=== PATIENT | female | born 1950 | race Asian ===

== ENCOUNTER 2020-10-19 10:06 | Inpatient (IN) | payer MEDICAID ==
[~2020-10-19] VITALS: Ht 157.5 cm; Wt 62.5 kg
[2020-10-19] VITALS (12 sets, daily range): BP systolic 86–142; BP diastolic 75–93
[~2020-10-19 10:06] MED LIST: ALBU2.5V8 INH; AMOX1TAB11 PO; HYDR-2761 PO; LOSA25TA4 PO; METF500T16 PO; SPIR25TA5 PO; UMEC1DIS IH
[2020-10-19] MEDS ORDERED: DEXAMETHASONE SOD PHOS 20 MG/5 ML VIAL. IVP ONE (11:00)
[2020-10-19] MEDS ORDERED: cefTRIAXone IV Push 1 GM VIAL. IVP ONE (11:00)
[2020-10-19 11:15] LABS: BASO % 0 % (0-3); EOS % 0 % (0-3); HEMATOCRIT 50.1 % (36.0-47.0); HEMOGLOBIN 15.5 g/dL (12.0-15.5); LYMPH # 1.3 x10^3/uL (1.0-4.8); LYMPH % 26 % (24-48); MEAN CORPUSCULAR HEMOGLOBIN 29 pg (25-35); MEAN CORPUSCULAR HGB CONC 31 g/dL (31-37); MEAN CORPUSCULAR VOLUME 93 fL (79-100); MONO # 0.7 x10^3/uL (0.0-1.1); MONO % 13 % (0-9); NEUT % 60 % (31-73); PLATELET COUNT 153 x10^3/uL (140-400); RED CELL DISTRIBUTION WIDTH 14.5 % (11.5-14.5); WHITE BLOOD COUNT 5.1 x10^3/uL (4.0-11.0)
[2020-10-19 11:20] LABS: BASE EXCESS ABG 6 mmol/L (-3-3); HCO3 ABG 38 mmol/L (21-28); PO2 ABG 161 mmHg (65-108); SAT O2 ABG 98 % (92-99)
--- NOTE | 2020-10-19 11:20 | ED.ADGEN ---
Past Medical History Past Medical History: COPD, Diabetes-Type II, High Cholesterol, Hypertension, Other Additional Past Medical Histor: pt wears O2 at night; poor historian Past Surgical History: Other Additional Past Surgical Histo: left hand Smoking Status: Never Smoker Alcohol Use: None General Adult EDM: Chief Complaint: SHORTNESS OF BREATH HPI: HPI: Patient 70-year-old female with past medical history of COPD who presents to the emergency room in respiratory failure. Family states that this is been ongoing for the last 4 days. They are unsure if she is having fever. History is significantly limited due to poor historian and language barrier. Patient is also in distress and is unable to answer any questions. Family states that they got her tested for Covid yesterday but the test result has not come back. Review of Systems: Review of Systems: HPI Current Medications: Current Medications Medications (Trade) Dose Ordered Sig/Fran Start Time Stop Time Status Last Admin Dose Admin Ceftriaxone Sodium (Rocephin) 1 gm 1X ONCE 10/19/20 11:00 10/19/20 11:01 DC 10/19/20 11:25 1 GM Dexamethasone Sodium Phosphate (Decadron) 10 mg 1X ONCE 10/19/20 11:00 10/19/20 11:01 DC 10/19/20 11:24 10 MG Allergies: Allergies: Allergies Coded Allergies Type Severity Reaction Last Updated Verified No Known Drug Allergies 11/15/19 No Physical Exam: PE: General: Awake, alert, moderate distress HEENT: Atraumatic, EOMI, PERRL, airway patent, dry oral mucosa Neck: Supple, trachea midline Respiratory: Decreased breath sounds bilaterally with diffuse crackles, tachypnea, increased work of breathing, respiratory distress CV: Tachycardic, no murmur, cap refill <2 GI: Soft, nondistended, nontender, no masses MSK: No obvious deformities Skin: Warm, dry, intact Neuro: Speaks in one-word sentences, sensory and motor grossly intact, no focal deficits Psych: Normal affect, normal mood, not suicidal or homicidal Current Patient Data: Labs: Laboratory Tests Test 10/19/20 10:30 10/19/20 10:35 10/19/20 11:20 10/19/20 12:49 White Blood Count 5.1 x10^3/uL (4.0-11.0) Red Blood Count 5.40 x10^6/uL (3.50-5.40) Hemoglobin 15.5 g/dL (12.0-15.5) Hematocrit 50.1 % (36.0-47.0) H Mean Corpuscular Volume 93 fL (79-100) Mean Corpuscular Hemoglobin 29 pg (25-35) Mean Corpuscular Hemoglobin Concent 31 g/dL (31-37) Red Cell Distribution Width 14.5 % (11.5-14.5) Platelet Count 153 x10^3/uL (140-400) Neutrophils (%) (Auto) 60 % (31-73) Lymphocytes (%) (Auto) 26 % (24-48) Monocytes (%) (Auto) 13 % (0-9) H Eosinophils (%) (Auto) 0 % (0-3) Basophils (%) (Auto) 0 % (0-3) Neutrophils # (Auto) 3.0 x10^3/uL (1.8-7.7) Lymphocytes # (Auto) 1.3 x10^3/uL (1.0-4.8) Monocytes # (Auto) 0.7 x10^3/uL (0.0-1.1) Eosinophils # (Auto) 0.0 x10^3/uL (0.0-0.7) Basophils # (Auto) 0.0 x10^3/uL (0.0-0.2) D-Dimer (Sheila) 1.10 ug/mlFEU (0.00-0.50) H Sodium Level 147 mmol/L (136-145) H Potassium Level 4.2 mmol/L (3.5-5.1) Chloride Level 107 mmol/L (98-107) Carbon Dioxide Level 36 mmol/L (21-32) H Anion Gap 4 (6-14) L Blood Urea Nitrogen 20 mg/dL (7-20) Creatinine 0.7 mg/dL (0.6-1.0) Estimated GFR (Cockcroft-Gault) 83.0 BUN/Creatinine Ratio 29 (6-20) H Glucose Level 155 mg/dL (70-99) H Calcium Level 8.5 mg/dL (8.5-10.1) Total Bilirubin 0.5 mg/dL (0.2-1.0) Aspartate Amino Transferase (AST) 61 U/L (15-37) H Alanine Aminotransferase (ALT) 75 U/L (14-59) H Alkaline Phosphatase 77 U/L (46-116) Lactate Dehydrogenase 269 U/L (81-234) H Creatine Kinase 79 U/L (26-192) Troponin I Quantitative 0.223 ng/mL (0.000-0.055) C-Reactive Protein, Quantitative 10.8 mg/L (0-3.3) H BL-Toe-F-Type Natriuretic Peptide 9013 pg/mL (0-124) H Total Protein 6.7 g/dL (6.4-8.2) Albumin 2.9 g/dL (3.4-5.0) L Albumin/Globulin Ratio 0.8 (1.0-1.7) L Influenza Type A Antigen Negative (NEGATIVE) Influenza Type B Antigen Negative (NEGATIVE) O2 Saturation 98 % (92-99) 88 % (92-99) L Arterial Blood pH 7.19 (7.35-7.45) *L 7.22 (7.35-7.45) L Arterial Blood pCO2 at Patient Temp 102 mmHg (35-46) *H 90 mmHg (35-46) *H Arterial Blood pO2 at Patient Temp 161 mmHg (65-108) H 63 mmHg (65-108) L Arterial Blood HCO3 38 mmol/L (21-28) H 36 mmol/L (21-28) H Arterial Blood Base Excess 6 mmol/L (-3-3) H 4 mmol/L (-3-3) H FiO2 100 bipap 100 bipap Laboratory Tests 10/19/20 10:30 Laboratory Tests 10/19/20 10:30 Vital Signs: Vital Signs Date Time Temp Pulse Resp B/P (MAP) Pulse Ox O2 Delivery O2 Flow Rate FiO2 10/19/20 13:00 68 103/74 (84) 97 BiPAP/CPAP 10/19/20 10:46 98.4 30 2.0 98.4 EKG: EKG: [] Heart Score: Risk Factors: Risk Factors: DM, Current or recent (<one month) smoker, HTN, HLP, family history of CAD, obesity. Risk Scores: Score 0 - 3: 2.5% MACE over next 6 weeks - Discharge Home Score 4 - 6: 20.3% MACE over next 6 weeks - Admit for Clinical Observation Score 7 - 10: 72.7% MACE over next 6 weeks - Early Invasive Strategies Radiology/Procedures: Radiology/Procedures: [] Course & Med Decision Making: Course & Med Decision Making Pertinent Labs and Imaging studies reviewed. (See chart for details) Patient is a 70-year-old female who presents to the emergency room in respiratory distress. Patient is significantly hypoxic. She did improve with a nonrebreather. She was placed on BiPAP. At this time there is concern for possible novel coronavirus 19, pulmonary edema, congestive heart failure, COPD exacerbation, pneumonia. Patient was given steroids and antibiotics. COVID test was ordered. Patient is significantly hypercapnic. Repeat gas shows improvement on BiPAP. We will continue to monitor to determine if patient improves with BiPAP or will need intubation. Patient will be admitted to the ICU. She has pulmonary edema. Dragon Disclaimer: Dragon Disclaimer: This electronic medical record was generated, in whole or in part, using a voice recognition dictation system. Critical Care Time Critical Care: Authorized and Performed by: Lauren Mendez MD Total critical care time: approximately 60 minutes Due to a high probability of clinically significant, life threatening deterioration, the patient required my highest level of preparedness to intervene emergently and I personally spent this critical care time directly and personally managing the patient. This critical care time included obtaining a history; examining the patient; pulse oximetry; ventilator management if necessary; ordering and review of studies; arranging urgent treatment with development of a management plan; evaluation of patient's response to treatment; frequent reassessment; discussion with patient/family; and, discussions with other providers. This critical care time was performed to assess and manage the high probability of imminent, life-threatening deterioration that could result in multi-organ failure. It was exclusive of separately billable procedures and treating other patients and teaching time. Please see MDM section and the rest of the note for further information on patient assessment and treatment. Departure Departure Impression: Primary Impression: Acute respiratory failure Additional Impression: Pulmonary edema Disposition: ADMITTED INPT THIS HOSP Condition: CRITICAL Referrals: NO PCP (PCP) Problem Qualifiers LAUREN MENDEZ MD Oct 19, 2020 11:20
[2020-10-19 11:22] LABS: PCO2 ABG 102 mmHg (35-46)
[2020-10-19 11:22] LABS: CALCIUM 8.5 mg/dL (8.5-10.1); CREATININE 0.7 mg/dL (0.6-1.0); POTASSIUM 4.2 mmol/L (3.5-5.1)
[2020-10-19 11:23] LABS: FIO2 ABG 100 BIPAP
--- NOTE | 2020-10-19 11:25 | RAD ---
Single view of the chest. 10/19/2020 11:06 AM Indication: Reason: cough, covid? / Spl. Instructions: / History: Comparison: Chest radiograph March 04, 2014 Findings: Cardiomediastinal silhouette appears be enlarged, likely augmented by portable technique an d positioning. And mild interstitial thickening appears be present which could represent mild edema. An atypical infectious process is not excluded. No pneumothorax or definitive effusion is seen. No ac yinka osseous changes are identified. IMPRESSION: Cardiomegaly, mild interstitial thickening. Findings could represent edema or an atypical infectious process. Electronically signed by: Anders Tobar MD (10/19/2020 11:23 AM) [id number]
[2020-10-19 11:28] LABS: ALBUMIN 2.9 g/dL (3.4-5.0); ALBUMIN/GLOBULIN RATIO 0.8 (1.0-1.7); C-REACTIVE PROTEIN 10.8 mg/L (0-3.3); TOTAL BILIRUBIN 0.5 mg/dL (0.2-1.0); TOTAL PROTEIN 6.7 g/dL (6.4-8.2)
[2020-10-19 11:50] LABS: INFLUENZA A PATIENT NEGATIVE (NEGATIVE); INFLUENZA B PATIENT NEGATIVE (NEGATIVE)
[2020-10-19 12:50] LABS: BASE EXCESS ABG 4 mmol/L (-3-3); HCO3 ABG 36 mmol/L (21-28); PO2 ABG 63 mmHg (65-108); SAT O2 ABG 88 % (92-99)
[2020-10-19 12:53] LABS: PCO2 ABG 90 mmHg (35-46)
[2020-10-19 12:54] LABS: FIO2 ABG 100 BIPAP
--- NOTE | 2020-10-19 14:02 | PDOC1 ---
History and Physical Date of Admission Date of Admission DATE: 10/19/20 TIME: 13:59 Identification/Chief Complaint Chief Complaint Shortness of breath Source Source: Caregiver, Chart review, Patient History of Present Illness History of Present Illness Ms Castellanos is a 70yo F [place] speaking only w/ PMHx COPD, Diabetes-Type II, High Cholesterol, Hypertension, YAN on nocturnal O2 who presents to the emergency room in respiratory distress. Family states that this is been ongoing for the last 4 days. They are unsure if she is having fever. History is significantly limited due to poor historian and language barrier. Patient is also in distress and is unable to answer any questions. Family states that they got her tested for Covid yesterday but the test result has not come back. She is notably confused according to her son, who is bedside. Chest radiograph with mild interstitial thickening Labs with WBC 5.1, Hb 15.5, platelets 153, NA 147, K4.2, BUN 20, CR 0.7, glucose 155, AST 61, ALT 75, LDH 269, albumin 2.9, CRP 10.8, BNP 9013, troponin 0 0.223, rapid influenza negative, ABG pH 7.19, PaCO2 102, PaO2 161 on BiPAP 100% FiO2 Admitted on BIPAP for further care. Past Medical History Cardiovascular: HTN, Hyperlipidemia Pulmonary: COPD Endocrine: Diabetes Past Surgical History Past Surgical History: Cholecystectomy Social History Smoke: No ALCOHOL: none Drugs: None Current Problem List Problem List Problems Medical Problems: (1) Acute respiratory failure Status: Acute Current Medications Current Medications Current Medications Dexamethasone Sodium Phosphate (Decadron) 10 mg 1X ONCE IVP Last administered on 10/19/20at 11:24; Start 10/19/20 at 11:00; Stop 10/19/20 at 11:01; Status DC Ceftriaxone Sodium (Rocephin) 1 gm 1X ONCE IVP Last administered on 10/19/20at 11:25; Start 10/19/20 at 11:00; Stop 10/19/20 at 11:01; Status DC Active Scripts Active Hydrocodone-Apap 5-325 (Hydrocodone Bit/Acetaminophen) 1 Tab Tablet 1 Tab PO PRN Q4HRS PRN 5 Days Amox Tr-K Clv 875-125 Mg Tab (Amoxicillin/Potassium Clav) 1 Each Tablet 1 Tab PO BID 4 Days Reported Anoro Ellipta 62.5-25 Mcg Inh (Umeclidinium Brm/Vilanterol Tr) 1 Each Disk.w.dev 1 Each IH Proair Hfa Inhaler (Albuterol Sulfate) 8.5 Gm Hfa.aer.ad 1 Puff INH PRN Q6HRS PRN Allergies Allergies: Coded Allergies: No Known Drug Allergies (Unverified , 11/15/19) ROS Review of System Unable to obtain due to confusion Physical Exam General: Cooperative, moderate distress HEENT: Atraumatic, PERRLA, EOMI, Mucous membr. moist/pink, Other (Stacey paint o n face) Lungs: Clear to auscultation, Normal air movement Heart: S1S2, RRR, no thrills, no rubs, no gallops, no murmurs Abdomen: Normal bowel sounds, Soft, No tenderness, No hepatosplenomegaly, No masses Rectal Exam: not examined Extremities: No clubbing, No cyanosis, No edema, Normal pulses, No tenderness/swelling Skin: No rashes, No breakdown, No significant lesion Neuro: Normal speech, Strength at 5/5 X4 ext, Normal tone, Sensation intact, Cranial nerves 3-12 NL, Reflexes 2+ Psych/Mental Status: Other (Confused) Vitals Vitals Vital Signs Date Time Temp Pulse Resp B/P (MAP) Pulse Ox O2 Delivery O2 Flow Rate FiO2 10/19/20 12:56 97 BiPAP/CPAP 10/19/20 12:50 82 103/74 (84) 10/19/20 10:46 98.4 30 2.0 98.4 Labs Labs Laboratory Tests Test 10/19/20 10:30 10/19/20 10:35 10/19/20 11:20 10/19/20 12:49 White Blood Count 5.1 x10^3/uL (4.0-11.0) Red Blood Count 5.40 x10^6/uL (3.50-5.40) Hemoglobin 15.5 g/dL (12.0-15.5) Hematocrit 50.1 % (36.0-47.0) Mean Corpuscular Volume 93 fL (79-100) Mean Corpuscular Hemoglobin 29 pg (25-35) Mean Corpuscular Hemoglobin Concent 31 g/dL (31-37) Red Cell Distribution Width 14.5 % (11.5-14.5) Platelet Count 153 x10^3/uL (140-400) Neutrophils (%) (Auto) 60 % (31-73) Lymphocytes (%) (Auto) 26 % (24-48) Monocytes (%) (Auto) 13 % (0-9) Eosinophils (%) (Auto) 0 % (0-3) Basophils (%) (Auto) 0 % (0-3) Neutrophils # (Auto) 3.0 x10^3/uL (1.8-7.7) Lymphocytes # (Auto) 1.3 x10^3/uL (1.0-4.8) Monocytes # (Auto) 0.7 x10^3/uL (0.0-1.1) Eosinophils # (Auto) 0.0 x10^3/uL (0.0-0.7) Basophils # (Auto) 0.0 x10^3/uL (0.0-0.2) D-Dimer (Sheila) 1.10 ug/mlFEU (0.00-0.50) Sodium Level 147 mmol/L (136-145) Potassium Level 4.2 mmol/L (3.5-5.1) Chloride Level 107 mmol/L (98-107) Carbon Dioxide Level 36 mmol/L (21-32) Anion Gap 4 (6-14) Blood Urea Nitrogen 20 mg/dL (7-20) Creatinine 0.7 mg/dL (0.6-1.0) Estimated GFR (Cockcroft-Gault) 83.0 BUN/Creatinine Ratio 29 (6-20) Glucose Level 155 mg/dL (70-99) Calcium Level 8.5 mg/dL (8.5-10.1) Total Bilirubin 0.5 mg/dL (0.2-1.0) Aspartate Amino Transf (AST/SGOT) 61 U/L (15-37) Alanine Aminotransferase (ALT/SGPT) 75 U/L (14-59) Alkaline Phosphatase 77 U/L (46-116) Lactate Dehydrogenase 269 U/L (81-234) Creatine Kinase 79 U/L (26-192) Troponin I Quantitative 0.223 ng/mL (0.000-0.055) C-Reactive Protein, Quantitative 10.8 mg/L (0-3.3) VI-Shp-H-Type Natriuretic Peptide 9013 pg/mL (0-124) Total Protein 6.7 g/dL (6.4-8.2) Albumin 2.9 g/dL (3.4-5.0) Albumin/Globulin Ratio 0.8 (1.0-1.7) Influenza Type A Antigen Negative (NEGATIVE) Influenza Type B Antigen Negative (NEGATIVE) O2 Saturation 98 % (92-99) 88 % (92-99) Arterial Blood pH 7.19 (7.35-7.45) 7.22 (7.35-7.45) Arterial Blood pCO2 at Patient Temp 102 mmHg (35-46) 90 mmHg (35-46) Arterial Blood pO2 at Patient Temp 161 mmHg (65-108) 63 mmHg (65-108) Arterial Blood HCO3 38 mmol/L (21-28) 36 mmol/L (21-28) Arterial Blood Base Excess 6 mmol/L (-3-3) 4 mmol/L (-3-3) FiO2 100 bipap 100 bipap Laboratory Tests Test 10/19/20 10:30 10/19/20 10:35 10/19/20 11:20 10/19/20 12:49 White Blood Count 5.1 x10^3/uL (4.0-11.0) Red Blood Count 5.40 x10^6/uL (3.50-5.40) Hemoglobin 15.5 g/dL (12.0-15.5) Hematocrit 50.1 % (36.0-47.0) Mean Corpuscular Volume 93 fL (79-100) Mean Corpuscular Hemoglobin 29 pg (25-35) Mean Corpuscular Hemoglobin Concent 31 g/dL (31-37) Red Cell Distribution Width 14.5 % (11.5-14.5) Platelet Count 153 x10^3/uL (140-400) Neutrophils (%) (Auto) 60 % (31-73) Lymphocytes (%) (Auto) 26 % (24-48) Monocytes (%) (Auto) 13 % (0-9) Eosinophils (%) (Auto) 0 % (0-3) Basophils (%) (Auto) 0 % (0-3) Neutrophils # (Auto) 3.0 x10^3/uL (1.8-7.7) Lymphocytes # (Auto) 1.3 x10^3/uL (1.0-4.8) Monocytes # (Auto) 0.7 x10^3/uL (0.0-1.1) Eosinophils # (Auto) 0.0 x10^3/uL (0.0-0.7) Basophils # (Auto) 0.0 x10^3/uL (0.0-0.2) D-Dimer (Sheila) 1.10 ug/mlFEU (0.00-0.50) Sodium Level 147 mmol/L (136-145) Potassium Level 4.2 mmol/L (3.5-5.1) Chloride Level 107 mmol/L (98-107) Carbon Dioxide Level 36 mmol/L (21-32) Anion Gap 4 (6-14) Blood Urea Nitrogen 20 mg/dL (7-20) Creatinine 0.7 mg/dL (0.6-1.0) Estimated GFR (Cockcroft-Gault) 83.0 BUN/Creatinine Ratio 29 (6-20) Glucose Level 155 mg/dL (70-99) Calcium Level 8.5 mg/dL (8.5-10.1) Total Bilirubin 0.5 mg/dL (0.2-1.0) Aspartate Amino Transf (AST/SGOT) 61 U/L (15-37) Alanine Aminotransferase (ALT/SGPT) 75 U/L (14-59) Alkaline Phosphatase 77 U/L (46-116) Lactate Dehydrogenase 269 U/L (81-234) Creatine Kinase 79 U/L (26-192) Troponin I Quantitative 0.223 ng/mL (0.000-0.055) C-Reactive Protein, Quantitative 10.8 mg/L (0-3.3) PF-Ujo-L-Type Natriuretic Peptide 9013 pg/mL (0-124) Total Protein 6.7 g/dL (6.4-8.2) Albumin 2.9 g/dL (3.4-5.0) Albumin/Globulin Ratio 0.8 (1.0-1.7) Influenza Type A Antigen Negative (NEGATIVE) Influenza Type B Antigen Negative (NEGATIVE) O2 Saturation 98 % (92-99) 88 % (92-99) Arterial Blood pH 7.19 (7.35-7.45) 7.22 (7.35-7.45) Arterial Blood pCO2 at Patient Temp 102 mmHg (35-46) 90 mmHg (35-46) Arterial Blood pO2 at Patient Temp 161 mmHg (65-108) 63 mmHg (65-108) Arterial Blood HCO3 38 mmol/L (21-28) 36 mmol/L (21-28) Arterial Blood Base Excess 6 mmol/L (-3-3) 4 mmol/L (-3-3) FiO2 100 bipap 100 bipap Images Images Chest radiograph: Findings: Cardiomediastinal silhouette appears be enlarged, likely augmented by portable technique and positioning. And mild interstitial thickening appears be present which could represent mild edema. An atypical infectious process is not excluded. No pneumothorax or definitive effusion is seen. No acute osseous changes are identified. IMPRESSION: Cardiomegaly, mild interstitial thickening. Findings could represent edema or an atypical infectious process. VTE Prophylaxis Ordered VTE Prophylaxis Devices: Yes VTE Pharmacological Prophylaxi: Yes Assessment/Plan Assessment/Plan A/P: Acute respiratory failure with hypoxia and hypercapnea - likely infectious process, high risk for gram negative pneumonia, COVID 19 possible vs COPD exacerbation. Cont BIPAP. pulm consulted. antibiotics, f/u COVID results COPD - with acute exacerbation, steroids, bipap Transaminitis - likely due to poor PO intake vs COVID, will f/u Elevated troponin - likely demand ischemia type II, will trend troponins Hypernatremia - likely hypovolemic, will hydrate, early nutrition Diabetes-Type II - sliding scale High Cholesterol - statin Hypertension - cont home meds YAN on nocturnal O2 - will cont bipap for now FEN - NPO PPX - lovenox FULL CODE Dispo - ICU on BIPAP, will reassess for possible downgrade once PCO2 improves CC time 39 minutes Justifications for Admission Other Justification BRADY TELLEZ MD Oct 19, 2020 14:02
[2020-10-19] MEDS ORDERED: ONDANSETRON PF 4 MG/2 ML VIAL. IV PRN (14:15)
[2020-10-19] MEDS ORDERED: ACETAMINOPHEN 650 MG SUPP.RECT. PR PRN (14:15)
[2020-10-19 15:52] LABS: BASE EXCESS ABG 4 mmol/L (-3-3); HCO3 ABG 35 mmol/L (21-28); PO2 ABG 135 mmHg (65-108); SAT O2 ABG 98 % (92-99)
[2020-10-19] MEDS ORDERED: DEXTROSE 50% 25 GM / 50ML DISP.SYRIN. IV PRN (16:00)
[2020-10-19] MEDS ORDERED: DOXYCYCLINE HYCLATE 100 MG in IV DEXTROSE 5% 100ML 100 ML IV ONE (16:00)
[2020-10-19] MEDS: THIAMINE 100 MG TABLET. PO SCH (16:00)
[2020-10-19] MEDS: ZINC SULFATE 220 MG CAPSULE. PO SCH (16:00)
[2020-10-19 16:03] LABS: PCO2 ABG 81 mmHg (35-46)
[2020-10-19] MEDS: INSULIN LISPRO 300 UNITS/3 ML VIAL. SQ SCH (17:00)
[2020-10-19] MEDS ORDERED: METF500T16 PO (17:35)
[2020-10-19] MEDS ORDERED: LOSA25TA4 PO (17:35)
[2020-10-19] MEDS ORDERED: METO-239 PO (17:35)
--- NOTE | 2020-10-19 18:23 | NUR ---
Pt arrived to [facility] 115 @ 1645. Pt placed on ICU bed and hooked up to monitors. Bipap applied. Son at bedside and dependency counselor phone used to answer all admission questions. Pt speaks Italian. Garcia catheter placed. Dr. Zhang notified of new consult. Orders received to make bipap settings FIO2 down to 55%. Pt's home med rec completed.
[2020-10-19] MEDS: AMINO AC 3%/ELECTROLYTE/GLYCER 1,000 ML IV SCH (18:30)
[2020-10-19] MEDS: ENOXAPARIN 40 MG/0.4 ML SYRINGE. SQ SCH (21:01)
[2020-10-19 21:18] LABS: BASE EXCESS ABG 5 mmol/L (-3-3); HCO3 ABG 31 mmol/L (21-28); PCO2 ABG 49 mmHg (35-46); PO2 ABG 74 mmHg (65-108); SAT O2 ABG 96 % (92-99)
[2020-10-19 21:19] LABS: FIO2 ABG 55
[2020-10-20] VITALS (24 sets, daily range): BP systolic 98–165; BP diastolic 59–101
--- NOTE | 2020-10-20 07:41 | PDOC ---
[facility] PROGRESS NOTE Date of Service DOS: DATE: 10/20/20 TIME: 07:34 Chief Complaint Chief Complaint A/P: Acute respiratory failure with hypoxia and hypercapnea - likely infectious process, high risk for gram negative pneumonia, COVID 19 possible vs COPD exacerbation. Cont BIPAP. pulm consulted. antibiotics, f/u COVID results COPD - with acute exacerbation, steroids, bipap Transaminitis - likely due to poor PO intake vs COVID, will f/u Elevated troponin - likely demand ischemia type II, will trend troponins Hypernatremia - likely hypovolemic, will hydrate, early nutrition Diabetes-Type II - sliding scale High Cholesterol - statin Hypertension - cont home meds YAN on nocturnal O2 - will cont bipap for now FEN - NPO PPX - lovenox FULL CODE Dispo - ICU on BIPAP, will reassess for possible downgrade once PCO2 improves CC time 39 minutes History of Present Illness History of Present Illness Ms Castellanos is a 70yo F [place] speaking only w/ PMHx COPD, Diabetes-Type II, High Cholesterol, Hypertension, YAN on nocturnal O2 who presents to the emergency room in respiratory distress. Family states that this is been ongoing for the last 4 days. They are unsure if she is having fever. History is significantly limited due to poor historian and language barrier. Patient is also in distress and is unable to answer any questions. Family states that they got her tested for Covid yesterday but the test result has not come back. She is notably confused according to her son, who is bedside. Chest radiograph with mild interstitial thickening Labs with WBC 5.1, Hb 15.5, platelets 153, NA 147, K4.2, BUN 20, CR 0.7, glucose 155, AST 61, ALT 75, LDH 269, albumin 2.9, CRP 10.8, BNP 9013, troponin 0 0.223, rapid influenza negative, ABG pH 7.19, PaCO2 102, PaO2 161 on BiPAP 100% FiO2 Admitted on BIPAP for further care. 10/20: Patient seen in ICU. Afebrile. Breathing on BiPAP, FiO2 50%. Appreciate pulmonology recommendations. Continue Rocephin and doxycycline. COVID-19 pending. Vitals/I&O Vitals/I&O: Vital Signs Date Time Temp Pulse Resp B/P (MAP) Pulse Ox O2 Delivery O2 Flow Rate FiO2 10/20/20 06:01 56 30 116/78 (91) 99 BiPAP/CPAP 10/20/20 04:00 98.2 98.2 10/19/20 10:46 2.0 I & O 10/19/20 10/19/20 10/20/20 15:00 23:00 07:00 Intake Total 801 ml Output Total 360 ml 450 ml Balance -360 ml 351 ml Physical Exam General: Alert, Cooperative, mild distress Heart: Regular rate Lungs: Other (Decreased, coarse breath sounds) Abdomen: Other (Nondistended) Extremities: No clubbing, No cyanosis Skin: No rashes, No breakdown Labs Labs: Laboratory Tests Test 10/19/20 10:30 10/19/20 10:35 10/19/20 11:20 10/19/20 12:49 White Blood Count 5.1 x10^3/uL (4.0-11.0) Red Blood Count 5.40 x10^6/uL (3.50-5.40) Hemoglobin 15.5 g/dL (12.0-15.5) Hematocrit 50.1 % (36.0-47.0) Mean Corpuscular Volume 93 fL (79-100) Mean Corpuscular Hemoglobin 29 pg (25-35) Mean Corpuscular Hemoglobin Concent 31 g/dL (31-37) Red Cell Distribution Width 14.5 % (11.5-14.5) Platelet Count 153 x10^3/uL (140-400) Neutrophils (%) (Auto) 60 % (31-73) Lymphocytes (%) (Auto) 26 % (24-48) Monocytes (%) (Auto) 13 % (0-9) Eosinophils (%) (Auto) 0 % (0-3) Basophils (%) (Auto) 0 % (0-3) Neutrophils # (Auto) 3.0 x10^3/uL (1.8-7.7) Lymphocytes # (Auto) 1.3 x10^3/uL (1.0-4.8) Monocytes # (Auto) 0.7 x10^3/uL (0.0-1.1) Eosinophils # (Auto) 0.0 x10^3/uL (0.0-0.7) Basophils # (Auto) 0.0 x10^3/uL (0.0-0.2) D-Dimer (Sheila) 1.10 ug/mlFEU (0.00-0.50) Sodium Level 147 mmol/L (136-145) Potassium Level 4.2 mmol/L (3.5-5.1) Chloride Level 107 mmol/L (98-107) Carbon Dioxide Level 36 mmol/L (21-32) Anion Gap 4 (6-14) Blood Urea Nitrogen 20 mg/dL (7-20) Creatinine 0.7 mg/dL (0.6-1.0) Estimated GFR (Cockcroft-Gault) 83.0 BUN/Creatinine Ratio 29 (6-20) Glucose Level 155 mg/dL (70-99) Calcium Level 8.5 mg/dL (8.5-10.1) Total Bilirubin 0.5 mg/dL (0.2-1.0) Aspartate Amino Transf (AST/SGOT) 61 U/L (15-37) Alanine Aminotransferase (ALT/SGPT) 75 U/L (14-59) Alkaline Phosphatase 77 U/L (46-116) Lactate Dehydrogenase 269 U/L (81-234) Creatine Kinase 79 U/L (26-192) Troponin I Quantitative 0.223 ng/mL (0.000-0.055) C-Reactive Protein, Quantitative 10.8 mg/L (0-3.3) OT-Eqs-E-Type Natriuretic Peptide 9013 pg/mL (0-124) Total Protein 6.7 g/dL (6.4-8.2) Albumin 2.9 g/dL (3.4-5.0) Albumin/Globulin Ratio 0.8 (1.0-1.7) Influenza Type A Antigen Negative (NEGATIVE) Influenza Type B Antigen Negative (NEGATIVE) O2 Saturation 98 % (92-99) 88 % (92-99) Arterial Blood pH 7.19 (7.35-7.45) 7.22 (7.35-7.45) Arterial Blood pCO2 at Patient Temp 102 mmHg (35-46) 90 mmHg (35-46) Arterial Blood pO2 at Patient Temp 161 mmHg (65-108) 63 mmHg (65-108) Arterial Blood HCO3 38 mmol/L (21-28) 36 mmol/L (21-28) Arterial Blood Base Excess 6 mmol/L (-3-3) 4 mmol/L (-3-3) FiO2 100 bipap 100 bipap Test 10/19/20 15:37 10/19/20 18:50 10/19/20 21:18 O2 Saturation 98 % (92-99) 96 % (92-99) Arterial Blood pH 7.25 (7.35-7.45) 7.42 (7.35-7.45) Arterial Blood pCO2 at Patient Temp 81 mmHg (35-46) 49 mmHg (35-46) Arterial Blood pO2 at Patient Temp 135 mmHg (65-108) 74 mmHg (65-108) Arterial Blood HCO3 35 mmol/L (21-28) 31 mmol/L (21-28) Arterial Blood Base Excess 4 mmol/L (-3-3) 5 mmol/L (-3-3) FiO2 100/bipap 55 Troponin I Quantitative 0.136 ng/mL (0.000-0.055) Assessment and Plan Assessmemt and Plan Problems Medical Problems: (1) Acute respiratory failure Status: Acute (2) Pulmonary edema Status: Acute Comment Review of Relevant I have reviewed the following items torin (where applicable) has been applied. Medications: Current Medications Medications (Trade) Dose Ordered Sig/Fran Route PRN Reason Start Time Stop Time Status Last Admin Dose Admin Dexamethasone Sodium Phosphate (Decadron) 10 mg 1X ONCE IVP 10/19/20 11:00 10/19/20 11:01 DC 10/19/20 11:24 Ceftriaxone Sodium (Rocephin) 1 gm 1X ONCE IVP 10/19/20 11:00 10/19/20 11:01 DC 10/19/20 11:25 Enoxaparin Sodium (Lovenox 40mg Syringe) 40 mg Q24H SQ 10/19/20 21:00 10/19/20 21:01 Doxycycline Hyclate 100 mg/ Dextrose 100 ml @ 50 mls/hr 1X ONCE IV 10/19/20 16:00 10/19/20 17:59 DC 10/19/20 18:02 Amino Acids/ Glycerin/ Electrolytes 1,000 ml @ 80 mls/hr [id number] IV 10/19/20 18:30 10/19/20 18:30 Justifications for Admission General Conditions Altered mental status?: Yes Justification of admission: Patient has tachycardia (> 100 beats per minute) or hypotension (SBP < 90 mm Hg) leading to inadequate systemic perfusion as indicated by severe/persistent altered mental status. Other Justification LORNA KEY MD Oct 20, 2020 07:41
[2020-10-20] MEDS: INSULIN LISPRO 300 UNITS/3 ML VIAL. SQ SCH ×3 (08:00→17:00)
[2020-10-20] MEDS: AMINO AC 3%/ELECTROLYTE/GLYCER 1,000 ML IV SCH (08:04)
[2020-10-20] MEDS: DOXYCYCLINE HYCLATE 100 MG in IV DEXTROSE 5% 100ML 100 ML IV SCH ×2 (08:05→21:17)
[2020-10-20 08:31] LABS: BASO % 0 % (0-3); EOS % 0 % (0-3); HEMATOCRIT 46.7 % (36.0-47.0); HEMOGLOBIN 14.7 g/dL (12.0-15.5); LYMPH # 0.8 x10^3/uL (1.0-4.8); LYMPH % 18 % (24-48); MEAN CORPUSCULAR HEMOGLOBIN 29 pg (25-35); MEAN CORPUSCULAR HGB CONC 32 g/dL (31-37); MEAN CORPUSCULAR VOLUME 90 fL (79-100); MONO # 0.5 x10^3/uL (0.0-1.1); MONO % 10 % (0-9); NEUT # 3.5 x10^3/uL (1.8-7.7); NEUT % 72 % (31-73); PLATELET COUNT 133 x10^3/uL (140-400); RED BLOOD COUNT 5.17 x10^6/uL (3.50-5.40); RED CELL DISTRIBUTION WIDTH 14.2 % (11.5-14.5); WHITE BLOOD COUNT 4.8 x10^3/uL (4.0-11.0)
[2020-10-20 09:03] LABS: ALBUMIN 2.2 g/dL (3.4-5.0); TOTAL PROTEIN 5.1 g/dL (6.4-8.2)
[2020-10-20 09:04] LABS: ALBUMIN/GLOBULIN RATIO 0.8 (1.0-1.7); CREATININE 0.5 mg/dL (0.6-1.0); GFR 122.3; POTASSIUM 4.1 mmol/L (3.5-5.1); TOTAL BILIRUBIN 0.5 mg/dL (0.2-1.0)
[2020-10-20] MEDS: THIAMINE 100 MG TABLET. PO SCH (10:06)
[2020-10-20] MEDS: guaiFENesin DM 200MG/20MG 10 ML SYRUP PO PRN (10:06)
[2020-10-20] MEDS: ZINC SULFATE 220 MG CAPSULE. PO SCH (10:06)
--- NOTE | 2020-10-20 10:38 | NUR ---
SS following for discharge planning. SS reviewed pt chart and discussed with pt RN. Pt is from home and is currently on BIPAP at 40%. COVID19 test pending. Pt on IV Rocephin and IV Doxycycline. PPN. SS will continue to follow for discharge planning.
[2020-10-20] MEDS ORDERED: FUROSEMIDE 20 MG/2 ML VIAL. IVP ONE ×2 (10:45→12:30)
--- NOTE | 2020-10-20 11:51 | PDOC2 ---
LIGIA MARTINEZ PUBLIC SERVICE ADMINISTRATOR 10/20/20 1151: CARDIAC CONSULT DATE OF CONSULT Date of Consult DATE: 10/20/20 TIME: 11:32 REASON FOR CONSULT Reason for Consult: elevated proNT-BNP REFERRING PHYSICIAN Referring Physician: Vicente SOURCE Source: Chart review, Patient HISTORY OF PRESENT ILLNESS HISTORY OF PRESENT ILLNESS This is a 70 yo Afghan female admitted for complains of shortness of breath. Difficult to ascertain details due to language barrier and I have to discussed details with her son who can speak Fijian but there is still limitation. In the last 4 days she has been becoming more SOA. Also noted with wheezing but no productive cough. She is particularly sedentary but has been having exertional dyspnea. Also family noted increasing leg swelling. No complains of palpitations or chest pain bu has been having PND, orthopnea and has been breathing faster. She does use O2 at night possibly from sleep apnea. She has seen cariologist in [facility] and last office appt with Dr. Poon was 02/2020. She is known for NICM with prior EF of 40%. It does not appear that she has lasix in her regimen but does take aldactone. Presently she remains tachyneic with O2 sat in the low 90s via venti mask. No prior hx VTE, arrhythmias and no prior LHC. No fever or chills and no one in the family has been tested for covid-19. She did get tested the other day but it is still pending. No GI symptoms. PAST MEDICAL HISTORY Cardiovascular: CHF, HTN, Hyperlipidemia, Other (NICM; PFO with left to right shunt in 2016 via TTE) Pulmonary: Asthma, Other (Hx of BYRON (mycobacterium avium-intracellulare) treated with INH) CENTRAL NERVOUS SYSTEM: Other (No pertinent history) GI: Other (umbilical hernia) Hepatobiliary: Cholelithiasis Psych: No pertinent hx Musculoskeletal: Osteoarthritis Rheumatologic: No pertinent hx Infectious disease: Other (BYRON) ENT: Allergic Rhinitis Renal/: Chronic renal insuff Endocrine: Diabetes (2) Dermatology: Other (facial tatoos and yellowish lower leg pigementation) PAST SURGICAL HISTORY Past Surgical History: Other (ERCP with sphincterectomy) FAMILY HISTORY Family History: Family History Unknown SOCIAL HISTORY Smoke: Quit (remotely) ALCOHOL: none Drugs: None Lives: with Family CURRENT MEDICATIONS CURRENT MEDICATIONS Current Medications Medications (Trade) Dose Ordered Sig/Fran Route PRN Reason Start Time Stop Time Status Last Admin Dose Admin Enoxaparin Sodium (Lovenox 40mg Syringe) 40 mg Q24H SQ 10/19/20 21:00 10/19/20 21:01 Zinc Sulfate (Orazinc) 220 mg DAILY PO 10/19/20 16:00 10/20/20 10:06 Thiamine Mononitrate (Vitamin B-1) 100 mg DAILY PO 10/19/20 16:00 10/20/20 10:06 Guaifenesin (Robitussin Dm) 10 ml PRN Q6HRS PRN PO COUGH 10/19/20 16:00 10/20/20 10:06 Doxycycline Hyclate 100 mg/ Dextrose 100 ml @ 50 mls/hr 1X ONCE IV 10/19/20 16:00 10/19/20 17:59 DC 10/19/20 18:02 Doxycycline Hyclate 100 mg/ Dextrose 100 ml @ 50 mls/hr Q12HR IV 10/20/20 09:00 10/20/20 08:05 Amino Acids/ Glycerin/ Electrolytes 1,000 ml @ 80 mls/hr [id number] IV 10/19/20 18:30 10/20/20 08:04 ALLERGIES ALLERGIES: Coded Allergies: No Known Drug Allergies (Unverified , 11/15/19) ROS Review of System limited, due to language barrier. PHYSICAL EXAM General: Alert, Cooperative, moderate distress HEENT: Atraumatic, Mucous membr. moist/pink, Other (facial tatoos) Heart: Regular rate (SR), Other (distant heart sounds) Abdomen: Soft Extremities: No cyanosis, Other (2+ bilateral LE pitting edema) Skin: No significant lesion Neuro: Normal speech, Sensation intact Psych/Mental Status: Mental status NL, Mood NL MUSCULOSKELETAL: Osteoarthritic changes both hands VITALS/I&O VITALS/I&O: Vital Signs Date Time Temp Pulse Resp B/P (MAP) Pulse Ox O2 Delivery O2 Flow Rate FiO2 10/20/20 08:00 54 8 126/79 (95) 94 BiPAP/CPAP 10/20/20 07:00 96.7 96.7 10/19/20 10:46 2.0 I & O 10/19/20 10/19/20 10/20/20 15:00 23:00 07:00 Intake Total 801 ml Output Total 360 ml 450 ml Balance -360 ml 351 ml LABS Lab: Laboratory Tests Test 10/19/20 12:49 10/19/20 15:37 10/19/20 18:50 10/19/20 21:18 O2 Saturation 88 % (92-99) L 98 % (92-99) 96 % (92-99) Arterial Blood pH 7.22 (7.35-7.45) L 7.25 (7.35-7.45) L 7.42 (7.35-7.45) Arterial Blood pCO2 at Patient Temp 90 mmHg (35-46) *H 81 mmHg (35-46) *H 49 mmHg (35-46) H Arterial Blood pO2 at Patient Temp 63 mmHg (65-108) L 135 mmHg (65-108) H 74 mmHg (65-108) Arterial Blood HCO3 36 mmol/L (21-28) H 35 mmol/L (21-28) H 31 mmol/L (21-28) H Arterial Blood Base Excess 4 mmol/L (-3-3) H 4 mmol/L (-3-3) H 5 mmol/L (-3-3) H FiO2 100 bipap 100/bipap 55 Troponin I Quantitative 0.136 ng/mL (0.000-0.055) Test 10/20/20 07:55 White Blood Count 4.8 x10^3/uL (4.0-11.0) Red Blood Count 5.17 x10^6/uL (3.50-5.40) Hemoglobin 14.7 g/dL (12.0-15.5) Hematocrit 46.7 % (36.0-47.0) Mean Corpuscular Volume 90 fL (79-100) Mean Corpuscular Hemoglobin 29 pg (25-35) Mean Corpuscular Hemoglobin Concent 32 g/dL (31-37) Red Cell Distribution Width 14.2 % (11.5-14.5) Platelet Count 133 x10^3/uL (140-400) L Neutrophils (%) (Auto) 72 % (31-73) Lymphocytes (%) (Auto) 18 % (24-48) L Monocytes (%) (Auto) 10 % (0-9) H Eosinophils (%) (Auto) 0 % (0-3) Basophils (%) (Auto) 0 % (0-3) Neutrophils # (Auto) 3.5 x10^3/uL (1.8-7.7) Lymphocytes # (Auto) 0.8 x10^3/uL (1.0-4.8) L Monocytes # (Auto) 0.5 x10^3/uL (0.0-1.1) Eosinophils # (Auto) 0.0 x10^3/uL (0.0-0.7) Basophils # (Auto) 0.0 x10^3/uL (0.0-0.2) Sodium Level 143 mmol/L (136-145) Potassium Level 4.1 mmol/L (3.5-5.1) Chloride Level 105 mmol/L (98-107) Carbon Dioxide Level 32 mmol/L (21-32) Anion Gap 6 (6-14) Blood Urea Nitrogen 25 mg/dL (7-20) H Creatinine 0.5 mg/dL (0.6-1.0) L Estimated GFR (Cockcroft-Gault) 122.3 BUN/Creatinine Ratio 50 (6-20) H Glucose Level 139 mg/dL (70-99) H Calcium Level 8.0 mg/dL (8.5-10.1) L Total Bilirubin 0.5 mg/dL (0.2-1.0) Aspartate Amino Transferase (AST) 39 U/L (15-37) H Alanine Aminotransferase (ALT) 56 U/L (14-59) Alkaline Phosphatase 58 U/L (46-116) Troponin I Quantitative 0.129 ng/mL (0.000-0.055) Total Protein 5.1 g/dL (6.4-8.2) L Albumin 2.2 g/dL (3.4-5.0) L Albumin/Globulin Ratio 0.8 (1.0-1.7) L Laboratory Tests 10/20/20 07:55 Laboratory Tests 10/20/20 07:55 ECHOCARDIOGRAM ECHOCARDIOGRAM 06/09/2019 [facility] Moderate LV Systolic Dysfunction with LVEF ~=40% by both visual estimation and Biplane isikra-pw-xhejv calculation. There is hypokinesis of the basal to mid septal segments with low-normal regional wall motion otherwise Although the measured LVIDD suggests left ventricular dilatation, the biplane method of disks volume evaluation would suggest normal LV cavity size LV Diastolic Volume = 66.45 mL (Range: 46 - 106) LV Diastolic Vol Index = 42.60 mL Global systolic RV function is depressed Mildly dilated Interatrial septal aneurysm: interatrial septum bows right to left Small/collapsed IVC (~= 7 mm at end diastole), suggestive of low central venous pressure--consider possible intravascular volume depletion Estimated Peak Systolic PA Pressure 20 mmHg In comparison to prior study dated 05.04.16: no significant changes seen in LV function. The LV diastolic volume was = 53 mL previously. The Interatrial septal aneurysm appears unchanged. Left Ventricle Normal wall thickness. Although the measured LVIDD suggests left ventricular dilatation, the biplane method of disks volume evaluation would suggest normal LV cavity size. Increased mass. Moderately decreased ejection fraction. Moderate LV Systolic Dysfunction with LVEF ~=40% by both visual estimation and Biplane uujfoy-ej-qxvxv calculation. There is hypokinesis of the basal to mid septal segments with low-normal regional wall motion otherwise. Normal septal motion. Grade I (mild) left ventricular diastolic dysfunction. Unable to assess left atrial pressure. Right Ventricle Normal size and wall thickness. Global systolic RV function is depressed. Longitudinal systolic function is reduced as measured by TAPSE. RV TDI S' velocity is reduced as well. No thrombus present. No mass present. Left Atrium Normal size. Right Atrium Mildly dilated. Interatrial septal aneurysm. Interatrial septum bows right to left. Cannot rule out Patent Foramen Ovale or small interatrial shunt--focal color Doppler noted at region of ostium secundum but not confirmed in multiple views. No thrombus present. No mass present. IVC/SVC Small/collapsed IVC (~= 7 mm at end diastole), suggestive of low central venous pressure--consider possible intravascular volume depletion. Mitral Valve Normal valve structure. No stenosis. Trace regurgitation. Tricuspid Valve Normal valve structure. No stenosis. Trace regurgitation. Aortic Valve Normal valve structure. No stenosis. Mild regurgitation. Pulmonary The pulmonic valve was not seen well but no Doppler evidence of stenosis. Trace regurgitation. The pulmonary artery was not well seen. Aorta Normal aortic root and ascending aorta. The transverse and descending p ortions of the thoracic aorta are not well visualized. No coarctation noted based on velocities. Pericardium No pericardial effusion STRESS TEST STRESS TEST 05/26/2019 [facility] INDICATIONS FOR STUDY (HISTORY): This is a 68 year old female with a history of nonischemic cardiomyopathy, mild AI, PFO, prior pulmonary BYRON infection, hypertension, and dyspnea. The study was obtained to evaluate for significant myocardial ischemia. PROCEDURAL DETAILS: Initially, the patient received a 5 ml intravenous infusion of Regadenoson at 0.08 mg/ml over 10 to 15 seconds. Approximately 20 seconds later 2.1 mCi of [id number] was injected intravenously. Throughout the infusion continuous electrocardiographic monitoring and serial electrocardiograms were obtained, as well as intermittent blood pressure recordings. Gated upright D-SPECT tomographic images were then acquired approximately 5 minutes after discontinuation of the regadenoson infusion. When indicated supine D-SPECT images were also obtained. The patient returned in approximately 4 hours and received an additional intravenous injection of 0.5 mCi of [id number] Chloride as a reinjected dose to assist in the detection of myocardial ischemia and viability. Images were then reacquired and compared to post stress images. FINDINGS: Pharmacological Stress Electrocardiogram: The patient's resting heart rate was 91 bpm and the resting blood pressure was 118/68. The patients peak stress heart rate was 77 bpm and the peak stress blood pressure was 116/70. Her resting ECG demonstrated normal sinus rhythm with a heart rate of 80, there is borderline delayed R wave progression, there is fairly diffuse T wave flattening with some inversions as well as some subtle ST depression in the inferolateral leads. During pharmacologic stress she complained of feeling flushed and lightheaded. It resolved during the recovery phase. The baseline ST segment depression changes remained unchanged. There was no ectopy. Conclusion: Pharmacologic stress ECG is nondiagnostic for ischemia. ASSESSMENT/PLAN ASSESSMENT/PLAN 1. Acute on chronic diastolic/systolic CHF 2. Acute hypercapnic respiratory failure with hx of asthma and possible YAN. Pulmonary following 3. NICM: last known EF at 40% 4. Hx of PFO with L>R shunting 5. HTN: controlled 6. DM2 7. Hx of latent TB(BYRON) treated with INH 8. PUI 9. Asymptomatic SB: no pauses lowest in the 40s. 10. Mild troponin elevation: peaked at 0.2. no acute EKG changes no CP. Suspect demand mediated Recommendations 1. Bipap as warranted. Diurese with lasix 2. Continue home toprol and SB remains then will decrease dosing and will resume aldactone prior to DC 3. ASA. Check lipids and start on statin per level 4. TTE with bubble study if covid-19 neg 5. Supportive care 6. Ischemic w/u possibly as an outpt pending clinical course. KARL VÁSQUEZ MD 10/20/20 1632: CARDIAC CONSULT ASSESSMENT/PLAN ASSESSMENT/PLAN Patient seen and examined. Agree with ASSEMBLY[facility] OR WOMAN's assessment and plan. Continue diuresis for acute on chronic systolic heart failure. Slight troponin elevation probably demand ischemia. Last 2D echo showed LVEF 40% with PFO Repeat 2D echo if Covid negative. Plan ischemic evaluation outpatient. Thank you for your consultation. LIGIA MARTINEZ APRN Oct 20, 2020 11:51 KARL VÁSQUEZ MD Oct 20, 2020 16:32
[2020-10-20] MEDS: cefTRIAXone IV Push 1 GM VIAL. IVP SCH (12:07)
--- NOTE | 2020-10-20 12:49 | CONS ---
DATE OF CONSULTATION: PULMONARY CONSULTATION ATTENDING PHYSICIAN: Salvatore Cuba MD REASON FOR CONSULTATION: Respiratory failure. HISTORY OF PRESENT ILLNESS: The patient is a 70-year-old female who does not speak Azeri. The patient was brought into the hospital with complaint of increased shortness of breath. The patient has history of questionable COPD, type 2 diabetes, dyslipidemia and hypertension. She also has sleep apnea for which she is on nocturnal oxygen. The patient reportedly has a cough. Since hospitalization, she does not have any fever. No chest pain reported. Due to language barrier, it is difficult to obtain history. Her chest x-ray was reviewed. There is faint interstitial markings and possible minimal infiltrate involving the left upper lobe close to the pleura. Cardiac silhouette was enlarged, but it was a poor inspiratory film. Her arterial blood gases were highly abnormal on admission. Her pH was 7.19, pCO2 of 102 and a pO2 of 161 with a bicarbonate of 38. Since then she was placed on BiPAP. I have gradually decreased her FiO2 to avoid hyperoxia. Her latest ABG shows a pH of 7.42, pCO2 of 49 and a pO2 of 74. This was obtained on 55% FiO2. She is off the BiPAP now and on a Ventimask. PAST MEDICAL HISTORY: Significant for possible COPD, history of obesity and hypoventilation syndrome, suspected chronic hypercapnia, history of hypertension, diabetes. PAST SURGICAL HISTORY: Cholecystectomy. SOCIAL HISTORY: No reported history of tobacco use. ALLERGIES: None. MEDICATIONS: Reviewed as listed in the MRAD including antibiotic and supportive medication. I do not see any DVT prophylaxis. PHYSICAL EXAMINATION: Exam done visually due to COVID suspicion. VITAL SIGNS: Blood pressure is stable. Pulse ox 94%, afebrile. No obvious respiratory distress. She appears to be obese. EXTREMITIES: No leg edema. LABORATORY DATA: Reviewed. ABGs as discussed in my history of present illness. Influenza screen negative. BUN 25, creatinine 0.5. Troponin is 0.22. Albumin is 2.2. D-dimer 1.1. White cell count is 4.8, hemoglobin 14.7 and platelets are 133. IMPRESSION: 1. Dztdd-on-uoezrti hypercapnic and hypoxic respiratory failure secondary to suspected congestive heart failure, but cannot rule out COVID. She has underlying chronic hypercapnia, suspect component of chronic hypoventilation. She has a history of obstructive sleep apnea as well. Cannot exclude pneumonia. 2. Abnormal chest x-ray with mild interstitial prominence and some patchy infiltrate of the left upper lobe. 3. No significant tobacco history. 4. Abnormal troponin, possible non-ST myocardial infarction. 5. Severe protein-calorie malnutrition. RECOMMENDATIONS: 1. We will continue present Venturi mask and follow ABGs as needed. Her hypercapnia is now corrected with a compensated pH. 2. We will give a trial of Lasix. 3. Add Lovenox for DVT prophylaxis. 4. Empiric antibiotics. 5. Obtain an echocardiogram. 6. Follow Cardiology recommendation. 7. Discussed with RN and RT. We will follow along with you. Critical care time 35 minutes. CARLEEN HAMMONDS MD DR: REJI/zaida JOB#: [id number] / [id number]
[2020-10-20] MEDS: METOPROLOL SUCC 24HR ER 25 MG TAB.ER.24H. PO SCH (14:22)
[2020-10-20] MEDS: ASPIRIN ENTERIC COATED 81 MG TABLET.DR. PO SCH (14:22)
[2020-10-20 14:26] LABS: CHOLESTEROL/HDL RATIO 6.6
[2020-10-20 15:23] LABS: BASE EXCESS ABG 12 mmol/L (-3-3); HCO3 ABG 42 mmol/L (21-28); PO2 ABG 67 mmHg (65-108); SAT O2 ABG 92 % (92-99)
[2020-10-20 18:52] LABS: PCO2 ABG 77 mmHg (35-46)
[2020-10-20] MEDS: ENOXAPARIN 40 MG/0.4 ML SYRINGE. SQ SCH (21:17)
[2020-10-20] MEDS: LACTOBACILLUS RHAMNOSUS GG 1 CAPSULE. PO SCH (21:17)
[2020-10-21] VITALS (18 sets, daily range): BP systolic 94–158; BP diastolic 62–105
--- NOTE | 2020-10-21 01:40 | EKG ---
[facility] [address] [place] [address] Test Date: 2020-10-19 Test Time: 11:08:13 Pat Name: DAVID MATAMOROS Department: Room: Gender: F [employer] Executive Director: : 1950 Requested By: LAUREN POLLARD Order Number: [id number] Reading MD: Measurements Intervals Spring Rate: 109 P: 26 MN: 158 QRS: -12 QRSD: 98 T: -2 QT: 378 QTc: 511 Interpretive Statements SINUS TACHYCARDIA LEFT ATRIAL ABNORMALITY LEFTWARD AXIS S1,S2,S3 PATTERN QRS(T) CONTOUR ABNORMALITY CONSIDER ANTEROSEPTAL MYOCARDIAL DAMAGE ABNORMAL ECG RI6.02 No previous ECG available for comparison
[2020-10-21] MEDS: AMINO AC 3%/ELECTROLYTE/GLYCER 1,000 ML IV SCH ×3 (04:57→20:10)
[2020-10-21] MEDS: INSULIN LISPRO 300 UNITS/3 ML VIAL. SQ SCH ×3 (08:00→17:29)
[2020-10-21 08:40] LABS: BASO % 0 % (0-3); EOS % 1 % (0-3); HEMATOCRIT 48.8 % (36.0-47.0); HEMOGLOBIN 15.5 g/dL (12.0-15.5); LYMPH # 1.1 x10^3/uL (1.0-4.8); LYMPH % 20 % (24-48); MEAN CORPUSCULAR HEMOGLOBIN 28 pg (25-35); MEAN CORPUSCULAR HGB CONC 32 g/dL (31-37); MEAN CORPUSCULAR VOLUME 90 fL (79-100); MONO # 0.6 x10^3/uL (0.0-1.1); MONO % 11 % (0-9); NEUT # 3.7 x10^3/uL (1.8-7.7); NEUT % 69 % (31-73); PLATELET COUNT 140 x10^3/uL (140-400); RED BLOOD COUNT 5.45 x10^6/uL (3.50-5.40); RED CELL DISTRIBUTION WIDTH 14.2 % (11.5-14.5); WHITE BLOOD COUNT 5.4 x10^3/uL (4.0-11.0)
[2020-10-21 09:10] LABS: CALCIUM 8.5 mg/dL (8.5-10.1); CREATININE 0.5 mg/dL (0.6-1.0); GFR 122.3; POTASSIUM 3.3 mmol/L (3.5-5.1)
[2020-10-21] MEDS: LACTOBACILLUS RHAMNOSUS GG 1 CAPSULE. PO SCH ×2 (09:26→20:10)
[2020-10-21] MEDS: ASPIRIN ENTERIC COATED 81 MG TABLET.DR. PO SCH (09:26)
[2020-10-21] MEDS: THIAMINE 100 MG TABLET. PO SCH (09:26)
[2020-10-21] MEDS: ZINC SULFATE 220 MG CAPSULE. PO SCH (09:26)
[2020-10-21] MEDS: METOPROLOL SUCC 24HR ER 25 MG TAB.ER.24H. PO SCH (09:27)
[2020-10-21] MEDS: POTASSIUM CHLORIDE 20 MEQ TABLET.ER. PO SCH (09:27)
[2020-10-21] MEDS: FUROSEMIDE 40 MG/4 ML VIAL. IVP SCH (09:27)
[2020-10-21] MEDS: DOXYCYCLINE HYCLATE 100 MG in IV DEXTROSE 5% 100ML 100 ML IV SCH ×2 (09:28→20:09)
--- NOTE | 2020-10-21 09:53 | PDOC ---
[employer] PROGRESS NOTE Date of Service DOS: DATE: 10/21/20 TIME: 09:45 Chief Complaint Chief Complaint A/P: Acute respiratory failure with hypoxia and hypercapnea - likely infectious process, high risk for gram negative pneumonia, COVID 19 possible vs COPD exacerbation. Cont BIPAP. pulm consulted. antibiotics, f/u COVID results COPD - with acute exacerbation, steroids, bipap Transaminitis - likely due to poor PO intake vs COVID, will f/u Elevated troponin - likely demand ischemia type II, will trend troponins Hypernatremia - likely hypovolemic, will hydrate, early nutrition Diabetes-Type II - sliding scale High Cholesterol - statin Hypertension - cont home meds YAN on nocturnal O2 - will cont bipap for now FEN - NPO PPX - lovenox FULL CODE Dispo - ICU on BIPAP, will reassess for possible downgrade once PCO2 improves CC time 39 minutes History of Present Illness History of Present Illness Ms Castellanos is a 70yo F [place] speaking only w/ PMHx COPD, Diabetes-Type II, High Cholesterol, Hypertension, YAN on nocturnal O2 who presents to the emergency room in respiratory distress. Family states that this is been ongoing for the last 4 days. They are unsure if she is having fever. History is significantly limited due to poor historian and language barrier. Patient is also in distress and is unable to answer any questions. Family states that they got her tested for Covid yesterday but the test result has not come back. She is notably confused according to her son, who is bedside. Chest radiograph with mild interstitial thickening Labs with WBC 5.1, Hb 15.5, platelets 153, NA 147, K4.2, BUN 20, CR 0.7, glucose 155, AST 61, ALT 75, LDH 269, albumin 2.9, CRP 10.8, BNP 9013, troponin 0 0.223, rapid influenza negative, ABG pH 7.19, PaCO2 102, PaO2 161 on BiPAP 100% FiO2 Admitted on BIPAP for further care. 10/20: Patient seen in ICU. Afebrile. Breathing on BiPAP, FiO2 50%. Appreciate pulmonology recommendations. Continue Rocephin and doxycycline. COVID-19 pending. 10/21: Patient seen and evaluated. COVID-19 positive. Currently breathing on Venturi mask at 15 L. Will add Decadron 6 mg daily, vitamin C, vitamin D. Continue antibiotic treatment with Rocephin and doxycycline. Will initiate remdesivir treatment and monitor LFTs. Vitals/I&O Vitals/I&O: Vital Signs Date Time Temp Pulse Resp B/P (MAP) Pulse Ox O2 Delivery O2 Flow Rate FiO2 10/21/20 09:27 73 119/88 10/21/20 09:00 30 93 Venturi Mask 15.0 10/21/20 08:00 98.1 98.1 I & O 10/20/20 10/20/20 10/21/20 14:59 22:59 06:59 Intake Total 250 ml 920 ml 934 ml Output Total 2350 ml 2200 ml 705 ml Balance -2100 ml -1280 ml 229 ml Physical Exam General: Alert, Cooperative, moderate distress Heart: Regular rate (SR), Other (distant heart sounds) Lungs: Other (Decreased, coarse breath sounds) Abdomen: Soft Extremities: No cyanosis, Other (2+ bilateral LE pitting edema) Skin: No significant lesion Labs Labs: Laboratory Tests Test 10/20/20 12:13 10/20/20 15:00 10/21/20 08:00 10/21/20 08:03 Glucose (Fingerstick) 127 mg/dL (70-99) 114 mg/dL (70-99) O2 Saturation 92 % (92-99) Arterial Blood pH 7.36 (7.35-7.45) Arterial Blood pCO2 at Patient Temp 77 mmHg (35-46) Arterial Blood pO2 at Patient Temp 67 mmHg (65-108) Arterial Blood HCO3 42 mmol/L (21-28) Arterial Blood Base Excess 12 mmol/L (-3-3) FiO2 50/vm White Blood Count 5.4 x10^3/uL (4.0-11.0) Red Blood Count 5.45 x10^6/uL (3.50-5.40) Hemoglobin 15.5 g/dL (12.0-15.5) Hematocrit 48.8 % (36.0-47.0) Mean Corpuscular Volume 90 fL (79-100) Mean Corpuscular Hemoglobin 28 pg (25-35) Mean Corpuscular Hemoglobin Concent 32 g/dL (31-37) Red Cell Distribution Width 14.2 % (11.5-14.5) Platelet Count 140 x10^3/uL (140-400) Neutrophils (%) (Auto) 69 % (31-73) Lymphocytes (%) (Auto) 20 % (24-48) Monocytes (%) (Auto) 11 % (0-9) Eosinophils (%) (Auto) 1 % (0-3) Basophils (%) (Auto) 0 % (0-3) Neutrophils # (Auto) 3.7 x10^3/uL (1.8-7.7) Lymphocytes # (Auto) 1.1 x10^3/uL (1.0-4.8) Monocytes # (Auto) 0.6 x10^3/uL (0.0-1.1) Eosinophils # (Auto) 0.0 x10^3/uL (0.0-0.7) Basophils # (Auto) 0.0 x10^3/uL (0.0-0.2) Sodium Level 143 mmol/L (136-145) Potassium Level 3.3 mmol/L (3.5-5.1) Chloride Level 102 mmol/L (98-107) Carbon Dioxide Level 36 mmol/L (21-32) Anion Gap 5 (6-14) Blood Urea Nitrogen 19 mg/dL (7-20) Creatinine 0.5 mg/dL (0.6-1.0) Estimated GFR (Cockcroft-Gault) 122.3 Glucose Level 99 mg/dL (70-99) Calcium Level 8.5 mg/dL (8.5-10.1) Assessment and Plan Assessmemt and Plan Problems Medical Problems: (1) Acute respiratory failure Status: Acute (2) Pulmonary edema Status: Acute Comment Review of Relevant I have reviewed the following items torin (where applicable) has been applied. Medications: Current Medications Medications (Trade) Dose Ordered Sig/Fran Route PRN Reason Start Time Stop Time Status Last Admin Dose Admin Ceftriaxone Sodium (Rocephin) 1 gm Q24H IVP 10/20/20 11:00 10/20/20 12:07 Lactobacillus Rhamnosus (Culturelle) 1 cap BID PO 10/20/20 21:00 10/21/20 09:26 Furosemide (Lasix) 20 mg 1X ONCE IVP 10/20/20 10:45 10/20/20 10:46 DC 10/20/20 12:06 Furosemide (Lasix) 20 mg 1X ONCE IVP 10/20/20 12:30 10/20/20 12:31 DC 10/20/20 12:07 Metoprolol Succinate (Toprol Xl) 25 mg DAILY PO 10/20/20 13:00 10/21/20 09:27 Aspirin (Ecotrin) 81 mg DAILYWBKFT PO 10/20/20 13:00 10/21/20 09:26 Furosemide (Lasix) 40 mg DAILY IVP 10/21/20 09:00 10/21/20 09:27 Potassium Chloride (Klor-Con) 20 meq DAILYWBKFT PO 10/21/20 08:00 10/21/20 09:27 Justifications for Admission General Conditions Altered mental status?: Yes Justification of admission: Patient has tachycardia (> 100 beats per minute) or hypotension (SBP < 90 mm Hg) leading to inadequate systemic perfusion as indicated by severe/persistent altered mental status. Other Justification LORNA KEY MD Oct 21, 2020 09:53
[2020-10-21] MEDS: DEXAMETHASONE SOD PHOS 4 MG/ML VIAL IVP SCH (10:47)
[2020-10-21] MEDS: cefTRIAXone IV Push 1 GM VIAL. IVP SCH (10:47)
--- NOTE | 2020-10-21 11:17 | PDOC ---
PULMONARY PROGRESS NOTES DATE: 10/21/20 TIME: 11:14 Subjective off bipap on VM Vitals Vital Signs Date Time Temp Pulse Resp B/P (MAP) Pulse Ox O2 Delivery O2 Flow Rate FiO2 10/21/20 11:03 73 23 137/100 (112) 95 Venturi Mask 15.0 10/21/20 08:00 98.1 98.1 Comments visual exam done via tele General: Alert Extremities: No Edema Labs Laboratory Tests Test 10/19/20 11:20 10/19/20 12:49 10/19/20 15:37 10/19/20 18:50 O2 Saturation 98 % (92-99) 88 % (92-99) 98 % (92-99) Arterial Blood pH 7.19 (7.35-7.45) 7.22 (7.35-7.45) 7.25 (7.35-7.45) Arterial Blood pCO2 at Patient Temp 102 mmHg (35-46) 90 mmHg (35-46) 81 mmHg (35-46) Arterial Blood pO2 at Patient Temp 161 mmHg (65-108) 63 mmHg (65-108) 135 mmHg (65-108) Arterial Blood HCO3 38 mmol/L (21-28) 36 mmol/L (21-28) 35 mmol/L (21-28) Arterial Blood Base Excess 6 mmol/L (-3-3) 4 mmol/L (-3-3) 4 mmol/L (-3-3) FiO2 100 bipap 100 bipap 100/bipap Troponin I Quantitative 0.136 ng/mL (0.000-0.055) Test 10/19/20 21:18 10/20/20 07:55 10/20/20 12:13 10/20/20 15:00 O2 Saturation 96 % (92-99) 92 % (92-99) Arterial Blood pH 7.42 (7.35-7.45) 7.36 (7.35-7.45) Arterial Blood pCO2 at Patient Temp 49 mmHg (35-46) 77 mmHg (35-46) Arterial Blood pO2 at Patient Temp 74 mmHg (65-108) 67 mmHg (65-108) Arterial Blood HCO3 31 mmol/L (21-28) 42 mmol/L (21-28) Arterial Blood Base Excess 5 mmol/L (-3-3) 12 mmol/L (-3-3) FiO2 55 50/vm White Blood Count 4.8 x10^3/uL (4.0-11.0) Red Blood Count 5.17 x10^6/uL (3.50-5.40) Hemoglobin 14.7 g/dL (12.0-15.5) Hematocrit 46.7 % (36.0-47.0) Mean Corpuscular Volume 90 fL (79-100) Mean Corpuscular Hemoglobin 29 pg (25-35) Mean Corpuscular Hemoglobin Concent 32 g/dL (31-37) Red Cell Distribution Width 14.2 % (11.5-14.5) Platelet Count 133 x10^3/uL (140-400) Neutrophils (%) (Auto) 72 % (31-73) Lymphocytes (%) (Auto) 18 % (24-48) Monocytes (%) (Auto) 10 % (0-9) Eosinophils (%) (Auto) 0 % (0-3) Basophils (%) (Auto) 0 % (0-3) Neutrophils # (Auto) 3.5 x10^3/uL (1.8-7.7) Lymphocytes # (Auto) 0.8 x10^3/uL (1.0-4.8) Monocytes # (Auto) 0.5 x10^3/uL (0.0-1.1) Eosinophils # (Auto) 0.0 x10^3/uL (0.0-0.7) Basophils # (Auto) 0.0 x10^3/uL (0.0-0.2) Sodium Level 143 mmol/L (136-145) Potassium Level 4.1 mmol/L (3.5-5.1) Chloride Level 105 mmol/L (98-107) Carbon Dioxide Level 32 mmol/L (21-32) Anion Gap 6 (6-14) Blood Urea Nitrogen 25 mg/dL (7-20) Creatinine 0.5 mg/dL (0.6-1.0) Estimated GFR (Cockcroft-Gault) 122.3 BUN/Creatinine Ratio 50 (6-20) Glucose Level 139 mg/dL (70-99) Calcium Level 8.0 mg/dL (8.5-10.1) Total Bilirubin 0.5 mg/dL (0.2-1.0) Aspartate Amino Transf (AST/SGOT) 39 U/L (15-37) Alanine Aminotransferase (ALT/SGPT) 56 U/L (14-59) Alkaline Phosphatase 58 U/L (46-116) Troponin I Quantitative 0.129 ng/mL (0.000-0.055) Total Protein 5.1 g/dL (6.4-8.2) Albumin 2.2 g/dL (3.4-5.0) Albumin/Globulin Ratio 0.8 (1.0-1.7) Triglycerides Level 143 mg/dL (0-150) Cholesterol Level 146 mg/dL (0-200) LDL Cholesterol, Calculated 95 mg/dL (0-100) VLDL Cholesterol, Calculated 29 mg/dL (0-40) Non-HDL Cholesterol Calculated 124 mg/dL (0-129) HDL Cholesterol 22 mg/dL (40-60) Cholesterol/HDL Ratio 6.6 Glucose (Fingerstick) 127 mg/dL (70-99) Test 10/21/20 08:00 10/21/20 08:03 White Blood Count 5.4 x10^3/uL (4.0-11.0) Red Blood Count 5.45 x10^6/uL (3.50-5.40) Hemoglobin 15.5 g/dL (12.0-15.5) Hematocrit 48.8 % (36.0-47.0) Mean Corpuscular Volume 90 fL (79-100) Mean Corpuscular Hemoglobin 28 pg (25-35) Mean Corpuscular Hemoglobin Concent 32 g/dL (31-37) Red Cell Distribution Width 14.2 % (11.5-14.5) Platelet Count 140 x10^3/uL (140-400) Neutrophils (%) (Auto) 69 % (31-73) Lymphocytes (%) (Auto) 20 % (24-48) Monocytes (%) (Auto) 11 % (0-9) Eosinophils (%) (Auto) 1 % (0-3) Basophils (%) (Auto) 0 % (0-3) Neutrophils # (Auto) 3.7 x10^3/uL (1.8-7.7) Lymphocytes # (Auto) 1.1 x10^3/uL (1.0-4.8) Monocytes # (Auto) 0.6 x10^3/uL (0.0-1.1) Eosinophils # (Auto) 0.0 x10^3/uL (0.0-0.7) Basophils # (Auto) 0.0 x10^3/uL (0.0-0.2) Sodium Level 143 mmol/L (136-145) Potassium Level 3.3 mmol/L (3.5-5.1) Chloride Level 102 mmol/L (98-107) Carbon Dioxide Level 36 mmol/L (21-32) Anion Gap 5 (6-14) Blood Urea Nitrogen 19 mg/dL (7-20) Creatinine 0.5 mg/dL (0.6-1.0) Estimated GFR (Cockcroft-Gault) 122.3 Glucose Level 99 mg/dL (70-99) Calcium Level 8.5 mg/dL (8.5-10.1) Glucose (Fingerstick) 114 mg/dL (70-99) Laboratory Tests Test 10/20/20 12:13 10/20/20 15:00 10/21/20 08:00 10/21/20 08:03 Glucose (Fingerstick) 127 mg/dL (70-99) 114 mg/dL (70-99) O2 Saturation 92 % (92-99) Arterial Blood pH 7.36 (7.35-7.45) Arterial Blood pCO2 at Patient Temp 77 mmHg (35-46) Arterial Blood pO2 at Patient Temp 67 mmHg (65-108) Arterial Blood HCO3 42 mmol/L (21-28) Arterial Blood Base Excess 12 mmol/L (-3-3) FiO2 50/vm White Blood Count 5.4 x10^3/uL (4.0-11.0) Red Blood Count 5.45 x10^6/uL (3.50-5.40) Hemoglobin 15.5 g/dL (12.0-15.5) Hematocrit 48.8 % (36.0-47.0) Mean Corpuscular Volume 90 fL (79-100) Mean Corpuscular Hemoglobin 28 pg (25-35) Mean Corpuscular Hemoglobin Concent 32 g/dL (31-37) Red Cell Distribution Width 14.2 % (11.5-14.5) Platelet Count 140 x10^3/uL (140-400) Neutrophils (%) (Auto) 69 % (31-73) Lymphocytes (%) (Auto) 20 % (24-48) Monocytes (%) (Auto) 11 % (0-9) Eosinophils (%) (Auto) 1 % (0-3) Basophils (%) (Auto) 0 % (0-3) Neutrophils # (Auto) 3.7 x10^3/uL (1.8-7.7) Lymphocytes # (Auto) 1.1 x10^3/uL (1.0-4.8) Monocytes # (Auto) 0.6 x10^3/uL (0.0-1.1) Eosinophils # (Auto) 0.0 x10^3/uL (0.0-0.7) Basophils # (Auto) 0.0 x10^3/uL (0.0-0.2) Sodium Level 143 mmol/L (136-145) Potassium Level 3.3 mmol/L (3.5-5.1) Chloride Level 102 mmol/L (98-107) Carbon Dioxide Level 36 mmol/L (21-32) Anion Gap 5 (6-14) Blood Urea Nitrogen 19 mg/dL (7-20) Creatinine 0.5 mg/dL (0.6-1.0) Estimated GFR (Cockcroft-Gault) 122.3 Glucose Level 99 mg/dL (70-99) Calcium Level 8.5 mg/dL (8.5-10.1) Medications Active Scripts Medications Dose Route/Sig Max Daily Dose Days Date Category Metformin Hcl 500 Mg Tablet 500 Mg PO BIDWMEALS 10/19/20 Reported Metoprolol Succinate ( Xl ) (Metoprolol Succinate) 25 Mg Tab.er.24h 1 Tab PO DAILY 10/19/20 Reported Losartan Potassium 25 Mg Tablet 25 Mg PO DAILY 10/19/20 Reported Impression . 1. [id number] hypercapnic and hypoxic respiratory failure secondary to suspected congestive heart failure, but cannot rule out COVID. She has underlying chronic hypercapnia, suspect component of chronic hypoventilation. She has a history of obstructive sleep apnea as well. Cannot exclude pneumonia. 2. Abnormal chest x-ray with mild interstitial prominence and some patchy infiltrate of the left upper lobe. 3. No significant tobacco history. 4. Abnormal troponin, possible non-ST myocardial infarction. 5. Severe protein-calorie malnutrition. Plan . RECOMMENDATIONS: 1. We will continue present Venturi mask and follow ABGs as needed. Her hypercapnia is now corrected with a compensated pH. 2. prn Lasix. 3. Lovenox for DVT prophylaxis. 4. Empiric antibiotics. 5. Obtain an echocardiogram. 6. Follow Cardiology recommendation. 7. Discussed with RN and RT. .transfer to [facility] CARLEEN HAMMONDS MD Oct 21, 2020 11:17
--- NOTE | 2020-10-21 11:18 | PDOC ---
LIGIA MARTINEZ USER EXPERIENCE DEVELOPER 10/21/20 1117: CARDIO Progress Notes Date and Time Date of Service 10/21/2020 Time of Evaluation 1040 Subjective Subjective: No Chest Pain, No Palpitations, Other (SOA better) Vitals Vitals Vital Signs Date Time Temp Pulse Resp B/P (MAP) Pulse Ox O2 Delivery O2 Flow Rate FiO2 10/21/20 11:03 73 23 137/100 (112) 95 Venturi Mask 15.0 10/21/20 08:00 98.1 98.1 Weight Weight [ ] Input and Output Intake and Output Intake and Output 10/21/20 07:00 Intake Total 2184 ml Output Total 5255 ml Balance -3071 ml Intake Oral 520 ml IV Total 1584 ml Other 80 ml Output Urine Total 5255 ml Laboratory Labs Laboratory Tests Test 10/20/20 12:13 10/20/20 15:00 10/21/20 08:00 10/21/20 08:03 Glucose (Fingerstick) 127 mg/dL (70-99) 114 mg/dL (70-99) O2 Saturation 92 % (92-99) Arterial Blood pH 7.36 (7.35-7.45) Arterial Blood pCO2 at Patient Temp 77 mmHg (35-46) Arterial Blood pO2 at Patient Temp 67 mmHg (65-108) Arterial Blood HCO3 42 mmol/L (21-28) Arterial Blood Base Excess 12 mmol/L (-3-3) FiO2 50/vm White Blood Count 5.4 x10^3/uL (4.0-11.0) Red Blood Count 5.45 x10^6/uL (3.50-5.40) Hemoglobin 15.5 g/dL (12.0-15.5) Hematocrit 48.8 % (36.0-47.0) Mean Corpuscular Volume 90 fL (79-100) Mean Corpuscular Hemoglobin 28 pg (25-35) Mean Corpuscular Hemoglobin Concent 32 g/dL (31-37) Red Cell Distribution Width 14.2 % (11.5-14.5) Platelet Count 140 x10^3/uL (140-400) Neutrophils (%) (Auto) 69 % (31-73) Lymphocytes (%) (Auto) 20 % (24-48) Monocytes (%) (Auto) 11 % (0-9) Eosinophils (%) (Auto) 1 % (0-3) Basophils (%) (Auto) 0 % (0-3) Neutrophils # (Auto) 3.7 x10^3/uL (1.8-7.7) Lymphocytes # (Auto) 1.1 x10^3/uL (1.0-4.8) Monocytes # (Auto) 0.6 x10^3/uL (0.0-1.1) Eosinophils # (Auto) 0.0 x10^3/uL (0.0-0.7) Basophils # (Auto) 0.0 x10^3/uL (0.0-0.2) Sodium Level 143 mmol/L (136-145) Potassium Level 3.3 mmol/L (3.5-5.1) Chloride Level 102 mmol/L (98-107) Carbon Dioxide Level 36 mmol/L (21-32) Anion Gap 5 (6-14) Blood Urea Nitrogen 19 mg/dL (7-20) Creatinine 0.5 mg/dL (0.6-1.0) Estimated GFR (Cockcroft-Gault) 122.3 Glucose Level 99 mg/dL (70-99) Calcium Level 8.5 mg/dL (8.5-10.1) Physical Exam HEENT: Neck Supple W Full Motion Chest: Symmetric LUNGS: Other (diminished; 50% venti mask) Heart: RRR (SR) Abdomen: Soft N/T Extremities: No Calf Tenderness Neurology: alert, oriented, follow commands Assessment Assessment 1. Acute on chronic diastolic/systolic CHF 2. Acute hypercapnic respiratory failure with hx of asthma and possible YAN. Covid-19. Pulmonary following 3. NICM: last known EF at 40% 4. Hx of PFO with L>R shunting 5. HTN: controlled 6. DM2 7. Hx of latent TB(BYRON) treated with INH 8. +Covid-19 9. Asymptomatic SB: no pauses lowest in the 40s. Maintaining SR 10. Mild troponin elevation: peaked at 0.2. no acute EKG changes no CP. Suspect demand mediated 11. PSVT Recommendations 1. Bipap as warranted. Lasix therapy 2. Continue home toprol will resume aldactone prior to DC 3. ASA, statin 4. TTE with bubble study when recovered from covid-19 5. Continue pulmonary optimization. Been started on remdesivir and decadron 6. Ischemic w/u as an outpt when recovered from covid Justicifation of Admission Dx: Justifications for Admission: Justification of Admission Dx: Yes KARL VÁSQUEZ MD 10/21/20 3746: CARDIO Progress Notes Assessment Assessment Agree with SIGNING AGENT's assessment and plan. Continue diuresis for acute on chronic systolic heart failure. Slight troponin elevation probably demand ischemia. Last 2D echo showed LVEF 40% with PFO Covid positive. Plan for 2D echo and ischemic evaluation once she recovers from Covid, as outpatient. LIGIA MARTINEZ APRN Oct 21, 2020 11:17 KARL VÁSQUEZ MD Oct 21, 2020 16:56
[2020-10-21] MEDS ORDERED: REMDESIVIR LOAD in IV NORMAL SALINE 250ML TV IV ONE (11:30)
[2020-10-21] MEDS ORDERED: POTASSIUM CHLORIDE 20 MEQ TABLET.ER. PO ONE (14:00)
--- NOTE | 2020-10-21 16:31 | NUR ---
SS following up with discharge planning. SS reviewed pt chart and discussed with pt RN. Pt is currently on high flow oxygen via nasal canula. COVID19 positive. Pt on Remdesivir, IV Rocephin, IV Doxycycline, and PPN. Pt transferred to room 676. Criselda DANIELSON, to follow.
--- NOTE | 2020-10-21 16:43 | NUR ---
Pt arrived on unit from ICU by wheelchair at approx 1530. Pt currently on 8L NC, SR on monitor. Will assume care of this pt.
[2020-10-21] MEDS: ATORVASTATIN CALCIUM 10 MG TABLET. PO SCH (20:10)
[2020-10-21] MEDS: ASCORBIC ACID 500 MG TABLET PO SCH (20:10)
[2020-10-21] MEDS: ENOXAPARIN 40 MG/0.4 ML SYRINGE. SQ SCH (20:10)
[2020-10-22 03:00] VITALS: BP 98/68
[2020-10-22 04:54] LABS: BASO % 0 % (0-3); EOS % 0 % (0-3); HEMATOCRIT 50.1 % (36.0-47.0); HEMOGLOBIN 16.1 g/dL (12.0-15.5); LYMPH # 0.9 x10^3/uL (1.0-4.8); LYMPH % 13 % (24-48); MEAN CORPUSCULAR HEMOGLOBIN 29 pg (25-35); MEAN CORPUSCULAR HGB CONC 32 g/dL (31-37); MEAN CORPUSCULAR VOLUME 89 fL (79-100); MONO # 0.7 x10^3/uL (0.0-1.1); MONO % 10 % (0-9); NEUT # 5.6 x10^3/uL (1.8-7.7); NEUT % 78 % (31-73); PLATELET COUNT 153 x10^3/uL (140-400); RED BLOOD COUNT 5.63 x10^6/uL (3.50-5.40); RED CELL DISTRIBUTION WIDTH 14.5 % (11.5-14.5); WHITE BLOOD COUNT 7.2 x10^3/uL (4.0-11.0)
[2020-10-22 05:17] LABS: CREATININE 0.4 mg/dL (0.6-1.0); GFR 158.3; POTASSIUM 3.8 mmol/L (3.5-5.1)
[2020-10-22 05:35] LABS: MAGNESIUM 2.3 mg/dL (1.8-2.4)
[2020-10-22 07:00] VITALS: BP 112/74
[2020-10-22] MEDS: INSULIN LISPRO 300 UNITS/3 ML VIAL. SQ SCH ×3 (08:00→16:55)
--- NOTE | 2020-10-22 08:10 | PDOC ---
PULMONARY PROGRESS NOTES DATE: 10/22/20 TIME: 08:07 Subjective PT. remains on N/C feeling better no increased cough or SOA Vitals Vital Signs Date Time Temp Pulse Resp B/P (MAP) Pulse Ox O2 Delivery O2 Flow Rate FiO2 10/22/20 04:10 88 BiPAP/CPAP 10/22/20 03:00 98.0 91 18 98/68 (78) 8.0 98.0 ROS: No Nausea, No Chest Pain, No Abdominal Pain, No Increase Cough General: Alert Lungs: Clear Cardiovascular: S1, S2 Abdomen: Soft, Non-tender Extremities: No Edema Skin: Warm, Dry Labs Laboratory Tests Test 10/20/20 12:13 10/20/20 15:00 10/20/20 17:37 10/21/20 08:00 Glucose (Fingerstick) 127 mg/dL (70-99) 138 mg/dL (70-99) O2 Saturation 92 % (92-99) Arterial Blood pH 7.36 (7.35-7.45) Arterial Blood pCO2 at Patient Temp 77 mmHg (35-46) Arterial Blood pO2 at Patient Temp 67 mmHg (65-108) Arterial Blood HCO3 42 mmol/L (21-28) Arterial Blood Base Excess 12 mmol/L (-3-3) FiO2 50/vm White Blood Count 5.4 x10^3/uL (4.0-11.0) Red Blood Count 5.45 x10^6/uL (3.50-5.40) Hemoglobin 15.5 g/dL (12.0-15.5) Hematocrit 48.8 % (36.0-47.0) Mean Corpuscular Volume 90 fL (79-100) Mean Corpuscular Hemoglobin 28 pg (25-35) Mean Corpuscular Hemoglobin Concent 32 g/dL (31-37) Red Cell Distribution Width 14.2 % (11.5-14.5) Platelet Count 140 x10^3/uL (140-400) Neutrophils (%) (Auto) 69 % (31-73) Lymphocytes (%) (Auto) 20 % (24-48) Monocytes (%) (Auto) 11 % (0-9) Eosinophils (%) (Auto) 1 % (0-3) Basophils (%) (Auto) 0 % (0-3) Neutrophils # (Auto) 3.7 x10^3/uL (1.8-7.7) Lymphocytes # (Auto) 1.1 x10^3/uL (1.0-4.8) Monocytes # (Auto) 0.6 x10^3/uL (0.0-1.1) Eosinophils # (Auto) 0.0 x10^3/uL (0.0-0.7) Basophils # (Auto) 0.0 x10^3/uL (0.0-0.2) Sodium Level 143 mmol/L (136-145) Potassium Level 3.3 mmol/L (3.5-5.1) Chloride Level 102 mmol/L (98-107) Carbon Dioxide Level 36 mmol/L (21-32) Anion Gap 5 (6-14) Blood Urea Nitrogen 19 mg/dL (7-20) Creatinine 0.5 mg/dL (0.6-1.0) Estimated GFR (Cockcroft-Gault) 122.3 Glucose Level 99 mg/dL (70-99) Calcium Level 8.5 mg/dL (8.5-10.1) Test 10/21/20 08:03 10/21/20 16:13 10/21/20 19:26 10/22/20 04:30 Glucose (Fingerstick) 114 mg/dL (70-99) 209 mg/dL (70-99) 197 mg/dL (70-99) White Blood Count 7.2 x10^3/uL (4.0-11.0) Red Blood Count 5.63 x10^6/uL (3.50-5.40) Hemoglobin 16.1 g/dL (12.0-15.5) Hematocrit 50.1 % (36.0-47.0) Mean Corpuscular Volume 89 fL (79-100) Mean Corpuscular Hemoglobin 29 pg (25-35) Mean Corpuscular Hemoglobin Concent 32 g/dL (31-37) Red Cell Distribution Width 14.5 % (11.5-14.5) Platelet Count 153 x10^3/uL (140-400) Neutrophils (%) (Auto) 78 % (31-73) Lymphocytes (%) (Auto) 13 % (24-48) Monocytes (%) (Auto) 10 % (0-9) Eosinophils (%) (Auto) 0 % (0-3) Basophils (%) (Auto) 0 % (0-3) Neutrophils # (Auto) 5.6 x10^3/uL (1.8-7.7) Lymphocytes # (Auto) 0.9 x10^3/uL (1.0-4.8) Monocytes # (Auto) 0.7 x10^3/uL (0.0-1.1) Eosinophils # (Auto) 0.0 x10^3/uL (0.0-0.7) Basophils # (Auto) 0.0 x10^3/uL (0.0-0.2) D-Dimer (Sheila) 2.37 ug/mlFEU (0.00-0.50) Sodium Level 145 mmol/L (136-145) Potassium Level 3.8 mmol/L (3.5-5.1) Chloride Level 104 mmol/L (98-107) Carbon Dioxide Level 35 mmol/L (21-32) Anion Gap 6 (6-14) Blood Urea Nitrogen 25 mg/dL (7-20) Creatinine 0.4 mg/dL (0.6-1.0) Estimated GFR (Cockcroft-Gault) 158.3 Glucose Level 121 mg/dL (70-99) Calcium Level 9.0 mg/dL (8.5-10.1) Magnesium Level 2.3 mg/dL (1.8-2.4) Ferritin 36 ng/mL (8-252) Lactate Dehydrogenase 253 U/L (81-234) Creatine Kinase 28 U/L (26-192) Laboratory Tests Test 10/21/20 16:13 10/21/20 19:26 10/22/20 04:30 Glucose (Fingerstick) 209 mg/dL (70-99) 197 mg/dL (70-99) White Blood Count 7.2 x10^3/uL (4.0-11.0) Red Blood Count 5.63 x10^6/uL (3.50-5.40) Hemoglobin 16.1 g/dL (12.0-15.5) Hematocrit 50.1 % (36.0-47.0) Mean Corpuscular Volume 89 fL (79-100) Mean Corpuscular Hemoglobin 29 pg (25-35) Mean Corpuscular Hemoglobin Concent 32 g/dL (31-37) Red Cell Distribution Width 14.5 % (11.5-14.5) Platelet Count 153 x10^3/uL (140-400) Neutrophils (%) (Auto) 78 % (31-73) Lymphocytes (%) (Auto) 13 % (24-48) Monocytes (%) (Auto) 10 % (0-9) Eosinophils (%) (Auto) 0 % (0-3) Basophils (%) (Auto) 0 % (0-3) Neutrophils # (Auto) 5.6 x10^3/uL (1.8-7.7) Lymphocytes # (Auto) 0.9 x10^3/uL (1.0-4.8) Monocytes # (Auto) 0.7 x10^3/uL (0.0-1.1) Eosinophils # (Auto) 0.0 x10^3/uL (0.0-0.7) Basophils # (Auto) 0.0 x10^3/uL (0.0-0.2) D-Dimer (Sheila) 2.37 ug/mlFEU (0.00-0.50) Sodium Level 145 mmol/L (136-145) Potassium Level 3.8 mmol/L (3.5-5.1) Chloride Level 104 mmol/L (98-107) Carbon Dioxide Level 35 mmol/L (21-32) Anion Gap 6 (6-14) Blood Urea Nitrogen 25 mg/dL (7-20) Creatinine 0.4 mg/dL (0.6-1.0) Estimated GFR (Cockcroft-Gault) 158.3 Glucose Level 121 mg/dL (70-99) Calcium Level 9.0 mg/dL (8.5-10.1) Magnesium Level 2.3 mg/dL (1.8-2.4) Ferritin 36 ng/mL (8-252) Lactate Dehydrogenase 253 U/L (81-234) Creatine Kinase 28 U/L (26-192) Medications Active Scripts Medications Dose Route/Sig Max Daily Dose Days Date Category Metformin Hcl 500 Mg Tablet 500 Mg PO BIDWMEALS 10/19/20 Reported Metoprolol Succinate ( Xl ) (Metoprolol Succinate) 25 Mg Tab.er.24h 1 Tab PO DAILY 10/19/20 Reported Losartan Potassium 25 Mg Tablet 25 Mg PO DAILY 10/19/20 Reported Comments CXR IMPRESSION: Cardiomegaly, mild interstitial thickening. Findings could represent edema or an atypical infectious process. Impression . 1. [id number] hypercapnic and hypoxic respiratory failure secondary to COVID-19 viral pneumonia. possible right heart failure, She has underlying chronic hypercapnia, suspect component of chronic hypoventilation/ COR-Pulmonale. - She has a history of obstructive sleep apnea as well. Cannot exclude pneumonia. 2. Abnormal chest x-ray with mild interstitial prominence and some patchy infiltrate of the left upper lobe. 3. No significant tobacco history. 4. Abnormal troponin, possible non-ST myocardial infarction. 5. Severe protein-calorie malnutrition. Plan . RECOMMENDATIONS: Continue supplemental oxygen as need, on 8 liters N/C BIPAP PRN COVID-19 positive Continue steroids with slow taper, will need full 10 day course Continue full course of remdesivir Continue empiric ABX Await ECHO results, and follow cardiology recs DVT/GI PPX D/W CARLEEN ARELLANO MD Oct 22, 2020 08:10
[2020-10-22] MEDS: DEXAMETHASONE SOD PHOS 4 MG/ML VIAL IVP SCH (08:45)
[2020-10-22] MEDS: FUROSEMIDE 40 MG/4 ML VIAL. IVP SCH (08:45)
[2020-10-22] MEDS: ASCORBIC ACID 500 MG TABLET PO SCH ×2 (08:46→20:11)
[2020-10-22] MEDS: POTASSIUM CHLORIDE 20 MEQ TABLET.ER. PO SCH (08:46)
[2020-10-22] MEDS: THIAMINE 100 MG TABLET. PO SCH (08:46)
[2020-10-22] MEDS: ASPIRIN ENTERIC COATED 81 MG TABLET.DR. PO SCH (08:46)
[2020-10-22] MEDS: SPIRONOLACTONE 25 MG TABLET PO SCH (08:46)
[2020-10-22] MEDS: ZINC SULFATE 220 MG CAPSULE. PO SCH (08:46)
[2020-10-22] MEDS: LACTOBACILLUS RHAMNOSUS GG 1 CAPSULE. PO SCH ×2 (08:46→20:11)
[2020-10-22] MEDS: CHOLECALCIFEROL (VITAMIN D3) 5,000 UNIT CAPSULE PO SCH (08:46)
[2020-10-22] MEDS: METOPROLOL SUCC 24HR ER 25 MG TAB.ER.24H. PO SCH (08:47)
[2020-10-22] MEDS: DOXYCYCLINE HYCLATE 100 MG in IV DEXTROSE 5% 100ML 100 ML IV SCH ×2 (08:47→20:10)
--- NOTE | 2020-10-22 10:11 | PDOC ---
[facility] PROGRESS NOTE Date of Service DOS: DATE: 10/22/20 TIME: 10:05 Chief Complaint Chief Complaint A/P: COVID 19 with pneumonia - will treat. Acute respiratory failure with hypoxia and hypercapnea - likely infectious process, high risk for gram negative pneumonia, COVID 19 possible vs COPD exacerbation. Cont BIPAP prn, O2 when tolerated. pulm consulted. antibiotics, f/u COVID results COPD - with acute exacerbation, steroids, bipap Transaminitis - likely due to poor PO intake vs COVID, will f/u Elevated troponin - likely demand ischemia type II, will trend troponins Hypernatremia - likely hypovolemic, will hydrate, early nutrition Diabetes-Type II - sliding scale High Cholesterol - statin Hypertension - cont home meds YAN on nocturnal O2 - will cont bipap for now FEN - ADA diet PPX - lovenox FULL CODE Dispo - Cont inpatient History of Present Illness History of Present Illness Ms Castellanos is a 70yo F [place] speaking only w/ PMHx COPD, Diabetes-Type II, High Cholesterol, Hypertension, YAN on nocturnal O2 who presents to the emergency room in respiratory distress. Family states that this is been ongoing for the last 4 days. They are unsure if she is having fever. History is significantly limited due to poor historian and language barrier. Patient is also in distress and is unable to answer any questions. Family states that they got her tested for Covid yesterday but the test result has not come back. She is notably confused according to her son, who is bedside. Chest radiograph with mild interstitial thickening Labs with WBC 5.1, Hb 15.5, platelets 153, NA 147, K4.2, BUN 20, CR 0.7, glucose 155, AST 61, ALT 75, LDH 269, albumin 2.9, CRP 10.8, BNP 9013, troponin 0 0.223, rapid influenza negative, ABG pH 7.19, PaCO2 102, PaO2 161 on BiPAP 100% FiO2 Admitted on BIPAP for further care. 10/20: Patient seen in ICU. Afebrile. Breathing on BiPAP, FiO2 50%. Appreciate pulmonology recommendations. Continue Rocephin and doxycycline. COVID-19 pending. 10/21: Patient seen and evaluated. COVID-19 positive. Currently breathing on Venturi mask at 15 L. Will add Decadron 6 mg daily, vitamin C, vitamin D. Continue antibiotic treatment with Rocephin and doxycycline. Will initiate remdesivir treatment and monitor LFTs. Seen on 10 L nasal cannula O2. Afebrile. Has an appetite today eating 100% of her meals. Still very short of breath little bit of nausea no vomiting or diarrhea. Still with some confusion. Language barrier is an issue. Vitals/I&O Vitals/I&O: Vital Signs Date Time Temp Pulse Resp B/P (MAP) Pulse Ox O2 Delivery O2 Flow Rate FiO2 10/22/20 08:47 85 112/74 10/22/20 08:11 95 High Flow Nasal Cannula 12.0 10/22/20 07:00 98.0 18 98.0 I & O 10/21/20 10/21/20 10/22/20 15:00 23:00 07:00 Intake Total 2110 ml 800 ml Output Total 2400 ml 150 ml 600 ml Balance -290 ml -150 ml 200 ml Physical Exam General: Alert, Cooperative, moderate distress Heart: Regular rate (SR), Other (distant heart sounds) Lungs: Clear Abdomen: Soft Extremities: No cyanosis, Other (2+ bilateral LE pitting edema) Skin: No significant lesion Labs Labs: Laboratory Tests Test 10/21/20 16:13 10/21/20 19:26 10/22/20 04:30 10/22/20 08:04 Glucose (Fingerstick) 209 mg/dL (70-99) 197 mg/dL (70-99) 91 mg/dL (70-99) White Blood Count 7.2 x10^3/uL (4.0-11.0) Red Blood Count 5.63 x10^6/uL (3.50-5.40) Hemoglobin 16.1 g/dL (12.0-15.5) Hematocrit 50.1 % (36.0-47.0) Mean Corpuscular Volume 89 fL (79-100) Mean Corpuscular Hemoglobin 29 pg (25-35) Mean Corpuscular Hemoglobin Concent 32 g/dL (31-37) Red Cell Distribution Width 14.5 % (11.5-14.5) Platelet Count 153 x10^3/uL (140-400) Neutrophils (%) (Auto) 78 % (31-73) Lymphocytes (%) (Auto) 13 % (24-48) Monocytes (%) (Auto) 10 % (0-9) Eosinophils (%) (Auto) 0 % (0-3) Basophils (%) (Auto) 0 % (0-3) Neutrophils # (Auto) 5.6 x10^3/uL (1.8-7.7) Lymphocytes # (Auto) 0.9 x10^3/uL (1.0-4.8) Monocytes # (Auto) 0.7 x10^3/uL (0.0-1.1) Eosinophils # (Auto) 0.0 x10^3/uL (0.0-0.7) Basophils # (Auto) 0.0 x10^3/uL (0.0-0.2) D-Dimer (Sheila) 2.37 ug/mlFEU (0.00-0.50) Sodium Level 145 mmol/L (136-145) Potassium Level 3.8 mmol/L (3.5-5.1) Chloride Level 104 mmol/L (98-107) Carbon Dioxide Level 35 mmol/L (21-32) Anion Gap 6 (6-14) Blood Urea Nitrogen 25 mg/dL (7-20) Creatinine 0.4 mg/dL (0.6-1.0) Estimated GFR (Cockcroft-Gault) 158.3 Glucose Level 121 mg/dL (70-99) Calcium Level 9.0 mg/dL (8.5-10.1) Magnesium Level 2.3 mg/dL (1.8-2.4) Ferritin 36 ng/mL (8-252) Lactate Dehydrogenase 253 U/L (81-234) Creatine Kinase 28 U/L (26-192) Assessment and Plan Assessmemt and Plan Problems Medical Problems: (1) Acute respiratory failure Status: Acute (2) Pulmonary edema Status: Acute Comment Review of Relevant I have reviewed the following items torin (where applicable) has been applied. Medications: Current Medications Medications (Trade) Dose Ordered Sig/Fran Route PRN Reason Start Time Stop Time Status Last Admin Dose Admin Ascorbic Acid (Vitamin C) 500 mg BID PO 10/21/20 21:00 11/04/20 20:59 10/22/20 08:46 Vitamin D (Vitamin D3) 5,000 unit DAILY PO 10/22/20 09:00 11/05/20 08:59 10/22/20 08:46 Remdesivir 200 mg/ Sodium Chloride 210 ml @ 210 mls/hr 1X ONCE IV 10/21/20 11:30 10/21/20 12:29 DC 10/21/20 11:02 Spironolactone (Aldactone) 25 mg DAILY PO 10/22/20 09:00 10/22/20 08:46 Potassium Chloride (Klor-Con) 40 meq 1X ONCE PO 10/21/20 14:00 10/21/20 14:01 DC 10/21/20 15:00 Atorvastatin Calcium (Lipitor) 10 mg QHS PO 10/21/20 21:00 10/21/20 20:10 Justifications for Admission General Conditions Altered mental status?: Yes Justification of admission: Patient has tachycardia (> 100 beats per minute) or hypotension (SBP < 90 mm Hg) leading to inadequate systemic perfusion as indicated by severe/persistent altered mental status. Other Justification BRADY TELLEZ MD Oct 22, 2020 10:11
[2020-10-22 11:00] VITALS: BP 110/72
[2020-10-22] MEDS: REMDESIVIR 100mg in NORMAL SALINE 250ML X 4 DAYS IV SCH (11:39)
[2020-10-22] MEDS: cefTRIAXone IV Push 1 GM VIAL. IVP SCH (11:39)
[2020-10-22 15:00] VITALS: BP 108/68
--- NOTE | 2020-10-22 15:18 | PDOC ---
LIGIA MARTINEZ PORTRAIT PAINTER 10/22/20 1518: CARDIO Progress Notes Date and Time Date of Service 10/22/2020 Time of Evaluation 1240 Subjective Subjective: No Chest Pain, No shortness of breath, No Palpitations Vitals Vitals Vital Signs Date Time Temp Pulse Resp B/P (MAP) Pulse Ox O2 Delivery O2 Flow Rate FiO2 10/22/20 11:00 98.0 86 18 110/72 (85) 96 Room Air 98.0 10/22/20 08:11 12.0 Weight Weight [ ] Input and Output Intake and Output Intake and Output 10/22/20 07:00 Intake Total 2910 ml Output Total 3150 ml Balance -240 ml Intake Oral 2550 ml Blood Product IV Normal Saline Flush 280 ml Other 80 ml Output Urine Total 3150 ml # Bowel Movements 1 Laboratory Labs Laboratory Tests Test 10/21/20 16:13 10/21/20 19:26 10/22/20 04:30 10/22/20 08:04 Glucose (Fingerstick) 209 mg/dL (70-99) 197 mg/dL (70-99) 91 mg/dL (70-99) White Blood Count 7.2 x10^3/uL (4.0-11.0) Red Blood Count 5.63 x10^6/uL (3.50-5.40) Hemoglobin 16.1 g/dL (12.0-15.5) Hematocrit 50.1 % (36.0-47.0) Mean Corpuscular Volume 89 fL (79-100) Mean Corpuscular Hemoglobin 29 pg (25-35) Mean Corpuscular Hemoglobin Concent 32 g/dL (31-37) Red Cell Distribution Width 14.5 % (11.5-14.5) Platelet Count 153 x10^3/uL (140-400) Neutrophils (%) (Auto) 78 % (31-73) Lymphocytes (%) (Auto) 13 % (24-48) Monocytes (%) (Auto) 10 % (0-9) Eosinophils (%) (Auto) 0 % (0-3) Basophils (%) (Auto) 0 % (0-3) Neutrophils # (Auto) 5.6 x10^3/uL (1.8-7.7) Lymphocytes # (Auto) 0.9 x10^3/uL (1.0-4.8) Monocytes # (Auto) 0.7 x10^3/uL (0.0-1.1) Eosinophils # (Auto) 0.0 x10^3/uL (0.0-0.7) Basophils # (Auto) 0.0 x10^3/uL (0.0-0.2) D-Dimer (Sheila) 2.37 ug/mlFEU (0.00-0.50) Sodium Level 145 mmol/L (136-145) Potassium Level 3.8 mmol/L (3.5-5.1) Chloride Level 104 mmol/L (98-107) Carbon Dioxide Level 35 mmol/L (21-32) Anion Gap 6 (6-14) Blood Urea Nitrogen 25 mg/dL (7-20) Creatinine 0.4 mg/dL (0.6-1.0) Estimated GFR (Cockcroft-Gault) 158.3 Glucose Level 121 mg/dL (70-99) Calcium Level 9.0 mg/dL (8.5-10.1) Magnesium Level 2.3 mg/dL (1.8-2.4) Ferritin 36 ng/mL (8-252) Lactate Dehydrogenase 253 U/L (81-234) Creatine Kinase 28 U/L (26-192) Test 10/22/20 11:26 Glucose (Fingerstick) 236 mg/dL (70-99) Physical Exam HEENT: Neck Supple W Full Motion Chest: Symmetric LUNGS: Other (diminished; 10 L NC) Heart: RRR (SR) Abdomen: Soft N/T Extremities: No Calf Tenderness Neurology: alert, oriented, follow commands Other Exams limited due to language barrier , discussed with RN, doing better Assessment Assessment 1. Acute on chronic diastolic/systolic CHF: better 2. Acute hypercapnic respiratory failure with hx of asthma and possible YAN. Covid-19. Pulmonary following 3. NICM: last known EF at 40% 4. Hx of PFO with L>R shunting 5. HTN: controlled 6. DM2 7. Hx of latent TB([facility]) treated with INH 8. +Covid-19 9. Asymptomatic SB: no pauses lowest in the 40s. Maintaining SR 10. Mild troponin elevation: peaked at 0.2. no acute EKG changes no CP. Suspect demand mediated 11. PSVT: none further overnight Recommendations 1. Bipap as warranted. Lasix therapy 2. Continue home toprol will resume aldactone prior to DC 3. ASA, statin 4. TTE with bubble study when recovered from covid-19 5. Continue pulmonary optimization. Been started on remdesivir and decadron 6. Ischemic w/u as an outpt when recovered from covid Justicifation of Admission Dx: Justifications for Admission: Justification of Admission Dx: Yes KARL VÁSQUEZ MD 10/22/20 1559: CARDIO Progress Notes Assessment Assessment Agree with G[employer] HELPER's assessment and plan. Continue diuresis for acute on chronic systolic heart failure. Slight troponin elevation probably demand ischemia. Last 2D echo showed LVEF 40% with PFO Covid positive. Plan for 2D echo and ischemic evaluation once she recovers from Covid, as outpatient. LIGIA MARTINEZ APRN Oct 22, 2020 15:18 KARL VÁSQUEZ MD Oct 22, 2020 15:59
--- NOTE | 2020-10-22 16:28 | NUR ---
SW following for discharge planning. Spoke with RN and reviewed chart. Pt transferred to 6S from ICU. Pt on 10l 02, COVID positive. Pt on IV abx, steroids and Remedesivir. Pt not ready for discharge.
[2020-10-22 19:00] VITALS: BP 122/83
[2020-10-22] MEDS: ATORVASTATIN CALCIUM 10 MG TABLET. PO SCH (20:11)
[2020-10-22] MEDS: ENOXAPARIN 40 MG/0.4 ML SYRINGE. SQ SCH (20:11)
[2020-10-22 23:41] VITALS: BP 120/52
[2020-10-23 03:55] VITALS: BP 122/76
[2020-10-23 04:27] LABS: BASO % 0 % (0-3); EOS % 0 % (0-3); HEMATOCRIT 49.4 % (36.0-47.0); LYMPH # 0.8 x10^3/uL (1.0-4.8); LYMPH % 11 % (24-48); MEAN CORPUSCULAR HEMOGLOBIN 29 pg (25-35); MEAN CORPUSCULAR HGB CONC 33 g/dL (31-37); MEAN CORPUSCULAR VOLUME 89 fL (79-100); MONO # 0.7 x10^3/uL (0.0-1.1); MONO % 9 % (0-9); NEUT # 6.2 x10^3/uL (1.8-7.7); NEUT % 80 % (31-73); PLATELET COUNT 163 x10^3/uL (140-400); RED BLOOD COUNT 5.55 x10^6/uL (3.50-5.40); RED CELL DISTRIBUTION WIDTH 14.3 % (11.5-14.5); WHITE BLOOD COUNT 7.8 x10^3/uL (4.0-11.0)
[2020-10-23 05:29] LABS: CALCIUM 8.7 mg/dL (8.5-10.1); CREATININE 0.5 mg/dL (0.6-1.0); GFR 122.3
[2020-10-23 05:31] LABS: ALBUMIN 2.7 g/dL (3.4-5.0); DIRECT BILIRUBIN 0.2 mg/dL (0.0-0.2); TOTAL BILIRUBIN 0.7 mg/dL (0.2-1.0); TOTAL PROTEIN 6.3 g/dL (6.4-8.2)
[2020-10-23 07:00] VITALS: BP 114/75
--- NOTE | 2020-10-23 07:27 | PDOC ---
[facility] PROGRESS NOTE Date of Service DOS: DATE: 10/23/20 TIME: 07:27 Chief Complaint Chief Complaint A/P: COVID 19 with pneumonia - will treat. Acute respiratory failure with hypoxia and hypercapnea - likely infectious process, high risk for gram negative pneumonia, COVID 19 possible vs COPD exacerbation. Cont BIPAP prn, O2 when tolerated. pulm consulted. COPD - with acute exacerbation, steroids, bipap Transaminitis - likely due to poor PO intake vs COVID, will f/u Elevated troponin - likely demand ischemia type II, will trend troponins Hypernatremia - likely hypovolemic, will hydrate, early nutrition Diabetes-Type II - sliding scale High Cholesterol - statin Hypertension - cont home meds YAN on nocturnal O2 - will cont bipap for now FEN - ADA diet PPX - lovenox FULL CODE Dispo - Cont inpatient History of Present Illness History of Present Illness Ms Castellanos is a 70yo F [place] speaking only w/ PMHx COPD, Diabetes-Type II, High Cholesterol, Hypertension, YAN on nocturnal O2 who presents to the emergency room in respiratory distress. Family states that this is been ongoing for the last 4 days. They are unsure if she is having fever. History is significantly limited due to poor historian and language barrier. Patient is also in distress and is unable to answer any questions. Family states that they got her tested for Covid yesterday but the test result has not come back. She is notably confused according to her son, who is bedside. Chest radiograph with mild interstitial thickening Labs with WBC 5.1, Hb 15.5, platelets 153, NA 147, K4.2, BUN 20, CR 0.7, glucose 155, AST 61, ALT 75, LDH 269, albumin 2.9, CRP 10.8, BNP 9013, troponin 0 0.223, rapid influenza negative, ABG pH 7.19, PaCO2 102, PaO2 161 on BiPAP 100% FiO2 Admitted on BIPAP for further care. 10/20: Patient seen in ICU. Afebrile. Breathing on BiPAP, FiO2 50%. Appreciate pulmonology recommendations. Continue Rocephin and doxycycline. COVID-19 pending. 10/21: Patient seen and evaluated. COVID-19 positive. Currently breathing on Venturi mask at 15 L. Will add Decadron 6 mg daily, vitamin C, vitamin D. Continue antibiotic treatment with Rocephin and doxycycline. Will initiate remdesivir treatment and monitor LFTs. 10/22: Seen on 10 L nasal cannula O2. Afebrile. Has an appetite today eating 100% of her meals. Still very short of breath little bit of nausea no vomiting or diarrhea. Still with some confusion. Language barrier is an issue. Seen on 8L NCO2. Afebrile. Good appetite today. Cough has become worse. Still very short of breath. No N/V/D. Still with some confusion. Vitals/I&O Vitals/I&O: Vital Signs Date Time Temp Pulse Resp B/P (MAP) Pulse Ox O2 Delivery O2 Flow Rate FiO2 10/23/20 03:55 96.4 65 19 122/76 (91) 98 Nasal Cannula 8.0 96.4 I & O 10/22/20 10/22/20 10/23/20 15:00 23:00 07:00 Intake Total 690 ml 240 ml Output Total 2300 ml 500 ml 300 ml Balance -1610 ml -260 ml -300 ml Physical Exam General: Alert, Cooperative, moderate distress Heart: Regular rate (SR), Other (distant heart sounds) Lungs: Clear Abdomen: Soft Extremities: No cyanosis, Other (2+ bilateral LE pitting edema) Skin: No significant lesion Labs Labs: Laboratory Tests Test 10/22/20 08:04 10/22/20 11:26 10/22/20 16:39 10/22/20 19:55 Glucose (Fingerstick) 91 mg/dL (70-99) 236 mg/dL (70-99) 154 mg/dL (70-99) 266 mg/dL (70-99) Test 10/23/20 03:30 White Blood Count 7.8 x10^3/uL (4.0-11.0) Red Blood Count 5.55 x10^6/uL (3.50-5.40) Hemoglobin 16.0 g/dL (12.0-15.5) Hematocrit 49.4 % (36.0-47.0) Mean Corpuscular Volume 89 fL (79-100) Mean Corpuscular Hemoglobin 29 pg (25-35) Mean Corpuscular Hemoglobin Concent 33 g/dL (31-37) Red Cell Distribution Width 14.3 % (11.5-14.5) Platelet Count 163 x10^3/uL (140-400) Neutrophils (%) (Auto) 80 % (31-73) Lymphocytes (%) (Auto) 11 % (24-48) Monocytes (%) (Auto) 9 % (0-9) Eosinophils (%) (Auto) 0 % (0-3) Basophils (%) (Auto) 0 % (0-3) Neutrophils # (Auto) 6.2 x10^3/uL (1.8-7.7) Lymphocytes # (Auto) 0.8 x10^3/uL (1.0-4.8) Monocytes # (Auto) 0.7 x10^3/uL (0.0-1.1) Eosinophils # (Auto) 0.0 x10^3/uL (0.0-0.7) Basophils # (Auto) 0.0 x10^3/uL (0.0-0.2) Sodium Level 142 mmol/L (136-145) Potassium Level 4.0 mmol/L (3.5-5.1) Chloride Level 103 mmol/L (98-107) Carbon Dioxide Level 34 mmol/L (21-32) Anion Gap 5 (6-14) Blood Urea Nitrogen 27 mg/dL (7-20) Creatinine 0.5 mg/dL (0.6-1.0) Estimated GFR (Cockcroft-Gault) 122.3 Glucose Level 100 mg/dL (70-99) Calcium Level 8.7 mg/dL (8.5-10.1) Total Bilirubin 0.7 mg/dL (0.2-1.0) Direct Bilirubin 0.2 mg/dL (0.0-0.2) Aspartate Amino Transf (AST/SGOT) 20 U/L (15-37) Alanine Aminotransferase (ALT/SGPT) 37 U/L (14-59) Alkaline Phosphatase 62 U/L (46-116) Total Protein 6.3 g/dL (6.4-8.2) Albumin 2.7 g/dL (3.4-5.0) Assessment and Plan Assessmemt and Plan Problems Medical Problems: (1) Acute respiratory failure Status: Acute (2) Pulmonary edema Status: Acute Comment Review of Relevant I have reviewed the following items torin (where applicable) has been applied. Medications: Current Medications Medications (Trade) Dose Ordered Sig/Fran Route PRN Reason Start Time Stop Time Status Last Admin Dose Admin Vitamin D (Vitamin D3) 5,000 unit DAILY PO 10/22/20 09:00 11/05/20 08:59 10/22/20 08:46 Remdesivir 100 mg/ Sodium Chloride 230 ml @ 460 mls/hr Q24H IV 10/22/20 11:30 10/25/20 11:59 10/22/20 11:39 Spironolactone (Aldactone) 25 mg DAILY PO 10/22/20 09:00 10/22/20 08:46 Justifications for Admission General Conditions Altered mental status?: Yes Justification of admission: Patient has tachycardia (> 100 beats per minute) or hypotension (SBP < 90 mm Hg) leading to inadequate systemic perfusion as indicated by severe/persistent altered mental status. Other Justification BRADY TELLEZ MD Oct 23, 2020 07:27
[2020-10-23] MEDS: INSULIN LISPRO 300 UNITS/3 ML VIAL. SQ SCH ×3 (08:00→16:56)
[2020-10-23] MEDS: ASPIRIN ENTERIC COATED 81 MG TABLET.DR. PO SCH (08:30)
[2020-10-23] MEDS: ZINC SULFATE 220 MG CAPSULE. PO SCH (08:30)
[2020-10-23] MEDS: LACTOBACILLUS RHAMNOSUS GG 1 CAPSULE. PO SCH ×2 (08:31→21:15)
[2020-10-23] MEDS: DOXYCYCLINE HYCLATE 100 MG in IV DEXTROSE 5% 100ML 100 ML IV SCH ×2 (08:31→21:15)
[2020-10-23] MEDS: THIAMINE 100 MG TABLET. PO SCH (08:32)
[2020-10-23] MEDS: SPIRONOLACTONE 25 MG TABLET PO SCH (08:32)
[2020-10-23] MEDS: FUROSEMIDE 40 MG/4 ML VIAL. IVP SCH (08:32)
[2020-10-23] MEDS: METOPROLOL SUCC 24HR ER 25 MG TAB.ER.24H. PO SCH (08:32)
[2020-10-23] MEDS: DEXAMETHASONE SOD PHOS 4 MG/ML VIAL IVP SCH (08:32)
[2020-10-23] MEDS: CHOLECALCIFEROL (VITAMIN D3) 5,000 UNIT CAPSULE PO SCH (08:32)
[2020-10-23] MEDS: ASCORBIC ACID 500 MG TABLET PO SCH ×2 (08:32→21:15)
[2020-10-23] MEDS: POTASSIUM CHLORIDE 20 MEQ TABLET.ER. PO SCH (08:32)
--- NOTE | 2020-10-23 09:16 | PDOC ---
PULMONARY PROGRESS NOTES DATE: 10/23/20 TIME: 09:14 Subjective PT. remains on N/C Feeling better no increased cough or SOA remains off BIPAP Vitals Vital Signs Date Time Temp Pulse Resp B/P (MAP) Pulse Ox O2 Delivery O2 Flow Rate FiO2 10/23/20 08:32 73 114/75 10/23/20 07:00 96.2 19 94 Nasal Cannula 8.0 96.2 ROS: No Nausea, No Chest Pain, No Abdominal Pain, No Increase Cough General: Alert Lungs: Clear Cardiovascular: S1, S2 Abdomen: Soft, Non-tender Extremities: No Edema Skin: Warm, Dry Labs Laboratory Tests Test 10/21/20 16:13 10/21/20 19:26 10/22/20 04:30 10/22/20 08:04 Glucose (Fingerstick) 209 mg/dL (70-99) 197 mg/dL (70-99) 91 mg/dL (70-99) White Blood Count 7.2 x10^3/uL (4.0-11.0) Red Blood Count 5.63 x10^6/uL (3.50-5.40) Hemoglobin 16.1 g/dL (12.0-15.5) Hematocrit 50.1 % (36.0-47.0) Mean Corpuscular Volume 89 fL (79-100) Mean Corpuscular Hemoglobin 29 pg (25-35) Mean Corpuscular Hemoglobin Concent 32 g/dL (31-37) Red Cell Distribution Width 14.5 % (11.5-14.5) Platelet Count 153 x10^3/uL (140-400) Neutrophils (%) (Auto) 78 % (31-73) Lymphocytes (%) (Auto) 13 % (24-48) Monocytes (%) (Auto) 10 % (0-9) Eosinophils (%) (Auto) 0 % (0-3) Basophils (%) (Auto) 0 % (0-3) Neutrophils # (Auto) 5.6 x10^3/uL (1.8-7.7) Lymphocytes # (Auto) 0.9 x10^3/uL (1.0-4.8) Monocytes # (Auto) 0.7 x10^3/uL (0.0-1.1) Eosinophils # (Auto) 0.0 x10^3/uL (0.0-0.7) Basophils # (Auto) 0.0 x10^3/uL (0.0-0.2) D-Dimer (Sheila) 2.37 ug/mlFEU (0.00-0.50) Sodium Level 145 mmol/L (136-145) Potassium Level 3.8 mmol/L (3.5-5.1) Chloride Level 104 mmol/L (98-107) Carbon Dioxide Level 35 mmol/L (21-32) Anion Gap 6 (6-14) Blood Urea Nitrogen 25 mg/dL (7-20) Creatinine 0.4 mg/dL (0.6-1.0) Estimated GFR (Cockcroft-Gault) 158.3 Glucose Level 121 mg/dL (70-99) Calcium Level 9.0 mg/dL (8.5-10.1) Magnesium Level 2.3 mg/dL (1.8-2.4) Ferritin 36 ng/mL (8-252) Lactate Dehydrogenase 253 U/L (81-234) Creatine Kinase 28 U/L (26-192) Test 10/22/20 11:26 10/22/20 16:39 10/22/20 19:55 10/23/20 03:30 Glucose (Fingerstick) 236 mg/dL (70-99) 154 mg/dL (70-99) 266 mg/dL (70-99) White Blood Count 7.8 x10^3/uL (4.0-11.0) Red Blood Count 5.55 x10^6/uL (3.50-5.40) Hemoglobin 16.0 g/dL (12.0-15.5) Hematocrit 49.4 % (36.0-47.0) Mean Corpuscular Volume 89 fL (79-100) Mean Corpuscular Hemoglobin 29 pg (25-35) Mean Corpuscular Hemoglobin Concent 33 g/dL (31-37) Red Cell Distribution Width 14.3 % (11.5-14.5) Platelet Count 163 x10^3/uL (140-400) Neutrophils (%) (Auto) 80 % (31-73) Lymphocytes (%) (Auto) 11 % (24-48) Monocytes (%) (Auto) 9 % (0-9) Eosinophils (%) (Auto) 0 % (0-3) Basophils (%) (Auto) 0 % (0-3) Neutrophils # (Auto) 6.2 x10^3/uL (1.8-7.7) Lymphocytes # (Auto) 0.8 x10^3/uL (1.0-4.8) Monocytes # (Auto) 0.7 x10^3/uL (0.0-1.1) Eosinophils # (Auto) 0.0 x10^3/uL (0.0-0.7) Basophils # (Auto) 0.0 x10^3/uL (0.0-0.2) Sodium Level 142 mmol/L (136-145) Potassium Level 4.0 mmol/L (3.5-5.1) Chloride Level 103 mmol/L (98-107) Carbon Dioxide Level 34 mmol/L (21-32) Anion Gap 5 (6-14) Blood Urea Nitrogen 27 mg/dL (7-20) Creatinine 0.5 mg/dL (0.6-1.0) Estimated GFR (Cockcroft-Gault) 122.3 Glucose Level 100 mg/dL (70-99) Calcium Level 8.7 mg/dL (8.5-10.1) Total Bilirubin 0.7 mg/dL (0.2-1.0) Direct Bilirubin 0.2 mg/dL (0.0-0.2) Aspartate Amino Transf (AST/SGOT) 20 U/L (15-37) Alanine Aminotransferase (ALT/SGPT) 37 U/L (14-59) Alkaline Phosphatase 62 U/L (46-116) Total Protein 6.3 g/dL (6.4-8.2) Albumin 2.7 g/dL (3.4-5.0) Test 10/23/20 08:01 Glucose (Fingerstick) 95 mg/dL (70-99) Laboratory Tests Test 10/22/20 11:26 10/22/20 16:39 10/22/20 19:55 10/23/20 03:30 Glucose (Fingerstick) 236 mg/dL (70-99) 154 mg/dL (70-99) 266 mg/dL (70-99) White Blood Count 7.8 x10^3/uL (4.0-11.0) Red Blood Count 5.55 x10^6/uL (3.50-5.40) Hemoglobin 16.0 g/dL (12.0-15.5) Hematocrit 49.4 % (36.0-47.0) Mean Corpuscular Volume 89 fL (79-100) Mean Corpuscular Hemoglobin 29 pg (25-35) Mean Corpuscular Hemoglobin Concent 33 g/dL (31-37) Red Cell Distribution Width 14.3 % (11.5-14.5) Platelet Count 163 x10^3/uL (140-400) Neutrophils (%) (Auto) 80 % (31-73) Lymphocytes (%) (Auto) 11 % (24-48) Monocytes (%) (Auto) 9 % (0-9) Eosinophils (%) (Auto) 0 % (0-3) Basophils (%) (Auto) 0 % (0-3) Neutrophils # (Auto) 6.2 x10^3/uL (1.8-7.7) Lymphocytes # (Auto) 0.8 x10^3/uL (1.0-4.8) Monocytes # (Auto) 0.7 x10^3/uL (0.0-1.1) Eosinophils # (Auto) 0.0 x10^3/uL (0.0-0.7) Basophils # (Auto) 0.0 x10^3/uL (0.0-0.2) Sodium Level 142 mmol/L (136-145) Potassium Level 4.0 mmol/L (3.5-5.1) Chloride Level 103 mmol/L (98-107) Carbon Dioxide Level 34 mmol/L (21-32) Anion Gap 5 (6-14) Blood Urea Nitrogen 27 mg/dL (7-20) Creatinine 0.5 mg/dL (0.6-1.0) Estimated GFR (Cockcroft-Gault) 122.3 Glucose Level 100 mg/dL (70-99) Calcium Level 8.7 mg/dL (8.5-10.1) Total Bilirubin 0.7 mg/dL (0.2-1.0) Direct Bilirubin 0.2 mg/dL (0.0-0.2) Aspartate Amino Transf (AST/SGOT) 20 U/L (15-37) Alanine Aminotransferase (ALT/SGPT) 37 U/L (14-59) Alkaline Phosphatase 62 U/L (46-116) Total Protein 6.3 g/dL (6.4-8.2) Albumin 2.7 g/dL (3.4-5.0) Test 10/23/20 08:01 Glucose (Fingerstick) 95 mg/dL (70-99) Medications Active Scripts Medications Dose Route/Sig Max Daily Dose Days Date Category Metformin Hcl 500 Mg Tablet 500 Mg PO BIDWMEALS 10/19/20 Reported Metoprolol Succinate ( Xl ) (Metoprolol Succinate) 25 Mg Tab.er.24h 1 Tab PO DAILY 10/19/20 Reported Losartan Potassium 25 Mg Tablet 25 Mg PO DAILY 10/19/20 Reported Comments CXR IMPRESSION: Cardiomegaly, mild interstitial thickening. Findings could represent edema or an atypical infectious process. Impression . 1. Pecif-oh-peqshgf hypercapnic and hypoxic respiratory failure secondary to COVID-19 viral pneumonia. possible right heart failure, She has underlying chronic hypercapnia, suspect component of chronic hypoventilation/ COR-Pulmonale. - She has a history of obstructive sleep apnea as well. Cannot exclude pneumonia. 2. Abnormal chest x-ray with mild interstitial prominence and some patchy infiltrate of the left upper lobe. 3. No significant tobacco history. 4. Abnormal troponin, possible non-ST myocardial infarction. 5. Severe protein-calorie malnutrition. Plan . RECOMMENDATIONS: Continue supplemental oxygen as need, on 8 liters N/C BIPAP PRN COVID-19 positive Continue steroids with slow taper, will need full 10 day course Continue full course of remdesivir Continue empiric ABX Follow Cardiology recs DVT/GI PPX D/W CARLEEN ARELLANO MD Oct 23, 2020 09:16
[2020-10-23] MEDS: REMDESIVIR 100mg in NORMAL SALINE 250ML X 4 DAYS IV SCH (10:53)
[2020-10-23] MEDS: cefTRIAXone IV Push 1 GM VIAL. IVP SCH (10:53)
[2020-10-23 11:00] VITALS: BP 121/78
[2020-10-23 15:00] VITALS: BP 112/71
[2020-10-23] MEDS: guaiFENesin DM 200MG/20MG 10 ML SYRUP PO PRN (17:02)
[2020-10-23 19:00] VITALS: BP 116/73
[2020-10-23] MEDS: ENOXAPARIN 40 MG/0.4 ML SYRINGE. SQ SCH (21:15)
[2020-10-23] MEDS: ATORVASTATIN CALCIUM 10 MG TABLET. PO SCH (21:15)
[2020-10-23 22:41] VITALS: BP 114/73
[2020-10-24 03:09] VITALS: BP 109/68
[2020-10-24 04:22] LABS: BASO % 0 % (0-3); EOS % 0 % (0-3); HEMATOCRIT 50.8 % (36.0-47.0); HEMOGLOBIN 16.3 g/dL (12.0-15.5); LYMPH # 1.2 x10^3/uL (1.0-4.8); LYMPH % 13 % (24-48); MEAN CORPUSCULAR HEMOGLOBIN 29 pg (25-35); MEAN CORPUSCULAR HGB CONC 32 g/dL (31-37); MEAN CORPUSCULAR VOLUME 89 fL (79-100); MONO # 0.7 x10^3/uL (0.0-1.1); MONO % 8 % (0-9); NEUT # 7.2 x10^3/uL (1.8-7.7); NEUT % 79 % (31-73); PLATELET COUNT 181 x10^3/uL (140-400); RED BLOOD COUNT 5.69 x10^6/uL (3.50-5.40); RED CELL DISTRIBUTION WIDTH 14.2 % (11.5-14.5); WHITE BLOOD COUNT 9.1 x10^3/uL (4.0-11.0)
[2020-10-24 04:36] LABS: CREATININE 0.7 mg/dL (0.6-1.0); POTASSIUM 4.3 mmol/L (3.5-5.1)
[2020-10-24 04:54] LABS: MAGNESIUM 2.1 mg/dL (1.8-2.4)
[2020-10-24 07:00] VITALS: BP 112/75
[2020-10-24] MEDS: INSULIN LISPRO 300 UNITS/3 ML VIAL. SQ SCH ×3 (08:00→16:48)
--- NOTE | 2020-10-24 08:33 | PDOC ---
[facility] PROGRESS NOTE Date of Service DOS: DATE: 10/24/20 TIME: 08:33 Chief Complaint Chief Complaint A/P: COVID 19 with pneumonia - will treat. Acute respiratory failure with hypoxia and hypercapnea - likely infectious process, high risk for gram negative pneumonia, COVID 19 possible vs COPD exacerbation. Cont BIPAP prn, O2 when tolerated. pulm consulted. COPD - with acute exacerbation, steroids, bipap Transaminitis - likely due to poor PO intake vs COVID, will f/u Elevated troponin - likely demand ischemia type II, will trend troponins Hypernatremia - likely hypovolemic, will hydrate, early nutrition Diabetes-Type II - sliding scale High Cholesterol - statin Hypertension - cont home meds YAN on nocturnal O2 - will cont bipap for now FEN - ADA diet PPX - lovenox FULL CODE Dispo - Cont inpatient History of Present Illness History of Present Illness Ms Castellanos is a 70yo F [place] speaking only w/ PMHx COPD, Diabetes-Type II, High Cholesterol, Hypertension, YAN on nocturnal O2 who presents to the emergency room in respiratory distress. Family states that this is been ongoing for the last 4 days. They are unsure if she is having fever. History is significantly limited due to poor historian and language barrier. Patient is also in distress and is unable to answer any questions. Family states that they got her tested for Covid yesterday but the test result has not come back. She is notably confused according to her son, who is bedside. Chest radiograph with mild interstitial thickening Labs with WBC 5.1, Hb 15.5, platelets 153, NA 147, K4.2, BUN 20, CR 0.7, glucose 155, AST 61, ALT 75, LDH 269, albumin 2.9, CRP 10.8, BNP 9013, troponin 0 0.223, rapid influenza negative, ABG pH 7.19, PaCO2 102, PaO2 161 on BiPAP 100% FiO2 Admitted on BIPAP for further care. 10/20: Patient seen in ICU. Afebrile. Breathing on BiPAP, FiO2 50%. Appreciate pulmonology recommendations. Continue Rocephin and doxycycline. COVID-19 pending. 10/21: Patient seen and evaluated. COVID-19 positive. Currently breathing on Venturi mask at 15 L. Will add Decadron 6 mg daily, vitamin C, vitamin D. Continue antibiotic treatment with Rocephin and doxycycline. Initiated remdesivir treatment and monitor LFTs. 10/22: Seen on 10 L nasal cannula O2. Afebrile. Has an appetite today eating 100% of her meals. Still very short of breath little bit of nausea no vomiting or diarrhea. Still with some confusion. Language barrier is an issue. 10/23: Seen on 8L NCO2. Afebrile. Good appetite today. Cough has become worse. Still very short of breath. No N/V/D. Still with some confusion. Saturations improved on 8 L nasal cannula oxygen. Afebrile. Eating well. Cough stable but still very short of breath. No nausea vomiting diarrhea. Still with some confusion. Vitals/I&O Vitals/I&O: Vital Signs Date Time Temp Pulse Resp B/P (MAP) Pulse Ox O2 Delivery O2 Flow Rate FiO2 10/24/20 03:09 98.9 65 18 109/68 (82) 97 Nasal Cannula 6.0 98.9 I & O 10/23/20 10/23/20 10/24/20 15:00 23:00 07:00 Intake Total 120 ml Output Total 1150 ml Balance -1030 ml Physical Exam General: Alert, Cooperative, moderate distress Heart: Regular rate (SR), Other (distant heart sounds) Lungs: Clear Abdomen: Soft Extremities: No cyanosis, Other (2+ bilateral LE pitting edema) Skin: No significant lesion Labs Labs: Laboratory Tests Test 10/23/20 11:39 10/23/20 16:47 10/23/20 19:58 10/24/20 04:00 Glucose (Fingerstick) 245 mg/dL (70-99) 243 mg/dL (70-99) 291 mg/dL (70-99) White Blood Count 9.1 x10^3/uL (4.0-11.0) Red Blood Count 5.69 x10^6/uL (3.50-5.40) Hemoglobin 16.3 g/dL (12.0-15.5) Hematocrit 50.8 % (36.0-47.0) Mean Corpuscular Volume 89 fL (79-100) Mean Corpuscular Hemoglobin 29 pg (25-35) Mean Corpuscular Hemoglobin Concent 32 g/dL (31-37) Red Cell Distribution Width 14.2 % (11.5-14.5) Platelet Count 181 x10^3/uL (140-400) Neutrophils (%) (Auto) 79 % (31-73) Lymphocytes (%) (Auto) 13 % (24-48) Monocytes (%) (Auto) 8 % (0-9) Eosinophils (%) (Auto) 0 % (0-3) Basophils (%) (Auto) 0 % (0-3) Neutrophils # (Auto) 7.2 x10^3/uL (1.8-7.7) Lymphocytes # (Auto) 1.2 x10^3/uL (1.0-4.8) Monocytes # (Auto) 0.7 x10^3/uL (0.0-1.1) Eosinophils # (Auto) 0.0 x10^3/uL (0.0-0.7) Basophils # (Auto) 0.0 x10^3/uL (0.0-0.2) D-Dimer (Sheila) 1.92 ug/mlFEU (0.00-0.50) Sodium Level 138 mmol/L (136-145) Potassium Level 4.3 mmol/L (3.5-5.1) Chloride Level 101 mmol/L (98-107) Carbon Dioxide Level 34 mmol/L (21-32) Anion Gap 3 (6-14) Blood Urea Nitrogen 31 mg/dL (7-20) Creatinine 0.7 mg/dL (0.6-1.0) Estimated GFR (Cockcroft-Gault) 83.0 Glucose Level 118 mg/dL (70-99) Calcium Level 9.0 mg/dL (8.5-10.1) Magnesium Level 2.1 mg/dL (1.8-2.4) Ferritin 42 ng/mL (8-252) Lactate Dehydrogenase 238 U/L (81-234) Creatine Kinase 19 U/L (26-192) Test 10/24/20 08:00 Glucose (Fingerstick) 110 mg/dL (70-99) Assessment and Plan Assessmemt and Plan Problems Medical Problems: (1) Acute respiratory failure Status: Acute (2) Pulmonary edema Status: Acute Comment Review of Relevant I have reviewed the following items torin (where applicable) has been applied. Justifications for Admission General Conditions Altered mental status?: Yes Justification of admission: Patient has tachycardia (> 100 beats per minute) or hypotension (SBP < 90 mm Hg) leading to inadequate systemic perfusion as indicated by severe/persistent altered mental status. Other Justification BRADY TELLEZ MD Oct 24, 2020 08:33
[2020-10-24] MEDS: ASCORBIC ACID 500 MG TABLET PO SCH ×2 (08:49→22:29)
[2020-10-24] MEDS: POTASSIUM CHLORIDE 20 MEQ TABLET.ER. PO SCH (08:49)
[2020-10-24] MEDS: LACTOBACILLUS RHAMNOSUS GG 1 CAPSULE. PO SCH ×2 (08:49→22:29)
[2020-10-24] MEDS: ZINC SULFATE 220 MG CAPSULE. PO SCH (08:49)
[2020-10-24] MEDS: THIAMINE 100 MG TABLET. PO SCH (08:49)
[2020-10-24] MEDS: SPIRONOLACTONE 25 MG TABLET PO SCH (08:49)
[2020-10-24] MEDS: CHOLECALCIFEROL (VITAMIN D3) 5,000 UNIT CAPSULE PO SCH (08:49)
[2020-10-24] MEDS: METOPROLOL SUCC 24HR ER 25 MG TAB.ER.24H. PO SCH (08:49)
[2020-10-24] MEDS: DEXAMETHASONE SOD PHOS 4 MG/ML VIAL IVP SCH (08:50)
[2020-10-24] MEDS: DOXYCYCLINE HYCLATE 100 MG in IV DEXTROSE 5% 100ML 100 ML IV SCH ×2 (08:50→22:29)
[2020-10-24] MEDS: ASPIRIN ENTERIC COATED 81 MG TABLET.DR. PO SCH (08:53)
--- NOTE | 2020-10-24 09:28 | PDOC ---
PULMONARY PROGRESS NOTES DATE: 10/24/20 TIME: 09:27 Subjective Pt. remains on N/C Feeling better no increased cough or SOA Vitals Vital Signs Date Time Temp Pulse Resp B/P (MAP) Pulse Ox O2 Delivery O2 Flow Rate FiO2 10/24/20 08:49 63 112/75 10/24/20 07:00 96.5 22 93 Nasal Cannula 6.0 96.5 ROS: No Nausea, No Chest Pain, No Abdominal Pain, No Increase Cough General: Alert Lungs: Clear Cardiovascular: S1, S2 Abdomen: Soft, Non-tender Extremities: No Edema Skin: Warm, Dry Labs Laboratory Tests Test 10/22/20 11:26 10/22/20 16:39 10/22/20 19:55 10/23/20 03:30 Glucose (Fingerstick) 236 mg/dL (70-99) 154 mg/dL (70-99) 266 mg/dL (70-99) White Blood Count 7.8 x10^3/uL (4.0-11.0) Red Blood Count 5.55 x10^6/uL (3.50-5.40) Hemoglobin 16.0 g/dL (12.0-15.5) Hematocrit 49.4 % (36.0-47.0) Mean Corpuscular Volume 89 fL (79-100) Mean Corpuscular Hemoglobin 29 pg (25-35) Mean Corpuscular Hemoglobin Concent 33 g/dL (31-37) Red Cell Distribution Width 14.3 % (11.5-14.5) Platelet Count 163 x10^3/uL (140-400) Neutrophils (%) (Auto) 80 % (31-73) Lymphocytes (%) (Auto) 11 % (24-48) Monocytes (%) (Auto) 9 % (0-9) Eosinophils (%) (Auto) 0 % (0-3) Basophils (%) (Auto) 0 % (0-3) Neutrophils # (Auto) 6.2 x10^3/uL (1.8-7.7) Lymphocytes # (Auto) 0.8 x10^3/uL (1.0-4.8) Monocytes # (Auto) 0.7 x10^3/uL (0.0-1.1) Eosinophils # (Auto) 0.0 x10^3/uL (0.0-0.7) Basophils # (Auto) 0.0 x10^3/uL (0.0-0.2) Sodium Level 142 mmol/L (136-145) Potassium Level 4.0 mmol/L (3.5-5.1) Chloride Level 103 mmol/L (98-107) Carbon Dioxide Level 34 mmol/L (21-32) Anion Gap 5 (6-14) Blood Urea Nitrogen 27 mg/dL (7-20) Creatinine 0.5 mg/dL (0.6-1.0) Estimated GFR (Cockcroft-Gault) 122.3 Glucose Level 100 mg/dL (70-99) Calcium Level 8.7 mg/dL (8.5-10.1) Total Bilirubin 0.7 mg/dL (0.2-1.0) Direct Bilirubin 0.2 mg/dL (0.0-0.2) Aspartate Amino Transf (AST/SGOT) 20 U/L (15-37) Alanine Aminotransferase (ALT/SGPT) 37 U/L (14-59) Alkaline Phosphatase 62 U/L (46-116) Total Protein 6.3 g/dL (6.4-8.2) Albumin 2.7 g/dL (3.4-5.0) Test 10/23/20 08:01 10/23/20 11:39 10/23/20 16:47 10/23/20 19:58 Glucose (Fingerstick) 95 mg/dL (70-99) 245 mg/dL (70-99) 243 mg/dL (70-99) 291 mg/dL (70-99) Test 10/24/20 04:00 10/24/20 08:00 White Blood Count 9.1 x10^3/uL (4.0-11.0) Red Blood Count 5.69 x10^6/uL (3.50-5.40) Hemoglobin 16.3 g/dL (12.0-15.5) Hematocrit 50.8 % (36.0-47.0) Mean Corpuscular Volume 89 fL (79-100) Mean Corpuscular Hemoglobin 29 pg (25-35) Mean Corpuscular Hemoglobin Concent 32 g/dL (31-37) Red Cell Distribution Width 14.2 % (11.5-14.5) Platelet Count 181 x10^3/uL (140-400) Neutrophils (%) (Auto) 79 % (31-73) Lymphocytes (%) (Auto) 13 % (24-48) Monocytes (%) (Auto) 8 % (0-9) Eosinophils (%) (Auto) 0 % (0-3) Basophils (%) (Auto) 0 % (0-3) Neutrophils # (Auto) 7.2 x10^3/uL (1.8-7.7) Lymphocytes # (Auto) 1.2 x10^3/uL (1.0-4.8) Monocytes # (Auto) 0.7 x10^3/uL (0.0-1.1) Eosinophils # (Auto) 0.0 x10^3/uL (0.0-0.7) Basophils # (Auto) 0.0 x10^3/uL (0.0-0.2) D-Dimer (Sheila) 1.92 ug/mlFEU (0.00-0.50) Sodium Level 138 mmol/L (136-145) Potassium Level 4.3 mmol/L (3.5-5.1) Chloride Level 101 mmol/L (98-107) Carbon Dioxide Level 34 mmol/L (21-32) Anion Gap 3 (6-14) Blood Urea Nitrogen 31 mg/dL (7-20) Creatinine 0.7 mg/dL (0.6-1.0) Estimated GFR (Cockcroft-Gault) 83.0 Glucose Level 118 mg/dL (70-99) Calcium Level 9.0 mg/dL (8.5-10.1) Magnesium Level 2.1 mg/dL (1.8-2.4) Ferritin 42 ng/mL (8-252) Lactate Dehydrogenase 238 U/L (81-234) Creatine Kinase 19 U/L (26-192) Glucose (Fingerstick) 110 mg/dL (70-99) Laboratory Tests Test 10/23/20 11:39 10/23/20 16:47 10/23/20 19:58 10/24/20 04:00 Glucose (Fingerstick) 245 mg/dL (70-99) 243 mg/dL (70-99) 291 mg/dL (70-99) White Blood Count 9.1 x10^3/uL (4.0-11.0) Red Blood Count 5.69 x10^6/uL (3.50-5.40) Hemoglobin 16.3 g/dL (12.0-15.5) Hematocrit 50.8 % (36.0-47.0) Mean Corpuscular Volume 89 fL (79-100) Mean Corpuscular Hemoglobin 29 pg (25-35) Mean Corpuscular Hemoglobin Concent 32 g/dL (31-37) Red Cell Distribution Width 14.2 % (11.5-14.5) Platelet Count 181 x10^3/uL (140-400) Neutrophils (%) (Auto) 79 % (31-73) Lymphocytes (%) (Auto) 13 % (24-48) Monocytes (%) (Auto) 8 % (0-9) Eosinophils (%) (Auto) 0 % (0-3) Basophils (%) (Auto) 0 % (0-3) Neutrophils # (Auto) 7.2 x10^3/uL (1.8-7.7) Lymphocytes # (Auto) 1.2 x10^3/uL (1.0-4.8) Monocytes # (Auto) 0.7 x10^3/uL (0.0-1.1) Eosinophils # (Auto) 0.0 x10^3/uL (0.0-0.7) Basophils # (Auto) 0.0 x10^3/uL (0.0-0.2) D-Dimer (Sheila) 1.92 ug/mlFEU (0.00-0.50) Sodium Level 138 mmol/L (136-145) Potassium Level 4.3 mmol/L (3.5-5.1) Chloride Level 101 mmol/L (98-107) Carbon Dioxide Level 34 mmol/L (21-32) Anion Gap 3 (6-14) Blood Urea Nitrogen 31 mg/dL (7-20) Creatinine 0.7 mg/dL (0.6-1.0) Estimated GFR (Cockcroft-Gault) 83.0 Glucose Level 118 mg/dL (70-99) Calcium Level 9.0 mg/dL (8.5-10.1) Magnesium Level 2.1 mg/dL (1.8-2.4) Ferritin 42 ng/mL (8-252) Lactate Dehydrogenase 238 U/L (81-234) Creatine Kinase 19 U/L (26-192) Test 10/24/20 08:00 Glucose (Fingerstick) 110 mg/dL (70-99) Medications Active Scripts Medications Dose Route/Sig Max Daily Dose Days Date Category Metformin Hcl 500 Mg Tablet 500 Mg PO BIDWMEALS 10/19/20 Reported Metoprolol Succinate ( Xl ) (Metoprolol Succinate) 25 Mg Tab.er.24h 1 Tab PO DAILY 10/19/20 Reported Losartan Potassium 25 Mg Tablet 25 Mg PO DAILY 10/19/20 Reported Comments CXR IMPRESSION: Cardiomegaly, mild interstitial thickening. Findings could represent edema or an atypical infectious process. Impression . 1. Mnram-oz-apnfmxa hypercapnic and hypoxic respiratory failure secondary to COVID-19 viral pneumonia. possible right heart failure, She has underlying chronic hypercapnia, suspect component of chronic hypoventilation/ COR-Pulmonale. - She has a history of obstructive sleep apnea as well. Cannot exclude pneumonia. 2. Abnormal chest x-ray with mild interstitial prominence and some patchy infiltrate of the left upper lobe. 3. No significant tobacco history. 4. Abnormal troponin, possible non-ST myocardial infarction. 5. Severe protein-calorie malnutrition. Plan . RECOMMENDATIONS: Continue supplemental oxygen as need, on 6 liters N/C, wean as tolerated will need 6 min walk before D/C D/C BIPAP COVID-19 positive Continue steroids with slow taper, will need full 10 day course Continue full course of remdesivir Continue empiric ABX, for full course Follow Cardiology recs DVT/GI PPX D/W CARLEEN ARLELANO MD Oct 24, 2020 09:28
[2020-10-24 11:00] VITALS: BP 119/83
[2020-10-24] MEDS: REMDESIVIR 100mg in NORMAL SALINE 250ML X 4 DAYS IV SCH (12:23)
[2020-10-24] MEDS: cefTRIAXone IV Push 1 GM VIAL. IVP SCH (12:23)
[2020-10-24 15:00] VITALS: BP 108/70
[2020-10-24 19:00] VITALS: BP 107/65
[2020-10-24] MEDS: ATORVASTATIN CALCIUM 10 MG TABLET. PO SCH (22:29)
[2020-10-24] MEDS: ENOXAPARIN 40 MG/0.4 ML SYRINGE. SQ SCH (22:30)
[2020-10-24 23:51] VITALS: BP 124/80
[2020-10-25 03:38] VITALS: BP 116/78
[2020-10-25 07:00] VITALS: BP 110/75
[2020-10-25] MEDS: INSULIN LISPRO 300 UNITS/3 ML VIAL. SQ SCH ×3 (08:00→16:47)
--- NOTE | 2020-10-25 08:36 | PDOC ---
PROGRESS NOTES Date of Service: DATE: 10/25/20 TIME: 08:36 Chief Complaint Chief Complaint IMPRESSION COVID 19 with pneumonia - will treat. [id number] hypercapnic and hypoxic respiratory failure secondary to COVID- 19 viral pneumonia. possible right heart failure, She has underlying chronic hypercapnia, suspect component of chronic hypoventilation/ COR-Pulmonale. - She has a history of obstructive sleep apnea as well. Cannot exclude pneumonia. Acute respiratory failure with hypoxia and hypercapnea - likely infectious process, high risk for gram negative pneumonia, COVID 19 possible vs COPD exacerbation. Cont BIPAP prn, O2 when tolerated. pulm consulted. COPD - with acute exacerbation, steroids, bipap Transaminitis - likely due to poor PO intake vs COVID, will f/u Elevated troponin - likely demand ischemia type II, will trend troponins Hypernatremia - likely hypovolemic, will hydrate, early nutrition Diabetes-Type II - sliding scale High Cholesterol - statin Hypertension - cont home meds YAN on nocturnal O2 - will cont bipap for now PLAN FEN - ADA diet PPX - lovenox FULL CODE Dispo - Cont inpatient d/w RN History of Present Illness History of Present Illness Ms Castellanos is a 70yo F [place] speaking only w/ PMHx COPD, Diabetes-Type II, High Cholesterol, Hypertension, YAN on nocturnal O2 who presented to the emergency room in respiratory distress. Family states that this is been ongoing for the last 4 days. They are unsure if she is having fever. History is significantly limited due to poor historian and language barrier. Patient is also in distress and is unable to answer any questions. Family states that they got her tested for Covid yesterday but the test result has not come back. She is notably confused according to her son, who is bedside. Chest radiograph with mild interstitial thickening Labs with WBC 5.1, Hb 15.5, platelets 153, NA 147, K4.2, BUN 20, CR 0.7, glucose 155, AST 61, ALT 75, LDH 269, albumin 2.9, CRP 10.8, BNP 9013, troponin 0 0.223, rapid influenza negative, ABG pH 7.19, PaCO2 102, PaO2 161 on BiPAP 100% FiO2 Admitted on BIPAP for further care. 10/20: Patient seen in ICU. Afebrile. Breathing on BiPAP, FiO2 50%. Appreciate pulmonology recommendations. Continue Rocephin and doxycycline. COVID-19 pending. 10/21: Patient seen and evaluated. COVID-19 positive. Currently breathing on Venturi mask at 15 L. Will add Decadron 6 mg daily, vitamin C, vitamin D. Continue antibiotic treatment with Rocephin and doxycycline. Initiated remdesivir treatment and monitor LFTs. 10/22: Seen on 10 L nasal cannula O2. Afebrile. Has an appetite today eating 100% of her meals. Still very short of breath little bit of nausea no vomiting or diarrhea. Still with some confusion. Language barrier is an issue. 10/23: Seen on 8L NCO2. Afebrile. Good appetite today. Cough has become worse. Still very short of breath. No N/V/D. Still with some confusion. Saturations improved on 8 L nasal cannula oxygen. Afebrile. Eating well. Cough stable but still very short of breath. No nausea vomiting diarrhea. Still with some confusion. Vitals Vitals Vital Signs Date Time Temp Pulse Resp B/P (MAP) Pulse Ox O2 Delivery O2 Flow Rate FiO2 10/25/20 03:38 97.2 66 18 116/78 (91) 97 Nasal Cannula 6.0 97.2 Physical Exam General: Alert, Cooperative, moderate distress Heart: Regular rate (SR), Other (distant heart sounds) Lungs: Clear Abdomen: Soft Extremities: No cyanosis, Other (2+ bilateral LE pitting edema) Skin: No significant lesion Labs LABS Single view of the chest. 10/19/2020 11:06 AM Indication: Reason: cough, covid? / Spl. Instructions: / History: Comparison: Chest radiograph March 04, 2014 Findings: Cardiomediastinal silhouette appears be enlarged, likely augmented by portable technique and positioning. And mild interstitial thickening appears be present which could represent mild edema. An atypical infectious process is not excluded. No pneumothorax or definitive effusion is seen. No acute osseous changes are identified. IMPRESSION: Cardiomegaly, mild interstitial thickening. Findings could represent edema or an atypical infectious process. Electronically signed by: Anders Miranda MD (10/19/2020 11:23 AM) [id number] DICTATED and SIGNED BY: ANDERS MIRANDA MD DATE: 10/19/20 [id number] DPOA REVIEW 18 MIN to patient portal What Is a Power of Patient Service Associate? A power of claim attorney (POA) is a legal document giving one person (the agent or [id number]) the power to act for another person (the principal). The agent can have broad legal authority or limited authority to make legal decisions about the principal's property, finances or medical care. The power of claim attorney is frequently used in the event of a principal's illness or disability, or when the principal can't be present to sign necessary legal documents for financial transactions. A power of claim attorney can end for a number of reasons, such as when the principal dies, the principal revokes it, a court invalidates it, the principal divorces their spouse, who happens to be the agent, or the agent can no longer carry out the outlined responsibilities. Conventional POAs lapse when the creator becomes incapacitated, but a durable POA remains in force to enable the agent to manage the creators affairs, and a springing POA comes into effect only if and when the creator of the POA becomes incapacitated. A medical or healthcare POA enables an agent to make medical decisions on behalf of an incapacitated person. Melissa Takeaways A power of claim attorney (POA) is a legal document giving one person, the agent or [id number] the power to act for another person, the principal. The agent can have broad legal authority or limited authority to make decisions about the principal's property, finances or medical care. The power of claim attorney is often used when a principal becomes ill or disabled, or when they can't be present to sign necessary legal documents for financial transactions. Understanding Power of Patient Service Associate A power of claim attorney should be considered when planning for long-term care. There are different types of POAs that fall under either a general power of claim attorney or limited power of claim attorney. A general power of claim attorney acts on behalf of the principal in any and all matters, as allowed by the state. The agent under a general POA agreement may be authorized to take care of issues such as handling bank accounts, signing checks, selling property and assets like stocks, f A limited power of claim attorney gives the agent the power to act on behalf of the principal in specific matters or events. For example, the limited POA may explicitly state that the agent is only allowed to manage the principal's mcc accounts. A limited POA may also be limited to a specific period of time (e.g., if the principal will be out of the country for, say, two years). Most garcia of claim attorney documents allow an agent to represent the principal in all property and financial matters as long as the principals mental state of mind is good. If a situation occurs where the principal becomes incapable of making decisions for him or herself, the POA agreement would automatically end. However, someone who wants the POA to remain in effect after the persons health deteriorates would need to sign a durable power of claim attorney (DPOA). What is an advance directive? An advance directive is a legal document that says how you want to be cared for if you are unable to make decisions. You can include what medical treatments you would want and who you would trust to make decisions for you. An advance directive can also include other legal documents. A living will is a list of treatment preferences. It can be used to indicate whether you would want cardiopulmonary resuscitation (CPR), tube feedings, a breathing machine, or certain medicines, like antibiotics. The durable power of claim attorney for health care document identifies the person you would want to make medical decisions for you. This person is also called a proxy. Your proxy should be familiar with your values and wishes. How do I get started? You can get advance directive documents for your state from your doctor's office or from http://www.caringinfo.org. Review the forms, and ask your doctor if you have any questions. Pick a person to be your proxy, and talk it over with that person. Laboratory Tests Test 10/24/20 11:18 10/24/20 16:30 10/24/20 20:05 10/25/20 07:57 Glucose (Fingerstick) 224 mg/dL (70-99) 269 mg/dL (70-99) 291 mg/dL (70-99) 102 mg/dL (70-99) Single view of the chest. 10/19/2020 11:06 AM Indication: Reason: cough, covid? / Spl. Instructions: / History: Comparison: Chest radiograph March 04, 2014 Findings: Cardiomediastinal silhouette appears be enlarged, likely augmented by portable technique and positioning. And mild interstitial thickening appears be present which could represent mild edema. An atypical infectious process is not excluded. No pneumothorax or definitive effusion is seen. No acute osseous changes are identified. IMPRESSION: Cardiomegaly, mild interstitial thickening. Findings could represent edema or an atypical infectious process. Electronically signed by: Anders Miranda MD (10/19/2020 11:23 AM) [id number] DICTATED and SIGNED BY: ANDERS MIRANDA MD DATE: 10/19/20 [id number] Assessment and Plan Assessmemt and Plan Problems Medical Problems: (1) Acute respiratory failure Status: Acute (2) Pulmonary edema Status: Acute Comment Review of Relevant I have reviewed the following items torin (where applicable) has been applied. Labs Laboratory Tests Test 10/23/20 11:39 10/23/20 16:47 10/23/20 19:58 10/24/20 04:00 Glucose (Fingerstick) 245 mg/dL (70-99) 243 mg/dL (70-99) 291 mg/dL (70-99) White Blood Count 9.1 x10^3/uL (4.0-11.0) Red Blood Count 5.69 x10^6/uL (3.50-5.40) Hemoglobin 16.3 g/dL (12.0-15.5) Hematocrit 50.8 % (36.0-47.0) Mean Corpuscular Volume 89 fL (79-100) Mean Corpuscular Hemoglobin 29 pg (25-35) Mean Corpuscular Hemoglobin Concent 32 g/dL (31-37) Red Cell Distribution Width 14.2 % (11.5-14.5) Platelet Count 181 x10^3/uL (140-400) Neutrophils (%) (Auto) 79 % (31-73) Lymphocytes (%) (Auto) 13 % (24-48) Monocytes (%) (Auto) 8 % (0-9) Eosinophils (%) (Auto) 0 % (0-3) Basophils (%) (Auto) 0 % (0-3) Neutrophils # (Auto) 7.2 x10^3/uL (1.8-7.7) Lymphocytes # (Auto) 1.2 x10^3/uL (1.0-4.8) Monocytes # (Auto) 0.7 x10^3/uL (0.0-1.1) Eosinophils # (Auto) 0.0 x10^3/uL (0.0-0.7) Basophils # (Auto) 0.0 x10^3/uL (0.0-0.2) D-Dimer (Sheila) 1.92 ug/mlFEU (0.00-0.50) Sodium Level 138 mmol/L (136-145) Potassium Level 4.3 mmol/L (3.5-5.1) Chloride Level 101 mmol/L (98-107) Carbon Dioxide Level 34 mmol/L (21-32) Anion Gap 3 (6-14) Blood Urea Nitrogen 31 mg/dL (7-20) Creatinine 0.7 mg/dL (0.6-1.0) Estimated GFR (Cockcroft-Gault) 83.0 Glucose Level 118 mg/dL (70-99) Calcium Level 9.0 mg/dL (8.5-10.1) Magnesium Level 2.1 mg/dL (1.8-2.4) Ferritin 42 ng/mL (8-252) Lactate Dehydrogenase 238 U/L (81-234) Creatine Kinase 19 U/L (26-192) Test 10/24/20 08:00 10/24/20 11:18 10/24/20 16:30 10/24/20 20:05 Glucose (Fingerstick) 110 mg/dL (70-99) 224 mg/dL (70-99) 269 mg/dL (70-99) 291 mg/dL (70-99) Test 10/25/20 07:57 Glucose (Fingerstick) 102 mg/dL (70-99) Laboratory Tests Test 10/24/20 11:18 10/24/20 16:30 10/24/20 20:05 10/25/20 07:57 Glucose (Fingerstick) 224 mg/dL (70-99) 269 mg/dL (70-99) 291 mg/dL (70-99) 102 mg/dL (70-99) Medications Current Medications Dexamethasone Sodium Phosphate (Decadron) 10 mg 1X ONCE IVP Last administered on 10/19/20at 11:24; Start 10/19/20 at 11:00; Stop 10/19/20 at 11:01; Status DC Ceftriaxone Sodium (Rocephin) 1 gm 1X ONCE IVP Last administered on 10/19/20at 11:25; Start 10/19/20 at 11:00; Stop 10/19/20 at 11:01; Status DC Ondansetron HCl (Zofran) 4 mg PRN Q4HRS PRN IV NAUSEA/VOMITING; Start 10/19/20 at 14:15 Acetaminophen (Tylenol Supp) 650 mg PRN Q4HRS PRN [place] TEMP OVER 100.4F OR MILD PAIN; Start 10/19/20 at 14:15 Enoxaparin Sodium (Lovenox 40mg Syringe) 40 mg Q24H SQ Last administered on 10/24/20at 22:30; Start 10/19/20 at 21:00 Insulin Human Lispro (HumaLOG) 0-7 UNITS TIDWMEALS SQ Last administered on 10/24/20at 16:48; Start 10/19/20 at 17:00 Dextrose (Dextrose 50%-Water Syringe) 12.5 gm PRN Q15MIN PRN IV SEE COMMENTS; Start 10/19/20 at 16:00 Zinc Sulfate (Orazinc) 220 mg DAILY PO Last administered on 10/24/20at 08:49; Start 10/19/20 at 16:00 Thiamine Mononitrate (Vitamin B-1) 100 mg DAILY PO Last administered on 10/24/20at 08:49; Start 10/19/20 at 16:00 Guaifenesin (Robitussin Dm) 10 ml PRN Q6HRS PRN PO COUGH Last administered on 10/23/20at 17:02; Start 10/19/20 at 16:00 Doxycycline Hyclate 100 mg/ Dextrose 100 ml @ 50 mls/hr 1X ONCE IV Last administered on 10/19/20at 18:02; Start 10/19/20 at 16:00; Stop 10/19/20 at 17:59; Status DC Doxycycline Hyclate 100 mg/ Dextrose 100 ml @ 50 mls/hr Q12HR IV Last administered on 10/24/20at 22:29; Start 10/20/20 at 09:00 Ceftriaxone Sodium (Rocephin) 1 gm Q24H IVP Last administered on 10/24/20at 12:23; Start 10/20/20 at 11:00 Amino Acids/ Glycerin/ Electrolytes 1,000 ml @ 80 mls/hr [id number] IV Last administered on 10/21/20at 04:57; Start 10/19/20 at 18:30; Stop 10/22/20 at 11:53; Status DC Lactobacillus Rhamnosus (Culturelle) 1 cap BID PO Last administered on 10/24/20at 22:29; Start 10/20/20 at 21:00 Furosemide (Lasix) 20 mg 1X ONCE IVP Last administered on 10/20/20at 12:06; Start 10/20/20 at 10:45; Stop 10/20/20 at 10:46; Status DC Furosemide (Lasix) 20 mg 1X ONCE IVP Last administered on 10/20/20at 12:07; Start 10/20/20 at 12:30; Stop 10/20/20 at 12:31; Status DC Metoprolol Succinate (Toprol Xl) 25 mg DAILY PO Last administered on 10/24/20at 08:49; Start 10/20/20 at 13:00 Aspirin (Ecotrin) 81 mg [id number] PO Last administered on 10/24/20at 08:53; Start 10/20/20 at 13:00 Furosemide (Lasix) 40 mg DAILY IVP Last administered on 10/23/20at 08:32; Start 10/21/20 at 09:00; Stop 10/24/20 at 08:33; Status DC Potassium Chloride (Klor-Con) 20 meq DAILYWBKFT PO Last administered on 10/24/20at 08:49; Start 10/21/20 at 08:00 Dexamethasone Sodium Phosphate (Decadron) 6 mg DAILY IVP Last administered on 10/24/20at 08:50; Start 10/21/20 at 10:00 Ascorbic Acid (Vitamin C) 500 mg BID PO Last administered on 10/24/20at 22:29; Start 10/21/20 at 21:00; Stop 11/04/20 at 20:59 Vitamin D (Vitamin D3) 5,000 unit DAILY PO Last administered on 10/24/20at 08:49; Start 10/22/20 at 09:00; Stop 11/05/20 at 08:59 Remdesivir 200 mg/ Sodium Chloride 210 ml @ 210 mls/hr 1X ONCE IV Last administered on 10/21/20at 11:02; Start 10/21/20 at 11:30; Stop 10/21/20 at 12:29; Status DC Remdesivir 100 mg/ Sodium Chloride 230 ml @ 460 mls/hr Q24H IV Last administered on 10/24/20at 12:23; Start 10/22/20 at 11:30; Stop 10/25/20 at 11:59 Spironolactone (Aldactone) 25 mg DAILY PO Last administered on 10/24/20at 08:49; Start 10/22/20 at 09:00 Potassium Chloride (Klor-Con) 40 meq 1X ONCE PO Last administered on 10/21/20at 15:00; Start 10/21/20 at 14:00; Stop 10/21/20 at 14:01; Status DC Atorvastatin Calcium (Lipitor) 10 mg QHS PO Last administered on 10/24/20at 22:29; Start 10/21/20 at 21:00 Active Scripts Active Reported Metformin Hcl 500 Mg Tablet 500 Mg PO BIDWMEALS Metoprolol Succinate ( Xl ) (Metoprolol Succinate) 25 Mg Tab.er.24h 1 Tab PO DAILY Losartan Potassium 25 Mg Tablet 25 Mg PO DAILY Vitals/I & O Vital Sign - Last 24 Hours 10/24/20 10/24/20 10/24/20 10/24/20 08:49 11:00 15:00 19:00 Temp 96.8 97.5 97.2 96.8 97.5 97.2 Pulse 63 65 56 59 Resp 24 24 20 B/P (MAP) 112/75 119/83 (95) 108/70 (83) 107/65 (79) Pulse Ox 93 95 94 O2 Delivery Nasal Cannula Nasal Cannula Nasal Cannula O2 Flow Rate 6.0 6.0 6.0 10/24/20 10/24/20 10/25/20 20:00 23:51 03:38 Temp 97.4 97.2 97.4 97.2 Pulse 58 66 Resp 18 18 B/P (MAP) 124/80 (95) 116/78 (91) Pulse Ox 97 97 O2 Delivery Nasal Cannula Nasal Cannula Nasal Cannula O2 Flow Rate 5.0 6.0 6.0 Intake and Output 10/24/20 10/24/20 10/25/20 15:00 23:00 07:00 Intake Total 730 ml 350 ml 0 ml Output Total 1300 ml 1600 ml 400 ml Balance -570 ml -1250 ml -400 ml Justicifation of Admission Dx: Justifications for Admission: Justification of Admission Dx: Yes PANCHO MONTELONGO MD Oct 25, 2020 08:36
[2020-10-25] MEDS: ASCORBIC ACID 500 MG TABLET PO SCH ×2 (08:40→20:14)
[2020-10-25] MEDS: LACTOBACILLUS RHAMNOSUS GG 1 CAPSULE. PO SCH ×2 (08:40→20:14)
[2020-10-25] MEDS: ZINC SULFATE 220 MG CAPSULE. PO SCH (08:40)
[2020-10-25] MEDS: SPIRONOLACTONE 25 MG TABLET PO SCH (08:41)
[2020-10-25] MEDS: POTASSIUM CHLORIDE 20 MEQ TABLET.ER. PO SCH (08:41)
[2020-10-25] MEDS: CHOLECALCIFEROL (VITAMIN D3) 5,000 UNIT CAPSULE PO SCH (08:42)
[2020-10-25] MEDS: THIAMINE 100 MG TABLET. PO SCH (08:42)
[2020-10-25] MEDS: ASPIRIN ENTERIC COATED 81 MG TABLET.DR. PO SCH (08:42)
[2020-10-25] MEDS: METOPROLOL SUCC 24HR ER 25 MG TAB.ER.24H. PO SCH (08:42)
[2020-10-25] MEDS: DOXYCYCLINE HYCLATE 100 MG in IV DEXTROSE 5% 100ML 100 ML IV SCH ×2 (08:43→20:14)
[2020-10-25] MEDS: DEXAMETHASONE SOD PHOS 4 MG/ML VIAL IVP SCH (08:45)
--- NOTE | 2020-10-25 08:45 | PDOC ---
PULMONARY PROGRESS NOTES DATE: 10/25/20 TIME: 08:43 Subjective Pt. remains on N/C afebrile no increased cough or SOA Vitals Vital Signs Date Time Temp Pulse Resp B/P (MAP) Pulse Ox O2 Delivery O2 Flow Rate FiO2 10/25/20 03:38 97.2 66 18 116/78 (91) 97 Nasal Cannula 6.0 97.2 ROS: No Nausea, No Chest Pain, No Abdominal Pain, No Increase Cough General: Alert Lungs: Clear Cardiovascular: S1, S2 Abdomen: Soft, Non-tender Neuro Exam: Alert Extremities: No Edema Skin: Warm, Dry Labs Laboratory Tests Test 10/23/20 11:39 10/23/20 16:47 10/23/20 19:58 10/24/20 04:00 Glucose (Fingerstick) 245 mg/dL (70-99) 243 mg/dL (70-99) 291 mg/dL (70-99) White Blood Count 9.1 x10^3/uL (4.0-11.0) Red Blood Count 5.69 x10^6/uL (3.50-5.40) Hemoglobin 16.3 g/dL (12.0-15.5) Hematocrit 50.8 % (36.0-47.0) Mean Corpuscular Volume 89 fL (79-100) Mean Corpuscular Hemoglobin 29 pg (25-35) Mean Corpuscular Hemoglobin Concent 32 g/dL (31-37) Red Cell Distribution Width 14.2 % (11.5-14.5) Platelet Count 181 x10^3/uL (140-400) Neutrophils (%) (Auto) 79 % (31-73) Lymphocytes (%) (Auto) 13 % (24-48) Monocytes (%) (Auto) 8 % (0-9) Eosinophils (%) (Auto) 0 % (0-3) Basophils (%) (Auto) 0 % (0-3) Neutrophils # (Auto) 7.2 x10^3/uL (1.8-7.7) Lymphocytes # (Auto) 1.2 x10^3/uL (1.0-4.8) Monocytes # (Auto) 0.7 x10^3/uL (0.0-1.1) Eosinophils # (Auto) 0.0 x10^3/uL (0.0-0.7) Basophils # (Auto) 0.0 x10^3/uL (0.0-0.2) D-Dimer (Sheila) 1.92 ug/mlFEU (0.00-0.50) Sodium Level 138 mmol/L (136-145) Potassium Level 4.3 mmol/L (3.5-5.1) Chloride Level 101 mmol/L (98-107) Carbon Dioxide Level 34 mmol/L (21-32) Anion Gap 3 (6-14) Blood Urea Nitrogen 31 mg/dL (7-20) Creatinine 0.7 mg/dL (0.6-1.0) Estimated GFR (Cockcroft-Gault) 83.0 Glucose Level 118 mg/dL (70-99) Calcium Level 9.0 mg/dL (8.5-10.1) Magnesium Level 2.1 mg/dL (1.8-2.4) Ferritin 42 ng/mL (8-252) Lactate Dehydrogenase 238 U/L (81-234) Creatine Kinase 19 U/L (26-192) Test 10/24/20 08:00 10/24/20 11:18 10/24/20 16:30 10/24/20 20:05 Glucose (Fingerstick) 110 mg/dL (70-99) 224 mg/dL (70-99) 269 mg/dL (70-99) 291 mg/dL (70-99) Test 10/25/20 07:57 Glucose (Fingerstick) 102 mg/dL (70-99) Laboratory Tests Test 10/24/20 11:18 10/24/20 16:30 10/24/20 20:05 10/25/20 07:57 Glucose (Fingerstick) 224 mg/dL (70-99) 269 mg/dL (70-99) 291 mg/dL (70-99) 102 mg/dL (70-99) Medications Active Scripts Medications Dose Route/Sig Max Daily Dose Days Date Category Metformin Hcl 500 Mg Tablet 500 Mg PO BIDWMEALS 10/19/20 Reported Metoprolol Succinate ( Xl ) (Metoprolol Succinate) 25 Mg Tab.er.24h 1 Tab PO DAILY 10/19/20 Reported Losartan Potassium 25 Mg Tablet 25 Mg PO DAILY 10/19/20 Reported Comments CXR IMPRESSION: Cardiomegaly, mild interstitial thickening. Findings could represent edema or an atypical infectious process. Impression . 1. Zooim-iu-fxkdyqg hypercapnic and hypoxic respiratory failure secondary to COVID-19 viral pneumonia-- improving possible right heart failure, She has underlying chronic hypercapnia, suspect component of chronic hypoventilation/ COR-Pulmonale. - She has a history of obstructive sleep apnea as well. Cannot exclude pneumonia. 2. Abnormal chest x-ray with mild interstitial prominence and some patchy infiltrate of the left upper lobe. 3. No significant tobacco history. 4. Abnormal troponin, possible non-ST myocardial infarction. 5. Severe protein-calorie malnutrition. Plan . RECOMMENDATIONS: Continue supplemental oxygen as need, on 6 liters N/C, wean as tolerated will need 6 min walk before D/C COVID-19 positive Continue steroids with slow taper, will need full 10 day course Continue full course of remdesivir Continue empiric ABX, for full course Follow Cardiology recs DVT/GI PPX D/W RN we will see PRN, please call for questions or concerns CARLEEN HAMMONDS MD Oct 25, 2020 08:45
[2020-10-25 09:00] LABS: BASO % 0 % (0-3); EOS # 0.1 x10^3/uL (0.0-0.7); EOS % 1 % (0-3); HEMATOCRIT 52.7 % (36.0-47.0); HEMOGLOBIN 16.7 g/dL (12.0-15.5); LYMPH # 1.7 x10^3/uL (1.0-4.8); LYMPH % 23 % (24-48); MEAN CORPUSCULAR HEMOGLOBIN 29 pg (25-35); MEAN CORPUSCULAR HGB CONC 32 g/dL (31-37); MEAN CORPUSCULAR VOLUME 90 fL (79-100); MONO # 0.7 x10^3/uL (0.0-1.1); MONO % 9 % (0-9); NEUT % 67 % (31-73); PLATELET COUNT 220 x10^3/uL (140-400); RED BLOOD COUNT 5.85 x10^6/uL (3.50-5.40); RED CELL DISTRIBUTION WIDTH 14.8 % (11.5-14.5); WHITE BLOOD COUNT 7.6 x10^3/uL (4.0-11.0)
[2020-10-25 09:27] LABS: CALCIUM 9.4 mg/dL (8.5-10.1); CREATININE 0.6 mg/dL (0.6-1.0); GFR 99.1; POTASSIUM 4.4 mmol/L (3.5-5.1)
[2020-10-25 09:34] LABS: ALBUMIN 2.9 g/dL (3.4-5.0); DIRECT BILIRUBIN 0.2 mg/dL (0.0-0.2); TOTAL BILIRUBIN 0.9 mg/dL (0.2-1.0); TOTAL PROTEIN 6.7 g/dL (6.4-8.2)
[2020-10-25 11:00] VITALS: BP 125/85
[2020-10-25] MEDS: cefTRIAXone IV Push 1 GM VIAL. IVP SCH (11:46)
[2020-10-25] MEDS: REMDESIVIR 100mg in NORMAL SALINE 250ML X 4 DAYS IV SCH (11:47)
[2020-10-25 15:00] VITALS: BP 129/83
--- NOTE | 2020-10-25 16:00 | RAD ---
XR CHEST 1V INDICATION: Reason: HYPOXIA, COVID / Spl. Instructions: / History: . COMPARISON STUDY: 10/19/2020. FINDINGS: Lungs: Normal lung volume. No confluent consolidation. Stable vascular indistinctness. Pleura: No pleural effusion or pneumothorax. Heart and Mediastinum: Stable cardiomediastinal silhouette and great vessels. IMPRESSION: Stable vascular indistinctness which may reflect interstitial edema. Electronically signed by: Teddy Goode MD (10/25/2020 3:58 PM) [id number]
--- NOTE | 2020-10-25 17:38 | NUR ---
SW following for discharge planning. SW spoke with RN and reviewed chart. Pt currently on 6 02. PT recommendation is home with assistance. Pt resides with family. Discharge plan is home self-care when stable. SW following as needed.
[2020-10-25] MEDS: ATORVASTATIN CALCIUM 10 MG TABLET. PO SCH (20:14)
[2020-10-25] MEDS: ENOXAPARIN 40 MG/0.4 ML SYRINGE. SQ SCH (20:15)
[2020-10-25 21:33] VITALS: BP 110/68
[2020-10-25 23:00] VITALS: BP 121/85
[2020-10-26] VITALS (7 sets, daily range): BP systolic 102–121; BP diastolic 63–80
[2020-10-26] MEDS: INSULIN LISPRO 300 UNITS/3 ML VIAL. SQ SCH ×3 (08:00→16:55)
[2020-10-26] MEDS: METOPROLOL SUCC 24HR ER 25 MG TAB.ER.24H. PO SCH (09:00)
[2020-10-26] MEDS: ZINC SULFATE 220 MG CAPSULE. PO SCH (09:06)
[2020-10-26] MEDS: ASPIRIN ENTERIC COATED 81 MG TABLET.DR. PO SCH (09:06)
[2020-10-26] MEDS: SPIRONOLACTONE 25 MG TABLET PO SCH (09:06)
[2020-10-26] MEDS: ASCORBIC ACID 500 MG TABLET PO SCH ×2 (09:06→20:52)
[2020-10-26] MEDS: DEXAMETHASONE SOD PHOS 4 MG/ML VIAL IVP SCH (09:06)
[2020-10-26] MEDS: CHOLECALCIFEROL (VITAMIN D3) 5,000 UNIT CAPSULE PO SCH (09:06)
[2020-10-26] MEDS: LACTOBACILLUS RHAMNOSUS GG 1 CAPSULE. PO SCH ×2 (09:06→20:52)
[2020-10-26] MEDS: THIAMINE 100 MG TABLET. PO SCH (09:07)
[2020-10-26] MEDS: POTASSIUM CHLORIDE 20 MEQ TABLET.ER. PO SCH (09:07)
[2020-10-26] MEDS: DOXYCYCLINE HYCLATE 100 MG in IV DEXTROSE 5% 100ML 100 ML IV SCH ×2 (09:08→20:51)
--- NOTE | 2020-10-26 09:14 | PDOC ---
PULMONARY PROGRESS NOTES DATE: 10/26/20 TIME: 09:09 Subjective Pt. remains on 4 liters N/C afebrile no increased cough or SOA Vitals Vital Signs Date Time Temp Pulse Resp B/P (MAP) Pulse Ox O2 Delivery O2 Flow Rate FiO2 10/26/20 09:00 80 102/67 10/26/20 07:15 97.4 18 96 Nasal Cannula 6.0 97.4 ROS: No Nausea, No Chest Pain, No Abdominal Pain, No Increase Cough General: Alert Lungs: Clear Cardiovascular: S1, S2 Abdomen: Soft, Non-tender Neuro Exam: Alert Extremities: No Edema Skin: Warm, Dry Labs Laboratory Tests Test 10/24/20 11:18 10/24/20 16:30 10/24/20 20:05 10/25/20 07:57 Glucose (Fingerstick) 224 mg/dL (70-99) 269 mg/dL (70-99) 291 mg/dL (70-99) 102 mg/dL (70-99) Test 10/25/20 08:15 10/25/20 11:34 10/25/20 16:05 10/25/20 20:37 White Blood Count 7.6 x10^3/uL (4.0-11.0) Red Blood Count 5.85 x10^6/uL (3.50-5.40) Hemoglobin 16.7 g/dL (12.0-15.5) Hematocrit 52.7 % (36.0-47.0) Mean Corpuscular Volume 90 fL (79-100) Mean Corpuscular Hemoglobin 29 pg (25-35) Mean Corpuscular Hemoglobin Concent 32 g/dL (31-37) Red Cell Distribution Width 14.8 % (11.5-14.5) Platelet Count 220 x10^3/uL (140-400) Neutrophils (%) (Auto) 67 % (31-73) Lymphocytes (%) (Auto) 23 % (24-48) Monocytes (%) (Auto) 9 % (0-9) Eosinophils (%) (Auto) 1 % (0-3) Basophils (%) (Auto) 0 % (0-3) Neutrophils # (Auto) 5.0 x10^3/uL (1.8-7.7) Lymphocytes # (Auto) 1.7 x10^3/uL (1.0-4.8) Monocytes # (Auto) 0.7 x10^3/uL (0.0-1.1) Eosinophils # (Auto) 0.1 x10^3/uL (0.0-0.7) Basophils # (Auto) 0.0 x10^3/uL (0.0-0.2) Sodium Level 142 mmol/L (136-145) Potassium Level 4.4 mmol/L (3.5-5.1) Chloride Level 103 mmol/L (98-107) Carbon Dioxide Level 33 mmol/L (21-32) Anion Gap 6 (6-14) Blood Urea Nitrogen 20 mg/dL (7-20) Creatinine 0.6 mg/dL (0.6-1.0) Estimated GFR (Cockcroft-Gault) 99.1 Glucose Level 94 mg/dL (70-99) Calcium Level 9.4 mg/dL (8.5-10.1) Total Bilirubin 0.9 mg/dL (0.2-1.0) Direct Bilirubin 0.2 mg/dL (0.0-0.2) Aspartate Amino Transf (AST/SGOT) 20 U/L (15-37) Alanine Aminotransferase (ALT/SGPT) 35 U/L (14-59) Alkaline Phosphatase 71 U/L (46-116) Total Protein 6.7 g/dL (6.4-8.2) Albumin 2.9 g/dL (3.4-5.0) Glucose (Fingerstick) 194 mg/dL (70-99) 251 mg/dL (70-99) 271 mg/dL (70-99) Test 10/26/20 07:26 Glucose (Fingerstick) 104 mg/dL (70-99) Laboratory Tests Test 10/25/20 11:34 10/25/20 16:05 10/25/20 20:37 10/26/20 07:26 Glucose (Fingerstick) 194 mg/dL (70-99) 251 mg/dL (70-99) 271 mg/dL (70-99) 104 mg/dL (70-99) Medications Active Scripts Medications Dose Route/Sig Max Daily Dose Days Date Category Metformin Hcl 500 Mg Tablet 500 Mg PO BIDWMEALS 10/19/20 Reported Metoprolol Succinate ( Xl ) (Metoprolol Succinate) 25 Mg Tab.er.24h 1 Tab PO DAILY 10/19/20 Reported Losartan Potassium 25 Mg Tablet 25 Mg PO DAILY 10/19/20 Reported Comments CXR 10/25 IMPRESSION: Stable vascular indistinctness which may reflect interstitial edema. Impression . 1. Qvzdr-wx-xajfkua hypercapnic and hypoxic respiratory failure secondary to COVID-19 viral pneumonia-- improving possible right heart failure, She has underlying chronic hypercapnia, suspect component of chronic hypoventilation/ COR-Pulmonale. - She has a history of obstructive sleep apnea as well. Cannot exclude pneumonia. 2. Abnormal chest x-ray with mild interstitial prominence and some patchy infiltrate of the left upper lobe. 3. No significant tobacco history. 4. Abnormal troponin, possible non-ST myocardial infarction. 5. Severe protein-calorie malnutrition. Plan . RECOMMENDATIONS: Continue supplemental oxygen as need, on 4 liters N/C, wean as tolerated will need 6 min walk before D/C COVID-19 positive Continue steroids with slow taper, will need full 10 day course started on 10/21- D/C on 10/30 Continue full course of remdesivir Continue empiric ABX, for full course on doxy/rocephin Follow Cardiology recs DVT/GI PPX D/W RN we will see PRN, please call for questions or concerns CARLEEN HAMMONDS MD Oct 26, 2020 09:14
--- NOTE | 2020-10-26 11:21 | PDOC ---
PROGRESS NOTES Date of Service: DATE: 10/26/20 TIME: 11:20 Chief Complaint Chief Complaint IMPRESSION COVID 19 with pneumonia - will treat. Dpnuj-vu-xfzizyt hypercapnic and hypoxic respiratory failure secondary to COVID- 19 viral pneumonia. right heart failure, She has underlying chronic hypercapnia, suspect component of chronic hypoventilation/ COR-Pulmonale. - Moderate LV Systolic Dysfunction with LVEF ~=40% by both visual estimation and Biplane zhfpmp-[id number] calculation. There is hypokinesis of the basal to mid septal segments She has a history of obstructive sleep apnea as well. Cannot exclude pneumonia. Acute respiratory failure with hypoxia and hypercapnea - likely infectious process, high risk for gram negative pneumonia, COVID 19 possible vs COPD exacerbation. Cont BIPAP prn, O2 when tolerated. pulm consulted. COPD - with acute exacerbation, steroids, bipap Transaminitis - likely due to poor PO intake vs COVID, will f/u Elevated troponin - likely demand ischemia type II, will trend troponins Hypernatremia - likely hypovolemic, will hydrate, early nutrition Diabetes-Type II - sliding scale High Cholesterol - statin Hypertension - cont home meds YAN on nocturnal O2 - will cont bipap for now now on 6 liters nc PLAN FEN - ADA diet PPX - lovenox FULL CODE Dispo - Cont inpatient will need 6 min walk before D/C COVID-19 positive Continue steroids with slow taper, will need full 10 day course started on 10/21- D/C on 10/30 Continue full course of remdesivir Continue empiric ABX, for full course on doxy/rocephin 6 min walk today d/w RN History of Present Illness History of Present Illness Ms Castellanos is a 70yo F [place] speaking only w/ PMHx COPD, Diabetes-Type II, High Cholesterol, Hypertension, YAN on nocturnal O2 who presented to the emergency room in respiratory distress. Family states that this is been ongoing for the last 4 days. They are unsure if she is having fever. History is significantly limited due to poor historian and language barrier. Patient is also in distress and is unable to answer any questions. Family states that they got her tested for Covid yesterday but the test result has not come back. She is notably confused according to her son, who is bedside. Chest radiograph with mild interstitial thickening Labs with WBC 5.1, Hb 15.5, platelets 153, NA 147, K4.2, BUN 20, CR 0.7, glucose 155, AST 61, ALT 75, LDH 269, albumin 2.9, CRP 10.8, BNP 9013, troponin 0 0.223, rapid influenza negative, ABG pH 7.19, PaCO2 102, PaO2 161 on BiPAP 100% FiO2 Admitted on BIPAP for further care. 10/20: Patient seen in ICU. Afebrile. Breathing on BiPAP, FiO2 50%. Appreciate pulmonology recommendations. Continue Rocephin and doxycycline. COVID-19 pending. 10/21: Patient seen and evaluated. COVID-19 positive. Currently breathing on Venturi mask at 15 L. Will add Decadron 6 mg daily, vitamin C, vitamin D. Continue antibiotic treatment with Rocephin and doxycycline. Initiated remdesivir treatment and monitor LFTs. 10/22: Seen on 10 L nasal cannula O2. Afebrile. Has an appetite today eating 100% of her meals. Still very short of breath little bit of nausea no vomiting or diarrhea. Still with some confusion. Language barrier is an issue. 10/23: Seen on 8L NCO2. Afebrile. Good appetite today. Cough has become worse. Still very short of breath. No N/V/D. Still with some confusion. Saturations improved on 8 L nasal cannula oxygen. Afebrile. Eating well. Cough stable but still very short of breath. No nausea vomiting diarrhea. Still with some confusion. Vitals Vitals Vital Signs Date Time Temp Pulse Resp B/P (MAP) Pulse Ox O2 Delivery O2 Flow Rate FiO2 10/26/20 09:00 80 102/67 10/26/20 08:00 Nasal Cannula 4.0 10/26/20 07:15 97.4 18 96 97.4 Physical Exam General: Alert, Cooperative, No acute distress Heart: Regular rate (SR), Other (distant heart sounds) Lungs: Clear, Crackles Abdomen: Soft Extremities: No cyanosis, Other (2+ bilateral LE pitting edema) Skin: No significant lesion Labs LABS XR CHEST 1V INDICATION: Reason: HYPOXIA, COVID / Spl. Instructions: / History: . COMPARISON STUDY: 10/19/2020. FINDINGS: Lungs: Normal lung volume. No confluent consolidation. Stable vascular indistinctness. Pleura: No pleural effusion or pneumothorax. Heart and Mediastinum: Stable cardiomediastinal silhouette and great vessels. IMPRESSION: Stable vascular indistinctness which may reflect interstitial edema. Electronically signed by: Vandana Acevedo MD (10/25/2020 3:58 PM) [id number] DICTATED and SIGNED BY: VANDANA ACEVEDO MD DATE: 10/25/20 [id number] Laboratory Tests Test 10/25/20 11:34 10/25/20 16:05 10/25/20 20:37 10/26/20 07:26 Glucose (Fingerstick) 194 mg/dL (70-99) 251 mg/dL (70-99) 271 mg/dL (70-99) 104 mg/dL (70-99) Assessment and Plan Assessmemt and Plan Problems Medical Problems: (1) Acute respiratory failure Status: Acute (2) Pulmonary edema Status: Acute Comment Review of Relevant I have reviewed the following items torin (where applicable) has been applied. Labs Laboratory Tests Test 10/24/20 16:30 10/24/20 20:05 10/25/20 07:57 10/25/20 08:15 Glucose (Fingerstick) 269 mg/dL (70-99) 291 mg/dL (70-99) 102 mg/dL (70-99) White Blood Count 7.6 x10^3/uL (4.0-11.0) Red Blood Count 5.85 x10^6/uL (3.50-5.40) Hemoglobin 16.7 g/dL (12.0-15.5) Hematocrit 52.7 % (36.0-47.0) Mean Corpuscular Volume 90 fL (79-100) Mean Corpuscular Hemoglobin 29 pg (25-35) Mean Corpuscular Hemoglobin Concent 32 g/dL (31-37) Red Cell Distribution Width 14.8 % (11.5-14.5) Platelet Count 220 x10^3/uL (140-400) Neutrophils (%) (Auto) 67 % (31-73) Lymphocytes (%) (Auto) 23 % (24-48) Monocytes (%) (Auto) 9 % (0-9) Eosinophils (%) (Auto) 1 % (0-3) Basophils (%) (Auto) 0 % (0-3) Neutrophils # (Auto) 5.0 x10^3/uL (1.8-7.7) Lymphocytes # (Auto) 1.7 x10^3/uL (1.0-4.8) Monocytes # (Auto) 0.7 x10^3/uL (0.0-1.1) Eosinophils # (Auto) 0.1 x10^3/uL (0.0-0.7) Basophils # (Auto) 0.0 x10^3/uL (0.0-0.2) Sodium Level 142 mmol/L (136-145) Potassium Level 4.4 mmol/L (3.5-5.1) Chloride Level 103 mmol/L (98-107) Carbon Dioxide Level 33 mmol/L (21-32) Anion Gap 6 (6-14) Blood Urea Nitrogen 20 mg/dL (7-20) Creatinine 0.6 mg/dL (0.6-1.0) Estimated GFR (Cockcroft-Gault) 99.1 Glucose Level 94 mg/dL (70-99) Calcium Level 9.4 mg/dL (8.5-10.1) Total Bilirubin 0.9 mg/dL (0.2-1.0) Direct Bilirubin 0.2 mg/dL (0.0-0.2) Aspartate Amino Transf (AST/SGOT) 20 U/L (15-37) Alanine Aminotransferase (ALT/SGPT) 35 U/L (14-59) Alkaline Phosphatase 71 U/L (46-116) Total Protein 6.7 g/dL (6.4-8.2) Albumin 2.9 g/dL (3.4-5.0) Test 10/25/20 11:34 10/25/20 16:05 10/25/20 20:37 10/26/20 07:26 Glucose (Fingerstick) 194 mg/dL (70-99) 251 mg/dL (70-99) 271 mg/dL (70-99) 104 mg/dL (70-99) Laboratory Tests Test 10/25/20 11:34 10/25/20 16:05 10/25/20 20:37 10/26/20 07:26 Glucose (Fingerstick) 194 mg/dL (70-99) 251 mg/dL (70-99) 271 mg/dL (70-99) 104 mg/dL (70-99) Medications Current Medications Dexamethasone Sodium Phosphate (Decadron) 10 mg 1X ONCE IVP Last administered on 10/19/20at 11:24; Start 10/19/20 at 11:00; Stop 10/19/20 at 11:01; Status DC Ceftriaxone Sodium (Rocephin) 1 gm 1X ONCE IVP Last administered on 10/19/20at 11:25; Start 10/19/20 at 11:00; Stop 10/19/20 at 11:01; Status DC Ondansetron HCl (Zofran) 4 mg PRN Q4HRS PRN IV NAUSEA/VOMITING; Start 10/19/20 at 14:15 Acetaminophen (Tylenol Supp) 650 mg PRN Q4HRS PRN [place] TEMP OVER 100.4F OR MILD PAIN; Start 10/19/20 at 14:15 Enoxaparin Sodium (Lovenox 40mg Syringe) 40 mg Q24H SQ Last administered on 10/25/20at 20:15; Start 10/19/20 at 21:00 Insulin Human Lispro (HumaLOG) 0-7 UNITS TIDWMEALS SQ Last administered on 10/25/20at 16:47; Start 10/19/20 at 17:00 Dextrose (Dextrose 50%-Water Syringe) 12.5 gm PRN Q15MIN PRN IV SEE COMMENTS; Start 10/19/20 at 16:00 Zinc Sulfate (Orazinc) 220 mg DAILY PO Last administered on 10/26/20at 09:06; Start 10/19/20 at 16:00 Thiamine Mononitrate (Vitamin B-1) 100 mg DAILY PO Last administered on 10/26/20at 09:07; Start 10/19/20 at 16:00 Guaifenesin (Robitussin Dm) 10 ml PRN Q6HRS PRN PO COUGH Last administered on 10/23/20at 17:02; Start 10/19/20 at 16:00 Doxycycline Hyclate 100 mg/ Dextrose 100 ml @ 50 mls/hr 1X ONCE IV Last administered on 10/19/20at 18:02; Start 10/19/20 at 16:00; Stop 10/19/20 at 17:59; Status DC Doxycycline Hyclate 100 mg/ Dextrose 100 ml @ 50 mls/hr Q12HR IV Last administered on 10/26/20at 09:08; Start 10/20/20 at 09:00 Ceftriaxone Sodium (Rocephin) 1 gm Q24H IVP Last administered on 10/25/20at 11:46; Start 10/20/20 at 11:00 Amino Acids/ Glycerin/ Electrolytes 1,000 ml @ 80 mls/hr [id number] IV Last administered on 10/21/20at 04:57; Start 10/19/20 at 18:30; Stop 10/22/20 at 11:53; Status DC Lactobacillus Rhamnosus (Culturelle) 1 cap BID PO Last administered on 10/26/20at 09:06; Start 10/20/20 at 21:00 Furosemide (Lasix) 20 mg 1X ONCE IVP Last administered on 10/20/20at 12:06; Start 10/20/20 at 10:45; Stop 10/20/20 at 10:46; Status DC Furosemide (Lasix) 20 mg 1X ONCE IVP Last administered on 10/20/20at 12:07; Start 10/20/20 at 12:30; Stop 10/20/20 at 12:31; Status DC Metoprolol Succinate (Toprol Xl) 25 mg DAILY PO Last administered on 10/25/20at 08:42; Start 10/20/20 at 13:00 Aspirin (Ecotrin) 81 mg [id number] PO Last administered on 10/26/20at 09:06; Start 10/20/20 at 13:00 Furosemide (Lasix) 40 mg DAILY IVP Last administered on 10/23/20at 08:32; Start 10/21/20 at 09:00; Stop 10/24/20 at 08:33; Status DC Potassium Chloride (Klor-Con) 20 meq DAILYWBKFT PO Last administered on 10/26/20at 09:07; Start 10/21/20 at 08:00 Dexamethasone Sodium Phosphate (Decadron) 6 mg DAILY IVP Last administered on 10/24/20at 08:50; Start 10/21/20 at 10:00; Stop 10/25/20 at 08:44; Status DC Ascorbic Acid (Vitamin C) 500 mg BID PO Last administered on 10/26/20at 09:06; Start 10/21/20 at 21:00; Stop 11/04/20 at 20:59 Vitamin D (Vitamin D3) 5,000 unit DAILY PO Last administered on 10/26/20at 09:06; Start 10/22/20 at 09:00; Stop 11/05/20 at 08:59 Remdesivir 200 mg/ Sodium Chloride 210 ml @ 210 mls/hr 1X ONCE IV Last administered on 10/21/20at 11:02; Start 10/21/20 at 11:30; Stop 10/21/20 at 12:29; Status DC Remdesivir 100 mg/ Sodium Chloride 230 ml @ 460 mls/hr Q24H IV Last administered on 10/25/20at 11:47; Start 10/22/20 at 11:30; Stop 10/25/20 at 11:59; Status DC Spironolactone (Aldactone) 25 mg DAILY PO Last administered on 10/26/20at 09:06; Start 10/22/20 at 09:00 Potassium Chloride (Klor-Con) 40 meq 1X ONCE PO Last administered on 10/21/20at 15:00; Start 10/21/20 at 14:00; Stop 10/21/20 at 14:01; Status DC Atorvastatin Calcium (Lipitor) 10 mg QHS PO Last administered on 10/25/20at 20:14; Start 10/21/20 at 21:00 Dexamethasone Sodium Phosphate (Decadron) 4 mg DAILY IVP Last administered on 10/26/20at 09:06; Start 10/25/20 at 09:00 Active Scripts Active Reported Metformin Hcl 500 Mg Tablet 500 Mg PO BIDWMEALS Metoprolol Succinate ( Xl ) (Metoprolol Succinate) 25 Mg Tab.er.24h 1 Tab PO DAILY Losartan Potassium 25 Mg Tablet 25 Mg PO DAILY Vitals/I & O Vital Sign - Last 24 Hours 10/25/20 10/25/20 10/25/20 10/25/20 15:00 20:15 21:33 23:00 Temp 97.6 98.1 96.7 97.6 98.1 96.7 Pulse 67 64 82 Resp 24 18 16 B/P (MAP) 129/83 (98) 110/68 (82) 121/85 (97) Pulse Ox 95 97 95 O2 Delivery Nasal Cannula Nasal Cannula Nasal Cannula Nasal Cannula O2 Flow Rate 6.0 4.0 6.0 6.0 10/26/20 10/26/20 10/26/20 10/26/20 03:26 07:15 08:00 09:00 Temp 97.4 97.4 97.4 97.4 Pulse 76 80 80 Resp 18 18 B/P (MAP) 121/80 (94) 102/67 (79) 102/67 Pulse Ox 98 96 O2 Delivery Nasal Cannula Nasal Cannula Nasal Cannula O2 Flow Rate 6.0 6.0 4.0 Intake and Output 10/25/20 10/25/20 10/26/20 15:00 23:00 07:00 Intake Total 1000 ml 500 ml 0 ml Output Total 1125 ml 1200 ml 200 ml Balance -125 ml -700 ml -200 ml Justicifation of Admission Dx: Justifications for Admission: Justification of Admission Dx: Yes PANCHO MONTELONGO MD Oct 26, 2020 11:21
[2020-10-26] MEDS: cefTRIAXone IV Push 1 GM VIAL. IVP SCH (11:27)
[2020-10-26 12:32] LABS: MAGNESIUM 2.1 mg/dL (1.8-2.4)
--- NOTE | 2020-10-26 16:27 | NUR ---
SW following for discharge planning. SW spoke with RN and reviewed chart. Pt currently on 6l 02. SW awaiting results of 6 min walk to determine if home 02 needed on discharge. LVM for son Herminia ([phone]). SW following.
[2020-10-26] MEDS: ATORVASTATIN CALCIUM 10 MG TABLET. PO SCH (20:52)
[2020-10-26] MEDS: ENOXAPARIN 40 MG/0.4 ML SYRINGE. SQ SCH (20:52)
[2020-10-27 03:00] VITALS: BP 109/64
[2020-10-27 07:00] VITALS: BP 104/74
[2020-10-27] MEDS: INSULIN LISPRO 300 UNITS/3 ML VIAL. SQ SCH ×2 (08:00→11:29)
[2020-10-27 08:45] LABS: BASO % 0 % (0-3); EOS # 0.1 x10^3/uL (0.0-0.7); EOS % 2 % (0-3); HEMOGLOBIN 16.6 g/dL (12.0-15.5); LYMPH # 1.8 x10^3/uL (1.0-4.8); LYMPH % 29 % (24-48); MEAN CORPUSCULAR HEMOGLOBIN 28 pg (25-35); MEAN CORPUSCULAR HGB CONC 31 g/dL (31-37); MEAN CORPUSCULAR VOLUME 90 fL (79-100); MONO # 0.6 x10^3/uL (0.0-1.1); MONO % 11 % (0-9); NEUT # 3.6 x10^3/uL (1.8-7.7); NEUT % 59 % (31-73); PLATELET COUNT 230 x10^3/uL (140-400); RED CELL DISTRIBUTION WIDTH 14.7 % (11.5-14.5); WHITE BLOOD COUNT 6.1 x10^3/uL (4.0-11.0)
[2020-10-27] MEDS: CHOLECALCIFEROL (VITAMIN D3) 5,000 UNIT CAPSULE PO SCH (08:55)
[2020-10-27] MEDS: THIAMINE 100 MG TABLET. PO SCH (08:55)
[2020-10-27] MEDS: ASPIRIN ENTERIC COATED 81 MG TABLET.DR. PO SCH (08:55)
[2020-10-27] MEDS: POTASSIUM CHLORIDE 20 MEQ TABLET.ER. PO SCH (08:55)
[2020-10-27] MEDS: SPIRONOLACTONE 25 MG TABLET PO SCH (08:55)
[2020-10-27] MEDS: ASCORBIC ACID 500 MG TABLET PO SCH (08:55)
[2020-10-27] MEDS: LACTOBACILLUS RHAMNOSUS GG 1 CAPSULE. PO SCH (08:56)
[2020-10-27] MEDS: DEXAMETHASONE SOD PHOS 4 MG/ML VIAL IVP SCH (08:56)
[2020-10-27] MEDS: METOPROLOL SUCC 24HR ER 25 MG TAB.ER.24H. PO SCH (08:56)
[2020-10-27] MEDS: ZINC SULFATE 220 MG CAPSULE. PO SCH (08:56)
[2020-10-27] MEDS: DOXYCYCLINE HYCLATE 100 MG in IV DEXTROSE 5% 100ML 100 ML IV SCH (08:57)
[2020-10-27 09:25] LABS: ALBUMIN 2.8 g/dL (3.4-5.0); ALBUMIN/GLOBULIN RATIO 0.7 (1.0-1.7); CALCIUM 9.2 mg/dL (8.5-10.1); CREATININE 0.6 mg/dL (0.6-1.0); GFR 99.1; POTASSIUM 4.3 mmol/L (3.5-5.1); TOTAL PROTEIN 6.8 g/dL (6.4-8.2)
--- NOTE | 2020-10-27 09:43 | PDOC ---
PULMONARY PROGRESS NOTES DATE: 10/27/20 TIME: 09:42 Subjective Pt. remains on 4 liters N/C afebrile planned fro 6 min walk today no increased cough or SOA Vitals Vital Signs Date Time Temp Pulse Resp B/P (MAP) Pulse Ox O2 Delivery O2 Flow Rate FiO2 10/27/20 08:56 85 104/74 10/27/20 07:00 97.7 17 96 Nasal Cannula 4.0 97.7 ROS: No Nausea, No Chest Pain, No Abdominal Pain, No Increase Cough General: Alert Lungs: Clear Cardiovascular: S1, S2 Abdomen: Soft, Non-tender Neuro Exam: Alert Extremities: No Edema Skin: Warm, Dry Labs Laboratory Tests Test 10/25/20 11:34 10/25/20 16:05 10/25/20 20:37 10/26/20 07:26 Glucose (Fingerstick) 194 mg/dL (70-99) 251 mg/dL (70-99) 271 mg/dL (70-99) 104 mg/dL (70-99) Test 10/26/20 11:25 10/26/20 11:38 10/26/20 16:23 10/26/20 18:43 D-Dimer (Sheila) 1.42 ug/mlFEU (0.00-0.50) Magnesium Level 2.1 mg/dL (1.8-2.4) Ferritin 81 ng/mL (8-252) Lactate Dehydrogenase 191 U/L (81-234) Creatine Kinase 15 U/L (26-192) Glucose (Fingerstick) 159 mg/dL (70-99) 209 mg/dL (70-99) 302 mg/dL (70-99) Test 10/27/20 07:00 10/27/20 07:38 10/27/20 07:50 Sodium Level 143 mmol/L (136-145) Potassium Level 4.3 mmol/L (3.5-5.1) Chloride Level 103 mmol/L (98-107) Carbon Dioxide Level 35 mmol/L (21-32) Anion Gap 5 (6-14) Blood Urea Nitrogen 18 mg/dL (7-20) Creatinine 0.6 mg/dL (0.6-1.0) Estimated GFR (Cockcroft-Gault) 99.1 BUN/Creatinine Ratio 30 (6-20) Glucose Level 85 mg/dL (70-99) Calcium Level 9.2 mg/dL (8.5-10.1) Total Bilirubin 1.0 mg/dL (0.2-1.0) Aspartate Amino Transf (AST/SGOT) 15 U/L (15-37) Alanine Aminotransferase (ALT/SGPT) 25 U/L (14-59) Alkaline Phosphatase 69 U/L (46-116) Total Protein 6.8 g/dL (6.4-8.2) Albumin 2.8 g/dL (3.4-5.0) Albumin/Globulin Ratio 0.7 (1.0-1.7) Glucose (Fingerstick) 111 mg/dL (70-99) White Blood Count 6.1 x10^3/uL (4.0-11.0) Red Blood Count 5.90 x10^6/uL (3.50-5.40) Hemoglobin 16.6 g/dL (12.0-15.5) Hematocrit 53.0 % (36.0-47.0) Mean Corpuscular Volume 90 fL (79-100) Mean Corpuscular Hemoglobin 28 pg (25-35) Mean Corpuscular Hemoglobin Concent 31 g/dL (31-37) Red Cell Distribution Width 14.7 % (11.5-14.5) Platelet Count 230 x10^3/uL (140-400) Neutrophils (%) (Auto) 59 % (31-73) Lymphocytes (%) (Auto) 29 % (24-48) Monocytes (%) (Auto) 11 % (0-9) Eosinophils (%) (Auto) 2 % (0-3) Basophils (%) (Auto) 0 % (0-3) Neutrophils # (Auto) 3.6 x10^3/uL (1.8-7.7) Lymphocytes # (Auto) 1.8 x10^3/uL (1.0-4.8) Monocytes # (Auto) 0.6 x10^3/uL (0.0-1.1) Eosinophils # (Auto) 0.1 x10^3/uL (0.0-0.7) Basophils # (Auto) 0.0 x10^3/uL (0.0-0.2) Laboratory Tests Test 10/26/20 11:25 10/26/20 11:38 10/26/20 16:23 10/26/20 18:43 D-Dimer (Sheila) 1.42 ug/mlFEU (0.00-0.50) Magnesium Level 2.1 mg/dL (1.8-2.4) Ferritin 81 ng/mL (8-252) Lactate Dehydrogenase 191 U/L (81-234) Creatine Kinase 15 U/L (26-192) Glucose (Fingerstick) 159 mg/dL (70-99) 209 mg/dL (70-99) 302 mg/dL (70-99) Test 10/27/20 07:00 10/27/20 07:38 10/27/20 07:50 Sodium Level 143 mmol/L (136-145) Potassium Level 4.3 mmol/L (3.5-5.1) Chloride Level 103 mmol/L (98-107) Carbon Dioxide Level 35 mmol/L (21-32) Anion Gap 5 (6-14) Blood Urea Nitrogen 18 mg/dL (7-20) Creatinine 0.6 mg/dL (0.6-1.0) Estimated GFR (Cockcroft-Gault) 99.1 BUN/Creatinine Ratio 30 (6-20) Glucose Level 85 mg/dL (70-99) Calcium Level 9.2 mg/dL (8.5-10.1) Total Bilirubin 1.0 mg/dL (0.2-1.0) Aspartate Amino Transf (AST/SGOT) 15 U/L (15-37) Alanine Aminotransferase (ALT/SGPT) 25 U/L (14-59) Alkaline Phosphatase 69 U/L (46-116) Total Protein 6.8 g/dL (6.4-8.2) Albumin 2.8 g/dL (3.4-5.0) Albumin/Globulin Ratio 0.7 (1.0-1.7) Glucose (Fingerstick) 111 mg/dL (70-99) White Blood Count 6.1 x10^3/uL (4.0-11.0) Red Blood Count 5.90 x10^6/uL (3.50-5.40) Hemoglobin 16.6 g/dL (12.0-15.5) Hematocrit 53.0 % (36.0-47.0) Mean Corpuscular Volume 90 fL (79-100) Mean Corpuscular Hemoglobin 28 pg (25-35) Mean Corpuscular Hemoglobin Concent 31 g/dL (31-37) Red Cell Distribution Width 14.7 % (11.5-14.5) Platelet Count 230 x10^3/uL (140-400) Neutrophils (%) (Auto) 59 % (31-73) Lymphocytes (%) (Auto) 29 % (24-48) Monocytes (%) (Auto) 11 % (0-9) Eosinophils (%) (Auto) 2 % (0-3) Basophils (%) (Auto) 0 % (0-3) Neutrophils # (Auto) 3.6 x10^3/uL (1.8-7.7) Lymphocytes # (Auto) 1.8 x10^3/uL (1.0-4.8) Monocytes # (Auto) 0.6 x10^3/uL (0.0-1.1) Eosinophils # (Auto) 0.1 x10^3/uL (0.0-0.7) Basophils # (Auto) 0.0 x10^3/uL (0.0-0.2) Medications Active Scripts Medications Dose Route/Sig Max Daily Dose Days Date Category Metformin Hcl 500 Mg Tablet 500 Mg PO BIDWMEALS 10/19/20 Reported Metoprolol Succinate ( Xl ) (Metoprolol Succinate) 25 Mg Tab.er.24h 1 Tab PO DAILY 10/19/20 Reported Losartan Potassium 25 Mg Tablet 25 Mg PO DAILY 10/19/20 Reported Comments CXR 10/25 IMPRESSION: Stable vascular indistinctness which may reflect interstitial edema. Impression . 1. Wkqdc-qb-[id number] hypercapnic and hypoxic respiratory failure secondary to COVID-19 viral pneumonia-- improving possible right heart failure, She has underlying chronic hypercapnia, suspect component of chronic hypoventilation/ COR-Pulmonale. - She has a history of obstructive sleep apnea as well. Cannot exclude pneumonia. 2. Abnormal chest x-ray with mild interstitial prominence and some patchy infiltrate of the left upper lobe. 3. No significant tobacco history. 4. Abnormal troponin, possible non-ST myocardial infarction. 5. Severe protein-calorie malnutrition. Plan . RECOMMENDATIONS: Continue supplemental oxygen as need, on 4 liters N/C, wean as tolerated will need 6 min walk before D/C COVID-19 positive Continue steroids with slow taper, will need full 10 day course started on 1/7- D/C on 10/30 Continue full course of remdesivir Continue empiric ABX, for full course on doxy/rocephin-- 7 day course started on 10/21 - D/C on 10/28 Follow Cardiology recs DVT/GI PPX D/W RN we will see PRN, please call for questions or concerns CARLEEN HAMMONDS MD Oct 27, 2020 09:43
[2020-10-27 10:51] LABS: ALBUMIN 2.8 g/dL (3.4-5.0); DIRECT BILIRUBIN 0.3 mg/dL (0.0-0.2); TOTAL PROTEIN 6.9 g/dL (6.4-8.2)
[2020-10-27 11:00] VITALS: BP 106/70
--- NOTE | 2020-10-27 11:23 | PDOC ---
PROGRESS NOTES Date of Service: DATE: 10/27/20 TIME: 11:22 Chief Complaint Chief Complaint DISCHARGE DX COVID 19 with pneumonia - will treat. Pxadu-oz-sxjoegu hypercapnic and hypoxic respiratory failure secondary to COVID- 19 viral pneumonia. right heart failure, She has underlying chronic hypercapnia, suspect component of chronic hypoventilation/ COR-Pulmonale. - Moderate LV Systolic Dysfunction with LVEF ~=40% by both visual estimation and Biplane reskzw-yw-sbefo calculation. There is hypokinesis of the basal to mid septal segments She has a history of obstructive sleep apnea as well. Cannot exclude pneumonia. Acute respiratory failure with hypoxia and hypercapnea - likely infectious process, high risk for gram negative pneumonia, COVID 19 possible vs COPD exacerbation. Cont BIPAP prn, O2 when tolerated. pulm consulted. COPD - with acute exacerbation, steroids, bipap Transaminitis - likely due to poor PO intake vs COVID, will f/u Elevated troponin - likely demand ischemia type II, will trend troponins Hypernatremia - likely hypovolemic, will hydrate, early nutrition Diabetes-Type II - sliding scale High Cholesterol - statin Hypertension - cont home meds YAN on nocturnal O2 - will cont bipap for now now on 6 liters nc PLAN FEN - ADA diet PPX - lovenox FULL CODE Dispo - Cont inpatient will need 6 min walk before D/C DONE 3 LITERS NC NEEDED COVID-19 positive Continue steroids with slow taper, will need full 10 day course started on 10/21- D/C on 10/30 Continue full course of remdesivir Continue empiric ABX, for full course on doxy/rocephin 6 min walk today D/C PLANNING 34 MIN d/w RN History of Present Illness History of Present Illness Ms Castellanos is a 70yo F [place] speaking only w/ PMHx COPD, Diabetes-Type II, High Cholesterol, Hypertension, YAN on nocturnal O2 who presented to the emergency room in respiratory distress. Family states that this is been ongoing for the last 4 days. They are unsure if she is having fever. History is significantly limited due to poor historian and language barrier. Patient is also in distress and is unable to answer any questions. Family states that they got her tested for Covid yesterday but the test result has not come back. She is notably confused according to her son, who is bedside. Chest radiograph with mild interstitial thickening Labs with WBC 5.1, Hb 15.5, platelets 153, NA 147, K4.2, BUN 20, CR 0.7, glucose 155, AST 61, ALT 75, LDH 269, albumin 2.9, CRP 10.8, BNP 9013, troponin 0 0.223, rapid influenza negative, ABG pH 7.19, PaCO2 102, PaO2 161 on BiPAP 100% FiO2 Admitted on BIPAP for further care. 10/20: Patient seen in ICU. Afebrile. Breathing on BiPAP, FiO2 50%. Appreciate pulmonology recommendations. Continue Rocephin and doxycycline. COVID-19 pending. 10/21: Patient seen and evaluated. COVID-19 positive. Currently breathing on Venturi mask at 15 L. Will add Decadron 6 mg daily, vitamin C, vitamin D. Continue antibiotic treatment with Rocephin and doxycycline. Initiated remdesivir treatment and monitor LFTs. 10/22: Seen on 10 L nasal cannula O2. Afebrile. Has an appetite today eating 100% of her meals. Still very short of breath little bit of nausea no vomiting or diarrhea. Still with some confusion. Language barrier is an issue. 10/23: Seen on 8L NCO2. Afebrile. Good appetite today. Cough has become worse. Still very short of breath. No N/V/D. Still with some confusion. Saturations improved on 8 L nasal cannula oxygen. Afebrile. Eating well. Cough stable but still very short of breath. No nausea vomiting diarrhea. Still with some confusion. Vitals Vitals Vital Signs Date Time Temp Pulse Resp B/P (MAP) Pulse Ox O2 Delivery O2 Flow Rate FiO2 10/27/20 08:56 85 104/74 10/27/20 08:00 Nasal Cannula 3.5 10/27/20 07:00 97.7 17 96 97.7 Physical Exam General: Alert, Cooperative, No acute distress Heart: Regular rate (SR), Other (distant heart sounds) Lungs: Clear Abdomen: Soft Extremities: No cyanosis, Other (2+ bilateral LE pitting edema) Skin: No significant lesion Labs LABS Laboratory Tests Test 10/26/20 11:25 10/26/20 11:38 10/26/20 16:23 10/26/20 18:43 D-Dimer (Sheila) 1.42 ug/mlFEU (0.00-0.50) Magnesium Level 2.1 mg/dL (1.8-2.4) Ferritin 81 ng/mL (8-252) Lactate Dehydrogenase 191 U/L (81-234) Creatine Kinase 15 U/L (26-192) Glucose (Fingerstick) 159 mg/dL (70-99) 209 mg/dL (70-99) 302 mg/dL (70-99) Test 10/27/20 07:00 10/27/20 07:38 10/27/20 07:50 Sodium Level 143 mmol/L (136-145) Potassium Level 4.3 mmol/L (3.5-5.1) Chloride Level 103 mmol/L (98-107) Carbon Dioxide Level 35 mmol/L (21-32) Anion Gap 5 (6-14) Blood Urea Nitrogen 18 mg/dL (7-20) Creatinine 0.6 mg/dL (0.6-1.0) Estimated GFR (Cockcroft-Gault) 99.1 BUN/Creatinine Ratio 30 (6-20) Glucose Level 85 mg/dL (70-99) Calcium Level 9.2 mg/dL (8.5-10.1) Total Bilirubin 1.0 mg/dL (0.2-1.0) Direct Bilirubin 0.3 mg/dL (0.0-0.2) Aspartate Amino Transf (AST/SGOT) 15 U/L (15-37) Alanine Aminotransferase (ALT/SGPT) 25 U/L (14-59) Alkaline Phosphatase 69 U/L (46-116) Total Protein 6.8 g/dL (6.4-8.2) Albumin 2.8 g/dL (3.4-5.0) Albumin/Globulin Ratio 0.7 (1.0-1.7) Glucose (Fingerstick) 111 mg/dL (70-99) White Blood Count 6.1 x10^3/uL (4.0-11.0) Red Blood Count 5.90 x10^6/uL (3.50-5.40) Hemoglobin 16.6 g/dL (12.0-15.5) Hematocrit 53.0 % (36.0-47.0) Mean Corpuscular Volume 90 fL (79-100) Mean Corpuscular Hemoglobin 28 pg (25-35) Mean Corpuscular Hemoglobin Concent 31 g/dL (31-37) Red Cell Distribution Width 14.7 % (11.5-14.5) Platelet Count 230 x10^3/uL (140-400) Neutrophils (%) (Auto) 59 % (31-73) Lymphocytes (%) (Auto) 29 % (24-48) Monocytes (%) (Auto) 11 % (0-9) Eosinophils (%) (Auto) 2 % (0-3) Basophils (%) (Auto) 0 % (0-3) Neutrophils # (Auto) 3.6 x10^3/uL (1.8-7.7) Lymphocytes # (Auto) 1.8 x10^3/uL (1.0-4.8) Monocytes # (Auto) 0.6 x10^3/uL (0.0-1.1) Eosinophils # (Auto) 0.1 x10^3/uL (0.0-0.7) Basophils # (Auto) 0.0 x10^3/uL (0.0-0.2) Assessment and Plan Assessmemt and Plan Problems Medical Problems: (1) Acute respiratory failure Status: Acute (2) Pulmonary edema Status: Acute Comment Review of Relevant I have reviewed the following items torin (where applicable) has been applied. Labs Laboratory Tests Test 10/25/20 11:34 10/25/20 16:05 10/25/20 20:37 10/26/20 07:26 Glucose (Fingerstick) 194 mg/dL (70-99) 251 mg/dL (70-99) 271 mg/dL (70-99) 104 mg/dL (70-99) Test 10/26/20 11:25 10/26/20 11:38 10/26/20 16:23 10/26/20 18:43 D-Dimer (Sheila) 1.42 ug/mlFEU (0.00-0.50) Magnesium Level 2.1 mg/dL (1.8-2.4) Ferritin 81 ng/mL (8-252) Lactate Dehydrogenase 191 U/L (81-234) Creatine Kinase 15 U/L (26-192) Glucose (Fingerstick) 159 mg/dL (70-99) 209 mg/dL (70-99) 302 mg/dL (70-99) Test 10/27/20 07:00 10/27/20 07:38 10/27/20 07:50 Sodium Level 143 mmol/L (136-145) Potassium Level 4.3 mmol/L (3.5-5.1) Chloride Level 103 mmol/L (98-107) Carbon Dioxide Level 35 mmol/L (21-32) Anion Gap 5 (6-14) Blood Urea Nitrogen 18 mg/dL (7-20) Creatinine 0.6 mg/dL (0.6-1.0) Estimated GFR (Cockcroft-Gault) 99.1 BUN/Creatinine Ratio 30 (6-20) Glucose Level 85 mg/dL (70-99) Calcium Level 9.2 mg/dL (8.5-10.1) Total Bilirubin 1.0 mg/dL (0.2-1.0) Direct Bilirubin 0.3 mg/dL (0.0-0.2) Aspartate Amino Transf (AST/SGOT) 15 U/L (15-37) Alanine Aminotransferase (ALT/SGPT) 25 U/L (14-59) Alkaline Phosphatase 69 U/L (46-116) Total Protein 6.8 g/dL (6.4-8.2) Albumin 2.8 g/dL (3.4-5.0) Albumin/Globulin Ratio 0.7 (1.0-1.7) Glucose (Fingerstick) 111 mg/dL (70-99) White Blood Count 6.1 x10^3/uL (4.0-11.0) Red Blood Count 5.90 x10^6/uL (3.50-5.40) Hemoglobin 16.6 g/dL (12.0-15.5) Hematocrit 53.0 % (36.0-47.0) Mean Corpuscular Volume 90 fL (79-100) Mean Corpuscular Hemoglobin 28 pg (25-35) Mean Corpuscular Hemoglobin Concent 31 g/dL (31-37) Red Cell Distribution Width 14.7 % (11.5-14.5) Platelet Count 230 x10^3/uL (140-400) Neutrophils (%) (Auto) 59 % (31-73) Lymphocytes (%) (Auto) 29 % (24-48) Monocytes (%) (Auto) 11 % (0-9) Eosinophils (%) (Auto) 2 % (0-3) Basophils (%) (Auto) 0 % (0-3) Neutrophils # (Auto) 3.6 x10^3/uL (1.8-7.7) Lymphocytes # (Auto) 1.8 x10^3/uL (1.0-4.8) Monocytes # (Auto) 0.6 x10^3/uL (0.0-1.1) Eosinophils # (Auto) 0.1 x10^3/uL (0.0-0.7) Basophils # (Auto) 0.0 x10^3/uL (0.0-0.2) Laboratory Tests Test 10/26/20 11:25 10/26/20 11:38 10/26/20 16:23 10/26/20 18:43 D-Dimer (Sheila) 1.42 ug/mlFEU (0.00-0.50) Magnesium Level 2.1 mg/dL (1.8-2.4) Ferritin 81 ng/mL (8-252) Lactate Dehydrogenase 191 U/L (81-234) Creatine Kinase 15 U/L (26-192) Glucose (Fingerstick) 159 mg/dL (70-99) 209 mg/dL (70-99) 302 mg/dL (70-99) Test 10/27/20 07:00 10/27/20 07:38 10/27/20 07:50 Sodium Level 143 mmol/L (136-145) Potassium Level 4.3 mmol/L (3.5-5.1) Chloride Level 103 mmol/L (98-107) Carbon Dioxide Level 35 mmol/L (21-32) Anion Gap 5 (6-14) Blood Urea Nitrogen 18 mg/dL (7-20) Creatinine 0.6 mg/dL (0.6-1.0) Estimated GFR (Cockcroft-Gault) 99.1 BUN/Creatinine Ratio 30 (6-20) Glucose Level 85 mg/dL (70-99) Calcium Level 9.2 mg/dL (8.5-10.1) Total Bilirubin 1.0 mg/dL (0.2-1.0) Direct Bilirubin 0.3 mg/dL (0.0-0.2) Aspartate Amino Transf (AST/SGOT) 15 U/L (15-37) Alanine Aminotransferase (ALT/SGPT) 25 U/L (14-59) Alkaline Phosphatase 69 U/L (46-116) Total Protein 6.8 g/dL (6.4-8.2) Albumin 2.8 g/dL (3.4-5.0) Albumin/Globulin Ratio 0.7 (1.0-1.7) Glucose (Fingerstick) 111 mg/dL (70-99) White Blood Count 6.1 x10^3/uL (4.0-11.0) Red Blood Count 5.90 x10^6/uL (3.50-5.40) Hemoglobin 16.6 g/dL (12.0-15.5) Hematocrit 53.0 % (36.0-47.0) Mean Corpuscular Volume 90 fL (79-100) Mean Corpuscular Hemoglobin 28 pg (25-35) Mean Corpuscular Hemoglobin Concent 31 g/dL (31-37) Red Cell Distribution Width 14.7 % (11.5-14.5) Platelet Count 230 x10^3/uL (140-400) Neutrophils (%) (Auto) 59 % (31-73) Lymphocytes (%) (Auto) 29 % (24-48) Monocytes (%) (Auto) 11 % (0-9) Eosinophils (%) (Auto) 2 % (0-3) Basophils (%) (Auto) 0 % (0-3) Neutrophils # (Auto) 3.6 x10^3/uL (1.8-7.7) Lymphocytes # (Auto) 1.8 x10^3/uL (1.0-4.8) Monocytes # (Auto) 0.6 x10^3/uL (0.0-1.1) Eosinophils # (Auto) 0.1 x10^3/uL (0.0-0.7) Basophils # (Auto) 0.0 x10^3/uL (0.0-0.2) Medications Current Medications Dexamethasone Sodium Phosphate (Decadron) 10 mg 1X ONCE IVP Last administered on 10/19/20at 11:24; Start 10/19/20 at 11:00; Stop 10/19/20 at 11:01; Status DC Ceftriaxone Sodium (Rocephin) 1 gm 1X ONCE IVP Last administered on 10/19/20at 11:25; Start 10/19/20 at 11:00; Stop 10/19/20 at 11:01; Status DC Ondansetron HCl (Zofran) 4 mg PRN Q4HRS PRN IV NAUSEA/VOMITING; Start 10/19/20 at 14:15 Acetaminophen (Tylenol Supp) 650 mg PRN Q4HRS PRN MI TEMP OVER 100.4F OR MILD PAIN; Start 10/19/20 at 14:15 Enoxaparin Sodium (Lovenox 40mg Syringe) 40 mg Q24H SQ Last administered on 10/26/20at 20:52; Start 10/19/20 at 21:00 Insulin Human Lispro (HumaLOG) 0-7 UNITS TIDWMEALS SQ Last administered on 10/26/20at 16:55; Start 10/19/20 at 17:00 Dextrose (Dextrose 50%-Water Syringe) 12.5 gm PRN Q15MIN PRN IV SEE COMMENTS; Start 10/19/20 at 16:00 Zinc Sulfate (Orazinc) 220 mg DAILY PO Last administered on 10/27/20at 08:56; Start 10/19/20 at 16:00 Thiamine Mononitrate (Vitamin B-1) 100 mg DAILY PO Last administered on 10/27/20at 08:55; Start 10/19/20 at 16:00 Guaifenesin (Robitussin Dm) 10 ml PRN Q6HRS PRN PO COUGH Last administered on 10/23/20at 17:02; Start 10/19/20 at 16:00 Doxycycline Hyclate 100 mg/ Dextrose 100 ml @ 50 mls/hr 1X ONCE IV Last administered on 10/19/20at 18:02; Start 10/19/20 at 16:00; Stop 10/19/20 at 17:59; Status DC Doxycycline Hyclate 100 mg/ Dextrose 100 ml @ 50 mls/hr Q12HR IV Last administered on 10/27/20at 08:57; Start 10/20/20 at 09:00 Ceftriaxone Sodium (Rocephin) 1 gm Q24H IVP Last administered on 10/26/20at 11:27; Start 10/20/20 at 11:00 Amino Acids/ Glycerin/ Electrolytes 1,000 ml @ 80 mls/hr [id number] IV Last administered on 10/21/20at 04:57; Start 10/19/20 at 18:30; Stop 10/22/20 at 11:53; Status DC Lactobacillus Rhamnosus (Culturelle) 1 cap BID PO Last administered on 10/27/20at 08:56; Start 10/20/20 at 21:00 Furosemide (Lasix) 20 mg 1X ONCE IVP Last administered on 10/20/20at 12:06; Start 10/20/20 at 10:45; Stop 10/20/20 at 10:46; Status DC Furosemide (Lasix) 20 mg 1X ONCE IVP Last administered on 10/20/20at 12:07; Start 10/20/20 at 12:30; Stop 10/20/20 at 12:31; Status DC Metoprolol Succinate (Toprol Xl) 25 mg DAILY PO Last administered on 10/27/20at 08:56; Start 10/20/20 at 13:00 Aspirin (Ecotrin) 81 mg DAILYWBKFT PO Last administered on 10/27/20at 08:55; Start 10/20/20 at 13:00 Furosemide (Lasix) 40 mg DAILY IVP Last administered on 10/23/20at 08:32; Start 10/21/20 at 09:00; Stop 10/24/20 at 08:33; Status DC Potassium Chloride (Klor-Con) 20 meq DAILYWBKFT PO Last administered on 10/27/20at 08:55; Start 10/21/20 at 08:00 Dexamethasone Sodium Phosphate (Decadron) 6 mg DAILY IVP Last administered on 10/24/20at 08:50; Start 10/21/20 at 10:00; Stop 10/25/20 at 08:44; Status DC Ascorbic Acid (Vitamin C) 500 mg BID PO Last administered on 10/27/20at 08:55; Start 10/21/20 at 21:00; Stop 11/04/20 at 20:59 Vitamin D (Vitamin D3) 5,000 unit DAILY PO Last administered on 10/27/20at 08:55; Start 10/22/20 at 09:00; Stop 11/05/20 at 08:59 Remdesivir 200 mg/ Sodium Chloride 210 ml @ 210 mls/hr 1X ONCE IV Last administered on 10/21/20at 11:02; Start 10/21/20 at 11:30; Stop 10/21/20 at 12:29; Status DC Remdesivir 100 mg/ Sodium Chloride 230 ml @ 460 mls/hr Q24H IV Last administered on 10/25/20at 11:47; Start 10/22/20 at 11:30; Stop 10/25/20 at 11:59; Status DC Spironolactone (Aldactone) 25 mg DAILY PO Last administered on 10/27/20at 08:55; Start 10/22/20 at 09:00 Potassium Chloride (Klor-Con) 40 meq 1X ONCE PO Last administered on 10/21/20at 15:00; Start 10/21/20 at 14:00; Stop 10/21/20 at 14:01; Status DC Atorvastatin Calcium (Lipitor) 10 mg QHS PO Last administered on 10/26/20at 20:52; Start 10/21/20 at 21:00 Dexamethasone Sodium Phosphate (Decadron) 4 mg DAILY IVP Last administered on 10/27/20at 08:56; Start 10/25/20 at 09:00 Active Scripts Active Reported Metformin Hcl 500 Mg Tablet 500 Mg PO BIDWMEALS Metoprolol Succinate ( Xl ) (Metoprolol Succinate) 25 Mg Tab.er.24h 1 Tab PO DAILY Losartan Potassium 25 Mg Tablet 25 Mg PO DAILY Vitals/I & O Vital Sign - Last 24 Hours 10/26/20 10/26/20 10/26/20 10/26/20 15:14 19:00 20:15 23:00 Temp 97.4 98.3 98.6 97.4 98.3 98.6 Pulse 65 87 63 Resp 20 18 18 B/P (MAP) 107/71 (83) 109/66 (80) 110/72 (85) Pulse Ox 97 94 96 O2 Delivery Nasal Cannula Nasal Cannula Nasal Cannula Nasal Cannula O2 Flow Rate 3.5 3.5 3.5 3.5 10/27/20 10/27/20 10/27/20 10/27/20 03:00 07:00 08:00 08:56 Temp 97.5 97.7 97.5 97.7 Pulse 87 89 85 Resp 18 17 B/P (MAP) 109/64 (79) 104/74 (84) 104/74 Pulse Ox 96 96 O2 Delivery Nasal Cannula Nasal Cannula Nasal Cannula O2 Flow Rate 3.5 4.0 3.5 Intake and Output 10/26/20 10/26/20 10/27/20 15:00 23:00 07:00 Intake Total 180 ml 0 ml Balance 180 ml 0 ml Justicifation of Admission Dx: Justifications for Admission: Justification of Admission Dx: Yes PANCHO MONTELONGO MD Oct 27, 2020 11:23
[2020-10-27] MEDS: cefTRIAXone IV Push 1 GM VIAL. IVP SCH (11:30)
[2020-10-27] MEDS ORDERED: LACT1CAP19 PO (11:32)
[2020-10-27] MEDS ORDERED: ATOR10TA60 PO (11:32)
[2020-10-27] MEDS ORDERED: ASCO500T4 PO (11:32)
[2020-10-27] MEDS ORDERED: ASPI-886 PO (11:32)
[2020-10-27] MEDS ORDERED: DEXA4TAB PO (11:32)
[2020-10-27] MEDS ORDERED: CHOL5000 PO (11:32)
[2020-10-27] MEDS ORDERED: SPIR25TA PO (11:32)
[2020-10-27] MEDS ORDERED: DOXY100T PO (11:32)
[2020-10-27] MEDS ORDERED: GUAI5SYR PO (11:32)
[2020-10-27] MEDS ORDERED: ZINC220C2 PO (11:32)
[2020-10-27] MEDS ORDERED: POTA20TA4 PO (11:32)
[2020-10-27] MEDS ORDERED: THIA100T22 PO (11:32)
--- NOTE | 2020-10-27 11:37 | NUR ---
ERUM following for discharge planning. Spoke with RN and reviewed chart. ERUM contacted RT and 6 min walk results indicated pt's need for home 02. Pt 3l 02 at rest and 3l 02 with activity. ERUM called and spoke with pt's son Herminia ([phone]) and [id number] to coordinate care. Patient's son stated no preference in 02 provider. ERUM phoned and faxed referral and orders to Ida at [facility]. Patient choice of vendor form completed. Tank provided to pt for transportation home. No further ERUM needs at this time. Addendum: 10/27/20 at 1422 by AMANUEL DANIELSON ERUM did confirm with Ida that orders were received. Pt discharged self-care but will follow up with PCP, Dr. Bolton who will likely order HH for this patient. Kassi from [facility] was able to talk with pt's family about HH services.
--- NOTE | 2020-10-27 13:20 | NUR ---
Discharge Note: SHIL[facility], [address] [facility] Discharge instructions and discharge home medications reviewed with Patient and Patient son Herminia via telephone and a copy given. All questions have been answered and understanding verbalized. The following instructions and handouts were given: F/U PCP within one week. Discontinued lines and drains: Peripheral IV intact. Patient discharged to Home or Self Care with Family Member via Wheelchair. Pt clothing, cane, and blanket with her at the time of discharge.
--- NOTE | 2020-10-27 13:25 | NUR ---
This RN called [facility] to notify them of patient discharge. Rep. from [facility] said he would notify dispatch of the discharge and send the next available surgery technician out to pt home.
== END 2020-10-27 13:27 | disposition home or self-care (01) | DRG 177 ==
LOC: ER 10:06 → ED HOLD 13:35 → 1 WEST ICU 15:54 → 6 SOUTH 10-21 14:58
PROVIDERS: ADMIT Internal Medicine; ATTEND Internal Medicine
PROC: 5A09457 Assistance with Respiratory Ventilation, 24-96 Consecutive Hours, Continuous Positive Airway Pressure (ICD-10-PCS; principal; 2020-10-19)
PROC: 5A0935A Assistance with Respiratory Ventilation, Less than 24 Consecutive Hours, High Flow/Velocity Cannula (ICD-10-PCS; 2020-10-21)
PROC: 5A0935A Assistance with Respiratory Ventilation, Less than 24 Consecutive Hours, High Flow/Velocity Cannula (ICD-10-PCS; 2020-10-22)
PROC: 5A09357 Assistance with Respiratory Ventilation, Less than 24 Consecutive Hours, Continuous Positive Airway Pressure (ICD-10-PCS; 2020-10-22)
PROC: XW033E5 Introduction of Remdesivir Anti-infective into Peripheral Vein, Percutaneous Approach, New Technology Group 5 (ICD-10-PCS; 2020-10-25)
DX: U07.1 COVID-19 (principal); J96.21 Acute and chronic respiratory failure with hypoxia; I50.43 Acute on chronic combined systolic (congestive) and diastolic (congestive) heart failure; E43 Unspecified severe protein-calorie malnutrition; J96.02 Acute respiratory failure with hypercapnia; J12.82 Pneumonia due to coronavirus disease 2019; I13.0 Hypertensive heart and chronic kidney disease with heart failure and stage 1 through stage 4 chronic kidney disease, or unspecified chronic kidney disease; J44.1 Chronic obstructive pulmonary disease with (acute) exacerbation; I42.8 Other cardiomyopathies; E87.0 Hyperosmolality and hypernatremia; J44.0 Chronic obstructive pulmonary disease with (acute) lower respiratory infection; E86.1 Hypovolemia; E78.00 Pure hypercholesterolemia, unspecified; J30.9 Allergic rhinitis, unspecified; E78.5 Hyperlipidemia, unspecified; G47.33 Obstructive sleep apnea (adult) (pediatric); R74.01 Elevation of levels of liver transaminase levels; N18.9 Chronic kidney disease, unspecified; E11.22 Type 2 diabetes mellitus with diabetic chronic kidney disease; Z86.15 Personal history of latent tuberculosis infection; M19.90 Unspecified osteoarthritis, unspecified site; Z68.25 Body mass index [BMI] 25.0-25.9, adult; Z90.49 Acquired absence of other specified parts of digestive tract
CPT/HCPCS: 36415; 36600; 71045; 80048; 80053; 80061; 80076; 82550; 82728; 82805; 82962; 83615; 83735; 83880; 84484; 85025; 85379; 86140; 87804; 93005; 94618; 94660; 94760; 96361; 96374; 99291; J0696; J1100; J1650; J1940; J3490; J7050; J7060; U0003; 97116-GP; 97530-GP; 97535-GO; G0378; J7030

== ENCOUNTER 2021-08-02 16:50 | Inpatient (IN) | payer MEDICAID ==
[~2021-08-02] VITALS: Ht 149.9 cm; Wt 57.5 kg
[~2021-08-02 16:50] MED LIST changes: +ASCO500T4 PO; +ASPI-886 PO; +ATOR10TA60 PO; +CHOL5000 PO; +DEXA4TAB PO; +DOXY100T PO; +GUAI5SYR PO; +LACT1CAP19 PO; +METO-239 PO; +POTA-121 PO; +SPIR25TA PO; +THIA100T22 PO; +ZINC220C2 PO
[2021-08-02 18:55] LABS: BASO % 0 % (0-3); EOS % 0 % (0-3); HEMATOCRIT 40.5 % (36.0-47.0); HEMOGLOBIN 13.3 g/dL (12.0-15.5); LYMPH # 0.9 x10^3/uL (1.0-4.8); LYMPH % 7 % (24-48); MEAN CORPUSCULAR HEMOGLOBIN 31 pg (25-35); MEAN CORPUSCULAR HGB CONC 33 g/dL (31-37); MEAN CORPUSCULAR VOLUME 93 fL (79-100); MONO # 1.1 x10^3/uL (0.0-1.1); MONO % 9 % (0-9); NEUT # 9.8 x10^3/uL (1.8-7.7); NEUT % 83 % (31-73); PLATELET COUNT 295 x10^3/uL (140-400); RED BLOOD COUNT 4.37 x10^6/uL (3.50-5.40); RED CELL DISTRIBUTION WIDTH 14.3 % (11.5-14.5); WHITE BLOOD COUNT 11.9 x10^3/uL (4.0-11.0)
[2021-08-02 19:03] LABS: CREATININE 0.7 mg/dL (0.6-1.0); POTASSIUM 3.1 mmol/L (3.5-5.1)
[2021-08-02 19:09] LABS: ALBUMIN 2.5 g/dL (3.4-5.0); ALBUMIN/GLOBULIN RATIO 0.5 (1.0-1.7); TOTAL BILIRUBIN 0.7 mg/dL (0.2-1.0); TOTAL PROTEIN 7.8 g/dL (6.4-8.2)
[2021-08-02 19:24] LABS: INFLUENZA A PATIENT NEGATIVE (NEGATIVE); INFLUENZA B PATIENT NEGATIVE (NEGATIVE)
--- NOTE | 2021-08-02 19:32 | RAD ---
AP chest x-ray HISTORY: Shortness of breath. COMPARISON: Chest x-ray October 25, 2020 FINDINGS: Moderate cardiomegaly stable. Tortuosity and calcified plaque aortic arch is stable. There is probable enlargement of the left atrial silhouette splaying the paloma also stable. Small pleural effusions lung diaphragms blunting the costophrenic angles are new. There may be mild pulmonary vascu lar congestion, stable. There is mild interstitial edema with mild fissural thickening and interstiti al reticulation at the lung bases. IMPRESSION: Mild congestive heart failure with cardiomegaly, pulmonary vascular congestion, mild inte rstitial edema and small pleural effusions. Electronically signed by: Levy Melendrez MD (08/02/2021 7:29 PM) [facility]
--- NOTE | 2021-08-02 19:57 | PHYS DOC ---
Past Medical History Past Medical History: COPD, Diabetes-Type II, High Cholesterol, Hypertension, Other Additional Past Medical Histor: pt wears O2 at night; poor historian,GREG-02 NOVEMBER 2020 Past Surgical History: Other Additional Past Surgical Histo: left hand/FINGER AMPUTATION Smoking Status: Never Smoker Alcohol Use: None General Adult EDM: Chief Complaint: SHORTNESS OF BREATH HPI: HPI: Patient is a 70 year old female with history of hypertension, high cholesterol, COPD and DMII who presents with a 3-4-day history of shortness of breath, cough, nausea/vomiting, left-sided upper abdominal pain and night chills. Patient's kake language is a dialect of [employer], so her patient is at bedside to aid in translation. Patient states her pain is in her left upper abdomen and radiates around the lateral aspect of her body to her back. Patient normally uses 2 L of oxygen at night and as needed throughout the day. She also has breathing treatments for when she has increasing shortness of breath, but has not taken one since symptom onset. Patient denies sputum production. Patient's daughter states that the patient was diagnosed with Covid in October of this year, but at that time she was "much more sick than she is now." Patient took Tylenol at home last night to help with her pain, but it did not improve any of her symptoms. Review of Systems: Review of Systems: Constitutional: See HPI Eyes: Denies change in visual acuity. HENT: Denies nasal congestion or sore throat. Respiratory: See HPI Cardiovascular: Denies chest pain or edema. GI: See HPI : Denies dysuria or hematuria. Musculoskeletal: Denies back pain or joint pain. Integument: Denies rash or other skin lesion. Neurologic: Denies headache, focal weakness or sensory changes. Heart Score: C/O Chest Pain: No Allergies: Allergies: Allergies Coded Allergies Type Severity Reaction Last Updated Verified No Known Drug Allergies 11/15/19 No Physical Exam: PE: Constitutional: Well developed, well nourished, no acute distress, non-toxic appearance. HENT: Normocephalic, atraumatic, bilateral external ears normal, oropharynx moist, no oral exudates, nose normal. Neck: Normal range of motion, no tenderness, supple, no stridor. Cardiovascular: Heart rate regular rhythm, no obvious murmur. Lungs & Thorax: Breath sounds decreased diffusely bilaterally. Abdomen: Protuberant abdomen with normoactive bowel sounds, soft, no masses, no pulsatile masses. Diffuse left-sided tenderness. Skin: Warm, dry, no erythema, no rash. Extremities: No tenderness, no cyanosis, no clubbing, ROM intact, no edema. Neurologic: Alert and oriented x3, normal motor function, normal sensory function, no focal deficits noted. Current Patient Data: Labs: Laboratory Tests Test 08/02/21 18:09 08/02/21 18:39 Influenza Type A Antigen Negative (NEGATIVE) Influenza Type B Antigen Negative (NEGATIVE) SARS-CoV-2 Antigen (Rapid) Negative (NEGATIVE) White Blood Count 11.9 x10^3/uL (4.0-11.0) H Red Blood Count 4.37 x10^6/uL (3.50-5.40) Hemoglobin 13.3 g/dL (12.0-15.5) Hematocrit 40.5 % (36.0-47.0) Mean Corpuscular Volume 93 fL (79-100) Mean Corpuscular Hemoglobin 31 pg (25-35) Mean Corpuscular Hemoglobin Concent 33 g/dL (31-37) Red Cell Distribution Width 14.3 % (11.5-14.5) Platelet Count 295 x10^3/uL (140-400) Neutrophils (%) (Auto) 83 % (31-73) H Lymphocytes (%) (Auto) 7 % (24-48) L Monocytes (%) (Auto) 9 % (0-9) Eosinophils (%) (Auto) 0 % (0-3) Basophils (%) (Auto) 0 % (0-3) Neutrophils # (Auto) 9.8 x10^3/uL (1.8-7.7) H Lymphocytes # (Auto) 0.9 x10^3/uL (1.0-4.8) L Monocytes # (Auto) 1.1 x10^3/uL (0.0-1.1) Eosinophils # (Auto) 0.0 x10^3/uL (0.0-0.7) Basophils # (Auto) 0.0 x10^3/uL (0.0-0.2) Sodium Level 143 mmol/L (136-145) Potassium Level 3.1 mmol/L (3.5-5.1) L Chloride Level 101 mmol/L (98-107) Carbon Dioxide Level 32 mmol/L (21-32) Anion Gap 10 (6-14) Blood Urea Nitrogen 15 mg/dL (7-20) Creatinine 0.7 mg/dL (0.6-1.0) Estimated GFR (Cockcroft-Gault) 83.0 BUN/Creatinine Ratio 21 (6-20) H Glucose Level 162 mg/dL (70-99) H Calcium Level 9.0 mg/dL (8.5-10.1) Total Bilirubin 0.7 mg/dL (0.2-1.0) Aspartate Amino Transferase (AST) 25 U/L (15-37) Alanine Aminotransferase (ALT) 24 U/L (14-59) Alkaline Phosphatase 113 U/L (46-116) Total Protein 7.8 g/dL (6.4-8.2) Albumin 2.5 g/dL (3.4-5.0) L Albumin/Globulin Ratio 0.5 (1.0-1.7) L Amylase Level 37 U/L (25-115) Lipase 50 U/L (73-393) L Laboratory Tests 08/02/21 18:39 Laboratory Tests 08/02/21 18:39 Vital Signs: Vital Signs Date Time Temp Pulse Resp B/P (MAP) Pulse Ox O2 Delivery O2 Flow Rate FiO2 08/02/21 17:53 97.9 112 24 140/92 (108) 84 Room Air 97.9 Radiology/Procedures: Radiology/Procedures: PROCEDURE: PORTABLE CHEST 1V AP chest x-ray HISTORY: Shortness of breath. COMPARISON: Chest x-ray October 25, 2020 FINDINGS: Moderate cardiomegaly stable. Tortuosity and calcified plaque aortic arch is stable. There is probable enlargement of the left atrial silhouette splaying the paloma also stable. Small pleural effusions lung diaphragms blunting the costophrenic angles are new. There may be mild pulmonary vascular congestion, stable. There is mild interstitial edema with mild fissural thicken ing and interstitial reticulation at the lung bases. IMPRESSION: Mild congestive heart failure with cardiomegaly, pulmonary vascular congestion, mild interstitial edema and small pleural effusions. Electronically signed by: Levy Melendrez MD (08/02/2021 7:29 PM) [id number] Course & Med Decision Making: Course & Med Decision Making Pertinent Labs and Imaging studies reviewed. (See chart for details) Patient has multiple complaints and will require work-up to evaluate for infection, pneumonia versus COPD exacerbation or abdominal pathology. Chest x-ray shows pulmonary edema, congestive heart failure exacerbation. Patient will be admitted to hospitalist, as patient does not have a primary care physician. Dragon Disclaimer: Dragon Disclaimer: This electronic medical record was generated, in whole or in part, using a voice recognition dictation system. Departure Departure Impression: Primary Impression: Pulmonary edema with congestive heart failure Additional Impressions: Hypokalemia COPD (chronic obstructive pulmonary disease) Qualified Codes: J44.9 - Chronic obstructive pulmonary disease, unspecified Disposition: 09 ADMITTED INPATIENT Admitting Physician: CARLEY Justin) Condition: GUARDED Referrals: UNKNOWN PCP NAME (PCP) FRANCISCA BOJORQUEZ Aug 02, 2021 19:57
[2021-08-02] MEDS ORDERED: POTASSIUM CHLORIDE 20 MEQ TABLET.ER. PO ONE (20:00)
[2021-08-02] MEDS ORDERED: FUROSEMIDE 20 MG/2 ML VIAL. IVP ONE (20:30)
[2021-08-02] MEDS ORDERED: ONDANSETRON PF 4 MG/2 ML VIAL. IVP ONE (20:30)
[2021-08-02] MEDS ORDERED: POTASSIUM CHLORIDE 20MEQ 100 ML IV ONE (20:30)
[2021-08-02] MEDS ORDERED: ONDANSETRON PF 4 MG/2 ML VIAL. IVP PRN (21:15)
[2021-08-02 21:45] LABS: BILIRUBIN,URINE NEGATIVE (NEG); CLARITY,URINE CLEAR; COLOR,URINE YELLOW; NITRITE,URINE POSITIVE (NEG); PROTEIN,URINE NEGATIVE (NEG-TRACE)
[2021-08-02 21:54] LABS: BACTERIA,URINE MANY /HPF (0-FEW); RBC,URINE 0 /HPF (0-2)
--- NOTE | 2021-08-02 22:30 | NUR ---
The patient, DAVID MATAMOROS, 70 y/o, F admitted by BRADY IVY MD, was given written information regarding hospital policies, unit procedures and contact persons. valuables were checked and documented. assessment complete see charting. pt information obtained from daughter. call light in reach, will cont to monitor status and safety. pmrn
[2021-08-02 23:14] VITALS: BP 124/80
[2021-08-03] MEDS ORDERED: POTASSIUM CHLORIDE 20MEQ 100 ML IV ONE
[2021-08-03 03:08] VITALS: BP 120/78
[2021-08-03 07:33] VITALS: BP 125/80
[2021-08-03] MEDS ORDERED: DEXAMETHASONE 4 MG TABLET PO SCH (09:00)
[2021-08-03] MEDS ORDERED: FLU VACC QUAD 21-22 (6MOS+) PF 0.5 ML SYRINGE. VAX IM ONE (09:00)
[2021-08-03] MEDS ORDERED: guaiFENesin DM 200MG/20MG 10 ML SYRUP PO PRN (09:00)
[2021-08-03] MEDS ORDERED: DOXYCYCLINE HYCLATE 100 MG TABLET PO SCH (09:00)
--- NOTE | 2021-08-03 09:16 | HP ---
DATE OF SERVICE: 08/03/2021 ADMIT DATE: 08/03/2021 CHIEF COMPLAINT: Shortness of breath. HISTORY OF PRESENT ILLNESS: The patient is a pleasant, middle-aged female who presented to the ER with shortness of breath, rated at 7/10, worse with moving, better with sitting still. While in the ER, we noticed that she has got vascular congestion and cardiomegaly on her chest x-ray and I suspect she is in heart failure. She is hypoxic. We are going to admit the patient and consult Cardiology. PAST MEDICAL HISTORY: COPD, diabetes, hypertension, hyperlipidemia, O2 dependent. She wears 2 liters at night at home, poor historian, COVID-19 in October of this year, left finger amputation. ALLERGIES: None. FAMILY HISTORY: Diabetes. SOCIAL HISTORY: She does not drink, smoke or take drugs. MEDICATIONS: Reviewed, please refer to the MRAD. REVIEW OF SYSTEMS: GENERAL: No history of weight change, weakness or fevers. SKIN: No bruising, hair changes or rashes. EYES: No blurred, double or loss of vision. NOSE AND THROAT: No history of nosebleeds, hoarseness or sore throat. HEART: No history of palpitations or chest pain. LUNGS: She complains of shortness of breath. GASTROINTESTINAL: Denies changes in appetite, nausea, vomiting, diarrhea or constipation. GENITOURINARY: No history of frequency, urgency, hesitancy or nocturia. NEUROLOGIC: Denies history of numbness, tingling, tremor or weakness. PSYCHIATRIC: No history of panic, anxiety or depression. ENDOCRINE: No history of heat or cold intolerance, polyuria or polydipsia. EXTREMITIES: Denies muscle weakness, joint pain, pain on walking or stiffness. PHYSICAL EXAMINATION: VITALS: Within normal limits and are stable. GENERAL: No apparent distress. Alert and oriented. HEENT: Normal cephalic atraumatic, external auditory canals are patent EYES: Extraocular muscles are intact, pupils are equally round and reactive to light and accommodation MUSKULOSKELETAL: Well developed, well nourished, good range of motion ENDOCRINE: No thyromegaly was palpated LYMPHATICS: No cervical chain or axillary nodes were noted HEMATOPOIETIC: No bruising NECK: Supple, no JVD, no thyromegaly was noted. LUNGS: She has bibasilar crackles. . HEART: RRR, S1, S2 present. Peripheral pulses intact, no obvious murmurs were noted. ABDOMEN: Soft, nontender. Positive bowel sounds no organomegaly, normal bowel sounds. EXTREMITIES: Without any cyanosis, clubbing, or edema. Pedal pulses intact, Homans sign is negative. NEUROLOGIC: Normal speech, normal tone. A and O x 3, moves all extremities, no obvious focal deficits. PSYCHIATRIC: Normal affect, normal mood. Stable. SKIN: No ulcerations or rashes, good skin turgor, no jaundice. VASCULAR: Good capillary refill, neurovascular bundle appears to be intact. Chest x-ray shows cardiomegaly and vascular congestion. White count is 12, hemoglobin 13, platelets 295. Electrolytes: Sodium 143, potassium 3.1, chloride 101, bicarbonate 32, BUN 15, creatinine 0.7, glucose 162. Urinalysis shows trace leukocyte esterase and 11 white cells. COVID testing is negative. Influenza testing is negative. ASSESSMENT AND PLAN: Acute on chronic systolic and diastolic heart failure, leukocytosis, urinary tract infection and hypokalemia. The patient has been admitted. We will consult Cardiology. Serial enzymes, serial EKGs, echocardiogram, home meds, deep venous thrombosis prophylaxis, full code, replace her potassium, IV antibiotics, trend labs. PROGNOSIS: Guarded. AURORA/JOSE DR: AURORA/zaida TID: [id number]
[2021-08-03] MEDS: cefTRIAXone IV Push 1 GM VIAL. IVP SCH (10:54)
[2021-08-03] MEDS: THIAMINE 100 MG TABLET. PO SCH (10:56)
[2021-08-03] MEDS: CHOLECALCIFEROL (VITAMIN D3) 5,000 UNIT CAPSULE PO SCH (10:57)
[2021-08-03] MEDS: LACTOBACILLUS RHAMNOSUS GG 1 CAPSULE. PO SCH ×2 (10:57→21:26)
[2021-08-03] MEDS: metFORMIN 500 MG TABLET PO SCH ×2 (10:57→17:21)
[2021-08-03] MEDS: METOPROLOL SUCC 24HR ER 25 MG TAB.ER.24H. PO SCH (10:57)
[2021-08-03] MEDS: ASPIRIN ENTERIC COATED 81 MG TABLET.DR. PO SCH (10:57)
[2021-08-03] MEDS: ZINC SULFATE 220 MG CAPSULE. PO SCH (10:58)
[2021-08-03] MEDS: ASCORBIC ACID 500 MG TABLET PO SCH ×2 (10:58→21:26)
[2021-08-03] MEDS: SPIRONOLACTONE 25 MG TABLET PO SCH (10:58)
[2021-08-03 11:08] VITALS: BP 113/72
--- NOTE | 2021-08-03 12:44 | PDOC2 ---
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 Kern SOURCE Source: Chart review, Patient HISTORY OF PRESENT ILLNESS HISTORY OF PRESENT ILLNESS This is a 70 yo female who presented secondary to shortness of breath, nausea/vomiting, and abdominal pain. Has chronic O2 at home. Has been more short of breath for the last several days. Associated with LE edema. Also c/o left upper abdomen abdominal pain. No reports of chest pain, palpitations, dizziness, diaphoresis. Did have episode of vomiting. PAST MEDICAL HISTORY Past Medical History Cardiovascular: CHF, HTN, Hyperlipidemia, Other (NICM; PFO with left to right shunt in 2016 via TTE) Pulmonary: Asthma, Other (Hx of BYRON (mycobacterium avium-intracellulare) treated with INH) CENTRAL NERVOUS SYSTEM: Other (No pertinent history) GI: Other (umbilical hernia) Hepatobiliary: Cholelithiasis Psych: No pertinent hx Musculoskeletal: Osteoarthritis Rheumatologic: No pertinent hx Infectious disease: Other (BYRON) ENT: Allergic Rhinitis Renal/: Chronic renal insuff Endocrine: Diabetes (2) PAST SURGICAL HISTORY Past Surgical History Other (ERCP with sphincterectomy) FAMILY HISTORY Family History: Family History Unknown SOCIAL HISTORY Social History Smoke: Quit (remotely) ALCOHOL: none Drugs: None Lives: with Family CURRENT MEDICATIONS CURRENT MEDICATIONS Current Medications Medications (Trade) Dose Ordered Sig/Fran Route PRN Reason Start Time Stop Time Status Last Admin Dose Admin Furosemide (Lasix) 20 mg 1X ONCE IVP 08/02/21 20:30 08/02/21 20:31 DC 08/02/21 20:36 Potassium Chloride/Water 100 ml @ 50 mls/hr 1X ONCE IV 08/02/21 20:30 08/02/21 22:29 DC 08/02/21 20:37 Ondansetron HCl (Zofran) 4 mg 1X ONCE IVP 08/02/21 20:30 08/02/21 20:31 DC 08/02/21 20:37 Ondansetron HCl (Zofran) 4 mg PRN Q8HRS PRN IVP NAUSEA/VOMITING 08/02/21 21:15 08/03/21 21:14 08/03/21 10:59 Potassium Chloride/Water 100 ml @ 50 mls/hr 1X ONCE IV 08/03/21 00:00 08/03/21 01:59 DC 08/03/21 00:10 Ceftriaxone Sodium (Rocephin) 1 gm Q24H IVP 08/03/21 09:00 08/03/21 10:54 Ascorbic Acid (Vitamin C) 500 mg BID PO 08/03/21 09:00 08/03/21 10:58 Aspirin (Ecotrin) 81 mg DAILYWBKFT PO 08/03/21 09:15 08/03/21 10:57 Vitamin D (Vitamin D3) 5,000 unit DAILY PO 08/03/21 09:15 08/03/21 10:57 Lactobacillus Rhamnosus (Culturelle) 1 cap BID PO 08/03/21 09:15 08/03/21 10:57 Metformin HCl (Glucophage) 1,000 mg BIDWMEALS PO 08/03/21 09:00 08/03/21 10:57 Metoprolol Succinate (Toprol Xl) 50 mg DAILY PO 08/03/21 09:15 08/03/21 10:57 Spironolactone (Aldactone) 25 mg DAILY PO 08/03/21 09:15 08/03/21 10:58 Thiamine Mononitrate (Vitamin B-1) 100 mg DAILY PO 08/03/21 09:15 08/03/21 10:56 Zinc Sulfate (Orazinc) 220 mg DAILY PO 08/03/21 09:15 08/03/21 10:58 ALLERGIES ALLERGIES: Coded Allergies: No Known Drug Allergies (Unverified , 11/15/19) ROS Review of System 14 point ROS conducted with pertinent positives noted above in HPI PHYSICAL EXAM PHYSICAL EXAM General: Alert, Cooperative, moderate distress HEENT: Atraumatic, Mucous membr. moist/pink Heart: Regular rate (SR), Other (distant heart sounds) Lungs: crackles Abdomen: Soft Extremities: No cyanosis, Other (1-2+ bilateral LE pitting edema) Skin: No significant lesion Neuro: Normal speech, Sensation intact Psych/Mental Status: Mental status NL, Mood NL MUSCULOSKELETAL: Osteoarthritic changes both hands VITALS/I&O VITALS/I&O: Vital Signs Date Time Temp Pulse Resp B/P (MAP) Pulse Ox O2 Delivery O2 Flow Rate FiO2 08/03/21 11:08 89 18 113/72 (86) 96 Nasal Cannula 3.0 08/03/21 07:33 97.8 97.8 I & O 08/02/21 08/02/21 08/03/21 15:00 23:00 07:00 Intake Total 200 ml Balance 200 ml LABS Lab: Laboratory Tests Test 08/02/21 18:09 08/02/21 18:39 08/02/21 21:36 Influenza Type A Antigen Negative (NEGATIVE) Influenza Type B Antigen Negative (NEGATIVE) SARS-CoV-2 RNA (JAMAAL) Negative (Negative) SARS-CoV-2 Antigen (Rapid) Negative (NEGATIVE) White Blood Count 11.9 x10^3/uL (4.0-11.0) H Red Blood Count 4.37 x10^6/uL (3.50-5.40) Hemoglobin 13.3 g/dL (12.0-15.5) Hematocrit 40.5 % (36.0-47.0) Mean Corpuscular Volume 93 fL (79-100) Mean Corpuscular Hemoglobin 31 pg (25-35) Mean Corpuscular Hemoglobin Concent 33 g/dL (31-37) Red Cell Distribution Width 14.3 % (11.5-14.5) Platelet Count 295 x10^3/uL (140-400) Neutrophils (%) (Auto) 83 % (31-73) H Lymphocytes (%) (Auto) 7 % (24-48) L Monocytes (%) (Auto) 9 % (0-9) Eosinophils (%) (Auto) 0 % (0-3) Basophils (%) (Auto) 0 % (0-3) Neutrophils # (Auto) 9.8 x10^3/uL (1.8-7.7) H Lymphocytes # (Auto) 0.9 x10^3/uL (1.0-4.8) L Monocytes # (Auto) 1.1 x10^3/uL (0.0-1.1) Eosinophils # (Auto) 0.0 x10^3/uL (0.0-0.7) Basophils # (Auto) 0.0 x10^3/uL (0.0-0.2) Sodium Level 143 mmol/L (136-145) Potassium Level 3.1 mmol/L (3.5-5.1) L Chloride Level 101 mmol/L (98-107) Carbon Dioxide Level 32 mmol/L (21-32) Anion Gap 10 (6-14) Blood Urea Nitrogen 15 mg/dL (7-20) Creatinine 0.7 mg/dL (0.6-1.0) Estimated GFR (Cockcroft-Gault) 83.0 BUN/Creatinine Ratio 21 (6-20) H Glucose Level 162 mg/dL (70-99) H Lactic Acid Level 0.6 mmol/L (0.4-2.0) Calcium Level 9.0 mg/dL (8.5-10.1) Magnesium Level 1.8 mg/dL (1.8-2.4) Total Bilirubin 0.7 mg/dL (0.2-1.0) Aspartate Amino Transferase (AST) 25 U/L (15-37) Alanine Aminotransferase (ALT) 24 U/L (14-59) Alkaline Phosphatase 113 U/L (46-116) Total Protein 7.8 g/dL (6.4-8.2) Albumin 2.5 g/dL (3.4-5.0) L Albumin/Globulin Ratio 0.5 (1.0-1.7) L Amylase Level 37 U/L (25-115) Lipase 50 U/L (73-393) L Urine Collection Type Unknown Urine Color Yellow Urine Clarity Clear Urine pH 6.0 (<5.0-8.0) Urine Specific Steele 1.010 (1.000-1.030) Urine Protein Negative mg/dL (NEG-TRACE) Urine Glucose (UA) Negative mg/dL (NEG) Urine Ketones (Stick) Trace mg/dL (NEG) Urine Blood Negative (NEG) Urine Nitrite Positive (NEG) Urine Bilirubin Negative (NEG) Urine Urobilinogen Dipstick 1.0 mg/dL (0.2 mg/dL) Urine Leukocyte Esterase Trace (NEG) Urine RBC 0 /HPF (0-2) Urine WBC 11-20 /HPF (0-4) Urine Squamous Epithelial Cells Few /LPF Urine Bacteria Many /HPF (0-FEW) Urine Mucus Mod /LPF Laboratory Tests 08/02/21 18:39 Laboratory Tests 08/02/21 18:39 ECHOCARDIOGRAM ECHOCARDIOGRAM 06/09/2019 [facility] Moderate LV Systolic Dysfunction with LVEF ~=40% by both visual estimation and Biplane [id number] calculation. There is hypokinesis of the basal to mid septal segments with low-normal regional wall motion otherwise Although the measured LVIDD suggests left ventricular dilatation, the biplane method of disks volume evaluation would suggest normal LV cavity size LV Diastolic Volume = 66.45 mL (Range: 46 - 106) LV Diastolic Vol Index = 42.60 mL Global systolic RV function is depressed Mildly dilated Interatrial septal aneurysm: interatrial septum bows right to left Small/collapsed IVC (~= 7 mm at end diastole), suggestive of low central venous pressure--consider possible intravascular volume depletion Estimated Peak Systolic PA Pressure 20 mmHg STRESS TEST STRESS TEST 05/26/2019 [facility] INDICATIONS FOR STUDY (HISTORY): This is a 68 year old female with a history of nonischemic cardiomyopathy, mild AI, PFO, prior pulmonary BYRON infection, hypertension, and dyspnea. The study was obtained to evaluate for significant myocardial ischemia. PROCEDURAL DETAILS: Initially, the patient received a 5 ml intravenous infusion of Regadenoson at 0.08 mg/ml over 10 to 15 seconds. Approximately 20 seconds later 2.1 mCi of [id number] was injected intravenously. Throughout the infusion continuous electrocardiographic monitoring and serial electrocardiograms were obtained, as well as intermittent blood pressure recordings. Gated upright D-SPECT tomographic images were then acquired approximately 5 minutes after discontinuation of the regadenoson infusion. When indicated supine D-SPECT images were also obtained. The patient returned in approximately 4 hours and received an additional intravenous injection of 0.5 mCi of [id number] Chloride as a reinjected dose to assist in the detection of myocardial ischemia and viability. Images were then reacquired and compared to post stress images. FINDINGS: Pharmacological Stress Electrocardiogram: The patient's resting heart rate was 91 bpm and the resting blood pressure was 118/68. The patients peak stress heart rate was 77 bpm and the peak stress blood pressure was 116/70. Her resting ECG demonstrated normal sinus rhythm with a heart rate of 80, there is borderline delayed R wave progression, there is fairly diffuse T wave flattening with some inversions as well as some subtle ST depression in the inferolateral leads. During pharmacologic stress she complained of feeling flushed and lightheaded. It resolved during the recovery phase. The baseline ST segment depression changes remained unchanged. There was no ectopy. Conclusion: Pharmacologic stress ECG is nondiagnostic for ischemia. ASSESSMENT/PLAN ASSESSMENT/PLAN 1. Acute on chronic respiratory failure secondary to CHF 2. Acute on chronic diastolic/systolic CHF 3. NICM: last known EF at 40% 4. Hx of PFO with L>R shunting 5. HTN: controlled 6. DM2 7. Abdominal pain; as per IM 8. Hx of latent TB(BYRON) treated with INH 9. PUI; rapid negative 10. Hypokalemia; replaced 11. UTI; as per IM Recommendations Diuresis with monitoring or renal function Electrolytes replacement Echo to assess LV systolic function Consider outpatient ischemic evaluation Supportive care KARL VÁSQUEZ MD 08/03/212111: CARDIAC CONSULT ASSESSMENT/PLAN ASSESSMENT/PLAN Patient seen and examined. 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 Continue diuresis for ac on chr combined systolic and diastolic HF Tele did not show any significant arrhythmias Recent echo showed EF 40%, clinically well compensated Plan ischemic evaluation as outpatient Thank you for our consultation JANINA TAVAREZ APRN Aug 03, 2021 12:44 KARL VÁSQUEZ MD Aug 03, 2021 21:12
[2021-08-03 14:19] VITALS: BP 101/65
--- NOTE | 2021-08-03 15:15 | NUR ---
SS following for discharge planning. SS reviewed pt chart and discussed with pt RN. Pt is from home with family and is currently requiring oxygen at three liters nasal canula. COVID19 negative. Pt has home oxygen through [employer]. Cardiology consulted. PT/OT ordered. Pt on IV Rocephin. SS will continue to follow for discharge planning.
[2021-08-03] MEDS ORDERED: POTASSIUM CHLORIDE 20 MEQ TABLET.ER. PO ONE (16:00)
[2021-08-03] MEDS: FUROSEMIDE 40 MG/4 ML VIAL. IVP SCH (17:26)
[2021-08-03 18:32] VITALS: BP 104/72
[2021-08-03] MEDS: ATORVASTATIN CALCIUM 10 MG TABLET. PO SCH (21:26)
[2021-08-03 22:34] VITALS: BP 99/57
[2021-08-04] MEDS ORDERED: ACETAMINOPHEN 325 MG TABLET. PO PRN
[2021-08-04 02:33] VITALS: BP 102/65
[2021-08-04 06:18] VITALS: BP 105/68
[2021-08-04 08:09] LABS: BASO % 0 % (0-3); EOS # 0.2 x10^3/uL (0.0-0.7); EOS % 2 % (0-3); HEMATOCRIT 41.9 % (36.0-47.0); HEMOGLOBIN 13.5 g/dL (12.0-15.5); LYMPH # 1.3 x10^3/uL (1.0-4.8); LYMPH % 15 % (24-48); MEAN CORPUSCULAR HEMOGLOBIN 30 pg (25-35); MEAN CORPUSCULAR HGB CONC 32 g/dL (31-37); MEAN CORPUSCULAR VOLUME 94 fL (79-100); MONO % 11 % (0-9); NEUT # 6.3 x10^3/uL (1.8-7.7); NEUT % 72 % (31-73); PLATELET COUNT 287 x10^3/uL (140-400); RED BLOOD COUNT 4.45 x10^6/uL (3.50-5.40); RED CELL DISTRIBUTION WIDTH 14.3 % (11.5-14.5); WHITE BLOOD COUNT 8.9 x10^3/uL (4.0-11.0)
[2021-08-04 08:29] LABS: CALCIUM 9.6 mg/dL (8.5-10.1); CREATININE 0.7 mg/dL (0.6-1.0)
[2021-08-04] MEDS: SPIRONOLACTONE 25 MG TABLET PO SCH (09:21)
[2021-08-04] MEDS: ASPIRIN ENTERIC COATED 81 MG TABLET.DR. PO SCH (09:21)
[2021-08-04] MEDS: THIAMINE 100 MG TABLET. PO SCH (09:21)
[2021-08-04] MEDS: metFORMIN 500 MG TABLET PO SCH ×2 (09:21→17:22)
[2021-08-04] MEDS: ZINC SULFATE 220 MG CAPSULE. PO SCH (09:21)
[2021-08-04] MEDS: LACTOBACILLUS RHAMNOSUS GG 1 CAPSULE. PO SCH ×2 (09:21→21:25)
[2021-08-04] MEDS: POTASSIUM CHLORIDE 20 MEQ TABLET.ER. PO SCH (09:22)
[2021-08-04] MEDS: ASCORBIC ACID 500 MG TABLET PO SCH ×2 (09:23→21:25)
[2021-08-04] MEDS: CHOLECALCIFEROL (VITAMIN D3) 5,000 UNIT CAPSULE PO SCH (09:23)
[2021-08-04] MEDS: METOPROLOL SUCC 24HR ER 25 MG TAB.ER.24H. PO SCH (09:23)
[2021-08-04] MEDS: cefTRIAXone IV Push 1 GM VIAL. IVP SCH (09:28)
[2021-08-04 10:17] VITALS: BP 108/78
--- NOTE | 2021-08-04 11:34 | PDOC ---
[facility] PROGRESS NOTE Date of Service DOS: DATE: 08/04/21 TIME: 11:22 Chief Complaint Chief Complaint Acute on chronic systolic and diastolic heart failure COPD (2L at home) Leukocytosis UTI Diabetes Hypertension Hyperlipidemia Hypokalemia Hx of COVID-19 (Oct 2020) Left finger amputation History of Present Illness History of Present Illness 08/04 Patient seen and examined at bedside TTE was being performed at time of exam No acute overnight events noted Discussed pt with daughter Charts reviewed Discussed with RN and SW Vitals/I&O Vitals/I&O: Vital Signs Date Time Temp Pulse Resp B/P (MAP) Pulse Ox O2 Delivery O2 Flow Rate FiO2 08/04/21 10:17 98.3 92 18 108/78 (88) 95 Nasal Cannula 3.0 98.3 I & O 0 08/03/21 08/03/21 08/04/21 15:00 23:00 07:00 Intake Total 700 ml 100 ml 200 ml Output Total 750 ml 1100 ml Balance 700 ml -650 ml -900 ml Physical Exam Physical Exam: GENERAL: No apparent distress. Alert and oriented. Comfortable, pleasant. HEENT: Normal cephalic atraumatic, external auditory canals are patent EYES: EOMI, PERRLA MUSKULOSKELETAL: Well developed, well nourished, good range of motion ENDOCRINE: No thyromegaly was palpated LYMPHATICS: No cervical chain or axillary nodes were noted HEMATOPOIETIC: No bruising NECK: Supple, no JVD, no thyromegaly was noted. LUNGS: She has bibasilar crackles. . HEART: RRR, S1, S2 present. Peripheral pulses intact, no obvious murmurs were noted. ABDOMEN: Soft, nontender. Positive bowel sounds no organomegaly, normal bowel sounds. EXTREMITIES: Without any cyanosis, clubbing, or edema. Pedal pulses intact, Homans sign is negative. NEUROLOGIC: Normal speech, normal tone. AAOx3, moves all extremities, no obvious focal deficits. PSYCHIATRIC: Normal affect, normal mood. Stable. Pleasant. SKIN: No ulcerations or rashes, good skin turgor, no jaundice. VASCULAR: Good capillary refill, neurovascular bundle appears to be intact. General: Alert, Oriented X3, Cooperative, No acute distress Heart: Regular rate, Normal S1, Normal S2, No murmurs Lungs: Crackles (Bibasilar) Abdomen: Normal bowel sounds, Soft, No tenderness Extremities: No clubbing, No cyanosis, Other (L. Finger amputated) Skin: No rashes, No breakdown Labs Labs: Laboratory Tests Test 08/04/21 07:25 White Blood Count 8.9 x10^3/uL (4.0-11.0) Red Blood Count 4.45 x10^6/uL (3.50-5.40) Hemoglobin 13.5 g/dL (12.0-15.5) Hematocrit 41.9 % (36.0-47.0) Mean Corpuscular Volume 94 fL (79-100) Mean Corpuscular Hemoglobin 30 pg (25-35) Mean Corpuscular Hemoglobin Concent 32 g/dL (31-37) Red Cell Distribution Width 14.3 % (11.5-14.5) Platelet Count 287 x10^3/uL (140-400) Neutrophils (%) (Auto) 72 % (31-73) Lymphocytes (%) (Auto) 15 % (24-48) Monocytes (%) (Auto) 11 % (0-9) Eosinophils (%) (Auto) 2 % (0-3) Basophils (%) (Auto) 0 % (0-3) Neutrophils # (Auto) 6.3 x10^3/uL (1.8-7.7) Lymphocytes # (Auto) 1.3 x10^3/uL (1.0-4.8) Monocytes # (Auto) 1.0 x10^3/uL (0.0-1.1) Eosinophils # (Auto) 0.2 x10^3/uL (0.0-0.7) Basophils # (Auto) 0.0 x10^3/uL (0.0-0.2) Sodium Level 141 mmol/L (136-145) Potassium Level 4.0 mmol/L (3.5-5.1) Chloride Level 100 mmol/L (98-107) Carbon Dioxide Level 35 mmol/L (21-32) Anion Gap 6 (6-14) Blood Urea Nitrogen 22 mg/dL (7-20) Creatinine 0.7 mg/dL (0.6-1.0) Estimated GFR (Cockcroft-Gault) 83.0 Glucose Level 111 mg/dL (70-99) Calcium Level 9.6 mg/dL (8.5-10.1) Review of Systems Review of Systems: ROS negative Assessment and Plan Assessmemt and Plan Problems Medical Problems: (1) COPD (chronic obstructive pulmonary disease) Status: Acute (2) Hypokalemia Status: Acute (3) Pulmonary edema with congestive heart failure Status: Acute Acute on chronic systolic and diastolic heart failure COPD (2L at home) Leukocytosis UTI Diabetes Hypertension Hyperlipidemia Hypokalemia Hx of COVID-19 (Oct 2020) Left finger amputation Plan Continue monitoring on telemetry Cardiology input appreciated Awaiting TTE results Continue diuresis Continue serial enzymes Continue serial EKGs Potassium Replaced Trend Labs Continue IV antibiotics Restarted home meds Cardiac Diet DVT Prophylaxis Disposition Pending Full Code Comment Review of Relevant I have reviewed the following items torin (where applicable) has been applied. Medications: Current Medications Medications (Trade) Dose Ordered Sig/Rfan Route PRN Reason Start Time Stop Time Status Last Admin Dose Admin Atorvastatin Calcium (Lipitor) 10 mg QHS PO 08/03/21 21:00 08/03/21 21:26 Potassium Chloride (Klor-Con) 20 meq [id number] PO 08/04/21 09:15 08/04/21 09:22 Furosemide (Lasix) 40 mg DAILY IVP 08/03/21 16:00 08/03/21 17:26 Potassium Chloride (Klor-Con) 20 meq 1X ONCE PO 08/03/21 16:00 08/03/21 16:01 DC 08/03/21 17:23 Justifications for Admission Other Justification JESSA RUIZ III DO Aug 04, 2021 11:34
--- NOTE | 2021-08-04 11:58 | PDOC ---
JANINA TAVAREZ LILIBETH 08/04/21 1158: CARDIO Progress Notes Date and Time Date of Service 08/04/21 Time of Evaluation 1150 Subjective Subjective: No Chest Pain, No shortness of breath, No Palpitations Vitals Vitals Vital Signs Date Time Temp Pulse Resp B/P (MAP) Pulse Ox O2 Delivery O2 Flow Rate FiO2 08/04/21 10:17 98.3 92 18 108/78 (88) 95 Nasal Cannula 3.0 98.3 Weight Weight [ ] Input and Output Intake and Output Intake and Output 08/04/21 07:00 Intake Total 1000 ml Output Total 1850 ml Balance -850 ml Intake Oral 1000 ml Output Urine Total 1850 ml Laboratory Labs Laboratory Tests Test 08/04/21 07:25 08/04/21 11:47 White Blood Count 8.9 x10^3/uL (4.0-11.0) Red Blood Count 4.45 x10^6/uL (3.50-5.40) Hemoglobin 13.5 g/dL (12.0-15.5) Hematocrit 41.9 % (36.0-47.0) Mean Corpuscular Volume 94 fL (79-100) Mean Corpuscular Hemoglobin 30 pg (25-35) Mean Corpuscular Hemoglobin Concent 32 g/dL (31-37) Red Cell Distribution Width 14.3 % (11.5-14.5) Platelet Count 287 x10^3/uL (140-400) Neutrophils (%) (Auto) 72 % (31-73) Lymphocytes (%) (Auto) 15 % (24-48) Monocytes (%) (Auto) 11 % (0-9) Eosinophils (%) (Auto) 2 % (0-3) Basophils (%) (Auto) 0 % (0-3) Neutrophils # (Auto) 6.3 x10^3/uL (1.8-7.7) Lymphocytes # (Auto) 1.3 x10^3/uL (1.0-4.8) Monocytes # (Auto) 1.0 x10^3/uL (0.0-1.1) Eosinophils # (Auto) 0.2 x10^3/uL (0.0-0.7) Basophils # (Auto) 0.0 x10^3/uL (0.0-0.2) Sodium Level 141 mmol/L (136-145) Potassium Level 4.0 mmol/L (3.5-5.1) Chloride Level 100 mmol/L (98-107) Carbon Dioxide Level 35 mmol/L (21-32) Anion Gap 6 (6-14) Blood Urea Nitrogen 22 mg/dL (7-20) Creatinine 0.7 mg/dL (0.6-1.0) Estimated GFR (Cockcroft-Gault) 83.0 Glucose Level 111 mg/dL (70-99) Calcium Level 9.6 mg/dL (8.5-10.1) Glucose (Fingerstick) 110 mg/dL (70-99) Microbiology Micro Microbiology 08/02/21 Blood Culture - Preliminary, Resulted NO GROWTH AFTER 1 DAY 08/02/21 Urine Culture - Preliminary, Resulted Physical Exam HEENT: Neck Supple W Full Motion Chest: Symmetric LUNGS: Clear to Auscultation Heart: RRR Abdomen: Soft N/T Extremities: No Edema Neurology: alert, oriented, follow commands Assessment Assessment 1. Acute on chronic respiratory failure secondary to CHF 2. Acute on chronic diastolic/systolic CHF; improved s/p IV diuresis 3. NICM: last known EF at 40% 4. Hx of PFO with L>R shunting 5. HTN: controlled 6. DM2 7. Abdominal pain; as per IM 8. Hx of latent TB([facility]) treated with INH 9. PUI; rapid negative 10. Hypokalemia; replaced 11. UTI; as per IM Recommendations Ongoing diuresis with monitoring or renal function Consider outpatient ischemic evaluation Supportive care Justicifation of Admission Dx: Justifications for Admission: Justification of Admission Dx: Yes KARL VÁSQUEZ MD 08/05/21 0605: CARDIO Progress Notes Assessment Assessment Patient seen and examined. Agree with CRUSHING FOREMAN's assessment and plan. Continue diuresis for ac on chr combined systolic and diastolic HF Tele did not show any significant arrhythmias Recent echo showed EF 40%, clinically well compensated Plan ischemic evaluation as outpatient JANINA TAVAREZ APRN Aug 04, 2021 11:58 KARL VÁSQUEZ MD Aug 05, 2021 06:05
[2021-08-04] MEDS: FUROSEMIDE 40 MG/4 ML VIAL. IVP SCH (12:14)
--- NOTE | 2021-08-04 12:49 | NUR ---
SS following up with discharge planning. SS reviewed pt chart and discussed with pt RN. Pt is currently requiring oxygen at three liters nasal canula. Pt has home oxygen. COVID19 negative. Cardiology following. Pt on IV Rocephin and IV Lasix. PT/OT ordered. SS will continue to follow for discharge planning.
--- NOTE | 2021-08-04 13:25 | CARD ---
MR#: [id number] Date of Study: 08/04/2021 Ordering Physician: JANINA TAVAREZ, Referring Physician: JANINA TAVAREZ, Kari: [facility] APPROVED REPORT EXAM: Two-dimensional and M-mode echocardiogram with Doppler and color Doppler. Other Information Quality : GoodHR: 94bpm Rhythm : NSR INDICATION Cardiomyopathy Congestive Heart Failure RISK FACTORS Hyperlipidemia 2D DIMENSIONS Left Atrium(2D)4.5 (1.6-4.0cm)IVSd0.9 (0.7-1.1cm) Aortic Root(2D)3.5 (2.0-3.7cm)LVDd5.4 (3.9-5.9cm) LVOT Diameter2.1 (1.8-2.4cm)PWd1.0 (0.7-1.1cm) LVDs4.6 (2.5-4.0cm)FS (%) 15.9 % SV47.2 ml Aortic Valve AoV Peak Jamir.169.8cm/sAoV VTI24.4cm AO Peak GR.11.5mmHgLVOT Peak Jamir.84.6cm/s AO Mean GR.6mmHgAVA (VMAX)1.80cm2 AI P 1/2 [id number] Mitral Valve MV E Cijwgoxs07.0cm/sMV E Peak Gr.5mmHg MV DECEL [id number] A Qbdlgzrz53.9cm/s MV E Mean Gr.2mmHgE/A Ratio0.6 Pulmonary Valve PV Peak Gmhmjxqh63.4cm/s Tricuspid Valve TR P. Dqzqopgr319pr/sTR Peak Gr.20mmHg Pulmonary Vein S1 Sknnfjzx84.1cm/sD2 Yimnrmuq96.1cm/s LEFT VENTRICLE The Left Ventricle is mildly dilated. There is borderline concentric left ventricular hypertrophy. Th e systolic function is severely impaired. The Ejection Fraction is 25-30%. There is global hypokinesi s of the left ventricle. Tissue Doppler imaging reveals severe left ventricular diastolic dysfunction . No left ventricle thrombus noted on this study. There is no ventricular septal defect visualized. T here is no left ventricular aneurysm. There is no mass noted in the left ventricle. RIGHT VENTRICLE The right ventricle is normal size. There is normal right ventricular wall thickness. The right ventr icular systolic function is normal. ATRIA The left atrium is mildly dilated. The right atrium size is normal. Interatrial septum is aneurysmal with possible small pfo seen by color flow doppler. AORTIC VALVE The aortic valve is mildly sclerotic. The aortic valve is tri-cuspid. Doppler and Color Flow revealed trace to mild aortic regurgitation. There is no significant aortic valvular stenosis. There is no ao rtic valvular vegetation. MITRAL VALVE The mitral valve is thickened but opens well. There is no evidence of mitral valve prolapse. There is no mitral valve stenosis. Doppler and Color-flow revealed mild mitral regurgitation. TRICUSPID VALVE The tricuspid valve is normal in structure and function. Doppler and Color Flow revealed trace tricus pid regurgitation. There is no tricuspid valve prolapse or vegetation. There is no tricuspid valve st enosis. PULMONIC VALVE The pulmonary valve is normal in structure and function. Doppler and Color Flow revealed no pulmonic valvular regurgitation. There is no pulmonic valvular stenosis. GREAT VESSELS The aortic root is normal in size. The ascending aorta is normal in size. The pulmonary artery is nor mal. The IVC is normal in size and collapses >50% with inspiration. PERICARDIAL EFFUSION There is no pleural effusion. There is no evidence of significant pericardial effusion. Critical Notification Critical Value: No <Conclusion> The Left Ventricle is mildly dilated. The systolic function is severely impaired. The Ejection Fraction is 25-30%. There is global hypokinesis of the left ventricle. There is borderline concentric left ventricular hypertrophy. Doppler and Color Flow revealed trace to mild aortic regurgitation. There is no significant aortic valvular stenosis. Doppler and Color-flow revealed mild mitral regurgitation. Doppler and Color Flow revealed trace tricuspid regurgitation. Signed by : Hank Cunha MD Electronically Approved : 08/04/2021 13:24:39
[2021-08-04 14:19] VITALS: BP 105/76
[2021-08-04 18:20] VITALS: BP 104/71
[2021-08-04] MEDS ORDERED: LACTOBACILLUS RHAMNOSUS GG 1 CAPSULE. PO SCH (21:00)
[2021-08-04] MEDS: ATORVASTATIN CALCIUM 10 MG TABLET. PO SCH (21:25)
[2021-08-04 22:56] VITALS: BP 100/70
[2021-08-05 03:19] VITALS: BP 114/73
[2021-08-05 05:04] LABS: BASO % 0 % (0-3); EOS # 0.2 x10^3/uL (0.0-0.7); EOS % 3 % (0-3); HEMATOCRIT 41.7 % (36.0-47.0); HEMOGLOBIN 13.4 g/dL (12.0-15.5); LYMPH # 1.5 x10^3/uL (1.0-4.8); LYMPH % 19 % (24-48); MEAN CORPUSCULAR HEMOGLOBIN 30 pg (25-35); MEAN CORPUSCULAR HGB CONC 32 g/dL (31-37); MEAN CORPUSCULAR VOLUME 94 fL (79-100); MONO # 0.9 x10^3/uL (0.0-1.1); MONO % 11 % (0-9); NEUT # 5.2 x10^3/uL (1.8-7.7); NEUT % 67 % (31-73); PLATELET COUNT 303 x10^3/uL (140-400); RED BLOOD COUNT 4.46 x10^6/uL (3.50-5.40); RED CELL DISTRIBUTION WIDTH 13.9 % (11.5-14.5); WHITE BLOOD COUNT 7.7 x10^3/uL (4.0-11.0)
[2021-08-05 05:17] LABS: CALCIUM 9.5 mg/dL (8.5-10.1); CREATININE 0.7 mg/dL (0.6-1.0); POTASSIUM 3.8 mmol/L (3.5-5.1)
[2021-08-05 07:43] VITALS: BP 111/80
[2021-08-05] MEDS: FUROSEMIDE 40 MG/4 ML VIAL. IVP SCH (08:59)
[2021-08-05] MEDS: LACTOBACILLUS RHAMNOSUS GG 1 CAPSULE. PO SCH ×2 (09:00→22:35)
[2021-08-05] MEDS: POTASSIUM CHLORIDE 20 MEQ TABLET.ER. PO SCH (09:00)
[2021-08-05] MEDS: ASCORBIC ACID 500 MG TABLET PO SCH ×2 (09:00→22:35)
[2021-08-05] MEDS: THIAMINE 100 MG TABLET. PO SCH (09:00)
[2021-08-05] MEDS: ASPIRIN ENTERIC COATED 81 MG TABLET.DR. PO SCH (09:00)
[2021-08-05] MEDS: CHOLECALCIFEROL (VITAMIN D3) 5,000 UNIT CAPSULE PO SCH (09:00)
[2021-08-05] MEDS: SPIRONOLACTONE 25 MG TABLET PO SCH (09:00)
[2021-08-05] MEDS: ZINC SULFATE 220 MG CAPSULE. PO SCH (09:00)
[2021-08-05] MEDS: metFORMIN 500 MG TABLET PO SCH ×2 (09:00→17:16)
[2021-08-05] MEDS: METOPROLOL SUCC 24HR ER 25 MG TAB.ER.24H. PO SCH (09:01)
[2021-08-05] MEDS: cefTRIAXone IV Push 1 GM VIAL. IVP SCH (09:07)
[2021-08-05 11:07] VITALS: BP 120/84
--- NOTE | 2021-08-05 11:20 | PDOC ---
LIGIA MARTINEZ [employer] OFFBEARER 08/05/21 1120: CARDIO Progress Notes Date and Time Date of Service 08/05/2021 Time of Evaluation 1100 Subjective Subjective: No Chest Pain, No shortness of breath, No Palpitations Vitals Vitals Vital Signs Date Time Temp Pulse Resp B/P (MAP) Pulse Ox O2 Delivery O2 Flow Rate FiO2 08/05/21 11:07 97.5 102 19 120/84 (96) 95 Nasal Cannula 3.0 97.5 Weight Weight [ ] Input and Output Intake and Output Intake and Output 08/05/21 07:00 Intake Total 2100 ml Output Total 1400 ml Balance 700 ml Intake Oral 2100 ml Output Urine Total 1400 ml # Bowel Movements 1 Laboratory Labs Laboratory Tests Test 08/04/21 11:47 08/04/21 17:00 08/04/21 19:59 08/05/21 04:30 Glucose (Fingerstick) 110 mg/dL (70-99) 116 mg/dL (70-99) 119 mg/dL (70-99) White Blood Count 7.7 x10^3/uL (4.0-11.0) Red Blood Count 4.46 x10^6/uL (3.50-5.40) Hemoglobin 13.4 g/dL (12.0-15.5) Hematocrit 41.7 % (36.0-47.0) Mean Corpuscular Volume 94 fL (79-100) Mean Corpuscular Hemoglobin 30 pg (25-35) Mean Corpuscular Hemoglobin Concent 32 g/dL (31-37) Red Cell Distribution Width 13.9 % (11.5-14.5) Platelet Count 303 x10^3/uL (140-400) Neutrophils (%) (Auto) 67 % (31-73) Lymphocytes (%) (Auto) 19 % (24-48) Monocytes (%) (Auto) 11 % (0-9) Eosinophils (%) (Auto) 3 % (0-3) Basophils (%) (Auto) 0 % (0-3) Neutrophils # (Auto) 5.2 x10^3/uL (1.8-7.7) Lymphocytes # (Auto) 1.5 x10^3/uL (1.0-4.8) Monocytes # (Auto) 0.9 x10^3/uL (0.0-1.1) Eosinophils # (Auto) 0.2 x10^3/uL (0.0-0.7) Basophils # (Auto) 0.0 x10^3/uL (0.0-0.2) Sodium Level 139 mmol/L (136-145) Potassium Level 3.8 mmol/L (3.5-5.1) Chloride Level 98 mmol/L (98-107) Carbon Dioxide Level 35 mmol/L (21-32) Anion Gap 6 (6-14) Blood Urea Nitrogen 30 mg/dL (7-20) Creatinine 0.7 mg/dL (0.6-1.0) Estimated GFR (Cockcroft-Gault) 83.0 Glucose Level 100 mg/dL (70-99) Calcium Level 9.5 mg/dL (8.5-10.1) Microbiology Micro Microbiology 08/02/21 Blood Culture - Preliminary, Resulted NO GROWTH AFTER 2 DAYS 08/02/21 Urine Culture - Final, Complete 08/02/21 Antimicrobic Susceptibility - Final, Complete Physical Exam HEENT: Neck Supple W Full Motion Chest: Symmetric LUNGS: Other (diminished bases) Heart: RRR (SR) Abdomen: Soft N/T Extremities: No Edema Neurology: alert, oriented, follow commands Assessment Assessment 1. Acute on chronic respiratory failure secondary to CHF 2. Acute on chronic diastolic/systolic CHF, compensated 3. NICM: last known EF at 40% 4. Hx of PFO with L>R shunting 5. HTN: controlled 6. DM2 7. Abdominal pain; as per IM 8. Hx of latent TB([facility]) treated with INH 9. PUI; rapid negative 10. Hypokalemia; replaced 11. UTI; as per IM Recommendations 6 min walk Continue current regimen secondary prevention measures including lasix. Consider outpatient ischemic evaluation Follow up in office Supportive care Justicifation of Admission Dx: Justifications for Admission: Justification of Admission Dx: Yes KARL VÁSQUEZ MD 08/05/211805: CARDIO Progress Notes Assessment Assessment Patient seen and examined. Agree with ROCK MASON's assessment and plan. Acute on chr combined systolic and diastolic HF better compensated Tele did not show any significant arrhythmias Recent echo showed EF 40%, clinically well compensated Plan ischemic evaluation as outpatient LIGIA MARTINEZ APRN Aug 05, 2021 11:20 KARL VÁSQUEZ MD Aug 05, 2021 18:06
--- NOTE | 2021-08-05 11:23 | PDOC ---
[facility] PROGRESS NOTE Date of Service DOS: DATE: 08/05/21 TIME: 11:19 Chief Complaint Chief Complaint Acute on chronic systolic and diastolic heart failure COPD (2L at home) Leukocytosis UTI Diabetes Hypertension Hyperlipidemia Hypokalemia Hx of COVID-19 (Oct 2020) Left finger amputation History of Present Illness History of Present Illness 08/05 Patient seen and examined at bedside Discussed Pt's status with Pt and family Pt reports feeling overall improved Only complaint is L. Flank/LLQ pain (denies dysuria or pain/difficulty with BMs) Charts reviewed DWRN and SW 08/04 Patient seen and examined at bedside TTE was being performed at time of exam No acute overnight events noted Discussed pt with daughter Charts reviewed Discussed with RN and SW Vitals/I&O Vitals/I&O: Vital Signs Date Time Temp Pulse Resp B/P (MAP) Pulse Ox O2 Delivery O2 Flow Rate FiO2 08/05/21 11:07 97.5 102 19 120/84 (96) 95 Nasal Cannula 3.0 97.5 I & O 08/04/21 08/04/21 08/05/21 15:00 23:00 07:00 Intake Total 700 ml 1100 ml 300 ml Output Total 800 ml 600 ml 0 ml Balance -100 ml 500 ml 300 ml Physical Exam Physical Exam: GENERAL: No apparent distress. Alert and oriented. Comfortable, pleasant. HEENT: Normal cephalic atraumatic, external auditory canals are patent EYES: EOMI, PERRLA MUSKULOSKELETAL: Well developed, well nourished, good range of motion ENDOCRINE: No thyromegaly was palpated LYMPHATICS: No cervical chain or axillary nodes were noted HEMATOPOIETIC: No bruising NECK: Supple, no JVD, no thyromegaly was noted. LUNGS: She has bibasilar crackles. . HEART: RRR, S1, S2 present. Peripheral pulses intact, no obvious murmurs were noted. ABDOMEN: Soft, Tender in LLQ/flank. Positive bowel sounds no organomegaly, normal bowel sounds. EXTREMITIES: Without any cyanosis, clubbing, or edema. Pedal pulses intact, Homans sign is negative. NEUROLOGIC: Normal speech, normal tone. AAOx3, moves all extremities, no obvious focal deficits. PSYCHIATRIC: Normal affect, normal mood. Stable. Pleasant. SKIN: No ulcerations or rashes, good skin turgor, no jaundice. VASCULAR: Good capillary refill, neurovascular bundle appears to be intact. General: Alert, Oriented X3, Cooperative, No acute distress Heart: Regular rate, Normal S1, Normal S2, No murmurs Lungs: Crackles (Bibasilar) Abdomen: Normal bowel sounds, Soft, Other (TTP in LLQ/L flank) Extremities: No clubbing, No cyanosis, Other (L. Finger amputated) Skin: No rashes, No breakdown Labs Labs: Laboratory Tests Test 08/04/21 11:47 08/04/21 17:00 08/04/21 19:59 08/05/21 04:30 Glucose (Fingerstick) 110 mg/dL (70-99) 116 mg/dL (70-99) 119 mg/dL (70-99) White Blood Count 7.7 x10^3/uL (4.0-11.0) Red Blood Count 4.46 x10^6/uL (3.50-5.40) Hemoglobin 13.4 g/dL (12.0-15.5) Hematocrit 41.7 % (36.0-47.0) Mean Corpuscular Volume 94 fL (79-100) Mean Corpuscular Hemoglobin 30 pg (25-35) Mean Corpuscular Hemoglobin Concent 32 g/dL (31-37) Red Cell Distribution Width 13.9 % (11.5-14.5) Platelet Count 303 x10^3/uL (140-400) Neutrophils (%) (Auto) 67 % (31-73) Lymphocytes (%) (Auto) 19 % (24-48) Monocytes (%) (Auto) 11 % (0-9) Eosinophils (%) (Auto) 3 % (0-3) Basophils (%) (Auto) 0 % (0-3) Neutrophils # (Auto) 5.2 x10^3/uL (1.8-7.7) Lymphocytes # (Auto) 1.5 x10^3/uL (1.0-4.8) Monocytes # (Auto) 0.9 x10^3/uL (0.0-1.1) Eosinophils # (Auto) 0.2 x10^3/uL (0.0-0.7) Basophils # (Auto) 0.0 x10^3/uL (0.0-0.2) Sodium Level 139 mmol/L (136-145) Potassium Level 3.8 mmol/L (3.5-5.1) Chloride Level 98 mmol/L (98-107) Carbon Dioxide Level 35 mmol/L (21-32) Anion Gap 6 (6-14) Blood Urea Nitrogen 30 mg/dL (7-20) Creatinine 0.7 mg/dL (0.6-1.0) Estimated GFR (Cockcroft-Gault) 83.0 Glucose Level 100 mg/dL (70-99) Calcium Level 9.5 mg/dL (8.5-10.1) Review of Systems Review of Systems: Pain in LLQ/L. Flank with stretching and deep inspiration ROS otherwise negative Assessment and Plan Assessmemt and Plan Problems Medical Problems: (1) COPD (chronic obstructive pulmonary disease) Status: Acute (2) Hypokalemia Status: Acute (3) Pulmonary edema with congestive heart failure Status: Acute Acute on chronic systolic and diastolic heart failure COPD (2L at home) Leukocytosis UTI Diabetes Hypertension Hyperlipidemia Hypokalemia Hx of COVID-19 (Oct 2020) Left finger amputation Plan Continue monitoring on telemetry Cardiology input appreciated Continue diuresis Continue serial enzymes Continue serial EKGs Potassium Replaced Trend Labs Continue IV antibiotics PRN pain management Restarted home meds Cardiac Diet DVT Prophylaxis Disposition Pending Full Code Comment Review of Relevant I have reviewed the following items torin (where applicable) has been applied. Justifications for Admission Other Justification JESSA RUIZ III DO Aug 05, 2021 11:23
[2021-08-05] MEDS ORDERED: HYDROcodone/APAP 5/325MG 1 TAB TABLET PO PRN (11:30)
--- NOTE | 2021-08-05 12:55 | NUR ---
SS following up with discharge planning. SS reviewed pt chart and discussed with pt RN. Pt is currently requiring oxygen at three liters nasal canula. Pt has home oxygen. COVID19 negative. Cardiology following. Pt on IV Rocephin and IV Lasix. PT/OT ordered. OT recommended home with home healthcare. SS will continue to follow for discharge planning
[2021-08-05 14:13] VITALS: BP 102/76
--- NOTE | 2021-08-05 16:28 | NUR ---
6 Minute walk ordered by Yoko Johnson, however Jennifer ELISE reports patient is still on IV antibiotics and no plans for discharge yet.
[2021-08-05] MEDS: MEROPENEM 1 GM in IV NORMAL SALINE 100ML 100 ML IV SCH (17:54)
[2021-08-05] MEDS ORDERED: MEROPENEM 1 GM in IV NORMAL SALINE 100ML 100 ML IV SCH (18:00)
[2021-08-05 19:40] VITALS: BP 105/71
[2021-08-05] MEDS: ATORVASTATIN CALCIUM 10 MG TABLET. PO SCH (22:35)
[2021-08-05 23:40] VITALS: BP 113/81
[2021-08-06] VITALS (7 sets, daily range): BP systolic 89–113; BP diastolic 61–81
[2021-08-06 03:47] LABS: BASO % 0 % (0-3); EOS # 0.2 x10^3/uL (0.0-0.7); EOS % 2 % (0-3); HEMATOCRIT 41.6 % (36.0-47.0); HEMOGLOBIN 14.3 g/dL (12.0-15.5); LYMPH # 1.6 x10^3/uL (1.0-4.8); LYMPH % 19 % (24-48); MEAN CORPUSCULAR HEMOGLOBIN 32 pg (25-35); MEAN CORPUSCULAR HGB CONC 34 g/dL (31-37); MEAN CORPUSCULAR VOLUME 93 fL (79-100); MONO # 0.9 x10^3/uL (0.0-1.1); MONO % 11 % (0-9); NEUT # 5.7 x10^3/uL (1.8-7.7); NEUT % 68 % (31-73); PLATELET COUNT 322 x10^3/uL (140-400); RED BLOOD COUNT 4.48 x10^6/uL (3.50-5.40); WHITE BLOOD COUNT 8.3 x10^3/uL (4.0-11.0)
[2021-08-06 03:58] LABS: CALCIUM 9.6 mg/dL (8.5-10.1); CREATININE 0.8 mg/dL (0.6-1.0); GFR 71.1
[2021-08-06] MEDS: MEROPENEM 1 GM in IV NORMAL SALINE 100ML 100 ML IV SCH (06:18)
[2021-08-06] MEDS: THIAMINE 100 MG TABLET. PO SCH (08:45)
[2021-08-06] MEDS: ZINC SULFATE 220 MG CAPSULE. PO SCH (08:45)
[2021-08-06] MEDS: metFORMIN 500 MG TABLET PO SCH ×2 (08:45→17:47)
[2021-08-06] MEDS: LACTOBACILLUS RHAMNOSUS GG 1 CAPSULE. PO SCH ×2 (08:45→19:44)
[2021-08-06] MEDS: METOPROLOL SUCC 24HR ER 25 MG TAB.ER.24H. PO SCH (08:46)
[2021-08-06] MEDS: SPIRONOLACTONE 25 MG TABLET PO SCH (08:46)
[2021-08-06] MEDS: ASPIRIN ENTERIC COATED 81 MG TABLET.DR. PO SCH (08:46)
[2021-08-06] MEDS: CHOLECALCIFEROL (VITAMIN D3) 5,000 UNIT CAPSULE PO SCH (08:46)
[2021-08-06] MEDS: POTASSIUM CHLORIDE 20 MEQ TABLET.ER. PO SCH (08:46)
[2021-08-06] MEDS: ASCORBIC ACID 500 MG TABLET PO SCH ×2 (08:47→19:44)
[2021-08-06] MEDS ORDERED: FOSFOMYCIN TROMETHAMINE 3 GM PACKET PO ONE (10:45)
[2021-08-06] MEDS: FUROSEMIDE 40 MG/4 ML VIAL. IVP SCH (12:03)
--- NOTE | 2021-08-06 12:14 | PDOC ---
[employer] PROGRESS NOTE Date of Service DOS: DATE: 08/06/21 TIME: 12:04 Chief Complaint Chief Complaint Acute on chronic systolic and diastolic heart failure COPD (2L at home) Leukocytosis UTI Diabetes Hypertension Hyperlipidemia Hypokalemia Hx of COVID-19 (Oct 2020) Left finger amputation History of Present Illness History of Present Illness 08/06 Pt seen and examined Spoke with daughter on phone with pt present Discussed discharge plans (per subspecialist approval) Pt's only complaint is L. Flank pain Discussed adding fosfomycin for ESBL Tx Charts Reviewed Discussed with RN and SW 08/05 Patient seen and examined at bedside Discussed Pt's status with Pt and family Pt reports feeling overall improved Only complaint is L. Flank/LLQ pain (denies dysuria or pain/difficulty with BMs) Charts reviewed DWRN and ERUM 08/04 Patient seen and examined at bedside TTE was being performed at time of exam No acute overnight events noted Discussed pt with daughter Charts reviewed Discussed with RN and SW Vitals/I&O Vitals/I&O: Vital Signs Date Time Temp Pulse Resp B/P (MAP) Pulse Ox O2 Delivery O2 Flow Rate FiO2 08/06/21 08:46 94 109/79 08/06/21 08:00 Nasal Cannula 3.0 08/06/21 07:00 97.7 20 98 97.7 I & O 08/05/21 08/05/21 08/06/21 15:00 23:00 07:00 Intake Total 480 ml 300 ml Output Total 300 ml 400 ml Balance 180 ml -100 ml Physical Exam Physical Exam: GENERAL: No apparent distress. Alert and oriented. Comfortable, pleasant. HEENT: Normal cephalic atraumatic, external auditory canals are patent EYES: EOMI, PERRLA MUSKULOSKELETAL: Well developed, well nourished, good range of motion ENDOCRINE: No thyromegaly was palpated LYMPHATICS: No cervical chain or axillary nodes were noted HEMATOPOIETIC: No bruising NECK: Supple, no JVD, no thyromegaly was noted. LUNGS: She has bibasilar crackles. . HEART: RRR, S1, S2 present. Peripheral pulses intact, no obvious murmurs were noted. ABDOMEN: Soft, Tender in LLQ/flank. Positive bowel sounds no organomegaly, normal bowel sounds. EXTREMITIES: Without any cyanosis, clubbing, or edema. Pedal pulses intact, Homans sign is negative. NEUROLOGIC: Normal speech, normal tone. AAOx3, moves all extremities, no obvious focal deficits. PSYCHIATRIC: Normal affect, normal mood. Stable. Pleasant. SKIN: No ulcerations or rashes, good skin turgor, no jaundice. VASCULAR: Good capillary refill, neurovascular bundle appears to be intact. General: Alert, Oriented X3, Cooperative, No acute distress Heart: Regular rate, Normal S1, Normal S2, No murmurs Lungs: Crackles (Bibasilar) Abdomen: Normal bowel sounds, Soft, Other (TTP in LLQ/L flank) Extremities: No clubbing, No cyanosis, Other (L. Finger amputated) Skin: No rashes, No breakdown Labs Labs: Laboratory Tests Test 08/05/21 16:24 08/05/21 21:29 08/06/21 03:30 08/06/21 08:20 Glucose (Fingerstick) 120 mg/dL (70-99) 110 mg/dL (70-99) 126 mg/dL (70-99) White Blood Count 8.3 x10^3/uL (4.0-11.0) Red Blood Count 4.48 x10^6/uL (3.50-5.40) Hemoglobin 14.3 g/dL (12.0-15.5) Hematocrit 41.6 % (36.0-47.0) Mean Corpuscular Volume 93 fL (79-100) Mean Corpuscular Hemoglobin 32 pg (25-35) Mean Corpuscular Hemoglobin Concent 34 g/dL (31-37) Red Cell Distribution Width 14.0 % (11.5-14.5) Platelet Count 322 x10^3/uL (140-400) Neutrophils (%) (Auto) 68 % (31-73) Lymphocytes (%) (Auto) 19 % (24-48) Monocytes (%) (Auto) 11 % (0-9) Eosinophils (%) (Auto) 2 % (0-3) Basophils (%) (Auto) 0 % (0-3) Neutrophils # (Auto) 5.7 x10^3/uL (1.8-7.7) Lymphocytes # (Auto) 1.6 x10^3/uL (1.0-4.8) Monocytes # (Auto) 0.9 x10^3/uL (0.0-1.1) Eosinophils # (Auto) 0.2 x10^3/uL (0.0-0.7) Basophils # (Auto) 0.0 x10^3/uL (0.0-0.2) Sodium Level 139 mmol/L (136-145) Potassium Level 4.0 mmol/L (3.5-5.1) Chloride Level 98 mmol/L (98-107) Carbon Dioxide Level 32 mmol/L (21-32) Anion Gap 9 (6-14) Blood Urea Nitrogen 33 mg/dL (7-20) Creatinine 0.8 mg/dL (0.6-1.0) Estimated GFR (Cockcroft-Gault) 71.1 Glucose Level 118 mg/dL (70-99) Calcium Level 9.6 mg/dL (8.5-10.1) Test 08/06/21 11:52 Glucose (Fingerstick) 81 mg/dL (70-99) Review of Systems Review of Systems: Patient acknowledges L. Flank pain, ROS otherwise negative Assessment and Plan Assessmemt and Plan Problems Medical Problems: (1) COPD (chronic obstructive pulmonary disease) Status: Acute (2) Hypokalemia Status: Acute (3) Pulmonary edema with congestive heart failure Status: Acute Acute on chronic systolic and diastolic heart failure COPD (2L at home) Leukocytosis ESBL UTI Diabetes Hypertension Hyperlipidemia Hypokalemia Hx of COVID-19 (Oct 2020) Left finger amputation Plan Hope to discharge per Cardiology approval Changed meropenem to 1x dose fosfomycin, per Pharmacy Continue monitoring on telemetry Continue diuresis Continue serial enzymes Continue serial EKGs Potassium Replaced Trend Labs PRN pain management Restarted home meds Cardiac Diet DVT Prophylaxis Disposition: possible discharge home today, if ok with cardiology Full Code Comment Review of Relevant I have reviewed the following items torin (where applicable) has been applied. Medications: Current Medications Medications (Trade) Dose Ordered Sig/Fran Route PRN Reason Start Time Stop Time Status Last Admin Dose Admin Meropenem 1 gm/ Sodium Chloride 100 ml @ 200 mls/hr Q12H IV 08/05/21 18:00 08/06/21 10:30 DC 08/06/21 06:18 Justifications for Admission Other Justification JESSA RUIZ III DO Aug 06, 2021 12:14
--- NOTE | 2021-08-06 16:26 | PDOC ---
CARDIOLOGY PROGRESS NOTE SUBJECTIVE: No acute events overnight. The patient is unable to speak Turkish and translation is obtained from the patient's daughter. The patient currently denies any chest pain. She does have exertional dyspnea. OBJECTIVE: Vital Signs/I&O: Vital Signs Date Time Temp Pulse Resp B/P (MAP) Pulse Ox O2 Delivery O2 Flow Rate FiO2 08/06/21 15:14 97.3 100 16 107/81 (90) 96 Nasal Cannula 3.0 97.3 I & O 08/05/21 08/05/21 08/06/21 15:00 23:00 07:00 Intake Total 480 ml 300 ml Output Total 300 ml 400 ml Balance 180 ml -100 ml Objective: She is resting in bed but mildly tachypneic Heart tones are regular. Lung locke are notable for decreased breath sounds at the bases Obese abdomen nontender nondistended No lower extremity edema with 1+ pulses No focal neurologic deficits Skin no rashes She has a facial tattoo CURRENT MEDICATIONS: Atorvastatin Lasix 40 mg IV push Metoprolol 50 mg XL Spironolactone 25 mg daily Aspirin 81 mg daily DIAGNOSTIC TESTING: Echocardiogram from December 2020 at [facility] revealed ejection fraction of 35% Stress test from 2019 [facility] was unremarkable for any ischemia with EF of 40% No arrhythmias on telemetry. Labs reviewed Chest x-ray reviewed Labs: Laboratory Tests 08/06/21 03:30 Laboratory Tests Test 08/05/21 16:24 08/05/21 21:29 08/06/21 03:30 08/06/21 08:20 Glucose (Fingerstick) 120 mg/dL (70-99) H 110 mg/dL (70-99) H 126 mg/dL (70-99) H White Blood Count 8.3 x10^3/uL (4.0-11.0) Red Blood Count 4.48 x10^6/uL (3.50-5.40) Hemoglobin 14.3 g/dL (12.0-15.5) Hematocrit 41.6 % (36.0-47.0) Mean Corpuscular Volume 93 fL (79-100) Mean Corpuscular Hemoglobin 32 pg (25-35) Mean Corpuscular Hemoglobin Concent 34 g/dL (31-37) Red Cell Distribution Width 14.0 % (11.5-14.5) Platelet Count 322 x10^3/uL (140-400) Neutrophils (%) (Auto) 68 % (31-73) Lymphocytes (%) (Auto) 19 % (24-48) L Monocytes (%) (Auto) 11 % (0-9) H Eosinophils (%) (Auto) 2 % (0-3) Basophils (%) (Auto) 0 % (0-3) Neutrophils # (Auto) 5.7 x10^3/uL (1.8-7.7) Lymphocytes # (Auto) 1.6 x10^3/uL (1.0-4.8) Monocytes # (Auto) 0.9 x10^3/uL (0.0-1.1) Eosinophils # (Auto) 0.2 x10^3/uL (0.0-0.7) Basophils # (Auto) 0.0 x10^3/uL (0.0-0.2) Sodium Level 139 mmol/L (136-145) Potassium Level 4.0 mmol/L (3.5-5.1) Chloride Level 98 mmol/L (98-107) Carbon Dioxide Level 32 mmol/L (21-32) Anion Gap 9 (6-14) Blood Urea Nitrogen 33 mg/dL (7-20) H Creatinine 0.8 mg/dL (0.6-1.0) Estimated GFR (Cockcroft-Gault) 71.1 Glucose Level 118 mg/dL (70-99) H Calcium Level 9.6 mg/dL (8.5-10.1) Test 08/06/21 11:52 Glucose (Fingerstick) 81 mg/dL (70-99) ASSESSMENT: 1. Acute on chronic systolic and diastolic heart failure 2. Severe COPD history with an FEV1 of 50% predicted based on PFTs at [facility] 3. Dyslipidemia 4. Type 2 diabetes PLAN: 1. Continue current dose of metoprolol therapy 2. We will add low-dose losartan to her regimen 3. Plan for outpatient right and left heart catheterization for further donation of source of her dyspnea whether this would be related to COPD or ischemic cardiomyopathy 4. Outpatient discussion for primary prevention ICD. Negative's consultation we will follow along closely. Justicifation of Admission Dx: Justifications for Admission: Justification of Admission Dx: Yes PASCUAL SORENSEN MD Aug 06, 2021 16:26
[2021-08-06] MEDS: LOSARTAN POTASSIUM 25 MG TABLET. PO SCH (17:48)
[2021-08-06] MEDS: ATORVASTATIN CALCIUM 10 MG TABLET. PO SCH (19:44)
[2021-08-07] VITALS (8 sets, daily range): BP systolic 86–101; BP diastolic 57–73
[2021-08-07 03:59] LABS: BASO # 0.1 x10^3/uL (0.0-0.2); BASO % 1 % (0-3); EOS # 0.2 x10^3/uL (0.0-0.7); EOS % 3 % (0-3); HEMATOCRIT 43.4 % (36.0-47.0); HEMOGLOBIN 14.3 g/dL (12.0-15.5); LYMPH # 1.5 x10^3/uL (1.0-4.8); LYMPH % 18 % (24-48); MEAN CORPUSCULAR HEMOGLOBIN 31 pg (25-35); MEAN CORPUSCULAR HGB CONC 33 g/dL (31-37); MEAN CORPUSCULAR VOLUME 93 fL (79-100); MONO # 0.7 x10^3/uL (0.0-1.1); MONO % 9 % (0-9); NEUT # 5.8 x10^3/uL (1.8-7.7); NEUT % 70 % (31-73); PLATELET COUNT 368 x10^3/uL (140-400); RED BLOOD COUNT 4.65 x10^6/uL (3.50-5.40); RED CELL DISTRIBUTION WIDTH 13.9 % (11.5-14.5); WHITE BLOOD COUNT 8.3 x10^3/uL (4.0-11.0)
[2021-08-07 04:12] LABS: CALCIUM 10.5 mg/dL (8.5-10.1); CREATININE 0.9 mg/dL (0.6-1.0); GFR 62.1; POTASSIUM 4.7 mmol/L (3.5-5.1)
[2021-08-07] MEDS: CHOLECALCIFEROL (VITAMIN D3) 5,000 UNIT CAPSULE PO SCH (08:27)
[2021-08-07] MEDS: LACTOBACILLUS RHAMNOSUS GG 1 CAPSULE. PO SCH ×2 (08:27→20:00)
[2021-08-07] MEDS: POTASSIUM CHLORIDE 20 MEQ TABLET.ER. PO SCH (08:27)
[2021-08-07] MEDS: ASCORBIC ACID 500 MG TABLET PO SCH ×2 (08:27→20:00)
[2021-08-07] MEDS: ZINC SULFATE 220 MG CAPSULE. PO SCH (08:27)
[2021-08-07] MEDS: THIAMINE 100 MG TABLET. PO SCH (08:28)
[2021-08-07] MEDS: metFORMIN 500 MG TABLET PO SCH ×2 (08:28→17:41)
[2021-08-07] MEDS: ASPIRIN ENTERIC COATED 81 MG TABLET.DR. PO SCH (08:28)
[2021-08-07] MEDS: FUROSEMIDE 40 MG/4 ML VIAL. IVP SCH (09:00)
[2021-08-07] MEDS: SPIRONOLACTONE 25 MG TABLET PO SCH (09:00)
[2021-08-07] MEDS: LOSARTAN POTASSIUM 25 MG TABLET. PO SCH (09:00)
[2021-08-07] MEDS: METOPROLOL SUCC 24HR ER 25 MG TAB.ER.24H. PO SCH (09:00)
[2021-08-07] MEDS ORDERED: DEXTROSE 50% 25 GM / 50ML DISP.SYRIN. IV PRN (12:00)
--- NOTE | 2021-08-07 12:39 | PDOC ---
[employer] PROGRESS NOTE Date of Service DOS: DATE: 08/07/21 TIME: 12:35 Chief Complaint Chief Complaint Acute on chronic systolic and diastolic heart failure COPD (2L at home) Leukocytosis UTI Diabetes Hypertension Hyperlipidemia Hypokalemia Hx of COVID-19 (Oct 2020) Left finger amputation History of Present Illness History of Present Illness 08/07 Patient seen and examined Pt states her breathing is unchanged from yesterday Pt states her L. flank pain has improved Charts reviewed DWRN Will consider discharge this afternoon if okay with cardiology 08/06 Pt seen and examined Spoke with daughter on phone with pt present Discussed discharge plans (per subspecialist approval) Pt's only complaint is L. Flank pain Discussed adding fosfomycin for ESBL Tx Charts Reviewed Discussed with RN and SW 08/05 Patient seen and examined at bedside Discussed Pt's status with Pt and family Pt reports feeling overall improved Only complaint is L. Flank/LLQ pain (denies dysuria or pain/difficulty with BMs) Charts reviewed DWRN and ERUM 08/04 Patient seen and examined at bedside TTE was being performed at time of exam No acute overnight events noted Discussed pt with daughter Charts reviewed Discussed with RN and SW Vitals/I&O Vitals/I&O: Vital Signs Date Time Temp Pulse Resp B/P (MAP) Pulse Ox O2 Delivery O2 Flow Rate FiO2 08/07/21 11:00 97.8 94 18 92/62 (72) 97 Nasal Cannula 3.0 97.8 I & O 08/06/21 08/06/21 08/07/21 15:00 23:00 07:00 Output Total 1 ml Balance -1 ml Physical Exam Physical Exam: GENERAL: No apparent distress. Alert and oriented. Comfortable, pleasant. HEENT: Normal cephalic atraumatic, external auditory canals are patent EYES: EOMI, PERRLA MUSKULOSKELETAL: Well developed, well nourished, good range of motion ENDOCRINE: No thyromegaly was palpated LYMPHATICS: No cervical chain or axillary nodes were noted HEMATOPOIETIC: No bruising NECK: Supple, no JVD, no thyromegaly was noted. LUNGS: She has bibasilar crackles. . HEART: RRR, S1, S2 present. Peripheral pulses intact, no obvious murmurs were noted. ABDOMEN: Soft, Tender (improving) in LLQ/flank. Positive bowel sounds no organomegaly, normal bowel sounds. EXTREMITIES: Without any cyanosis, clubbing, or edema. Pedal pulses intact, Homans sign is negative. NEUROLOGIC: Normal speech, normal tone. AAOx3, moves all extremities, no obvious focal deficits. PSYCHIATRIC: Normal affect, normal mood. Stable. Pleasant. SKIN: No ulcerations or rashes, good skin turgor, no jaundice. VASCULAR: Good capillary refill, neurovascular bundle appears to be intact. General: Alert, Oriented X3, Cooperative, No acute distress Heart: Regular rate, Normal S1, Normal S2, No murmurs Lungs: Crackles (Bibasilar) Abdomen: Normal bowel sounds, Soft, Other (TTP in LLQ/L flank) Extremities: No clubbing, No cyanosis, Other (L. Finger amputated) Skin: No rashes, No breakdown Labs Labs: Laboratory Tests Test 08/06/21 16:55 08/06/21 19:26 08/07/21 03:20 08/07/21 07:57 Glucose (Fingerstick) 159 mg/dL (70-99) 87 mg/dL (70-99) 112 mg/dL (70-99) White Blood Count 8.3 x10^3/uL (4.0-11.0) Red Blood Count 4.65 x10^6/uL (3.50-5.40) Hemoglobin 14.3 g/dL (12.0-15.5) Hematocrit 43.4 % (36.0-47.0) Mean Corpuscular Volume 93 fL (79-100) Mean Corpuscular Hemoglobin 31 pg (25-35) Mean Corpuscular Hemoglobin Concent 33 g/dL (31-37) Red Cell Distribution Width 13.9 % (11.5-14.5) Platelet Count 368 x10^3/uL (140-400) Neutrophils (%) (Auto) 70 % (31-73) Lymphocytes (%) (Auto) 18 % (24-48) Monocytes (%) (Auto) 9 % (0-9) Eosinophils (%) (Auto) 3 % (0-3) Basophils (%) (Auto) 1 % (0-3) Neutrophils # (Auto) 5.8 x10^3/uL (1.8-7.7) Lymphocytes # (Auto) 1.5 x10^3/uL (1.0-4.8) Monocytes # (Auto) 0.7 x10^3/uL (0.0-1.1) Eosinophils # (Auto) 0.2 x10^3/uL (0.0-0.7) Basophils # (Auto) 0.1 x10^3/uL (0.0-0.2) Sodium Level 138 mmol/L (136-145) Potassium Level 4.7 mmol/L (3.5-5.1) Chloride Level 99 mmol/L (98-107) Carbon Dioxide Level 33 mmol/L (21-32) Anion Gap 6 (6-14) Blood Urea Nitrogen 31 mg/dL (7-20) Creatinine 0.9 mg/dL (0.6-1.0) Estimated GFR (Cockcroft-Gault) 62.1 Glucose Level 115 mg/dL (70-99) Calcium Level 10.5 mg/dL (8.5-10.1) Test 08/07/21 11:48 Glucose (Fingerstick) 77 mg/dL (70-99) Review of Systems Review of Systems: Pt complains of dyspnea ROS otherwise improved Assessment and Plan Assessmemt and Plan Problems Medical Problems: (1) COPD (chronic obstructive pulmonary disease) Status: Acute (2) Hypokalemia Status: Acute (3) Pulmonary edema with congestive heart failure Status: Acute Acute on chronic systolic and diastolic heart failure COPD (2L at home) Leukocytosis ESBL UTI Diabetes Hypertension Hyperlipidemia Hypokalemia Hx of COVID-19 (Oct 2020) Left finger amputation Plan Hope to discharge today if cardiology agrees for now continue the following; S/p 1x dose fosfomycin for ESBL UTI Continue monitoring on telemetry Continue diuresis Continue serial enzymes Continue serial EKGs Potassium Replaced Trend Labs PRN pain management Restarted home meds Cardiac Diet DVT Prophylaxis Discharge disposition pending as noted above. Full Code Comment Review of Relevant I have reviewed the following items torin (where applicable) has been applied. Medications: Current Medications Medications (Trade) Dose Ordered Sig/Fran Route PRN Reason Start Time Stop Time Status Last Admin Dose Admin Losartan Potassium (Cozaar) 25 mg DAILY PO 08/06/21 16:30 08/06/21 17:48 Justifications for Admission Other Justification JESSA RUIZ K III DO Aug 07, 2021 12:39
[2021-08-07] MEDS ORDERED: FURO-69 PO (14:00)
[2021-08-07] MEDS ORDERED: LOSA25TA54 PO (14:00)
--- NOTE | 2021-08-07 14:05 | SNU/HH DC ---
DISCHARGE WITH HOME HEALTH DISCHARGE INFORMATION: Final Diagnosis: Problems Medical Problems: (1) COPD (chronic obstructive pulmonary disease) Status: Acute (2) Hypokalemia Status: Acute (3) Pulmonary edema with congestive heart failure Status: Acute Condition on Discharge: Stable CODE STATUS: Code Status: Full HOME HEALTH: Face to Face: I certify this patient is under my care and that I, or a nurse practitioner or physician's payroll human resources assistant working with me, had a face to face encounter that meets the physician face to face encounter requirements with this patient on []. Medical Complications: CHF Usp For: Assess Cardiopulm Status RN For Eval/Treatment: Yes Physical Therapy For: Evalulation/Treatment Occupational Therapy For: Evaluation/Treatment Home Health Aide For: Self-care JAVA CONSULTANT For: Community Resources Pt Meets Homebound Status: Poor coordination w/ amb. POST DISCHARGE ORDERS: Activity Instructions for Disc: Resume previous activity Weight Bearing Status after Di: As tolerated DIET AFTER DISCHARGE: Cardiac CHECKS AFTER DISCHARGE: Checks after discharge: Check blood press - daily, Check blood sugar, ac/hs, Check your Temp as needed TREATMENT/EQUIPMENT ORDERS: Adaptive Equipment Issued: Cane Discharge Respiratory Equipmen: Oxygen CERTIFICATION STATEMENT: Certification Statement: Certification Statement: Based on the above finding, I certify that this patient is confined to the home and needs intermittent custodial care, physical therapy and/or speech therapy, or continues to need occupational therapy.~ This patient is under my care, and I have initiated the establishment of the plan of care.~ This patient will be followed by myself or a community physician who will periodically review the plan of care. Home Meds Active Scripts Furosemide (LASIX) 20 Mg Tablet, 1 TAB PO DAILY for chf for 30 Days, #30 TAB 0 Refills Prov:CASTLE,NIAL K III DO 08/07/21 Losartan Potassium (LOSARTAN POTASSIUM ) 25 Mg Tablet, 25 MG PO DAILY for . for 30 Days, #30 TAB Prov:CASTLE,NIAL K III DO 08/07/21 Doxycycline Hyclate (DOXYCYCLINE HYCLATE) 100 Mg Tablet, 100 MG PO BID for PNEUMONIA for 10 Days, #20 TAB Prov:PANCHO MONTELONGO MD 10/27/20 Dexamethasone (DEXAMETHASONE) 4 Mg Tablet, 4 TAB PO DAILY for COUGH for 8 Days, #32 TAB Prov:PANCHO MONTELONGO MD 10/27/20 Cholecalciferol (Vitamin D3) (Vitamin D3 ) 125 Mcg Capsule, 5000 UNIT PO DAILY for SUPPLEMENT for 30 Days, #30 CAP Prov:PANCHO MONTELONGO MD 10/27/20 Ascorbic Acid (VITAMIN C) 500 Mg Tablet, 500 MG PO BID for SUPPLEMENT for 30 Days, #60 TAB Prov:PANCHO MONTELONGO MD 10/27/20 Thiamine Mononitrate (VITAMIN B-1) 100 Mg Tablet, 100 MG PO DAILY for SUPPLEMENT for 30 Days, #30 TAB Prov:PANCHO MONTELONGO MD 10/27/20 Lactobacillus Rhamnosus Gg (CULTURELLE) 1 Each Cap.sprink, 1 CAP PO BID for SUPPLEMENT for 30 Days, #60 CAP Prov:PANCHO MONTELONGO MD 10/27/20 Guaifenesin/Dextromethorphan (GUAIFENESIN DM SYRUP) 5 Ml Syrup, 10 ML PO PRN Q6HRS PRN for COUGH for 14 Days, #240 MISC Prov:PANCHO MONTELONGO MD 10/27/20 Zinc Sulfate (ORAZINC) 220 Mg Capsule, 220 MG PO DAILY for SUPPLEMENT for 30 Days, #30 CAP Prov:PANCHO MONTELONGO MD 10/27/20 Potassium Chloride (KLOR-CON M20) 20 Meq Tab.er.prt, 20 MEQ PO DAILYWBKFT for SUPPLEMENT for 14 Days, #14 TAB.SR Prov:PANCHO MONTELONGO MD 10/27/20 Aspirin (ASPIRIN EC) 81 Mg Tablet.dr, 81 MG PO DAILYWBKFT for HEART HEALTH for 30 Days, #30 TAB.SR Prov:PANCHO MONTELONGO MD 10/27/20 Spironolactone (ALDACTONE) 25 Mg Tablet, 25 MG PO DAILY for BLOOD PRESSURE MDD ONE for 30 Days, #30 TAB Prov:PANCHO MONTELONGO MD 10/27/20 Atorvastatin Calcium (ATORVASTATIN CALCIUM) 10 Mg Tablet, 10 MG PO QHS for CHOLESTEROL for 30 Days, #30 TAB Prov:PANCHO MONTELONGO MD 10/27/20 Reported Medications Metformin Hcl (METFORMIN HCL) 500 Mg Tablet, 1000 MG PO BIDWMEALS for ANTI- DIABETIC, TAB 0 Refills 10/19/20 Metoprolol Succinate (METOPROLOL SUCCINATE ( XL )) 25 Mg Tab.er.24h, 50 MG PO DAILY for HTN, #30 TAB 5 Refills 10/19/20 JESSA RUIZ III DO Aug 07, 2021 14:04
--- NOTE | 2021-08-07 14:30 | PDOC ---
CARDIOLOGY PROGRESS NOTE SUBJECTIVE: No acute events overnight. She is sitting in chair but visibly dyspneic but subjectively states that she is doing ok. No chest pain. Walking to the bathroom, eating ok. OBJECTIVE: Vital Signs/I&O: Vital Signs Date Time Temp Pulse Resp B/P (MAP) Pulse Ox O2 Delivery O2 Flow Rate FiO2 08/07/21 11:00 97.8 94 18 92/62 (72) 97 Nasal Cannula 3.0 97.8 I & O 08/06/21 08/06/21 08/07/21 15:00 23:00 07:00 Output Total 1 ml Balance -1 ml Objective: She is resting in bed but mildly tachypneic Heart tones are regular. Lung locke are notable for decreased breath sounds at the bases Obese abdomen nontender nondistended No lower extremity edema with 1+ pulses No focal neurologic deficits Skin no rashes She has a facial tattoo CURRENT MEDICATIONS: Meds unchanged, see notes from yesterday None of CV meds given due to lower BP's. DIAGNOSTIC TESTING: No new CV testing. No events on telemetry. Labs: Laboratory Tests 08/07/21 03:20 Laboratory Tests Test 08/06/21 16:55 08/06/21 19:26 08/07/21 03:20 08/07/21 07:57 Glucose (Fingerstick) 159 mg/dL (70-99) H 87 mg/dL (70-99) 112 mg/dL (70-99) H White Blood Count 8.3 x10^3/uL (4.0-11.0) Red Blood Count 4.65 x10^6/uL (3.50-5.40) Hemoglobin 14.3 g/dL (12.0-15.5) Hematocrit 43.4 % (36.0-47.0) Mean Corpuscular Volume 93 fL (79-100) Mean Corpuscular Hemoglobin 31 pg (25-35) Mean Corpuscular Hemoglobin Concent 33 g/dL (31-37) Red Cell Distribution Width 13.9 % (11.5-14.5) Platelet Count 368 x10^3/uL (140-400) Neutrophils (%) (Auto) 70 % (31-73) Lymphocytes (%) (Auto) 18 % (24-48) L Monocytes (%) (Auto) 9 % (0-9) Eosinophils (%) (Auto) 3 % (0-3) Basophils (%) (Auto) 1 % (0-3) Neutrophils # (Auto) 5.8 x10^3/uL (1.8-7.7) Lymphocytes # (Auto) 1.5 x10^3/uL (1.0-4.8) Monocytes # (Auto) 0.7 x10^3/uL (0.0-1.1) Eosinophils # (Auto) 0.2 x10^3/uL (0.0-0.7) Basophils # (Auto) 0.1 x10^3/uL (0.0-0.2) Sodium Level 138 mmol/L (136-145) Potassium Level 4.7 mmol/L (3.5-5.1) Chloride Level 99 mmol/L (98-107) Carbon Dioxide Level 33 mmol/L (21-32) H Anion Gap 6 (6-14) Blood Urea Nitrogen 31 mg/dL (7-20) H Creatinine 0.9 mg/dL (0.6-1.0) Estimated GFR (Cockcroft-Gault) 62.1 Glucose Level 115 mg/dL (70-99) H Calcium Level 10.5 mg/dL (8.5-10.1) H Test 08/07/21 11:48 Glucose (Fingerstick) 77 mg/dL (70-99) ASSESSMENT: ASSESSMENT: 1. Acute on chronic systolic and diastolic heart failure 2. Severe COPD history with an FEV1 of 50% predicted based on PFTs at [facility] 3. Dyslipidemia 4. Type 2 diabetes PLAN: Patients BP's remain low. She remains dyspneic and requiring O2. Pulmonary consultation for optimization Hold lasix today. Give Metoprolol and other CV meds. Consider RHC tomorrow based on pulmonary evaluation. We will follow along closely. Poor detention prognosis. Justicifation of Admission Dx: Justifications for Admission: Justification of Admission Dx: Yes PASCUAL SORENSEN MD Aug 07, 2021 14:30
--- NOTE | 2021-08-07 14:54 | DS ---
DATE OF DISCHARGE: 08/08/2021 ADMITTING DIAGNOSES: Acute on chronic systolic and diastolic heart failure, leukocytosis, urinary tract infection, hypokalemia. DISCHARGE DIAGNOSES: 1. Resolving heart failure (her ejection fraction is around 35%). 2. Resolving urinary tract infection. 3. Resolving hypokalemia. 4. Hyperlipidemia. 5. Diabetes. . CONSULTS: Cardiology. PROCEDURES: None. HOSPITAL COURSE: The patient is a pleasant, middle-aged female who presented with acute on chronic systolic and diastolic heart failure. We admitted the patient to the cardiac floor. We also noted that she had a UTI. We gave her IV Lasix, did cardiac monitoring, serial enzymes, serial EKGs. We consulted Cardiology, continued her home medicines, did some PT, OT and trended her labs. Over the past few days, she has slowly returned to her baseline. She is on oxygen at home. I plan to discharge if okay with consultants. DISPOSITION: Home. ACTIVITY: As tolerated. DIET: Cardiac. MEDICATIONS: We will continue her home meds and we have added in Lasix 20 p.o. daily, losartan 25 daily. The home meds include vitamin C, aspirin 81 a day, atorvastatin 10 a day, vitamin D, dexamethasone 4 daily, doxycycline 100 p.o. b.i.d. for a total of 10 days, guaifenesin cough syrup, Culturelle, Toprol-XL 25 daily, potassium chloride 20 a day, Aldactone 25 a day, vitamin B1, and zinc supplements. TOTAL TIME: [address]: Noel TID: [id number]
--- NOTE | 2021-08-07 18:58 | NUR ---
Consult to Dr. Michelle ramirez
[2021-08-07] MEDS: ATORVASTATIN CALCIUM 10 MG TABLET. PO SCH (20:00)
[2021-08-08 03:15] VITALS: BP 99/74
[2021-08-08 05:29] LABS: BASO % 1 % (0-3); EOS # 0.3 x10^3/uL (0.0-0.7); EOS % 4 % (0-3); HEMATOCRIT 40.2 % (36.0-47.0); LYMPH # 1.7 x10^3/uL (1.0-4.8); LYMPH % 22 % (24-48); MEAN CORPUSCULAR HEMOGLOBIN 30 pg (25-35); MEAN CORPUSCULAR HGB CONC 32 g/dL (31-37); MEAN CORPUSCULAR VOLUME 94 fL (79-100); MONO # 0.6 x10^3/uL (0.0-1.1); MONO % 8 % (0-9); NEUT # 5.2 x10^3/uL (1.8-7.7); NEUT % 66 % (31-73); PLATELET COUNT 332 x10^3/uL (140-400); RED BLOOD COUNT 4.27 x10^6/uL (3.50-5.40); RED CELL DISTRIBUTION WIDTH 13.9 % (11.5-14.5); WHITE BLOOD COUNT 7.8 x10^3/uL (4.0-11.0)
[2021-08-08 05:52] LABS: CALCIUM 10.1 mg/dL (8.5-10.1); CREATININE 0.9 mg/dL (0.6-1.0); GFR 62.1; POTASSIUM 3.8 mmol/L (3.5-5.1)
--- NOTE | 2021-08-08 06:48 | NUR ---
IP: Pt is ESBL + in urine requiring contact precautions.
[2021-08-08 07:00] VITALS: BP 98/70
[2021-08-08] MEDS: metFORMIN 500 MG TABLET PO SCH ×2 (08:00→16:35)
[2021-08-08] MEDS: LACTOBACILLUS RHAMNOSUS GG 1 CAPSULE. PO SCH ×2 (08:37→20:02)
[2021-08-08] MEDS: METOPROLOL SUCC 24HR ER 25 MG TAB.ER.24H. PO SCH (08:37)
[2021-08-08] MEDS: THIAMINE 100 MG TABLET. PO SCH (08:38)
[2021-08-08] MEDS: ASCORBIC ACID 500 MG TABLET PO SCH ×2 (08:38→20:02)
[2021-08-08] MEDS: ZINC SULFATE 220 MG CAPSULE. PO SCH (08:38)
[2021-08-08] MEDS: CHOLECALCIFEROL (VITAMIN D3) 5,000 UNIT CAPSULE PO SCH (08:38)
--- NOTE | 2021-08-08 08:44 | PDOC ---
PULMONARY PROGRESS NOTES DATE: 08/08/21 TIME: 08:43 Vitals Vital Signs Date Time Temp Pulse Resp B/P (MAP) Pulse Ox O2 Delivery O2 Flow Rate FiO2 08/08/21 08:37 100 98/70 08/08/21 07:00 98.7 23 100 Nasal Cannula 3.0 98.7 General: Alert Lungs: Crackles (Bibasilar) Cardiovascular: S1, S2 Abdomen: Soft, Non-tender Extremities: No Edema Labs Laboratory Tests Test 08/06/21 11:52 08/06/21 16:55 08/06/21 19:26 08/07/21 03:20 Glucose (Fingerstick) 81 mg/dL (70-99) 159 mg/dL (70-99) 87 mg/dL (70-99) White Blood Count 8.3 x10^3/uL (4.0-11.0) Red Blood Count 4.65 x10^6/uL (3.50-5.40) Hemoglobin 14.3 g/dL (12.0-15.5) Hematocrit 43.4 % (36.0-47.0) Mean Corpuscular Volume 93 fL (79-100) Mean Corpuscular Hemoglobin 31 pg (25-35) Mean Corpuscular Hemoglobin Concent 33 g/dL (31-37) Red Cell Distribution Width 13.9 % (11.5-14.5) Platelet Count 368 x10^3/uL (140-400) Neutrophils (%) (Auto) 70 % (31-73) Lymphocytes (%) (Auto) 18 % (24-48) Monocytes (%) (Auto) 9 % (0-9) Eosinophils (%) (Auto) 3 % (0-3) Basophils (%) (Auto) 1 % (0-3) Neutrophils # (Auto) 5.8 x10^3/uL (1.8-7.7) Lymphocytes # (Auto) 1.5 x10^3/uL (1.0-4.8) Monocytes # (Auto) 0.7 x10^3/uL (0.0-1.1) Eosinophils # (Auto) 0.2 x10^3/uL (0.0-0.7) Basophils # (Auto) 0.1 x10^3/uL (0.0-0.2) Sodium Level 138 mmol/L (136-145) Potassium Level 4.7 mmol/L (3.5-5.1) Chloride Level 99 mmol/L (98-107) Carbon Dioxide Level 33 mmol/L (21-32) Anion Gap 6 (6-14) Blood Urea Nitrogen 31 mg/dL (7-20) Creatinine 0.9 mg/dL (0.6-1.0) Estimated GFR (Cockcroft-Gault) 62.1 Glucose Level 115 mg/dL (70-99) Calcium Level 10.5 mg/dL (8.5-10.1) Test 08/07/21 07:57 08/07/21 11:48 08/07/21 16:39 08/07/21 21:13 Glucose (Fingerstick) 112 mg/dL (70-99) 77 mg/dL (70-99) 151 mg/dL (70-99) 102 mg/dL (70-99) Test 08/08/21 04:15 08/08/21 07:00 White Blood Count 7.8 x10^3/uL (4.0-11.0) Red Blood Count 4.27 x10^6/uL (3.50-5.40) Hemoglobin 13.0 g/dL (12.0-15.5) Hematocrit 40.2 % (36.0-47.0) Mean Corpuscular Volume 94 fL (79-100) Mean Corpuscular Hemoglobin 30 pg (25-35) Mean Corpuscular Hemoglobin Concent 32 g/dL (31-37) Red Cell Distribution Width 13.9 % (11.5-14.5) Platelet Count 332 x10^3/uL (140-400) Neutrophils (%) (Auto) 66 % (31-73) Lymphocytes (%) (Auto) 22 % (24-48) Monocytes (%) (Auto) 8 % (0-9) Eosinophils (%) (Auto) 4 % (0-3) Basophils (%) (Auto) 1 % (0-3) Neutrophils # (Auto) 5.2 x10^3/uL (1.8-7.7) Lymphocytes # (Auto) 1.7 x10^3/uL (1.0-4.8) Monocytes # (Auto) 0.6 x10^3/uL (0.0-1.1) Eosinophils # (Auto) 0.3 x10^3/uL (0.0-0.7) Basophils # (Auto) 0.0 x10^3/uL (0.0-0.2) Sodium Level 137 mmol/L (136-145) Potassium Level 3.8 mmol/L (3.5-5.1) Chloride Level 97 mmol/L (98-107) Carbon Dioxide Level 27 mmol/L (21-32) Anion Gap 13 (6-14) Blood Urea Nitrogen 37 mg/dL (7-20) Creatinine 0.9 mg/dL (0.6-1.0) Estimated GFR (Cockcroft-Gault) 62.1 Glucose Level 171 mg/dL (70-99) Calcium Level 10.1 mg/dL (8.5-10.1) Glucose (Fingerstick) 82 mg/dL (70-99) Laboratory Tests Test 08/07/21 11:48 08/07/21 16:39 08/07/21 21:13 08/08/21 04:15 Glucose (Fingerstick) 77 mg/dL (70-99) 151 mg/dL (70-99) 102 mg/dL (70-99) White Blood Count 7.8 x10^3/uL (4.0-11.0) Red Blood Count 4.27 x10^6/uL (3.50-5.40) Hemoglobin 13.0 g/dL (12.0-15.5) Hematocrit 40.2 % (36.0-47.0) Mean Corpuscular Volume 94 fL (79-100) Mean Corpuscular Hemoglobin 30 pg (25-35) Mean Corpuscular Hemoglobin Concent 32 g/dL (31-37) Red Cell Distribution Width 13.9 % (11.5-14.5) Platelet Count 332 x10^3/uL (140-400) Neutrophils (%) (Auto) 66 % (31-73) Lymphocytes (%) (Auto) 22 % (24-48) Monocytes (%) (Auto) 8 % (0-9) Eosinophils (%) (Auto) 4 % (0-3) Basophils (%) (Auto) 1 % (0-3) Neutrophils # (Auto) 5.2 x10^3/uL (1.8-7.7) Lymphocytes # (Auto) 1.7 x10^3/uL (1.0-4.8) Monocytes # (Auto) 0.6 x10^3/uL (0.0-1.1) Eosinophils # (Auto) 0.3 x10^3/uL (0.0-0.7) Basophils # (Auto) 0.0 x10^3/uL (0.0-0.2) Sodium Level 137 mmol/L (136-145) Potassium Level 3.8 mmol/L (3.5-5.1) Chloride Level 97 mmol/L (98-107) Carbon Dioxide Level 27 mmol/L (21-32) Anion Gap 13 (6-14) Blood Urea Nitrogen 37 mg/dL (7-20) Creatinine 0.9 mg/dL (0.6-1.0) Estimated GFR (Cockcroft-Gault) 62.1 Glucose Level 171 mg/dL (70-99) Calcium Level 10.1 mg/dL (8.5-10.1) Test 08/08/21 07:00 Glucose (Fingerstick) 82 mg/dL (70-99) Medications Active Scripts Medications Dose Route/Sig Max Daily Dose Days Date Category Lasix (Furosemide) 20 Mg Tablet 1 Tab PO DAILY 30 08/07/21 Rx Losartan Potassium (Losartan Potassium) 25 Mg Tablet 25 Mg PO DAILY 30 08/07/21 Rx Doxycycline Hyclate 100 Mg Tablet 100 Mg PO BID 10 10/27/20 Rx Dexamethasone 4 Mg Tablet 4 Tab PO DAILY 8 10/27/20 Rx Vitamin D3 (Vitamin D) 125 Mcg Capsule 5,000 Unit PO DAILY 30 10/27/20 Rx Vitamin C (Ascorbic Acid) 500 Mg Tablet 500 Mg PO BID 30 10/27/20 Rx Vitamin B-1 (Thiamine Mononitrate) 100 Mg Tablet 100 Mg PO DAILY 30 10/27/20 Rx Culturelle (Lactobacillus Rhamnosus Gg) 1 Each Cap.sprink 1 Cap PO BID 30 10/27/20 Rx Guaifenesin Dm Syrup (Guaifenesin/Dextromethorphan) 5 Ml Syrup 10 Ml PO PRN Q6HRS PRN 14 10/27/20 Rx Orazinc (Zinc Sulfate) 220 Mg Capsule 220 Mg PO DAILY 30 10/27/20 Rx Klor-Con M20 (Potassium Chloride) 20 Meq Tab.er.prt 20 Meq PO DAILYWBKFT 14 10/27/20 Rx Aspirin Ec (Aspirin) 81 Mg Tablet.dr 81 Mg PO DAILYWBKFT 30 10/27/20 Rx Aldactone (Spironolactone) 25 Mg Tablet 25 Mg PO DAILY MDD ONE 30 10/27/20 Rx Atorvastatin Calcium 10 Mg Tablet 10 Mg PO QHS 30 10/27/20 Rx Metformin Hcl 500 Mg Tablet 1,000 Mg PO BIDWMEALS 10/19/20 Reported Metoprolol Succinate ( Xl ) (Metoprolol Succinate) 25 Mg Tab.er.24h 50 Mg PO DAILY 10/19/20 Reported Impression . Full note dictated Progressive dyspnea suspect mainly cardiac in origin, possible COPD clinically mild SONIA VALLE MD Aug 08, 2021 08:44
[2021-08-08 10:38] VITALS: BP 111/70
[2021-08-08] MEDS: LOSARTAN POTASSIUM 25 MG TABLET. PO SCH (12:08)
[2021-08-08] MEDS: ASPIRIN ENTERIC COATED 81 MG TABLET.DR. PO SCH (12:08)
--- NOTE | 2021-08-08 12:27 | PDOC ---
[facility] PROGRESS NOTE Date of Service DOS: DATE: 08/08/21 TIME: 12:16 Chief Complaint Chief Complaint Acute on chronic systolic and diastolic heart failure COPD (2L at home) Leukocytosis UTI Diabetes Hypertension Hyperlipidemia Hypokalemia Hx of COVID-19 (Oct 2020) Left finger amputation History of Present Illness History of Present Illness 08/08 Pt seen and examined at bedside Chart reviewed No acute overnight events Discussed pt's care with granddaughter in room Discussed possibility of pt going for heart cath She states her dyspnea and flank pain has improved Pt's ability to stand and ambulate observed, appears to be at baseline Discussed with RN and SW 08/07 Patient seen and examined Pt states her breathing is unchanged from yesterday Pt states her L. flank pain has improved Charts reviewed DWRN Will consider discharge this afternoon if okay with cardiology 08/06 Pt seen and examined Spoke with daughter on phone with pt present Discussed discharge plans (per subspecialist approval) Pt's only complaint is L. Flank pain Discussed adding fosfomycin for ESBL Tx Charts Reviewed Discussed with RN and ERUM 08/05 Patient seen and examined at bedside Discussed Pt's status with Pt and family Pt reports feeling overall improved Only complaint is L. Flank/LLQ pain (denies dysuria or pain/difficulty with BMs) Charts reviewed DWRN and ERUM 08/04 Patient seen and examined at bedside TTE was being performed at time of exam No acute overnight events noted Discussed pt with daughter Charts reviewed Discussed with RN and SW Vitals/I&O Vitals/I&O: Vital Signs Date Time Temp Pulse Resp B/P (MAP) Pulse Ox O2 Delivery O2 Flow Rate FiO2 08/08/21 12:08 82 111/70 08/08/21 10:38 97.5 20 98 Nasal Cannula 3.0 97.5 I & O 08/07/21 08/07/21 08/08/21 15:00 23:00 07:00 Intake Total 300 ml Balance 300 ml Physical Exam Physical Exam: GENERAL: No apparent distress. Alert and oriented. Comfortable, pleasant. HEENT: Normal cephalic atraumatic, external auditory canals are patent EYES: EOMI, PERRLA MUSKULOSKELETAL: Well developed, well nourished, good range of motion ENDOCRINE: No thyromegaly was palpated LYMPHATICS: No cervical chain or axillary nodes were noted HEMATOPOIETIC: No bruising NECK: Supple, no JVD, no thyromegaly was noted. LUNGS: She has bibasilar crackles. . HEART: RRR, S1, S2 present. Peripheral pulses intact, no obvious murmurs were noted. ABDOMEN: Soft, Tender (improving) in LLQ/flank. Positive bowel sounds no organomegaly, normal bowel sounds. EXTREMITIES: Without any cyanosis, clubbing, or edema. Pedal pulses intact, Homans sign is negative. NEUROLOGIC: Normal speech, normal tone. AAOx3, moves all extremities, no obvious focal deficits. PSYCHIATRIC: Normal affect, normal mood. Stable. Pleasant. SKIN: No ulcerations or rashes, good skin turgor, no jaundice. VASCULAR: Good capillary refill, neurovascular bundle appears to be intact. General: Alert, Oriented X3, Cooperative, No acute distress Heart: Regular rate, Normal S1, Normal S2, No murmurs Lungs: Clear Abdomen: Normal bowel sounds, Soft, Other (TTP in LLQ/L flank) Extremities: No clubbing, No cyanosis, Other (L. Finger amputated) Skin: No rashes, No breakdown Labs Labs: Laboratory Tests Test 08/07/21 16:39 08/07/21 21:13 08/08/21 04:15 08/08/21 07:00 Glucose (Fingerstick) 151 mg/dL (70-99) 102 mg/dL (70-99) 82 mg/dL (70-99) White Blood Count 7.8 x10^3/uL (4.0-11.0) Red Blood Count 4.27 x10^6/uL (3.50-5.40) Hemoglobin 13.0 g/dL (12.0-15.5) Hematocrit 40.2 % (36.0-47.0) Mean Corpuscular Volume 94 fL (79-100) Mean Corpuscular Hemoglobin 30 pg (25-35) Mean Corpuscular Hemoglobin Concent 32 g/dL (31-37) Red Cell Distribution Width 13.9 % (11.5-14.5) Platelet Count 332 x10^3/uL (140-400) Neutrophils (%) (Auto) 66 % (31-73) Lymphocytes (%) (Auto) 22 % (24-48) Monocytes (%) (Auto) 8 % (0-9) Eosinophils (%) (Auto) 4 % (0-3) Basophils (%) (Auto) 1 % (0-3) Neutrophils # (Auto) 5.2 x10^3/uL (1.8-7.7) Lymphocytes # (Auto) 1.7 x10^3/uL (1.0-4.8) Monocytes # (Auto) 0.6 x10^3/uL (0.0-1.1) Eosinophils # (Auto) 0.3 x10^3/uL (0.0-0.7) Basophils # (Auto) 0.0 x10^3/uL (0.0-0.2) Sodium Level 137 mmol/L (136-145) Potassium Level 3.8 mmol/L (3.5-5.1) Chloride Level 97 mmol/L (98-107) Carbon Dioxide Level 27 mmol/L (21-32) Anion Gap 13 (6-14) Blood Urea Nitrogen 37 mg/dL (7-20) Creatinine 0.9 mg/dL (0.6-1.0) Estimated GFR (Cockcroft-Gault) 62.1 Glucose Level 171 mg/dL (70-99) Calcium Level 10.1 mg/dL (8.5-10.1) Test 08/08/21 11:38 Glucose (Fingerstick) 104 mg/dL (70-99) Review of Systems Review of Systems: Patient acknowledges dyspnea (present at baseline) and L. Flank pain (improving) ROS otherwise negative Assessment and Plan Assessmemt and Plan Problems Medical Problems: (1) COPD (chronic obstructive pulmonary disease) Status: Acute (2) Hypokalemia Status: Acute (3) Pulmonary edema with congestive heart failure Status: Acute Acute on chronic systolic and diastolic heart failure COPD (2L at home) Leukocytosis UTI Diabetes Hypertension Hyperlipidemia Hypokalemia Hx of COVID-19 (Oct 2020) Left finger amputation Plan Cardiology and Pulmonology input appreciated Considering heart cath per pulmonology assessment S/p 1x dose fosfomycin for ESBL UTI Continue monitoring on telemetry Continue diuresis Continue serial enzymes Continue serial EKGs Potassium Replaced Trend Labs PRN pain management Restarted home meds Cardiac Diet DVT Prophylaxis Discharge disposition pending subspecialist input Full Code Comment Review of Relevant I have reviewed the following items torin (where applicable) has been applied. Justifications for Admission Other Justification JESSA RUIZ III DO Aug 08, 2021 12:27
[2021-08-08 14:20] VITALS: BP 102/72
--- NOTE | 2021-08-08 14:38 | CONS ---
DATE OF CONSULTATION: 08/08/2021 ATTENDING PHYSICIAN: Imtiaz Kern DO REASON FOR CONSULTATION: The patient is seen in Pulmonary consultation at the request of Dr. Simeon for shortness of breath, possible COPD. HISTORY OF PRESENT ILLNESS: The patient is a 70-year-old female who presented with increasing shortness of air. No nausea, vomiting, or abdominal pain. She is on chronic oxygen supplementation. According to her granddaughter who was translating, she has been on oxygen at bedtime, not throughout the day. She presented because of shortness of breath over the last several days associated with lower extremity edema. She also has some abdominal pain. Cardiology saw her in consultation, consulted me for further input on the possibility of COPD contributing to her shortness of air. HISTORY OF PRESENT ILLNESS: The patient apparently has never smoked. She normally sees doctors at [facility]. She was placed on oxygen from a doctor. Her granddaughters who is translating, asked the patient if she has COPD. According to the patient, she was not sure. PAST MEDICAL HISTORY: Remarkable for chronic heart failure, hyperlipidemia. Apparently, she had PFO with a left to right shunt in 2005 based of aimee. She has also had Mycobacterium avium intracellulare treated with INH. There is also a history of cholelithiasis, osteoarthritis, allergic rhinitis, chronic renal insufficiency and diabetes. PAST SURGICAL HISTORY: Status post ERCP with sphincterectomy. FAMILY HISTORY: Noncontributory. SOCIAL HISTORY: The chart states that she smoked remotely and the patient states that she has never smoked. REVIEW OF SYSTEMS: As indicated above, otherwise other systems could not be adequately reviewed. CURRENT MEDICATIONS: List was reviewed. In addition to multiple other medications, she has received IV furosemide. PHYSICAL EXAMINATION: GENERAL: The patient appears to be older than stated age. VITAL SIGNS: Stable. O2 saturation currently on 3 liters was greater than 92%. HEENT: Sclerae were nonicteric. NECK: Jugular venous distention was not elevated. No lymphadenopathy. CHEST: Full expansion. CHEST: Adequate flow with slight crackles in the bases. CARDIOVASCULAR: Regular rate and rhythm with S1, S2, no S3. ABDOMEN: Soft. EXTREMITIES: No clubbing, cyanosis or edema. LABORATORY DATA: Reviewed. White count was normal. Electrolytes were noted. BUN and creatinine were noted. Albumin was low upon admission. Chest x-ray from 10/19 revealed mild vascular congestion. IMPRESSION: 1. Progressive dyspnea secondary to acute on chronic systolic heart failure. 2. Possible chronic obstructive pulmonary disease. 3. Nonischemic cardiomyopathy. 4. History of patent foramen ovale with left to right shunt. 5. Hypertension. 6. Abdominal pain, suspect secondary to congestive heart failure. PLAN: 1. Recommend continue diuresis and monitor renal function. 2. The patient to undergo a cardiac catheterization. 3. Outpatient pulmonary function testing. DISCUSSION: I am not quite sure how much of the patient's dyspnea is related to COPD. Clinically, I do not think she has severe COPD. I do appreciate the privilege in sharing in the patient's care. CRYSTAL DR: Emilee TID: [id number]
--- NOTE | 2021-08-08 14:50 | PDOC ---
JANINA TAVAREZ CABLE FERRYBOAT OPERATOR 08/08/21 1450: CARDIO Progress Notes Date and Time Date of Service 08/08/21 Time of Evaluation 1110 Subjective Subjective: No Chest Pain, No Palpitations, Other (s/o [place], some chest pressure. Denies SOA, but appears dyspneic ) Vitals Vitals Vital Signs Date Time Temp Pulse Resp B/P (MAP) Pulse Ox O2 Delivery O2 Flow Rate FiO2 08/08/21 14:20 98.6 88 18 102/72 (82) 97 Nasal Cannula 3.0 98.6 Weight Weight [ ] Input and Output Intake and Output Intake and Output 08/08/21 07:00 Intake Total 300 ml Balance 300 ml Intake Oral 300 ml # Voids 7 Laboratory Labs Laboratory Tests Test 08/07/21 16:39 08/07/21 21:13 08/08/21 04:15 08/08/21 07:00 Glucose (Fingerstick) 151 mg/dL (70-99) 102 mg/dL (70-99) 82 mg/dL (70-99) White Blood Count 7.8 x10^3/uL (4.0-11.0) Red Blood Count 4.27 x10^6/uL (3.50-5.40) Hemoglobin 13.0 g/dL (12.0-15.5) Hematocrit 40.2 % (36.0-47.0) Mean Corpuscular Volume 94 fL (79-100) Mean Corpuscular Hemoglobin 30 pg (25-35) Mean Corpuscular Hemoglobin Concent 32 g/dL (31-37) Red Cell Distribution Width 13.9 % (11.5-14.5) Platelet Count 332 x10^3/uL (140-400) Neutrophils (%) (Auto) 66 % (31-73) Lymphocytes (%) (Auto) 22 % (24-48) Monocytes (%) (Auto) 8 % (0-9) Eosinophils (%) (Auto) 4 % (0-3) Basophils (%) (Auto) 1 % (0-3) Neutrophils # (Auto) 5.2 x10^3/uL (1.8-7.7) Lymphocytes # (Auto) 1.7 x10^3/uL (1.0-4.8) Monocytes # (Auto) 0.6 x10^3/uL (0.0-1.1) Eosinophils # (Auto) 0.3 x10^3/uL (0.0-0.7) Basophils # (Auto) 0.0 x10^3/uL (0.0-0.2) Sodium Level 137 mmol/L (136-145) Potassium Level 3.8 mmol/L (3.5-5.1) Chloride Level 97 mmol/L (98-107) Carbon Dioxide Level 27 mmol/L (21-32) Anion Gap 13 (6-14) Blood Urea Nitrogen 37 mg/dL (7-20) Creatinine 0.9 mg/dL (0.6-1.0) Estimated GFR (Cockcroft-Gault) 62.1 Glucose Level 171 mg/dL (70-99) Calcium Level 10.1 mg/dL (8.5-10.1) Test 08/08/21 11:38 Glucose (Fingerstick) 104 mg/dL (70-99) Microbiology Micro Microbiology 08/02/21 Blood Culture - Final, Complete NO GROWTH AFTER 5 DAYS 08/02/21 Urine Culture - Final, Complete 08/02/21 Antimicrobic Susceptibility - Final, Complete Physical Exam HEENT: Neck Supple W Full Motion Chest: Symmetric LUNGS: Other (diminished bases) Heart: RRR (SR) Abdomen: Soft N/T Extremities: No Edema Neurology: alert, oriented, follow commands Assessment Assessment 1. Acute on chronic respiratory failure secondary to CHF 2. Acute on chronic diastolic/systolic CHF; improved s/p IV diuresis 3. NICM: last known EF at 40%. Echo this admission with LVEF 25-30%. 4. Hx of PFO with L>R shunting 5. HTN: controlled 6. DM2 7. Abdominal pain; as per IM 8. Hx of latent TB([place]) treated with INH Recommendations Continue Aldactone, Lasix. Toprol and losartan as BP allows. Given ongoing dyspnea and worsening cardiomyopathy, recommend right and left heart cath for further evaluation. R/b/a discussed with patient, daughter (Eveline), and granddaughter and they are agreeable NPO p MN Will proceed in am. Justicifation of Admission Dx: Justifications for Admission: Justification of Admission Dx: Yes KARL VÁSQUEZ MD 08/09/21 1414: CARDIO Progress Notes Assessment Assessment Patient seen and examined 08/08/2021. Agree with LCSW's assessment and plan. Acute on chronic diastolic heart failure better compensated but patient continues to be short of breath. Agree with right and left heart catheterization for more definitive evaluation. JANINA TAVAREZ APRN Aug 08, 2021 14:50 KARL VÁSUQEZ MD Aug 09, 2021 14:14
--- NOTE | 2021-08-08 15:30 | NUR ---
SS following up with discharge planning. SS reviewed pt chart and discussed with pt RN. Pt is currently requiring oxygen at three liters nasal canula. Pt has home oxygen. COVID19 negative. PT/OT recommended home. Cardiology following. Pt having right and left heart cath tomorrow. SS will continue to follow for discharge planning.
[2021-08-08] MEDS: POTASSIUM CHLORIDE 20 MEQ TABLET.ER. PO SCH (16:35)
[2021-08-08] MEDS: SPIRONOLACTONE 25 MG TABLET PO SCH (16:35)
[2021-08-08] MEDS: FUROSEMIDE 40 MG/4 ML VIAL. IVP SCH (16:36)
[2021-08-08 19:30] VITALS: BP 98/70
[2021-08-08] MEDS: ATORVASTATIN CALCIUM 10 MG TABLET. PO SCH (20:02)
[2021-08-08 23:15] VITALS: BP 96/67
[2021-08-09] VITALS (16 sets, daily range): BP systolic 84–127; BP diastolic 52–86
[2021-08-09 05:40] LABS: BASO # 0.1 x10^3/uL (0.0-0.2); BASO % 1 % (0-3); EOS # 0.2 x10^3/uL (0.0-0.7); EOS % 4 % (0-3); HEMATOCRIT 41.3 % (36.0-47.0); HEMOGLOBIN 13.5 g/dL (12.0-15.5); LYMPH # 1.6 x10^3/uL (1.0-4.8); LYMPH % 24 % (24-48); MEAN CORPUSCULAR HEMOGLOBIN 30 pg (25-35); MEAN CORPUSCULAR HGB CONC 33 g/dL (31-37); MEAN CORPUSCULAR VOLUME 93 fL (79-100); MONO # 0.6 x10^3/uL (0.0-1.1); MONO % 9 % (0-9); NEUT # 4.2 x10^3/uL (1.8-7.7); NEUT % 62 % (31-73); PLATELET COUNT 363 x10^3/uL (140-400); RED BLOOD COUNT 4.45 x10^6/uL (3.50-5.40); RED CELL DISTRIBUTION WIDTH 13.6 % (11.5-14.5); WHITE BLOOD COUNT 6.8 x10^3/uL (4.0-11.0)
[2021-08-09 06:11] LABS: CALCIUM 10.6 mg/dL (8.5-10.1); CREATININE 0.7 mg/dL (0.6-1.0)
[2021-08-09] MEDS: metFORMIN 500 MG TABLET PO SCH (07:24)
[2021-08-09] MEDS: POTASSIUM CHLORIDE 20 MEQ TABLET.ER. PO SCH (07:24)
[2021-08-09] MEDS: ZINC SULFATE 220 MG CAPSULE. PO SCH (08:32)
[2021-08-09] MEDS: LACTOBACILLUS RHAMNOSUS GG 1 CAPSULE. PO SCH ×2 (08:32→20:40)
[2021-08-09] MEDS: SPIRONOLACTONE 25 MG TABLET PO SCH (08:32)
[2021-08-09] MEDS: FUROSEMIDE 40 MG/4 ML VIAL. IVP SCH (08:32)
[2021-08-09] MEDS: ASCORBIC ACID 500 MG TABLET PO SCH ×2 (08:33→20:40)
[2021-08-09] MEDS: THIAMINE 100 MG TABLET. PO SCH (08:33)
[2021-08-09] MEDS: CHOLECALCIFEROL (VITAMIN D3) 5,000 UNIT CAPSULE PO SCH (08:33)
[2021-08-09] MEDS: ASPIRIN ENTERIC COATED 81 MG TABLET.DR. PO SCH (08:37)
[2021-08-09] MEDS: LOSARTAN POTASSIUM 25 MG TABLET. PO SCH (08:38)
[2021-08-09] MEDS: METOPROLOL SUCC 24HR ER 25 MG TAB.ER.24H. PO SCH (08:39)
--- NOTE | 2021-08-09 08:43 | PDOC ---
PULMONARY PROGRESS NOTES DATE: 08/09/21 TIME: 08:43 Vitals Vital Signs Date Time Temp Pulse Resp B/P (MAP) Pulse Ox O2 Delivery O2 Flow Rate FiO2 08/09/21 08:39 85 93/57 08/09/21 07:00 98.1 19 97 Room Air 98.1 08/09/21 03:15 4.0 General: Alert Lungs: Clear Cardiovascular: S1, S2 Abdomen: Soft, Non-tender Extremities: No Edema Labs Laboratory Tests Test 08/07/21 11:48 08/07/21 16:39 08/07/21 21:13 08/08/21 04:15 Glucose (Fingerstick) 77 mg/dL (70-99) 151 mg/dL (70-99) 102 mg/dL (70-99) White Blood Count 7.8 x10^3/uL (4.0-11.0) Red Blood Count 4.27 x10^6/uL (3.50-5.40) Hemoglobin 13.0 g/dL (12.0-15.5) Hematocrit 40.2 % (36.0-47.0) Mean Corpuscular Volume 94 fL (79-100) Mean Corpuscular Hemoglobin 30 pg (25-35) Mean Corpuscular Hemoglobin Concent 32 g/dL (31-37) Red Cell Distribution Width 13.9 % (11.5-14.5) Platelet Count 332 x10^3/uL (140-400) Neutrophils (%) (Auto) 66 % (31-73) Lymphocytes (%) (Auto) 22 % (24-48) Monocytes (%) (Auto) 8 % (0-9) Eosinophils (%) (Auto) 4 % (0-3) Basophils (%) (Auto) 1 % (0-3) Neutrophils # (Auto) 5.2 x10^3/uL (1.8-7.7) Lymphocytes # (Auto) 1.7 x10^3/uL (1.0-4.8) Monocytes # (Auto) 0.6 x10^3/uL (0.0-1.1) Eosinophils # (Auto) 0.3 x10^3/uL (0.0-0.7) Basophils # (Auto) 0.0 x10^3/uL (0.0-0.2) Sodium Level 137 mmol/L (136-145) Potassium Level 3.8 mmol/L (3.5-5.1) Chloride Level 97 mmol/L (98-107) Carbon Dioxide Level 27 mmol/L (21-32) Anion Gap 13 (6-14) Blood Urea Nitrogen 37 mg/dL (7-20) Creatinine 0.9 mg/dL (0.6-1.0) Estimated GFR (Cockcroft-Gault) 62.1 Glucose Level 171 mg/dL (70-99) Calcium Level 10.1 mg/dL (8.5-10.1) Test 08/08/21 07:00 08/08/21 11:38 08/08/21 16:47 08/09/21 04:10 Glucose (Fingerstick) 82 mg/dL (70-99) 104 mg/dL (70-99) 188 mg/dL (70-99) White Blood Count 6.8 x10^3/uL (4.0-11.0) Red Blood Count 4.45 x10^6/uL (3.50-5.40) Hemoglobin 13.5 g/dL (12.0-15.5) Hematocrit 41.3 % (36.0-47.0) Mean Corpuscular Volume 93 fL (79-100) Mean Corpuscular Hemoglobin 30 pg (25-35) Mean Corpuscular Hemoglobin Concent 33 g/dL (31-37) Red Cell Distribution Width 13.6 % (11.5-14.5) Platelet Count 363 x10^3/uL (140-400) Neutrophils (%) (Auto) 62 % (31-73) Lymphocytes (%) (Auto) 24 % (24-48) Monocytes (%) (Auto) 9 % (0-9) Eosinophils (%) (Auto) 4 % (0-3) Basophils (%) (Auto) 1 % (0-3) Neutrophils # (Auto) 4.2 x10^3/uL (1.8-7.7) Lymphocytes # (Auto) 1.6 x10^3/uL (1.0-4.8) Monocytes # (Auto) 0.6 x10^3/uL (0.0-1.1) Eosinophils # (Auto) 0.2 x10^3/uL (0.0-0.7) Basophils # (Auto) 0.1 x10^3/uL (0.0-0.2) Sodium Level 138 mmol/L (136-145) Potassium Level 5.0 mmol/L (3.5-5.1) Chloride Level 100 mmol/L (98-107) Carbon Dioxide Level 32 mmol/L (21-32) Anion Gap 6 (6-14) Blood Urea Nitrogen 33 mg/dL (7-20) Creatinine 0.7 mg/dL (0.6-1.0) Estimated GFR (Cockcroft-Gault) 83.0 Glucose Level 100 mg/dL (70-99) Calcium Level 10.6 mg/dL (8.5-10.1) Test 08/09/21 07:42 Glucose (Fingerstick) 122 mg/dL (70-99) Laboratory Tests Test 08/08/21 11:38 08/08/21 16:47 08/09/21 04:10 08/09/21 07:42 Glucose (Fingerstick) 104 mg/dL (70-99) 188 mg/dL (70-99) 122 mg/dL (70-99) White Blood Count 6.8 x10^3/uL (4.0-11.0) Red Blood Count 4.45 x10^6/uL (3.50-5.40) Hemoglobin 13.5 g/dL (12.0-15.5) Hematocrit 41.3 % (36.0-47.0) Mean Corpuscular Volume 93 fL (79-100) Mean Corpuscular Hemoglobin 30 pg (25-35) Mean Corpuscular Hemoglobin Concent 33 g/dL (31-37) Red Cell Distribution Width 13.6 % (11.5-14.5) Platelet Count 363 x10^3/uL (140-400) Neutrophils (%) (Auto) 62 % (31-73) Lymphocytes (%) (Auto) 24 % (24-48) Monocytes (%) (Auto) 9 % (0-9) Eosinophils (%) (Auto) 4 % (0-3) Basophils (%) (Auto) 1 % (0-3) Neutrophils # (Auto) 4.2 x10^3/uL (1.8-7.7) Lymphocytes # (Auto) 1.6 x10^3/uL (1.0-4.8) Monocytes # (Auto) 0.6 x10^3/uL (0.0-1.1) Eosinophils # (Auto) 0.2 x10^3/uL (0.0-0.7) Basophils # (Auto) 0.1 x10^3/uL (0.0-0.2) Sodium Level 138 mmol/L (136-145) Potassium Level 5.0 mmol/L (3.5-5.1) Chloride Level 100 mmol/L (98-107) Carbon Dioxide Level 32 mmol/L (21-32) Anion Gap 6 (6-14) Blood Urea Nitrogen 33 mg/dL (7-20) Creatinine 0.7 mg/dL (0.6-1.0) Estimated GFR (Cockcroft-Gault) 83.0 Glucose Level 100 mg/dL (70-99) Calcium Level 10.6 mg/dL (8.5-10.1) Medications Active Scripts Medications Dose Route/Sig Max Daily Dose Days Date Category Lasix (Furosemide) 20 Mg Tablet 1 Tab PO DAILY 30 08/07/21 Rx Losartan Potassium (Losartan Potassium) 25 Mg Tablet 25 Mg PO DAILY 30 08/07/21 Rx Doxycycline Hyclate 100 Mg Tablet 100 Mg PO BID 10 10/27/20 Rx Dexamethasone 4 Mg Tablet 4 Tab PO DAILY 8 10/27/20 Rx Vitamin D3 (Vitamin D) 125 Mcg Capsule 5,000 Unit PO DAILY 30 10/27/20 Rx Vitamin C (Ascorbic Acid) 500 Mg Tablet 500 Mg PO BID 30 10/27/20 Rx Vitamin B-1 (Thiamine Mononitrate) 100 Mg Tablet 100 Mg PO DAILY 30 10/27/20 Rx Culturelle (Lactobacillus Rhamnosus Gg) 1 Each Cap.sprink 1 Cap PO BID 30 10/27/20 Rx Guaifenesin Dm Syrup (Guaifenesin/Dextromethorphan) 5 Ml Syrup 10 Ml PO PRN Q6HRS PRN 14 10/27/20 Rx Orazinc (Zinc Sulfate) 220 Mg Capsule 220 Mg PO DAILY 30 10/27/20 Rx Klor-Con M20 (Potassium Chloride) 20 Meq Tab.er.prt 20 Meq PO DAILYWBKFT 14 10/27/20 Rx Aspirin Ec (Aspirin) 81 Mg Tablet.dr 81 Mg PO DAILYWBKFT 30 10/27/20 Rx Aldactone (Spironolactone) 25 Mg Tablet 25 Mg PO DAILY MDD ONE 30 10/27/20 Rx Atorvastatin Calcium 10 Mg Tablet 10 Mg PO QHS 30 10/27/20 Rx Metformin Hcl 500 Mg Tablet 1,000 Mg PO BIDWMEALS 10/19/20 Reported Metoprolol Succinate ( Xl ) (Metoprolol Succinate) 25 Mg Tab.er.24h 50 Mg PO DAILY 10/19/20 Reported Impression . IMPRESSION: 1. Progressive dyspnea secondary to acute on chronic systolic heart failure. 2. Possible chronic obstructive pulmonary disease. 3. Nonischemic cardiomyopathy. 4. History of patent foramen ovale with left to right shunt. 5. Hypertension. 6. Abdominal pain, suspect secondary to congestive heart failure. Plan . PLAN: 1. Recommend continue diuresis and monitor renal function. 2. The patient to undergo a cardiac catheterization. 3. Outpatient pulmonary function testing. DISCUSSION: I am not quite sure how much of the patient's dyspnea is related to COPD. Clinically, I do not think she has severe COPD. I do appreciate the privilege in sharing in the patient's care. SONIA VALLE MD Aug 09, 2021 08:43
[2021-08-09] MEDS ORDERED: LIDOCAINE 1% Multi-Dose 20 ML VIAL. ONE (10:55)
[2021-08-09] MEDS ORDERED: IODIXANOL 320 MG/ML 100 ML VIAL. ONE (10:55)
[2021-08-09] MEDS ORDERED: MIDAZOLAM HCL/PF 2 MG/2 ML VIAL. ONE (10:58)
[2021-08-09] MEDS ORDERED: fentaNYL PF VIAL 100 MCG/2 ML VIAL ONE (10:59)
--- NOTE | 2021-08-09 11:36 | PDOC ---
[facility] PROGRESS NOTE Date of Service DOS: DATE: 08/09/21 TIME: 11:31 Chief Complaint Chief Complaint Acute on chronic systolic and diastolic heart failure COPD (2L at home) Leukocytosis UTI Diabetes Hypertension Hyperlipidemia Hypokalemia Hx of COVID-19 (Oct 2020) Left finger amputation History of Present Illness History of Present Illness 08/09 Patient examined and seen at bedside Chart reviewed No acute events overnight Pt to go for heart cath today DWRHerson and ERUM 08/08 Pt seen and examined at bedside Chart reviewed No acute overnight events Discussed pt's care with granddaughter in room Discussed possibility of pt going for heart cath She states her dyspnea and flank pain has improved Pt's ability to stand and ambulate observed, appears to be at baseline Discussed with RN and SW 08/07 Patient seen and examined Pt states her breathing is unchanged from yesterday Pt states her L. flank pain has improved Charts reviewed DWRN Will consider discharge this afternoon if okay with cardiology 08/06 Pt seen and examined Spoke with daughter on phone with pt present Discussed discharge plans (per subspecialist approval) Pt's only complaint is L. Flank pain Discussed adding fosfomycin for ESBL Tx Charts Reviewed Discussed with RN and ERUM 08/05 Patient seen and examined at bedside Discussed Pt's status with Pt and family Pt reports feeling overall improved Only complaint is L. Flank/LLQ pain (denies dysuria or pain/difficulty with BMs) Charts reviewed DWRHerosn and ERUM 08/04 Patient seen and examined at bedside TTE was being performed at time of exam No acute overnight events noted Discussed pt with daughter Charts reviewed Discussed with RN and SW Vitals/I&O Vitals/I&O: Vital Signs Date Time Temp Pulse Resp B/P (MAP) Pulse Ox O2 Delivery O2 Flow Rate FiO2 08/09/21 11:00 97.3 69 17 99/62 (74) 96 Nasal Cannula 4.0 97.3 I & O 08/08/21 08/08/21 08/09/21 15:00 23:00 07:00 Intake Total 650 ml 0 ml Balance 650 ml 0 ml Physical Exam Physical Exam: GENERAL: No apparent distress. Alert and oriented. Comfortable, pleasant. HEENT: Normal cephalic atraumatic, external auditory canals are patent EYES: EOMI, PERRLA MUSKULOSKELETAL: Well developed, well nourished, good range of motion ENDOCRINE: No thyromegaly was palpated LYMPHATICS: No cervical chain or axillary nodes were noted HEMATOPOIETIC: No bruising NECK: Supple, no JVD, no thyromegaly was noted. LUNGS: She has bibasilar crackles. . HEART: RRR, S1, S2 present. Peripheral pulses intact, no obvious murmurs were noted. ABDOMEN: Soft, Tender (improving) in LLQ/flank. Positive bowel sounds no organomegaly, normal bowel sounds. EXTREMITIES: Without any cyanosis, clubbing, or edema. Pedal pulses intact, Homans sign is negative. NEUROLOGIC: Normal speech, normal tone. AAOx3, moves all extremities, no obvious focal deficits. PSYCHIATRIC: Normal affect, normal mood. Stable. Pleasant. SKIN: No ulcerations or rashes, good skin turgor, no jaundice. VASCULAR: Good capillary refill, neurovascular bundle appears to be intact. General: Alert, Oriented X3, Cooperative, No acute distress Heart: Regular rate, Normal S1, Normal S2, No murmurs Lungs: Clear Abdomen: Normal bowel sounds, Soft, Other (TTP in LLQ/L flank) Extremities: No clubbing, No cyanosis, Other (L. Finger amputated) Skin: No rashes, No breakdown Labs Labs: Laboratory Tests Test 08/08/21 11:38 08/08/21 16:47 08/09/21 04:10 08/09/21 07:42 Glucose (Fingerstick) 104 mg/dL (70-99) 188 mg/dL (70-99) 122 mg/dL (70-99) White Blood Count 6.8 x10^3/uL (4.0-11.0) Red Blood Count 4.45 x10^6/uL (3.50-5.40) Hemoglobin 13.5 g/dL (12.0-15.5) Hematocrit 41.3 % (36.0-47.0) Mean Corpuscular Volume 93 fL (79-100) Mean Corpuscular Hemoglobin 30 pg (25-35) Mean Corpuscular Hemoglobin Concent 33 g/dL (31-37) Red Cell Distribution Width 13.6 % (11.5-14.5) Platelet Count 363 x10^3/uL (140-400) Neutrophils (%) (Auto) 62 % (31-73) Lymphocytes (%) (Auto) 24 % (24-48) Monocytes (%) (Auto) 9 % (0-9) Eosinophils (%) (Auto) 4 % (0-3) Basophils (%) (Auto) 1 % (0-3) Neutrophils # (Auto) 4.2 x10^3/uL (1.8-7.7) Lymphocytes # (Auto) 1.6 x10^3/uL (1.0-4.8) Monocytes # (Auto) 0.6 x10^3/uL (0.0-1.1) Eosinophils # (Auto) 0.2 x10^3/uL (0.0-0.7) Basophils # (Auto) 0.1 x10^3/uL (0.0-0.2) Sodium Level 138 mmol/L (136-145) Potassium Level 5.0 mmol/L (3.5-5.1) Chloride Level 100 mmol/L (98-107) Carbon Dioxide Level 32 mmol/L (21-32) Anion Gap 6 (6-14) Blood Urea Nitrogen 33 mg/dL (7-20) Creatinine 0.7 mg/dL (0.6-1.0) Estimated GFR (Cockcroft-Gault) 83.0 Glucose Level 100 mg/dL (70-99) Calcium Level 10.6 mg/dL (8.5-10.1) Review of Systems Review of Systems: Pt acknowledges feeling SOA and has L. Flank pain (improving) ROS otherwise negative Assessment and Plan Assessmemt and Plan Problems Medical Problems: (1) COPD (chronic obstructive pulmonary disease) Status: Acute (2) Hypokalemia Status: Acute (3) Pulmonary edema with congestive heart failure Status: Acute Acute on chronic systolic and diastolic heart failure COPD (2L at home) Leukocytosis UTI Diabetes Hypertension Hyperlipidemia Hypokalemia Hx of COVID-19 (Oct 2020) Left finger amputation Plan Cardiology and Pulmonology input appreciated Pt going for heart cath today Pulmonology considering outpatient PFT S/p 1x dose fosfomycin for ESBL UTI Continue monitoring on telemetry Continue diuresis Continue serial enzymes Continue serial EKGs Potassium Replaced PT/OT ordered Script provided for Jr [facility] PRN pain management Restarted home meds Cardiac Diet DVT Prophylaxis Discharge disposition pending subspecialist input Full Code Comment Review of Relevant I have reviewed the following items torin (where applicable) has been applied. Justifications for Admission Other Justification JESSA RUIZ III DO Aug 09, 2021 11:36
[2021-08-09] MEDS ORDERED: LIDOCAINE 1% Multi-Dose 20 ML VIAL. INJ ONE (12:30)
[2021-08-09] MEDS ORDERED: fentaNYL PF VIAL 100 MCG/2 ML VIAL IV ONE (12:30)
[2021-08-09] MEDS ORDERED: IODIXANOL 320 MG/ML 100 ML VIAL. IART ONE (12:30)
[2021-08-09] MEDS ORDERED: MIDAZOLAM HCL/PF 2 MG/2 ML VIAL. IV ONE (12:30)
[2021-08-09] MEDS ORDERED: CONTRAST GIVEN. MC PRN (12:45)
--- NOTE | 2021-08-09 14:34 | CARD ---
MR#: [id number] Date of Study: 08/09/2021 Ordering Physician: JANINA TAVAREZ, Referring Physician: JANINA TAVAREZ, Tech: RT Kathy(R) APPROVED REPORT Technologist: Karrie Poon RT(R) Nurse: Becky Eaton RN Procedure(s) performed: Right and left heart catheterization and selective coronary angiography FLUORO TIME: 11.0 MIN DOSE: 48 Gycm2 Contrast: 72cc's Mod Sed: 68 mins INDICATION The indication(s) include : Acute on chronic diastolic heart failure. [facility] Clinical Frailty Scale [facility] Clinical Frailty Scale: Moderately Frail Heart Failure Heart Failure: Yes If Yes, Newly Diagnosed: No If Yes, HF Type: Diastolic If Yes, NYHA Class: Class III CASE TECHNIQUE IV conscious sedation was used throughout procedure with appropriate monitoring and was performed in the presence of a registered nurse who was an independent trained observer other than the physician p erforming the procedure. During this case, Fluoroscopy and low osmolar contrast were used for imaging . Specimen(s) Removed: No Estimated Blood loss: 20 cc's. PROCEDURE NARRATIVE After explaining the risk, benefits and alternative options, informed consent was obtained from patie nt. Patient was brought to the cardiac [facility] [employer] and her right groin was prepped and draped in the us ual fashion. 20 cc of 2% lidocaine was infiltrated into the skin and subcutaneous tissues for local anesthesia. Arterial and venous accesses were obtained in the right common femoral artery and vein r espectively and 6 and 8 [place] sheaths inserted. A 7.5 [place]-Jorge L catheter was then advanced u nder fluoroscopic guidance and intracardiac pressures, oxygen saturations and cardiac output by therm odilution method measured. Subsequently, 6 [place] JL4 and 6 [place] JR4 catheters were used to perfor m selective angiography of the left and right coronary arteries. LVEDP and transaortic gradients wer e measured. Patient tolerated the procedure well. Hemostasis was achieved using manual compression due to high bifurcation. There were no immediate complications. FINDINGS A. RIGHT HEART CATHETERIZATION 1. Intracardiac pressures: Mean right atrial pressure 8 mmHg, right ventricular pressure 39/9 mmHg, pulmonary artery pressure 40/23 mmHg, mean PA pressure 30 mmHg and mean pulmonary capillary wedge pre ssure 14 mmHg. This is consistent with mild pulmonary hypertension. No evidence of elevated filling pressures. 2. Oxygen saturations: SVC 75.9%, IVC 82.5%, mid right atrium 76.6%, PA 77%, arterial sheath 96.9%. No evidence of intracardiac shunt. 3. Cardiac output by Zakiya method 4.1 L/min. B. LEFT HEART CATHETERIZATION 1. Hemodynamics: Left ventricular end-diastolic pressure 7 mmHg. No pullback gradient across the ao rtic valve. 2. Coronary angiography: a. The left main coronary artery arose from the left sinus of Valsalva, gave rise to the left anteri or descending and left circumflex arteries and did not show any significant stenosis. b. The left anterior descending artery did not show any significant stenosis. c. The left circumflex artery was a codominant vessel that did not show any significant stenosis. d. The right coronary artery was a codominant vessel that did not show any significant stenosis. Conclusion 1. No significant coronary artery disease 2. Mild pulmonary hypertension 3. No evidence of intracardiac shunt Recommendations Patient's acute on chronic diastolic heart failure appears to be well compensated. Continue current medical regimen. Signed by : Napoleon Alcazar, Electronically Approved : 08/09/2021 14:33:30
--- NOTE | 2021-08-09 16:23 | NUR ---
SS following up with discharge planning. SS reviewed pt chart and discussed with pt RN. Pt is currently requiring oxygen at three liters nasal canula. Pt has home oxygen. COVID19 negative. Pt had heart cath today. PT/OT recommended home. Script received for [facility]. Script and clinical phoned and faxed to [facility], ; fax [phone]. SS will continue to follow for discharge planning.
[2021-08-09] MEDS: ATORVASTATIN CALCIUM 10 MG TABLET. PO SCH (20:40)
[2021-08-10 03:00] VITALS: BP 109/73
[2021-08-10 05:32] LABS: BASO # 0.1 x10^3/uL (0.0-0.2); BASO % 1 % (0-3); EOS # 0.3 x10^3/uL (0.0-0.7); EOS % 3 % (0-3); HEMATOCRIT 40.4 % (36.0-47.0); HEMOGLOBIN 13.6 g/dL (12.0-15.5); LYMPH # 1.9 x10^3/uL (1.0-4.8); LYMPH % 18 % (24-48); MEAN CORPUSCULAR HEMOGLOBIN 32 pg (25-35); MEAN CORPUSCULAR HGB CONC 34 g/dL (31-37); MEAN CORPUSCULAR VOLUME 94 fL (79-100); MONO % 9 % (0-9); NEUT # 7.7 x10^3/uL (1.8-7.7); NEUT % 70 % (31-73); PLATELET COUNT 331 x10^3/uL (140-400); RED BLOOD COUNT 4.31 x10^6/uL (3.50-5.40); RED CELL DISTRIBUTION WIDTH 13.7 % (11.5-14.5)
[2021-08-10 05:37] LABS: CALCIUM 9.4 mg/dL (8.5-10.1); CREATININE 0.6 mg/dL (0.6-1.0); GFR 99.1; POTASSIUM 4.5 mmol/L (3.5-5.1)
[2021-08-10 07:00] VITALS: BP 110/71
[2021-08-10] MEDS: ASPIRIN ENTERIC COATED 81 MG TABLET.DR. PO SCH (08:42)
[2021-08-10] MEDS: THIAMINE 100 MG TABLET. PO SCH (08:42)
[2021-08-10] MEDS: LACTOBACILLUS RHAMNOSUS GG 1 CAPSULE. PO SCH (08:42)
[2021-08-10] MEDS: ASCORBIC ACID 500 MG TABLET PO SCH (08:42)
[2021-08-10] MEDS: LOSARTAN POTASSIUM 25 MG TABLET. PO SCH (08:42)
[2021-08-10] MEDS: METOPROLOL SUCC 24HR ER 25 MG TAB.ER.24H. PO SCH (08:43)
[2021-08-10] MEDS: CHOLECALCIFEROL (VITAMIN D3) 5,000 UNIT CAPSULE PO SCH (08:43)
[2021-08-10] MEDS: POTASSIUM CHLORIDE 20 MEQ TABLET.ER. PO SCH (08:43)
[2021-08-10] MEDS: ZINC SULFATE 220 MG CAPSULE. PO SCH (08:43)
[2021-08-10] MEDS: SPIRONOLACTONE 25 MG TABLET PO SCH (08:44)
[2021-08-10] MEDS: FUROSEMIDE 40 MG/4 ML VIAL. IVP SCH (08:44)
[2021-08-10 11:00] VITALS: BP 106/73
--- NOTE | 2021-08-10 11:14 | PDOC ---
[facility] PROGRESS NOTE Date of Service DOS: DATE: 08/10/21 TIME: 11:13 Chief Complaint Chief Complaint Acute on chronic systolic and diastolic heart failure COPD (2L at home) Leukocytosis UTI Diabetes Hypertension Hyperlipidemia Hypokalemia Hx of COVID-19 (Oct 2020) Left finger amputation History of Present Illness History of Present Illness 08/10/2021 Patient seen and examined Discussed with RN Chart reviewed Discussed with her daughter Plan is to go ahead and discharge today 08/09 Patient examined and seen at bedside Chart reviewed No acute events overnight Pt to go for heart cath today DWRN and ERUM 08/08 Pt seen and examined at bedside Chart reviewed No acute overnight events Discussed pt's care with granddaughter in room Discussed possibility of pt going for heart cath She states her dyspnea and flank pain has improved Pt's ability to stand and ambulate observed, appears to be at baseline Discussed with RN and SW 08/07 Patient seen and examined Pt states her breathing is unchanged from yesterday Pt states her L. flank pain has improved Charts reviewed DWRN Will consider discharge this afternoon if okay with cardiology 08/06 Pt seen and examined Spoke with daughter on phone with pt present Discussed discharge plans (per subspecialist approval) Pt's only complaint is L. Flank pain Discussed adding fosfomycin for ESBL Tx Charts Reviewed Discussed with RN and ERUM 08/05 Patient seen and examined at bedside Discussed Pt's status with Pt and family Pt reports feeling overall improved Only complaint is L. Flank/LLQ pain (denies dysuria or pain/difficulty with BMs) Charts reviewed DWRHerson and ERUM 08/04 Patient seen and examined at bedside TTE was being performed at time of exam No acute overnight events noted Discussed pt with daughter Charts reviewed Discussed with RN and SW Vitals/I&O Vitals/I&O: Vital Signs Date Time Temp Pulse Resp B/P (MAP) Pulse Ox O2 Delivery O2 Flow Rate FiO2 08/10/21 08:43 97 110/73 08/10/21 07:00 97.5 16 96 Nasal Cannula 4.0 97.5 I & O 08/09/21 08/09/21 08/10/21 15:00 23:00 07:00 Intake Total 0 ml 200 ml 200 ml Balance 0 ml 200 ml 200 ml Physical Exam Physical Exam: GENERAL: No apparent distress. Alert and oriented. Comfortable, pleasant. HEENT: Normal cephalic atraumatic, external auditory canals are patent EYES: EOMI, PERRLA MUSKULOSKELETAL: Well developed, well nourished, good range of motion ENDOCRINE: No thyromegaly was palpated LYMPHATICS: No cervical chain or axillary nodes were noted HEMATOPOIETIC: No bruising NECK: Supple, no JVD, no thyromegaly was noted. LUNGS: She has bibasilar crackles. . HEART: RRR, S1, S2 present. Peripheral pulses intact, no obvious murmurs were noted. ABDOMEN: Soft, Tender (improving) in LLQ/flank. Positive bowel sounds no organomegaly, normal bowel sounds. EXTREMITIES: Without any cyanosis, clubbing, or edema. Pedal pulses intact, Homans sign is negative. NEUROLOGIC: Normal speech, normal tone. AAOx3, moves all extremities, no obvious focal deficits. PSYCHIATRIC: Normal affect, normal mood. Stable. Pleasant. SKIN: No ulcerations or rashes, good skin turgor, no jaundice. VASCULAR: Good capillary refill, neurovascular bundle appears to be intact. General: Alert, Oriented X3, Cooperative, No acute distress Heart: Regular rate, Normal S1, Normal S2, No murmurs Lungs: Clear Abdomen: Normal bowel sounds, Soft, Other (TTP in LLQ/L flank) Extremities: No clubbing, No cyanosis, Other (L. Finger amputated) Skin: No rashes, No breakdown Labs Labs: Laboratory Tests Test 08/09/21 17:01 08/09/21 20:38 08/10/21 04:15 08/10/21 07:52 Glucose (Fingerstick) 83 mg/dL (70-99) 112 mg/dL (70-99) 108 mg/dL (70-99) White Blood Count 11.0 x10^3/uL (4.0-11.0) Red Blood Count 4.31 x10^6/uL (3.50-5.40) Hemoglobin 13.6 g/dL (12.0-15.5) Hematocrit 40.4 % (36.0-47.0) Mean Corpuscular Volume 94 fL (79-100) Mean Corpuscular Hemoglobin 32 pg (25-35) Mean Corpuscular Hemoglobin Concent 34 g/dL (31-37) Red Cell Distribution Width 13.7 % (11.5-14.5) Platelet Count 331 x10^3/uL (140-400) Neutrophils (%) (Auto) 70 % (31-73) Lymphocytes (%) (Auto) 18 % (24-48) Monocytes (%) (Auto) 9 % (0-9) Eosinophils (%) (Auto) 3 % (0-3) Basophils (%) (Auto) 1 % (0-3) Neutrophils # (Auto) 7.7 x10^3/uL (1.8-7.7) Lymphocytes # (Auto) 1.9 x10^3/uL (1.0-4.8) Monocytes # (Auto) 1.0 x10^3/uL (0.0-1.1) Eosinophils # (Auto) 0.3 x10^3/uL (0.0-0.7) Basophils # (Auto) 0.1 x10^3/uL (0.0-0.2) Sodium Level 138 mmol/L (136-145) Potassium Level 4.5 mmol/L (3.5-5.1) Chloride Level 100 mmol/L (98-107) Carbon Dioxide Level 30 mmol/L (21-32) Anion Gap 8 (6-14) Blood Urea Nitrogen 29 mg/dL (7-20) Creatinine 0.6 mg/dL (0.6-1.0) Estimated GFR (Cockcroft-Gault) 99.1 Glucose Level 106 mg/dL (70-99) Calcium Level 9.4 mg/dL (8.5-10.1) Assessment and Plan Assessmemt and Plan Problems Medical Problems: (1) COPD (chronic obstructive pulmonary disease) Status: Acute (2) Hypokalemia Status: Acute (3) Pulmonary edema with congestive heart failure Status: Acute Acute on chronic systolic and diastolic heart failure COPD (2L at home) Leukocytosis UTI Diabetes Hypertension Hyperlipidemia Hypokalemia Hx of COVID-19 (Oct 2020) Left finger amputation Plan Probable discharge later today for now continue the following; Cardiology and Pulmonology input appreciated Pulmonary considering outpatient pulmonary function test , agree S/p 1x dose fosfomycin for ESBL UTI Continue monitoring on telemetry Continue diuresis Continue serial enzymes Continue serial EKGs Potassium Replaced PT/OT ordered Script provided for Jr [facility] PRN pain management Restarted home meds Cardiac Diet DVT Prophylaxis Discharge disposition pending subspecialist input Full Code Comment Review of Relevant I have reviewed the following items torin (where applicable) has been applied. Medications: Current Medications Medications (Trade) Dose Ordered Sig/Fran Route PRN Reason Start Time Stop Time Status Last Admin Dose Admin Heparin Sodium/ Sodium Chloride (HEPARIN for ARTERIAL LINE FLUSH) 1,000 unit 1X ONCE IART 08/09/21 12:30 08/09/21 12:33 DC 08/09/21 12:46 Heparin Sodium/ Sodium Chloride (HEPARIN for ARTERIAL LINE FLUSH) 1,000 unit 1X ONCE IART 08/09/21 12:30 08/09/21 12:33 DC 08/09/21 12:47 Midazolam HCl (Versed) 2 mg 1X ONCE IV 08/09/21 12:30 08/09/21 12:33 DC 08/09/21 12:48 Fentanyl Citrate (Fentanyl 2ml Vial) 100 mcg 1X ONCE IV 08/09/21 12:30 08/09/21 12:33 DC 08/09/21 12:49 Iodixanol (Visipaque 320) 100 ml 1X ONCE IART 08/09/21 12:30 08/09/21 12:33 DC 08/09/21 12:47 Lidocaine HCl (Lidocaine 1% 20ml Vial) 20 ml 1X ONCE INJ 08/09/21 12:30 08/09/21 12:33 DC 08/09/21 12:47 Justifications for Admission Other Justification JESSA RUIZ III DO Aug 10, 2021 11:14
--- NOTE | 2021-08-10 11:20 | PDOC ---
[employer] PROGRESS NOTE Date of Service DOS: DATE: 08/10/21 TIME: 11:16 Chief Complaint Chief Complaint Acute on chronic systolic and diastolic heart failure COPD (2L at home) Leukocytosis UTI Diabetes Hypertension Hyperlipidemia Hypokalemia Hx of COVID-19 (Oct 2020) Left finger amputation History of Present Illness History of Present Illness 08/11/2021 Pt seen and examined Chart reviewed No acute overnight events Patient up in chair, comfortable at time of exam Discussed heart cath results with pt and daughter MARLA and ERUM Plan to discharge today 08/10/2021 Patient seen and examined Discussed with RN Chart reviewed Discussed with her daughter Plan is to go ahead and discharge today 08/09 Patient examined and seen at bedside Chart reviewed No acute events overnight Pt to go for heart cath today MARLA and ERUM 08/08 Pt seen and examined at bedside Chart reviewed No acute overnight events Discussed pt's care with granddaughter in room Discussed possibility of pt going for heart cath She states her dyspnea and flank pain has improved Pt's ability to stand and ambulate observed, appears to be at baseline Discussed with RN and ERUM 08/07 Patient seen and examined Pt states her breathing is unchanged from yesterday Pt states her L. flank pain has improved Charts reviewed DWRN Will consider discharge this afternoon if okay with cardiology 08/06 Pt seen and examined Spoke with daughter on phone with pt present Discussed discharge plans (per subspecialist approval) Pt's only complaint is L. Flank pain Discussed adding fosfomycin for ESBL Tx Charts Reviewed Discussed with RN and SW 08/05 Patient seen and examined at bedside Discussed Pt's status with Pt and family Pt reports feeling overall improved Only complaint is L. Flank/LLQ pain (denies dysuria or pain/difficulty with BMs) Charts reviewed DWRHerson and ERUM 08/04 Patient seen and examined at bedside TTE was being performed at time of exam No acute overnight events noted Discussed pt with daughter Charts reviewed Discussed with RN and SW Vitals/I&O Vitals/I&O: Vital Signs Date Time Temp Pulse Resp B/P (MAP) Pulse Ox O2 Delivery O2 Flow Rate FiO2 08/10/21 08:43 97 110/73 08/10/21 07:00 97.5 16 96 Nasal Cannula 4.0 97.5 I & O 08/09/21 08/09/21 08/10/21 15:00 23:00 07:00 Intake Total 0 ml 200 ml 200 ml Balance 0 ml 200 ml 200 ml Physical Exam Physical Exam: GENERAL: No apparent distress. Pt up in chair. Alert and oriented. Comfortable, pleasant. HEENT: Normal cephalic atraumatic, external auditory canals are patent EYES: EOMI, PERRLA MUSKULOSKELETAL: Well developed, well nourished, good range of motion ENDOCRINE: No thyromegaly was palpated LYMPHATICS: No cervical chain or axillary nodes were noted HEMATOPOIETIC: No bruising NECK: Supple, no JVD, no thyromegaly was noted. LUNGS: She has bibasilar crackles. . HEART: RRR, S1, S2 present. Peripheral pulses intact, no obvious murmurs were noted. ABDOMEN: Soft, Tender (improving) in LLQ/flank. Positive bowel sounds no organomegaly, normal bowel sounds. EXTREMITIES: Without any cyanosis, clubbing, or edema. Pedal pulses intact, Homans sign is negative. NEUROLOGIC: Normal speech, normal tone. AAOx3, moves all extremities, no obvious focal deficits. PSYCHIATRIC: Normal affect, normal mood. Stable. Pleasant. SKIN: No ulcerations or rashes, good skin turgor, no jaundice. VASCULAR: Good capillary refill, neurovascular bundle appears to be intact. General: Alert, Oriented X3, Cooperative, No acute distress Heart: Regular rate, Normal S1, Normal S2, No murmurs Lungs: Clear Abdomen: Normal bowel sounds, Soft, Other (TTP in LLQ/L flank) Extremities: No clubbing, No cyanosis, Other (L. Finger amputated) Skin: No rashes, No breakdown Labs Labs: Laboratory Tests Test 08/09/21 17:01 08/09/21 20:38 08/10/21 04:15 08/10/21 07:52 Glucose (Fingerstick) 83 mg/dL (70-99) 112 mg/dL (70-99) 108 mg/dL (70-99) White Blood Count 11.0 x10^3/uL (4.0-11.0) Red Blood Count 4.31 x10^6/uL (3.50-5.40) Hemoglobin 13.6 g/dL (12.0-15.5) Hematocrit 40.4 % (36.0-47.0) Mean Corpuscular Volume 94 fL (79-100) Mean Corpuscular Hemoglobin 32 pg (25-35) Mean Corpuscular Hemoglobin Concent 34 g/dL (31-37) Red Cell Distribution Width 13.7 % (11.5-14.5) Platelet Count 331 x10^3/uL (140-400) Neutrophils (%) (Auto) 70 % (31-73) Lymphocytes (%) (Auto) 18 % (24-48) Monocytes (%) (Auto) 9 % (0-9) Eosinophils (%) (Auto) 3 % (0-3) Basophils (%) (Auto) 1 % (0-3) Neutrophils # (Auto) 7.7 x10^3/uL (1.8-7.7) Lymphocytes # (Auto) 1.9 x10^3/uL (1.0-4.8) Monocytes # (Auto) 1.0 x10^3/uL (0.0-1.1) Eosinophils # (Auto) 0.3 x10^3/uL (0.0-0.7) Basophils # (Auto) 0.1 x10^3/uL (0.0-0.2) Sodium Level 138 mmol/L (136-145) Potassium Level 4.5 mmol/L (3.5-5.1) Chloride Level 100 mmol/L (98-107) Carbon Dioxide Level 30 mmol/L (21-32) Anion Gap 8 (6-14) Blood Urea Nitrogen 29 mg/dL (7-20) Creatinine 0.6 mg/dL (0.6-1.0) Estimated GFR (Cockcroft-Gault) 99.1 Glucose Level 106 mg/dL (70-99) Calcium Level 9.4 mg/dL (8.5-10.1) Review of Systems Review of Systems: ROS negative Assessment and Plan Assessmemt and Plan Problems Medical Problems: (1) COPD (chronic obstructive pulmonary disease) Status: Acute (2) Hypokalemia Status: Acute (3) Pulmonary edema with congestive heart failure Status: Acute Acute on chronic systolic and diastolic heart failure COPD (2L at home) Leukocytosis UTI Diabetes Hypertension Hyperlipidemia Hypokalemia Hx of COVID-19 (Oct 2020) Left finger amputation Plan Probable discharge later today for now continue the following; Cardiology and Pulmonology input appreciated Pulmonary considering outpatient pulmonary function test , agree S/p 1x dose fosfomycin for ESBL UTI Continue monitoring on telemetry Continue diuresis Continue serial enzymes Continue serial EKGs Potassium Replaced PT/OT ordered Script provided for [facility] PRN pain management Restarted home meds Cardiac Diet DVT Prophylaxis Discharge disposition: likely home today, per subspecialist approval Full Code Comment Review of Relevant I have reviewed the following items torin (where applicable) has been applied. Medications: Current Medications Medications (Trade) Dose Ordered Sig/Fran Route PRN Reason Start Time Stop Time Status Last Admin Dose Admin Heparin Sodium/ Sodium Chloride (HEPARIN for ARTERIAL LINE FLUSH) 1,000 unit 1X ONCE IART 08/09/21 12:30 08/09/21 12:33 DC 08/09/21 12:46 Heparin Sodium/ Sodium Chloride (HEPARIN for ARTERIAL LINE FLUSH) 1,000 unit 1X ONCE IART 08/09/21 12:30 08/09/21 12:33 DC 08/09/21 12:47 Midazolam HCl (Versed) 2 mg 1X ONCE IV 08/09/21 12:30 08/09/21 12:33 DC 08/09/21 12:48 Fentanyl Citrate (Fentanyl 2ml Vial) 100 mcg 1X ONCE IV 08/09/21 12:30 08/09/21 12:33 DC 08/09/21 12:49 Iodixanol (Visipaque 320) 100 ml 1X ONCE IART 08/09/21 12:30 08/09/21 12:33 DC 08/09/21 12:47 Lidocaine HCl (Lidocaine 1% 20ml Vial) 20 ml 1X ONCE INJ 08/09/21 12:30 08/09/21 12:33 DC 08/09/21 12:47 Justifications for Admission Other Justification JESSA RUIZ III DO Aug 10, 2021 11:19
--- NOTE | 2021-08-10 12:56 | NUR ---
SS following up with discharge planning. SS reviewed pt chart and discussed with pt RN. Pt is currently requiring oxygen at four liters nasal canula. COVID19 negative. Pt had heart cath on 08/09/2021. Pt has home oxygen. Walker delivered today for home. Discharge order on the chart for home with self care.
--- NOTE | 2021-08-10 15:41 | NUR ---
Discharge Note: DAVID MATAMOROS6 [facility] Discharge instructions and discharge home medications reviewed with Family Member and a copy given. All questions have been answered and understanding verbalized. Follow up with Dr. Alcazar on Sep 29. All cardiac cath post procedure instructions given. Medications and restrictions reviewed and understanding verbalized. Pt in stable condition at time of DC. Pt sent with walker delivered from outside company.
--- NOTE | 2021-08-11 02:16 | DS ---
DATE OF DISCHARGE: 08/10/2021 ADDENDUM She is being discharged today on 08/10, she was admitted on 08/02. As an addendum to the discharge summary that was dictated on 08/07, we had to hold the discharge as Cardiology decided to go forward with the cardiac catheterization. She got a cardiac catheterization yesterday. It did not show any significant coronary artery disease, I believe they are okay with her going home today. Clinically, she looks great. I saw and examined her. We are going to discharge with close outpatient followup. Please see previous discharge summary for medications. AURORA/SAHIL/REGIS DR: AURORA/zaida TID: [id number]
[2021-08-11] MEDS ORDERED: metFORMIN 500 MG TABLET PO SCH (17:00)
== END 2021-08-10 13:10 | disposition home or self-care (01) | DRG 286 ==
LOC: ER 16:50 → 6 SOUTH 20:15
PROVIDERS: ADMIT Student in an Organized Health Care Education/Training Program; ATTEND Student in an Organized Health Care Education/Training Program
PROC: 4A023N7 Measurement of Cardiac Sampling and Pressure, Left Heart, Percutaneous Approach (ICD-10-PCS; principal; 2021-08-09)
PROC: B2111ZZ Fluoroscopy of Multiple Coronary Arteries using Low Osmolar Contrast (ICD-10-PCS; 2021-08-09)
DX: I13.0 Hypertensive heart and chronic kidney disease with heart failure and stage 1 through stage 4 chronic kidney disease, or unspecified chronic kidney disease (principal); I50.43 Acute on chronic combined systolic (congestive) and diastolic (congestive) heart failure; J96.21 Acute and chronic respiratory failure with hypoxia; N39.0 Urinary tract infection, site not specified; Z16.12 Extended spectrum beta lactamase (ESBL) resistance; E11.22 Type 2 diabetes mellitus with diabetic chronic kidney disease; E78.00 Pure hypercholesterolemia, unspecified; E78.5 Hyperlipidemia, unspecified; E87.6 Hypokalemia; J44.9 Chronic obstructive pulmonary disease, unspecified; N18.9 Chronic kidney disease, unspecified; Z83.3 Family history of diabetes mellitus; Z86.15 Personal history of latent tuberculosis infection; Z86.16 Personal history of COVID-19; Z87.891 Personal history of nicotine dependence; Z99.81 Dependence on supplemental oxygen; M19.90 Unspecified osteoarthritis, unspecified site; I25.5 Ischemic cardiomyopathy; Z20.822 Contact with and (suspected) exposure to COVID-19
CPT/HCPCS: 36415; 71045; 80048; 80053; 81001; 82150; 82962; 83605; 83690; 83735; 85025; 87040; 87077; 87086; 87186; 87426; 87804; 93306; 93460; 96365; 96366; 96375; 99152; 99153; C1773; C1894; J0696; J1644; J1940; J2185; J2250; J2405; J3010; J3480; J3490; Q9967; U0003; U0005; 97110-GP; 97116-GP; 97530-GP; 97535-GO; 99285-25; G0378

== ENCOUNTER → 2022-02-06 | Outpatient (CLI) | payer OTHER ==
[~2022-02-06] MED LIST changes: +FURO-69 PO; +LOSA-362 PO; -LOSA25TA4 PO; +LOSA25TA54 PO
--- NOTE | 2022-02-06 17:02 | CARD ---
MR#: [id number] Date of Study: 02/06/2022 Ordering Physician: KARL ALCAZAR, Referring Physician: Kari BECKER: Emile Rucker [facility] APPROVED REPORT EXAM: Two-dimensional and M-mode echocardiogram with Doppler and color Doppler. Other Information Quality : AverageHR: 87bpm Rhythm : NSR INDICATION Cardiomyopathy Congestive Heart Failure RISK FACTORS Obesity 2D DIMENSIONS Left Atrium(2D)4.6 (1.6-4.0cm)IVSd1.0 (0.7-1.1cm) Aortic Root(2D)3.3 (2.0-3.7cm)LVDd5.4 (3.9-5.9cm) LVOT Diameter2.1 (1.8-2.4cm)PWd1.0 (0.7-1.1cm) LA Xralxx51 (18-58mL)LVDs4.8 (2.5-4.0cm) FS (%) 10.3 %SV31.4 ml LVEF(%)22.4 (>50%) Aortic Valve AoV Peak Jamir.121.6cm/sAoV VTI17.3cm AO Peak GR.5.9mmHgLVOT Peak Jamir.53.3cm/s LVOT VTI 12.61cmAO Mean GR.3mmHg AIDA (VMAX)1.22ob0KHV (VTI)2.49cm2 AI P 1/2 [id number] Mitral Valve MV E Lzxpjsmu27.7cm/sMV DECEL [id number] MV A Xddctvpg35.5cm/sMV [id number] E/A Ratio0.4MVA (PHT)5.74cm2 TDI E/Lateral E'3.1E/Medial E'3.5 Pulmonary Valve PV Peak Mwppedko35.2cm/sPV Peak Grad.3mmHg Tricuspid Valve TR P. Ttscuqjs906lt/sTR Peak Gr.23mmHg LEFT VENTRICLE The left ventricle is normal size. There is normal left ventricular wall thickness. The left ventricu lar systolic function is severely impaired. The Ejection Fraction is 20-25%. There is global hypokine sis of the left ventricle. No left ventricle thrombus noted on this study. There is no ventricular se ptal defect visualized. There is no left ventricular aneurysm. There is no mass noted in the left elizabeth tricle. RIGHT VENTRICLE The right ventricle is normal size. There is normal right ventricular wall thickness. The right ventr icular systolic function is normal. ATRIA The left atrium is mildly dilated. The right atrium size is normal. The interatrial septum is intact with no evidence for an atrial septal defect or patent foramen ovale as noted on 2-D or Doppler imagi ng. AORTIC VALVE The aortic valve is mildly sclerotic. The aortic valve is tri-cuspid. Doppler and Color Flow revealed trace to mild aortic regurgitation. There is no significant aortic valvular stenosis. There is no ao rtic valvular vegetation. MITRAL VALVE The mitral valve is thickened but opens well. There is no evidence of mitral valve prolapse. There is no mitral valve stenosis. Doppler and Color-flow revealed trace mitral regurgitation. TRICUSPID VALVE The tricuspid valve is normal in structure and function. Doppler and Color Flow revealed trace tricus pid regurgitation. There is no tricuspid valve prolapse or vegetation. There is no tricuspid valve st enosis. PULMONIC VALVE The pulmonary valve is normal in structure and function. There is trivial pulmonic regurgitation. The re is no pulmonic valvular stenosis. GREAT VESSELS The aortic root is normal in size. The ascending aorta is normal in size. The pulmonary artery is nor mal. The IVC is normal in size and collapses >50% with inspiration. PERICARDIAL EFFUSION There is no pleural effusion. There is no evidence of significant pericardial effusion. Critical Notification Critical Value: No <Conclusion> The left ventricular systolic function is severely impaired. The Ejection Fraction is 20-25%. Trace to mild aortic regurgitation. Trace mitral regurgitation. Trace tricuspid regurgitation. There is no evidence of significant pericardial effusion. Signed by : Karl Alcazar, Electronically Approved : 02/06/2022 17:02:11
== END ==
LOC: ECHO 12:10
PROVIDERS: ATTEND Internal Medicine Cardiovascular Disease
DX: I08.0 Rheumatic disorders of both mitral and aortic valves (principal); I50.22 Chronic systolic (congestive) heart failure
CPT/HCPCS: 93306; C8929